=== PATIENT | male | born 1960 | race Caucasian/White ===

== ENCOUNTER 2018-06-03 20:47 | Inpatient (IN) | payer BC ==
[2018-06-03] VITALS (7 sets, daily range): BP systolic 77–140; BP diastolic 53–91
[~2018-06-03] VITALS: Ht 172.7 cm; Wt 146.1 kg
[~2018-06-03 20:47] MED LIST: AMIODARONE 150 MG/3 ML VIAL ONE; MAGNESIUM SULFATE PREMIX 1 GM/100 ML BAG. IV ONE
[2018-06-03] MEDS ORDERED: AMIODARONE 900 MG in IV DEXTROSE 5% 500 ML IV ONE ×2 (21:00→21:15)
[2018-06-03 21:09] LABS: CREATININE ISTAT 1.3 mg/dL (0.5-1.4); ION CA ISTAT 1.05 mmol/L (1.13-1.32); POTASSIUM ISTAT 3.1 mmol/L (3.5-5.0)
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
[2018-06-03] MEDS ORDERED: MAGNESIUM SULFATE 1GM 100 ML IV ONE (21:15)
[2018-06-03] MEDS ORDERED: AMIODARONE 150 MG/3 ML VIAL IVP ONE (21:15)
[2018-06-03 21:16] LABS: BASO # 0.1 x10^3/uL (0.0-0.2); BASO % 1 % (0-3); EOS # 0.2 x10^3/uL (0.0-0.7); EOS % 1 % (0-3); HEMATOCRIT 47.2 % (39.0-53.0); HEMOGLOBIN 15.5 g/dL (13.0-17.5); LYMPH # 8.7 x10^3/uL (1.0-4.8); LYMPH % 47 % (24-48); MEAN CORPUSCULAR HEMOGLOBIN 31 pg (25-35); MEAN CORPUSCULAR HGB CONC 33 g/dL (31-37); MEAN CORPUSCULAR VOLUME 93 fL (79-100); MONO % 6 % (0-9); NEUT # 8.4 x10^3uL (1.8-7.7); NEUT % 46 % (31-73); PLATELET COUNT 285 x10^3/uL (140-400); RED BLOOD COUNT 5.08 x10^6/uL (4.30-5.70); RED CELL DISTRIBUTION WIDTH 13.9 % (11.5-14.5); WHITE BLOOD COUNT 18.4 x10^3/uL (4.0-11.0)
[2018-06-03] MEDS ORDERED: PROPOFOL 50 ML IV ONE (21:16)
[2018-06-03] MEDS ORDERED: NOREPINEPHRIN 8MG/250ML PREMIX 250 ML IV ONE ×2 (21:17→21:30)
[2018-06-03 21:25] LABS: PROTHROMBIN TIME PATIENT 14.9 SEC (11.7-14.0)
[2018-06-03 21:28] LABS: CALCIUM 8.4 mg/dL (8.5-10.1); CREATININE 1.4 mg/dL (0.7-1.3); GFR 52.1; POTASSIUM 3.9 mmol/L (3.5-5.1)
[2018-06-03] MEDS ORDERED: CONTRAST GIVEN. MC PRN (21:30)
[2018-06-03] MEDS ORDERED: IOHEXOL 300 MG/ML 100ML VIAL. IV ONE (21:30)
[2018-06-03] MEDS ORDERED: PROPOFOL 20 ML IV ONE (21:30)
[2018-06-03 21:34] LABS: ALBUMIN 3.2 g/dL (3.4-5.0); ALBUMIN/GLOBULIN RATIO 0.9 (1.0-1.7); MAGNESIUM 2.3 mg/dL (1.8-2.4); TOTAL BILIRUBIN 0.5 mg/dL (0.2-1.0); TOTAL PROTEIN 6.9 g/dL (6.4-8.2)
[2018-06-03 21:37] LABS: % BANDS 3 % (0-9); % BASOS 1 % (0-3); % EOS 5 % (0-5); % LYMPHS 47 % (24-48); % MONOS 2 % (0-10); % MYELOS 1 % (0-0); % SEGS 41 % (35-66)
[2018-06-03 21:39] LABS: PLT ESTIMATE ADEQUATE (ADEQUATE)
[2018-06-03 21:47] LABS: BILIRUBIN,URINE NEGATIVE (NEG); CLARITY,URINE CLEAR; COLOR,URINE YELLOW; NITRITE,URINE NEGATIVE (NEG); PROTEIN,URINE NEGATIVE (NEG-TRACE); UROBILINOGEN,URINE 0.2 mg/dL (0.2 mg/dL)
[2018-06-03 21:57] LABS: AMPHETAMINE/METHAMPHETAMINE NEG (NEG); BARBITURATES NEG (NEG); BENZODIAZEPINES NEG (NEG); CANNABINOIDS NEG (NEG); COCAINE NEG (NEG); METHADONE NEG (NEG); OPIATES NEG (NEG); PHENCYCLIDINE NEG (NEG)
[2018-06-03 21:58] LABS: BACTERIA,URINE 0 /HPF (0-FEW); SQUAMOUS EPITHELIAL CELL,UR FEW /LPF; WBC,URINE RARE /HPF (0-4)
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
[2018-06-03] MEDS ORDERED: POTASSIUM CHLORIDE 20 MEQ/15 ML ORAL LIQUID. NG ONE (22:30)
[2018-06-03] MEDS ORDERED: DEXTROSE 50% 25 GM / 50ML DISP.SYRIN. IV PRN (22:30)
[2018-06-03] MEDS ORDERED: INSULIN REGULAR VIAL 150 UNIT in 0.9 % SODIUM CHLORIDE 150ML 150 ML IV PRN (22:30)
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
[2018-06-03] MEDS ORDERED: HALOPERIDOL LACTATE 5 MG/ML VIAL. IVP PRN (22:45)
[2018-06-03 23:02] LABS: BASE EXCESS ABG -9 mmol/L (-3-3); CORRECTED PCO2 ABG 45 mmHg; CORRECTED PH ABG 7.23; CORRECTED PO2 ABG 73 mmHg; HCO3 ABG 18 mmol/L (21-28); SAT O2 ABG 91 % (92-99)
[2018-06-03 23:03] LABS: FIO2 ABG 100; PCO2 ABG 44 mmHg (35-46); PO2 ABG 70 mmHg (75-108)
[2018-06-03] MEDS: HEPARIN for IV BOLUS 10,000 UNIT/10 ML VIAL. IV PRN (23:08)
[2018-06-03] MEDS: HEPARIN 25,000UTS/500ML PREMIX 500 ML IV PRN (23:11)
[2018-06-03] MEDS ORDERED: fentaNYL PF VIAL 100 MCG/2 ML VIAL IV ONE (23:15)
[2018-06-03] MEDS ORDERED: IV NORMAL SALINE 500ML BAG 500 ML IV ONE (23:15)
[2018-06-03] MEDS ORDERED: ETOMIDATE 20 MG/10 ML VIAL. IV ONE (23:15)
[2018-06-03] MEDS ORDERED: MIDAZOLAM HCL/PF 5 MG/5 ML VIAL. IV ONE (23:15)
[2018-06-03] MEDS ORDERED: ROCURONIUM 50 MG/5 ML VIAL. IV ONE (23:15)
[2018-06-03] MEDS ORDERED: SUCCINYLCHOLINE 200 MG/10 ML VIAL. IV ONE (23:15)
[2018-06-03] MEDS: MIDAZOLAM 100mg/100ml NS BAG 100 ML IV PRN (23:24)
[2018-06-03] MEDS: IV NORMAL SALINE 1000ML BAG 1,000 ML IV SCH (23:32)
[2018-06-04] VITALS (39 sets, daily range): BP systolic 102–174; BP diastolic 64–106
[2018-06-04] MEDS ORDERED: ACETAMINOPHEN 650 MG/20.3 ML SOLUTION. NG SCH
[2018-06-04] MEDS ORDERED: 0.9 % SODIUM CHLORIDE 10 ML DISP.SYRIN. IV PRN
[2018-06-04] MEDS ORDERED: MEPERIDINE PF 25 MG/ML VIAL. IV PRN
--- NOTE | 2018-06-04 00:08 | RAD ---
AP portable chest radiograph 06/03/2018 Clinical History: Post intubation. An AP erect portable digital radiograph of the chest was obtained. No previous studies are available for comparison. An ET tube has been placed. The tip of this tube overlies the trachea 2 cm below the level of clavicles. An NG tube has been placed. The tip of this tube is off this radiograph in the region of the body the stomach. The cardiac silhouette is mildly enlarged. Atherosclerotic calcification thoracic aorta is seen. Prominence of the pulmonary vasculature is seen involving both lungs. Left lower lobe atelectasis is seen. No pneumothorax or pleural effusion is noted. The osseous structures are grossly intact. IMPRESSION: ET and NG tube position as outlined above. Electronically signed by: Akil Castaneda MD (06/04/2018 12:04 AM) [facility]
[2018-06-04] MEDS ORDERED: IV NORMAL SALINE 500ML BAG 500 ML IV PRN (00:15)
[2018-06-04] MEDS ORDERED: NOREPINEPHRIN 8MG/250ML PREMIX 250 ML IV PRN (00:15)
[2018-06-04] MEDS: IV NORMAL SALINE 1000ML BAG 1,000 ML IV SCH ×12 (00:19→20:44)
[2018-06-04] MEDS ORDERED: PIP/TAZO PER PHARMACY MC PRN (00:30)
[2018-06-04] MEDS ORDERED: ONDANSETRON PF 4 MG/2 ML VIAL. IV PRN (00:45)
[2018-06-04] MEDS: PIPERACILLIN/TAZOBACTAM 3.375 GM in IV NORMAL SALINE 50ML 50 ML IV SCH ×5 (00:47→23:39)
[2018-06-04] MEDS ORDERED: VANCOMYCIN 2 GM in IV NORMAL SALINE 500ML BAG 500 ML IV ONE (01:00)
[2018-06-04] MEDS ORDERED: levETIRAcetam 500 MG in IV DEXTROSE 5% 100ML 100 ML IV ONE (01:00)
[2018-06-04] MEDS: VANCOMYCIN PER PHARMACY MC PRN ×2 (01:03→11:13)
[2018-06-04 01:32] LABS: CALCIUM 8.2 mg/dL (8.5-10.1); CREATININE 1.7 mg/dL (0.7-1.3); GFR 41.6; POTASSIUM 3.9 mmol/L (3.5-5.1)
[2018-06-04] MEDS: VECURONIUM BOLUS 10 MG VIAL. IV PRN ×7 (03:05→23:04)
[2018-06-04 06:31] LABS: HEMATOCRIT 45.7 % (39.0-53.0); HEMOGLOBIN 15.7 g/dL (13.0-17.5); RED BLOOD COUNT 5.06 x10^6/uL (4.30-5.70); RED CELL DISTRIBUTION WIDTH 13.3 % (11.5-14.5); WHITE BLOOD COUNT 14.7 x10^3/uL (4.0-11.0)
[2018-06-04 06:48] LABS: PROTHROMBIN TIME PATIENT 15.4 SEC (11.7-14.0)
[2018-06-04 06:49] LABS: UNFRACTIONATED HEPARIN TESTING 0.34 IU/mL (0.30-0.70)
[2018-06-04 07:04] LABS: ALBUMIN 2.9 g/dL (3.4-5.0); CALCIUM 7.1 mg/dL (8.5-10.1); CREATININE 1.4 mg/dL (0.7-1.3); GFR 52.1; POTASSIUM 4.2 mmol/L (3.5-5.1); TOTAL BILIRUBIN 0.9 mg/dL (0.2-1.0); TOTAL PROTEIN 5.8 g/dL (6.4-8.2)
[2018-06-04 07:05] LABS: DIRECT BILIRUBIN 0.2 mg/dL (0.0-0.2); MAGNESIUM 1.6 mg/dL (1.8-2.4); PHOSPHORUS 4.3 mg/dL (2.6-4.7)
--- NOTE | 2018-06-04 07:23 | EKG ---
[facility] [address] [place] [address] Test Date: 2018-06-03 Test Time: 20:56:21 Pat Name: CORONA SPENCE Department: Room: Gender: M [employer]: BERNADINE : 1960 Requested By: ОЛЕГ BOSTON Order Number: [id number] Reading MD: Measurements Intervals [place] Rate: 113 P: 29 NC: 158 QRS: 51 QRSD: 112 T: 138 QT: 346 QTc: 480 Interpretive Statements SINUS TACHYCARDIA COMPLEX(ES) WITH ABERRANT INTRAVENTRICULAR CONDUCTION R-S TRANSITION ZONE IN V LEADS DISPLACED TO THE LEFT ST & T ABNORMALITY, CONSIDER INFERIOR ISCHEMIA OR LEFT VENTRICULAR STRAIN T ABNORMALITY IN HIGH LATERAL LEADS NON SPECIFIC ST-T ABNORMALITY (ELEVATION) ABNORMAL ECG No previous ECG available for comparison
--- NOTE | 2018-06-04 07:52 | PDOC ---
Infectious Disease Note Vital Sign Vital Signs Vital Signs Date Time Temp Pulse Resp B/P (MAP) Pulse Ox O2 Delivery O2 Flow Rate FiO2 06/04/18 06:00 92.9 60 20 161/88 (112) 97 Ventilator 92.9 Labs Lab Laboratory Tests Test 06/03/18 20:57 06/03/18 21:02 06/03/18 21:05 06/03/18 21:31 Bedside Troponin I 0.08 ng/ml (<0.08) Bedside Hemoglobin 16.0 g/dL (14-18) Bedside Hematocrit 47 % (37-52) Bedside Sodium 141 mmol/L (135-145) Bedside Potassium 3.1 mmol/L (3.5-5.0) Bedside Chloride 104 mmol/L (98-110) Bedside Total CO2 20 mmol/L (23-32) Anion Gap 22 mmol/L (6-14) 19 (6-14) Bedside Blood Urea Nitrogen 15 mg/dL (8-26) Bedside Creatinine 1.3 mg/dL (0.5-1.4) Glucose Level 337 mg/dL (70-99) 312 mg/dL (70-99) Bedside Ionized Calcium (Memo) 1.05 mmol/L (1.13-1.32) White Blood Count 18.4 x10^3/uL (4.0-11.0) Red Blood Count 5.08 x10^6/uL (4.30-5.70) Hemoglobin 15.5 g/dL (13.0-17.5) Hematocrit 47.2 % (39.0-53.0) Mean Corpuscular Volume 93 fL (79-100) Mean Corpuscular Hemoglobin 31 pg (25-35) Mean Corpuscular Hemoglobin Concent 33 g/dL (31-37) Red Cell Distribution Width 13.9 % (11.5-14.5) Platelet Count 285 x10^3/uL (140-400) Neutrophils (%) (Auto) 46 % (31-73) Lymphocytes (%) (Auto) 47 % (24-48) Monocytes (%) (Auto) 6 % (0-9) Eosinophils (%) (Auto) 1 % (0-3) Basophils (%) (Auto) 1 % (0-3) Neutrophils # (Auto) 8.4 x10^3uL (1.8-7.7) Lymphocytes # (Auto) 8.7 x10^3/uL (1.0-4.8) Monocytes # (Auto) 1.0 x10^3/uL (0.0-1.1) Eosinophils # (Auto) 0.2 x10^3/uL (0.0-0.7) Basophils # (Auto) 0.1 x10^3/uL (0.0-0.2) Segmented Neutrophils % 41 % (35-66) Band Neutrophils % 3 % (0-9) Lymphocytes % 47 % (24-48) Monocytes % 2 % (0-10) Eosinophils % 5 % (0-5) Basophils % 1 % (0-3) Myelocytes % 1 % (0-0) Platelet Estimate Adequate (ADEQUATE) Prothrombin Time 14.9 SEC (11.7-14.0) Prothromb Time International Ratio 1.2 (0.8-1.1) Sodium Level 141 mmol/L (136-145) Potassium Level 3.9 mmol/L (3.5-5.1) Chloride Level 102 mmol/L (98-107) Carbon Dioxide Level 20 mmol/L (21-32) Blood Urea Nitrogen 15 mg/dL (8-26) Creatinine 1.4 mg/dL (0.7-1.3) Estimated GFR (Cockcroft-Gault) 52.1 BUN/Creatinine Ratio 11 (6-20) Lactic Acid Level 10.1 mmol/L (0.4-2.0) Calcium Level 8.4 mg/dL (8.5-10.1) Magnesium Level 2.3 mg/dL (1.8-2.4) Total Bilirubin 0.5 mg/dL (0.2-1.0) Aspartate Amino Transf (AST/SGOT) 180 U/L (15-37) Alanine Aminotransferase (ALT/SGPT) 186 U/L (16-63) Alkaline Phosphatase 87 U/L (46-116) Troponin I Quantitative 0.091 ng/mL (0.000-0.055) [id number]-[id number]-Type Natriuretic Peptide 1059 pg/mL (0-124) Total Protein 6.9 g/dL (6.4-8.2) Albumin 3.2 g/dL (3.4-5.0) Albumin/Globulin Ratio 0.9 (1.0-1.7) Ethyl Alcohol Level 55 mg/dL (0-10) Urine Collection Type U cath Urine Color Yellow Urine Clarity Clear Urine pH 6.0 Urine Specific [place] 1.020 Urine Protein Negative mg/dL (NEG-TRACE) Urine Glucose (UA) Negative mg/dL (NEG) Urine Ketones (Stick) Negative mg/dL (NEG) Urine Blood Negative (NEG) Urine Nitrite Negative (NEG) Urine Bilirubin Negative (NEG) Urine Urobilinogen Dipstick 0.2 mg/dL (0.2 mg/dL) Urine Leukocyte Esterase Negative (NEG) Urine RBC 1-2 /HPF (0-2) Urine WBC Rare /HPF (0-4) Urine Squamous Epithelial Cells Few /LPF Urine Bacteria 0 /HPF (0-FEW) Urine Mucus Marked /LPF Urine Opiates Screen Neg (NEG) Urine Methadone Screen Neg (NEG) Urine Barbiturates Neg (NEG) Urine Phencyclidine Screen Neg (NEG) Urine Amphetamine/Methamphetamine Neg (NEG) Urine Benzodiazepines Screen Neg (NEG) Urine Cocaine Screen Neg (NEG) Urine Cannabinoids Screen Neg (NEG) Urine Ethyl Alcohol Neg (NEG) Test 06/03/18 22:47 06/03/18 23:42 06/04/18 00:37 06/04/18 00:50 O2 Saturation 91 % (92-99) Arterial Blood pH 7.24 (7.35-7.45) Arterial Blood pH (Temp corrected) 7.23 Arterial Blood pCO2 at Patient Temp 44 mmHg (35-46) Arterial Blood pCO2 (Temp correct) 45 mmHg Arterial Blood pO2 at Patient Temp 70 mmHg (75-108) Arterial Blood pO2 (Temp corrected) 73 mmHg Arterial Blood HCO3 18 mmol/L (21-28) Arterial Blood Base Excess -9 mmol/L (-3-3) FiO2 100 Glucose (Fingerstick) 183 mg/dL (70-99) 181 mg/dL (70-99) Sodium Level 142 mmol/L (136-145) Potassium Level 3.9 mmol/L (3.5-5.1) Chloride Level 106 mmol/L (98-107) Carbon Dioxide Level 23 mmol/L (21-32) Anion Gap 13 (6-14) Blood Urea Nitrogen 18 mg/dL (8-26) Creatinine 1.7 mg/dL (0.7-1.3) Estimated GFR (Cockcroft-Gault) 41.6 Glucose Level 192 mg/dL (70-99) Lactic Acid Level 3.4 mmol/L (0.4-2.0) Calcium Level 8.2 mg/dL (8.5-10.1) Troponin I Quantitative 1.897 ng/mL (0.000-0.055) Procalcitonin 0.51 ng/mL (0.00-0.10) Test 06/04/18 04:10 06/04/18 06:20 Glucose (Fingerstick) 159 mg/dL (70-99) White Blood Count 14.7 x10^3/uL (4.0-11.0) Red Blood Count 5.06 x10^6/uL (4.30-5.70) Hemoglobin 15.7 g/dL (13.0-17.5) Hematocrit 45.7 % (39.0-53.0) Mean Corpuscular Volume 90 fL (79-100) Mean Corpuscular Hemoglobin 31 pg (25-35) Mean Corpuscular Hemoglobin Concent 34 g/dL (31-37) Red Cell Distribution Width 13.3 % (11.5-14.5) Platelet Count 210 x10^3/uL (140-400) Prothrombin Time 15.4 SEC (11.7-14.0) Prothromb Time International Ratio 1.3 (0.8-1.1) Heparin Anti-Xa Act, Unfractionated 0.34 IU/mL (0.30-0.70) Sodium Level 140 mmol/L (136-145) Potassium Level 4.2 mmol/L (3.5-5.1) Chloride Level 108 mmol/L (98-107) Carbon Dioxide Level 19 mmol/L (21-32) Anion Gap 13 (6-14) Blood Urea Nitrogen 20 mg/dL (8-26) Creatinine 1.4 mg/dL (0.7-1.3) Estimated GFR (Cockcroft-Gault) 52.1 BUN/Creatinine Ratio 14 (6-20) Glucose Level 232 mg/dL (70-99) Calcium Level 7.1 mg/dL (8.5-10.1) Phosphorus Level 4.3 mg/dL (2.6-4.7) Magnesium Level 1.6 mg/dL (1.8-2.4) Total Bilirubin 0.9 mg/dL (0.2-1.0) Direct Bilirubin 0.2 mg/dL (0.0-0.2) Aspartate Amino Transf (AST/SGOT) 250 U/L (15-37) Alanine Aminotransferase (ALT/SGPT) 190 U/L (16-63) Alkaline Phosphatase 65 U/L (46-116) Troponin I Quantitative 2.472 ng/mL (0.000-0.055) Total Protein 5.8 g/dL (6.4-8.2) Albumin 2.9 g/dL (3.4-5.0) Albumin/Globulin Ratio 1.0 (1.0-1.7) Amylase Level 39 U/L (25-115) Lipase 102 U/L (73-393) Objective Assessment s/p Arrest and hypothermia protocol Leukocytosis Distended GB on CT scan DWAIN - better today but post contrast now ETOH abuse Anterior Rib fractures 4 through 7 Yeast skin infection. ? Systemic yeast on some med per primary Morbid obesity Plan Plan of Care Vanc and Zosyn started this am Add Micafungin Central line U/S abd with GB distension on CT F/u labs/cults Await Pulm and cardiac evals D/w family 35 mins CC time D/w nursing Thank you # [phone] DOLORES BAILEY MD Jun 04, 2018 07:52
[2018-06-04] MEDS ORDERED: LIDOCAINE WITH 8.4% SOD BICARB 3 ML DISP.SYRIN. ONE (08:05)
[2018-06-04 08:34] LABS: BASE EXCESS ABG -12 mmol/L (-3-3); HCO3 ABG 14 mmol/L (21-28); PCO2 ABG 34 mmHg (35-46); PO2 ABG 72 mmHg (75-108); SAT O2 ABG 92 % (92-99)
[2018-06-04 08:56] LABS: FIO2 ABG 100
[2018-06-04] MEDS ORDERED: MULTIVIT INFUSN,ADULT 4,VIT K 10 ML, THIAMINE 100 MG, FOLIC ACID 1 MG in IV NORMAL SALI... IV SCH (09:00)
[2018-06-04] MEDS ORDERED: SODIUM BICARB ADULT 8.4% 50 MEQ/50 ML DISP.SYRIN. IV ONE ×2 (09:15)
[2018-06-04] MEDS ORDERED: LIDOCAINE WITH 8.4% SOD BICARB 3 ML DISP.SYRIN. INJ ONE (09:15)
--- NOTE | 2018-06-04 09:46 | RAD ---
PORTABLE supine CHEST 1V Clinical Indication: Central line placement and RF Comparison: AP chest, prior day. Findings: Endotracheal tube tip is 3.9 cm spared to the leanna. Enteric tube extends below left hemidiaphragm, outside of [id number]. There is new right IJ central line, tip is at the superior atrial caval junction. Stable cardiomegaly. Atherosclerotic aortic arch. There is new opacity at the right lung apex. No obvious pneumothorax, limited sensitivity with supine positioning. Low lung volumes. Pulmonary vascular prominence appears improved. There is left basilar airspace disease. IMPRESSION: 1. Right IJ central line tip at superior atrial caval junction. 2. There is new opacity in the right lung apex. 3. Left basilar airspace disease. Electronically signed by: Ramiro Bruner MD (06/04/2018 9:42 AM) [id number]
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
[2018-06-04] MEDS: MICAFUNGIN 100 MG in IV DEXTROSE 5% 100ML 100 ML IV SCH (10:32)
[2018-06-04] MEDS: levETIRAcetam 500 MG in IV DEXTROSE 5% 100ML 100 ML IV SCH ×2 (10:32→20:43)
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
[2018-06-04] MEDS ORDERED: MAGNESIUM SULFATE 4GM 100 ML IV ONE (11:00)
[2018-06-04] MEDS: ANTI-COAG MONITOR BY PHARMACY. MC PRN (11:07)
--- NOTE | 2018-06-04 11:16 | RAD ---
Abdominal ultrasound without comparison for gallbladder distention, status post cardiac arrest. TECHNIQUE AND FINDINGS: Real-time grayscale and color cyst Doppler evaluation of the abdominal organs is performed. The liver is enlarged measuring 20.5 cm, and increased in echogenicity diffusely which may signify mild fatty infiltration. No focal hepatic parenchymal abnormality is are identified. No intra or extrahepatic biliary ductal dilatation. The common bile duct is normal measuring 4 mm in diameter. The gallbladder is fluid distended and free of any stones or sludge. The technologist measured gallbladder wall thickness of 5 mm which is likely spurious, with actual wall thickness 3 to 4 mm. No pericholecystic fluid. The aorta is nonaneurysmal and the IVC is patent. Spleen is mildly enlarged measuring 13.6 cm, and is incompletely visualized, with no gross abnormalities. The pancreas is not well seen. The right kidney measures 12.9 x 6.9 x 6.9 cm in the left measures 12.3 x 6.5 x 6.4 cm. No focal parenchymal abdomen relative either kidney. No hydronephrosis. No free fluid collections within the abdomen. IMPRESSION: 1. No sonographic evidence of acute cholecystitis. There is borderline gallbladder wall thickening, which in isolation is nonspecific. If there remains clinical concern for acute cholecystitis or gallbladder dysfunction, consider further evaluation with a HIDA scan. Electronically signed by: Tino Luna MD (06/04/2018 11:12 AM) [id number]
[2018-06-04 11:21] LABS: CALCIUM 7.1 mg/dL (8.5-10.1); CREATININE 1.6 mg/dL (0.7-1.3); GFR 44.6; MAGNESIUM 1.6 mg/dL (1.8-2.4); PHOSPHORUS 3.6 mg/dL (2.6-4.7); POTASSIUM 3.7 mmol/L (3.5-5.1)
[2018-06-04 11:31] LABS: HEMOGLOBIN A1C 6.8 % (4.8-5.6)
[2018-06-04] MEDS ORDERED: CLON0.5T11 PO (11:33)
[2018-06-04] MEDS ORDERED: SERT100T PO (11:33)
[2018-06-04] MEDS ORDERED: TRIA1CAP PO (11:33)
[2018-06-04] MEDS ORDERED: FLUC100T4 PO (11:33)
[2018-06-04] MEDS ORDERED: CARV6.252 PO (11:33)
[2018-06-04] MEDS ORDERED: ACAM333T7 PO (11:33)
--- NOTE | 2018-06-04 12:37 | RAD ---
Portable chest, 06/04/2018, 10:04 AM: HISTORY: Check line placement Comparison is made to a study from earlier the same day. The right internal jugular catheter remains in place extending to the level the atrial caval junction. The ET tube is in satisfactory position. The NG tube extends at least to the GE junction level although its tip is not visible on this exam. The heart is enlarged. There are prominent epicardial fat pads. There is an unchanged density in the right upper chest suggesting right upper lobe atelectasis. There are unchanged streaky bibasilar and left suprahilar opacities compatible with atelectasis/infiltrate. There is no evidence of pneumothorax. IMPRESSION: 1. Stable tube positions. 2. Unchanged right upper chest opacity suggesting right upper lobe atelectasis. Loculated pleural or extrapulmonary fluid such as a hematoma is also a possibility. 3. Ongoing mild streaky atelectasis/infiltrate in the lung bases and left suprahilar region. Electronically signed by: Rex Liz MD (06/04/2018 12:34 PM) [facility]
--- NOTE | 2018-06-04 12:53 | CARD ---
MR#: [id number] Date of Study: 06/04/2018 Ordering Physician: CISCO MYLES, Referring Physician: FRANK ROQUE Tech: Vivian Reinoso RDCS APPROVED REPORT EXAM: Two-dimensional and M-mode echocardiogram with Doppler and color Doppler. Other Information Quality : Good INDICATION V-Tach, S/P Cardiac Arrest 2D DIMENSIONS RVDd3.1 (2.9-3.5cm)Left Atrium(2D)4.2 (1.6-4.0cm) IVSd1.2 (0.7-1.1cm)Aortic Root(2D)3.4 (2.0-3.7cm) LVDd6.9 (3.9-5.9cm)LVOT Diameter2.6 (1.8-2.4cm) PWd1.2 (0.7-1.1cm)LVDs5.7 (2.5-4.0cm) FS (%) 17.4 %SV88.3 ml LVEF(%)35.3 (>50%) Aortic Valve AoV Peak Bandar.103.0cm/sAoV VTI20.4cm AO Peak GR.4.2mmHgLVOT VTI 13.19cm AO Mean GR.3mmHgAVA (VTI)3.45cm2 Mitral Valve MV E Ooerriuy24.8cm/sMV DECEL [id number] MV A Gkmzfzlx99.0cm/sE/A Ratio0.9 TDI Lateral E' P. V5.34cm/sMedial E' P. V5.47cm/s E/Lateral E'14.6E/Medial E'14.2 Tricuspid Valve TR P. Ovitwwne294mb/sRAP VWLKWOHB1vgNx TR Peak Gr.09oyRcTHCF73omIc Pulmonary Vein S1 Lhtywqop66.2cm/sS2 Ycplpuhk76.34cm/s D2 Jdjekoew56.3cm/s LEFT VENTRICLE The Left Ventricle is mildly dilated. There is mild concentric left ventricular hypertrophy. Left saray tricle systolic function is moderately impaired. The Ejection Fraction is 30-35%. There is global hyp okinesis of the left ventricle. Transmitral Doppler flow pattern is Grade I-abnormal relaxation patte rn. RIGHT VENTRICLE The right ventricle is normal size. The right ventricular systolic function is normal. ATRIA The left atrium is mildly dilated. The right atrium size is normal. The interatrial septum is intact with no evidence for an atrial septal defect or patent foramen ovale as noted on 2-D or Doppler imagi ng. AORTIC VALVE The aortic valve is calcified but opens well. Doppler and Color Flow revealed trace aortic regurgitat ion. There is no significant aortic valvular stenosis. MITRAL VALVE The mitral valve is calcified but opens well. There is no evidence of mitral valve prolapse. There is no mitral valve stenosis. Doppler and Color-flow revealed mild mitral regurgitation. TRICUSPID VALVE The tricuspid valve is normal in structure and function. Doppler and Color Flow revealed trace tricus pid regurgitation. There is mild-moderate pulmonary hypertension. The PA pressure was estimated at 39 mmHg. There is no tricuspid valve stenosis. PULMONIC VALVE The pulmonic valve is not well visualized. Doppler and Color Flow revealed trace to mild pulmonic lucille vular regurgitation. There is no pulmonic valvular stenosis. GREAT VESSELS The aortic root is normal in size. The ascending aorta is mildly dilated at 3.7 cm. The IVC is dilate d and collapses <50% with inspiration. PERICARDIAL EFFUSION There is no evidence of significant pericardial effusion. Critical Notification Critical Value: No <Conclusion> Left ventricle systolic function is moderately impaired. The Ejection Fraction is 30-35%. Mild mitral regurgitation. Trace tricuspid regurgitation. The PA pressure was estimated at 39 mmHg. There is no evidence of significant pericardial effusion. Signed by : Alfa Dean, Electronically Approved : 06/04/2018 12:52:14
[2018-06-04] MEDS ORDERED: DEXTROSE 50% 25 GM / 50ML DISP.SYRIN. IV PRN (13:15)
--- NOTE | 2018-06-04 13:22 | PDOC ---
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 at 23:15; Stop 06/04/18 at 00:14; Status DC Rocuronium Coleman (Zemuron) 50 mg 1X ONCE IV Last administered on 06/03/18at 21 :29; Start 06/03/18 at 23:15; Stop 06/03/18 at 23:16; Status DC Sodium Chloride 1,000 ml @ 1,000 mls/hr Q1H IV Last administered on 06/04/18at 05:55; Start 06/04/18 at 00:00; Stop 06/04/18 at 06:25; Status DC Vecuronium Coleman (Norcuron Bolus) 10 mg PRN Q30MIN PRN IV SHIVERING Last administered on 06/04/18at 09:59; Start 06/04/18 at 00:00 Meperidine HCl (Demerol) 12.5 mg PRN Q30MIN PRN IV SHIVERING Last administered on 06/04/18at 02:04; Start 06/04/18 at 00:00 Sodium Chloride (Normal Saline Flush) 3 ml QSHIFT PRN IV AFTER MEDS AND BLOOD DRAWS; Start 06/04/18 at 00:00 Acetaminophen (Tylenol) 650 mg Q6HRS NG ; Start 06/04/18 at 00:00; Stop 06/04/18 at 00:52; Status DC Acetaminophen (Tylenol Supp) 650 mg PRN Q6HRS PRN CO MILD PAIN / TEMP; Start at 00:00; Status Cancel Acetaminophen (Tylenol) 650 mg PRN Q6HRS PRN NG MILD PAIN / TEMP; Start at 00:00; Status Cancel Info (Icu Electrolyte Protocol) 1 ea DAILY PRN MC PER PROTOCOL; Start 06/06/18 at 00:00 Vancomycin HCl (Vanco Per Pharmacy) 1 each PRN DAILY PRN MC SEE COMMENTS Last administered on 06/04/18at 11:13; Start 06/04/18 at 00:30 Piperacillin Sod/ Tazobactam Sod (Zosyn Per Pharmacy) 1 each PRN DAILY PRN MC SEE COMMENTS; Start 06/04/18 at 00:30 Sodium Chloride 1,000 ml @ 2,040 mls/hr Q30M IV Last administered on 06/04/18at 00:21; Start 06/04/18 at 00:15; Stop 06/04/18 at 01:15; Status DC Sodium Chloride 500 ml @ 1,000 mls/hr PRN Q30MIN PRN IV SEE COMMENTS; Start at 00:15 Norepinephrine Bitartrate 250 ml @ 0 mls/hr CONT PRN IV SEE I/O RECORD Last administered on 06/04/18at 01:31; Start 06/04/18 at 00:15 Piperacillin Sod/ Tazobactam Sod 3.375 gm/Sodium Chloride 50 ml @ 100 mls/hr Q6HRS IV Last administered on 06/04/18at 12:54; Start 06/04/18 at 00:30 Ondansetron HCl (Zofran) 4 mg PRN Q6HRS PRN IV NAUSEA/VOMITING; Start 06/04/18 at 00:45 Vancomycin HCl 2 gm/Sodium Chloride 500 ml @ 250 mls/hr 1X ONCE IV Last administered on 06/04/18at 00:47; Start 06/04/18 at 01:00; Stop 06/04/18 at 02:59; Status DC Levetiracetam 500 mg/Dextrose 105 ml @ 420 mls/hr Q12HR IV Last administered on 06/04/18at 10:32; Start 06/04/18 at 09:00 Levetiracetam 500 mg/Dextrose 105 ml @ 420 mls/hr 1X ONCE IV Last administered on 06/04/18at 01:01; Start 06/04/18 at 01:00; Stop 06/04/18 at 01:14; Status DC Vancomycin HCl 2 gm/Sodium Chloride 500 ml @ 250 mls/hr Q12H IV ; Start at 13:00 Vancomycin HCl (Vancomycin Trough Level) 1 each 1X ONCE MC ; Start 06/05/18 at 12:30; Stop 06/05/18 at 12:31 Micafungin Sodium 100 mg/Dextrose 100 ml @ 100 mls/hr Q24H IV Last administered on 06/04/18at 10:32; Start 06/04/18 at 08:00 Lidocaine/Sodium Bicarbonate (Buffered Lidocaine 1%) 3 ml STK-MED ONCE .ROUTE ; Start 06/04/18 at 08:05; Stop 06/04/18 at 08:06; Status DC Sodium Bicarbonate (Sodium Bicarb Adult 8.4% Syr) 50 meq 1X ONCE IV Last administered on 06/04/18at 09:34; Start 06/04/18 at 09:15; Stop 06/04/18 at 09:16; Status DC Sodium Bicarbonate (Sodium Bicarb Adult 8.4% Syr) 50 meq 1X ONCE IV Last administered on 06/04/18at 09:34; Start 06/04/18 at 09:15; Stop 06/04/18 at 09:16; Status DC Lidocaine/Sodium Bicarbonate (Buffered Lidocaine 1%) 3 ml 1X ONCE INJ Last administered on 06/04/18at 09:15; Start 06/04/18 at 09:15; Stop 06/04/18 at 09:16; Status DC Magnesium Sulfate/ Dextrose 100 ml @ 25 mls/hr 1X ONCE IV Last administered on 06/04/18at 10:41; Start 06/04/18 at 11:00; Stop 06/04/18 at 14:59 Info (Anti-Coagulation Monitoring By Pharmacy) 1 each PRN DAILY PRN MC SEE COMMENTS Last administered on 06/04/18at 11:07; Start 06/04/18 at 11:15 Active Scripts Active Reported Carvedilol 6.25 Mg Tablet 1 Tab PO BID 90 Days Zoloft (Sertraline Hcl) 100 Mg Tablet 1.5 Tab PO DAILY 90 Days Dyazide 37.5-25 Capsule (Triamterene/Hydrochlorothiazid) 1 Each Capsule 1 Cap PO DAILY Fluconazole 100 Mg Tablet 1 Tab PO DAILY Clonazepam 0.5 Mg Tablet 1 Tab PO PRN TID PRN Acamprosate Calcium 333 Mg Tablet.dr 2 Tab PO TID Vitals/I & O Vital Sign - Last 24 Hours 06/03/18 06/03/18 06/03/18 06/03/18 20:47 20:48 20:57 21:05 Pulse 118 115 118 118 B/P (MAP) 228/144 (172) 228/144 97/53 (68) Pulse Ox 97 O2 Delivery Bag Valve Mask Bag Valve Mask Bag Valve Mask 06/03/18 06/03/18 06/03/18 06/03/18 21:07 21:13 21:16 21:18 Pulse 90 90 88 Resp 20 20 20 B/P (MAP) 93/52 (66) 93/51 (65) 89/55 (66) Pulse Ox 91 89 90 91 O2 Delivery Ventilator Ventilator Ventilator Ventilator 06/03/18 06/03/18 06/03/18 06/03/18 21:23 21:28 21:33 21:43 Pulse 90 86 88 88 Resp 20 20 20 20 B/P (MAP) 94/59 (71) 99/57 (71) 103/57 (72) 101/59 (73) Pulse Ox 92 90 91 90 O2 Delivery Ventilator Ventilator Ventilator Ventilator 06/03/18 06/03/18 06/03/18 06/03/18 21:48 21:53 21:58 22:03 Pulse 90 90 88 84 Resp 20 20 20 20 B/P (MAP) 103/65 (78) 101/59 (73) 101/55 (70) 95/46 (62) Pulse Ox 87 85 88 84 O2 Delivery Ventilator Ventilator Ventilator Ventilator 06/03/18 06/03/18 06/03/18 06/03/18 22:08 22:13 22:15 22:30 Temp 99.1 99.1 Pulse 80 80 78 80 Resp 20 20 20 22 B/P (MAP) 90/44 (59) 90/51 (64) 115/63 (80) 77/53 (61) Pulse Ox 86 86 88 89 O2 Delivery Ventilator Ventilator Ventilator Ventilator 06/03/18 06/03/18 06/03/18 06/03/18 22:45 23:00 23:15 23:20 Temp 98.8 98.7 98.8 98.7 Pulse 76 76 72 Resp 23 20 20 B/P (MAP) 77/54 (62) 90/67 (75) 94/72 (79) Pulse Ox 88 88 90 92 O2 Delivery Ventilator Ventilator Ventilator Ventilator 06/03/18 06/03/18 06/03/18 06/03/18 23:30 23:45 23:56 23:59 Temp 98.4 98.2 98.4 98.2 Pulse 70 70 Resp 21 22 22 B/P (MAP) 91/66 (74) 140/91 (107) Pulse Ox 93 96 97 O2 Delivery Ventilator Ventilator Mechanical Ventilator 06/04/18 06/04/18 06/04/18 06/04/18 00:00 00:15 00:30 00:45 Temp 97.9 97.5 96.8 96.7 97.9 97.5 96.8 96.7 Pulse 72 70 82 70 Resp 25 21 20 20 B/P (MAP) 146/88 (107) 118/69 (85) 124/76 (92) 125/87 (100) Pulse Ox 94 96 96 96 O2 Delivery Ventilator Ventilator Ventilator Ventilator 06/04/18 06/04/18 06/04/18 06/04/18 01:00 01:15 01:30 01:45 Temp 96.6 96.5 96.4 96.5 96.6 96.5 96.4 96.5 Pulse 70 66 66 66 Resp 24 25 24 25 B/P (MAP) 134/73 (93) 119/71 (87) 121/82 (95) 143/83 (103) Pulse Ox 95 96 99 98 O2 Delivery Ventilator Ventilator Ventilator Ventilator 06/04/18 06/04/18 06/04/18 06/04/18 02:00 02:04 02:15 02:30 Temp 96.5 96.5 96.4 96.5 96.5 96.4 Pulse 71 74 72 Resp 20 26 23 23 B/P (MAP) 121/82 (95) Pulse Ox 96 95 98 98 O2 Delivery Ventilator Ventilator Ventilator Ventilator 06/04/18 06/04/18 06/04/18 06/04/18 02:34 02:45 02:56 03:00 Temp 96.4 96.5 96.4 96.5 Pulse 74 73 Resp 20 24 20 B/P (MAP) 134/91 (105) Pulse Ox 96 96 96 97 O2 Delivery Ventilator Ventilator Ventilator Ventilator 06/04/18 06/04/18 06/04/18 06/04/18 03:00 03:15 03:30 03:45 Temp 96.3 96.3 95.9 96.3 96.3 95.9 Pulse 68 68 64 Resp 19 19 20 B/P (MAP) 113/72 (86) Pulse Ox 97 96 96 O2 Delivery Ventilator Ventilator Ventilator Ventilator 06/04/18 06/04/18 06/04/18 06/04/18 04:00 04:00 04:15 04:30 Temp 95.6 95.6 95.2 95.6 95.6 95.2 Pulse 61 60 60 Resp 20 B/P (MAP) 106/64 (78) 108/65 (79) Pulse Ox 99 98 98 O2 Delivery Mechanical Ventilator Ventilator Ventilator Ventilator 06/04/18 06/04/18 06/04/18 06/04/18 04:45 05:00 05:15 05:20 Temp 95.2 95.0 95.2 95.0 Pulse 59 60 59 Resp 25 20 24 B/P (MAP) 126/85 (99) 140/96 (111) Pulse Ox 95 100 100 O2 Delivery Ventilator Ventilator Ventilator 06/04/18 06/04/18 06/04/18 06/04/18 05:30 05:45 06:00 07:00 Temp 94.6 93.8 92.9 94.6 93.8 92.9 Pulse 58 60 60 54 Resp 24 20 20 20 B/P (MAP) 145/96 (112) 147/106 (120) 161/88 (112) 174/104 (127) Pulse Ox 92 92 97 94 O2 Delivery Ventilator Ventilator Ventilator Ventilator 06/04/18 06/04/18 06/04/18 06/04/18 07:30 08:00 08:00 08:20 Temp 88.8 88.8 Pulse 50 46 Resp 20 20 B/P (MAP) 162/97 (118) 137/85 (102) Pulse Ox 96 94 94 O2 Delivery Ventilator Mechanical Ventilator Ventilator Ventilator 06/04/18 06/04/18 06/04/18 06/04/18 08:30 09:00 09:30 09:56 Pulse 46 46 50 Resp 20 24 26 B/P (MAP) 128/76 (93) 120/97 (105) 116/85 (95) Pulse Ox 94 94 93 92 O2 Delivery Ventilator Ventilator Ventilator Ventilator 06/04/18 06/04/18 06/04/18 06/04/18 10:00 10:30 11:00 12:00 Temp 92.0 92.6 92.0 92.6 Pulse 56 56 58 56 Resp 30 20 20 20 B/P (MAP) 122/83 (96) 132/83 (99) 134/95 (108) 113/76 (88) Pulse Ox 92 95 97 96 O2 Delivery Ventilator Ventilator Ventilator Ventilator 06/04/18 06/04/18 12:00 12:14 Pulse Ox 96 O2 Delivery Mechanical Ventilator Ventilator Intake and Output 06/03/18 06/03/18 06/04/18 15:00 23:00 07:00 Intake Total 600 ml 8554 ml Output Total 1080 ml Balance 600 ml 7474 ml BRITANY REYES MD Jun 04, 2018 13:21
--- NOTE | 2018-06-04 14:19 | PDOC2 ---
NEUROLOGY CONSULT Date of Admission Date of Admission DATE: 06/04/18 TIME: 14:12 Reason for Consult Reason for Consult: Anoxic encephalopathy, seizures Referring Physician Referring Physician: Dr. Power Source Source: Caregiver (son), Chart review History of Present Illness History of Present Illness The patient is a 57-year-old right-handed male who was [place] [address] when he started to drag along the guard rail and came to a stop. A passerby found the patient unresponsive. Paramedics came and found the patient in pulseless ventricular tachycardia. Total downtime was at least 20 minutes. The patient is now sedated, intubated, on hypothermia protocol. I did speak to the nurse very early this morning and did start the patient on levetiracetam because of brief episodes of seizure-like activity. Past Medical History Cardiovascular: HTN Pulmonary: Other (sleep apnea) Psych: Anxiety, Depression Past Surgical History Past Surgical History: Hernia Repair Family History Family History: CAD Social History Social History , occasional tobacco, drinks quite a bit of alcohol, works here in [place] and lives in [place] Current Medications Current Medications Current Medications Amiodarone HCl 900 mg/Dextrose 518 ml @ 33 mls/hr 1X ONCE IV Last administered on 06/03/18at 21:14; Start 06/03/18 at 21:00; Stop 06/04/18 at 12:41; Status DC Amiodarone HCl (Cordarone) 300 mg 1X ONCE IVP Last administered on 06/03/18at 20 :57; Start 06/03/18 at 21:15; Stop 06/03/18 at 21:16; Status DC Amiodarone HCl 900 mg/Dextrose 518 ml @ 0 mls/hr 1X ONCE IV ; Start 06/03/18 at 21:15; Stop 06/03/18 at 21:16; Status Cancel Magnesium Sulfate/ Dextrose 100 ml @ 100 mls/hr 1X ONCE IV Last administered on 06/03/18at 21:03; Start 06/03/18 at 21:15; Stop 06/03/18 at 22:14; Status DC Propofol 50 ml @ As Directed STK-MED ONCE IV ; Start 06/03/18 at 21:16; Stop 06/03 at 21:17; Status DC Iohexol (Omnipaque 300 Mg/ml) 90 ml 1X ONCE IV Last administered on 06/03/18at 21:30; Start 06/03/18 at 21:30; Stop 06/03/18 at 21:31; Status DC Info (CONTRAST GIVEN -- Rx MONITORING) 1 each PRN DAILY PRN MC SEE COMMENTS; Start 06/03/18 at 21:30; Stop 06/05/18 at 21:29 Norepinephrine Bitartrate 250 ml @ As Directed STK-MED ONCE IV ; Start 06/03/18 at 21:17; Stop 06/03/18 at 21:18; Status DC Norepinephrine Bitartrate 250 ml @ 0 mls/hr 1X ONCE IV Last administered on 06/03/18at 21:22; Start 06/03/18 at 21:30; Stop 06/03/18 at 21:31; Status DC Propofol 20 ml @ 0 mls/hr 1X ONCE IV Last administered on 06/03/18at 21:19; Start 06/03/18 at 21:30; Stop 06/03/18 at 21:31; Status DC Sodium Chloride 1,000 ml @ 100 mls/hr Q10H IV Last administered on 06/04/18at 10 :42; Start 06/03/18 at 21:29; Stop 06/04/18 at 21:28 Potassium Chloride (KCl Oral Soln) 20 meq 1X ONCE NG Last administered on at 00:24; Start 06/03/18 at 22:30; Stop 06/03/18 at 22:31; Status DC Insulin Human Regular 150 unit/ Sodium Chloride 151.5 ml @ 0 mls/hr CONT PRN IV SEE I/O RECORD; Start 06/03/18 at 22:30; Stop 06/04/18 at 13:23; Status DC Dextrose (Dextrose 50%-Water Syringe) 12.5 gm PRN Q15MIN PRN IV LOW BLOOD SUGAR ; Start 06/03/18 at 22:30; Stop 06/04/18 at 13:22; Status DC Multivitamins 10 ml/Thiamine HCl 100 mg/Folic Acid 1 mg/Sodium Chloride 1,011.2 ml @ 100 mls/ hr DAILY IV ; Start 06/04/18 at 09:00; Stop 06/04/18 at 19:07; Status Cancel Lorazepam (Ativan) 2 mg PRN Q1HR PRN IV For CIWA 8-14; Start 06/03/18 at 22:45 Lorazepam (Ativan) 4 mg PRN Q1HR PRN IV For CIWA 15 or greater; Start 06/03/18 at 22:45 Haloperidol Lactate (Haldol Inj) 5 mg PRN Q4HRS PRN IVP Hallucinatns,Confusn, Delirium; Start 06/03/18 at 22:45 Heparin Sodium/ Dextrose 500 ml @ 0 mls/hr CONT PRN IV SEE I/O RECORD Last administered on 06/03/18at 23:11; Start 06/03/18 at 23:00 Heparin Sodium (Porcine) (Heparin Sodium) 3,300 unit PRN Q6HRS PRN IV FOR UFH LEVEL LESS THAN 0.2 Last administered on 06/03/18at 23:08; Start 06/03/18 at 23:00 Midazolam HCl 100 ml @ 5 mls/hr CONT PRN IV SEE I/O RECORD Last administered on 06/03/18at 23:24; Start 06/03/18 at 23:15 Fentanyl Citrate 30 ml @ 0 mls/hr CONT PRN PRN IV PER PROTOCOL Last administered on 06/03/18at 23:26; Start 06/03/18 at 23:15 Etomidate (Amidate) 20 mg 1X ONCE IV Last administered on 06/03/18at 20:55; Start 06/03/18 at 23:15; Stop 06/03/18 at 23:16; Status DC Succinylcholine Chloride (Anectine) 100 mg 1X ONCE IV Last administered on 06/03 20:56; Start 06/03/18 at 23:15; Stop 06/03/18 at 23:16; Status DC Fentanyl Citrate (Fentanyl 2ml Vial) 100 mcg 1X ONCE IV Last administered on 20:59; Start 06/03/18 at 23:15; Stop 06/03/18 at 23:16; Status DC Midazolam HCl (Versed) 4 mg 1X ONCE IV Last administered on 06/03/18at 21:01; Start 06/03/18 at 23:15; Stop 06/03/18 at 23:16; Status DC Sodium Chloride 500 ml @ 500 mls/hr 1X ONCE IV Last administered on 06/03/18at 21:20; Start 06/03/18 at 23:15; Stop 06/04/18 at 00:14; Status DC Rocuronium [place] (Zemuron) 50 mg 1X ONCE IV Last administered on 06/03/18at 21 :29; Start 06/03/18 at 23:15; Stop 06/03/18 at 23:16; Status DC Sodium Chloride 1,000 ml @ 1,000 mls/hr Q1H IV Last administered on 06/04/18at 05:55; Start 06/04/18 at 00:00; Stop 06/04/18 at 06:25; Status DC Vecuronium [place] (Norcuron Bolus) 10 mg PRN Q30MIN PRN IV SHIVERING Last administered on 06/04/18at 09:59; Start 06/04/18 at 00:00 Meperidine HCl (Demerol) 12.5 mg PRN Q30MIN PRN IV SHIVERING Last administered on 06/04/18at 02:04; Start 06/04/18 at 00:00 Sodium Chloride (Normal Saline Flush) 3 ml QSHIFT PRN IV AFTER MEDS AND BLOOD DRAWS; Start 06/04/18 at 00:00 Acetaminophen (Tylenol) 650 mg Q6HRS NG ; Start 06/04/18 at 00:00; Stop 06/04/18 at 00:52; Status DC Acetaminophen (Tylenol Supp) 650 mg PRN Q6HRS PRN HI MILD PAIN / TEMP; Start at 00:00; Status Cancel Acetaminophen (Tylenol) 650 mg PRN Q6HRS PRN NG MILD PAIN / TEMP; Start at 00:00; Status Cancel Info (Icu Electrolyte Protocol) 1 ea DAILY PRN MC PER PROTOCOL; Start 06/06/18 at 00:00 Vancomycin HCl (Vanco Per Pharmacy) 1 each PRN DAILY PRN MC SEE COMMENTS Last administered on 06/04/18at 11:13; Start 06/04/18 at 00:30 Piperacillin Sod/ Tazobactam Sod (Zosyn Per Pharmacy) 1 each PRN DAILY PRN MC SEE COMMENTS; Start 06/04/18 at 00:30 Sodium Chloride 1,000 ml @ 2,040 mls/hr Q30M IV Last administered on 06/04/18at 00:21; Start 06/04/18 at 00:15; Stop 06/04/18 at 01:15; Status DC Sodium Chloride 500 ml @ 1,000 mls/hr PRN Q30MIN PRN IV SEE COMMENTS; Start at 00:15 Norepinephrine Bitartrate 250 ml @ 0 mls/hr CONT PRN IV SEE I/O RECORD Last administered on 06/04/18at 01:31; Start 06/04/18 at 00:15 Piperacillin Sod/ Tazobactam Sod 3.375 gm/Sodium Chloride 50 ml @ 100 mls/hr Q6HRS IV Last administered on 06/04/18at 12:54; Start 06/04/18 at 00:30 Ondansetron HCl (Zofran) 4 mg PRN Q6HRS PRN IV NAUSEA/VOMITING; Start 06/04/18 at 00:45 Vancomycin HCl 2 gm/Sodium Chloride 500 ml @ 250 mls/hr 1X ONCE IV Last administered on 06/04/18at 00:47; Start 06/04/18 at 01:00; Stop 06/04/18 at 02:59; Status DC Levetiracetam 500 mg/Dextrose 105 ml @ 420 mls/hr Q12HR IV Last administered on 06/04/18at 10:32; Start 06/04/18 at 09:00 Levetiracetam 500 mg/Dextrose 105 ml @ 420 mls/hr 1X ONCE IV Last administered on 06/04/18at 01:01; Start 06/04/18 at 01:00; Stop 06/04/18 at 01:14; Status DC Vancomycin HCl 2 gm/Sodium Chloride 500 ml @ 250 mls/hr Q12H IV ; Start at 13:00 Vancomycin HCl (Vancomycin Trough Level) 1 each 1X ONCE MC ; Start 06/05/18 at 12:30; Stop 06/05/18 at 12:31 Micafungin Sodium 100 mg/Dextrose 100 ml @ 100 mls/hr Q24H IV Last administered on 06/04/18at 10:32; Start 06/04/18 at 08:00 Lidocaine/Sodium Bicarbonate (Buffered Lidocaine 1%) 3 ml STK-MED ONCE .ROUTE ; Start 06/04/18 at 08:05; Stop 06/04/18 at 08:06; Status DC Sodium Bicarbonate (Sodium Bicarb Adult 8.4% Syr) 50 meq 1X ONCE IV Last administered on 06/04/18at 09:34; Start 06/04/18 at 09:15; Stop 06/04/18 at 09:16; Status DC Sodium Bicarbonate (Sodium Bicarb Adult 8.4% Syr) 50 meq 1X ONCE IV Last administered on 06/04/18at 09:34; Start 06/04/18 at 09:15; Stop 06/04/18 at 09:16; Status DC Lidocaine/Sodium Bicarbonate (Buffered Lidocaine 1%) 3 ml 1X ONCE INJ Last administered on 06/04/18at 09:15; Start 06/04/18 at 09:15; Stop 06/04/18 at 09:16; Status DC Magnesium Sulfate/ Dextrose 100 ml @ 25 mls/hr 1X ONCE IV Last administered on 06/04/18at 10:41; Start 06/04/18 at 11:00; Stop 06/04/18 at 14:59 Info (Anti-Coagulation Monitoring By Pharmacy) 1 each PRN DAILY PRN MC SEE COMMENTS Last administered on 06/04/18at 11:07; Start 06/04/18 at 11:15 Pantoprazole Sodium (PROTONIX VIAL for IV PUSH) 40 mg DAILYAC IVP ; Start at 14:00 Insulin Human Lispro (HumaLOG) 0-7 UNITS TIDWMEALS SQ ; Start 06/04/18 at 14:00 Dextrose (Dextrose 50%-Water Syringe) 12.5 gm PRN Q15MIN PRN IV SEE COMMENTS; Start 06/04/18 at 13:15 Active Scripts Active Reported Carvedilol 6.25 Mg Tablet 1 Tab PO BID 90 Days Zoloft (Sertraline Hcl) 100 Mg Tablet 1.5 Tab PO DAILY 90 Days Dyazide 37.5-25 Capsule (Triamterene/Hydrochlorothiazid) 1 Each Capsule 1 Cap PO DAILY Fluconazole 100 Mg Tablet 1 Tab PO DAILY Clonazepam 0.5 Mg Tablet 1 Tab PO PRN TID PRN Acamprosate Calcium 333 Mg Tablet. 2 Tab PO TID Allergies Allergies: Coded Allergies: Unable to Assess (Unverified , 06/03/18) ROS Review of System Son knows of no fevers, chills, weight loss, dyspnea, angina, abdominal pain, change in bowels, or dysuria. 14-point review of systems is negative. Physical Exam Physical Examination General: Well-developed, well-nourished, white male, intubated, sedated, and on hypothermia in the intensive care unit, in no acute distress HEENT: Normocephalic andatraumatic. Temporal arteriespulsatile. Neck: Supple without bruit, no meningismus Musculoskeletal: Stability:see neurologic. Gait exam:see neurologic. Tone:see neurologic. Strength:see neurologic. Neurological: Mental Status:orientation, memory, attention span/concentration, language, fund of knowledge: Patient is unresponsive. Cranial Nerves:Pupils equal but pinpoint, difficult to detect any light reflex; no spontaneous extraocular movements . There is no facial asymmetry. Vestibulo-ocular reflex is intact. Palate elvates and tongue protrudes in midline. All other cranial related problems are negative except as mentioned before.Reflexes:0+ and symmetric with silent plantar responses. Motor:Not tested. Coordination:Not tested. Gait :Not tested. Sensory:Not tested. Vitals VITALS Vital Signs Date Time Temp Pulse Resp B/P (MAP) Pulse Ox O2 Delivery O2 Flow Rate FiO2 06/04/18 12:14 96 Ventilator 06/04/18 12:00 92.6 56 20 113/76 (88) 92.6 Labs Labs Laboratory Tests Test 06/03/18 20:57 06/03/18 21:02 06/03/18 21:05 06/03/18 21:31 Bedside Troponin I 0.08 ng/ml (<0.08) Bedside Hemoglobin 16.0 g/dL (14-18) Bedside Hematocrit 47 % (37-52) Bedside Sodium 141 mmol/L (135-145) Bedside Potassium 3.1 mmol/L (3.5-5.0) Bedside Chloride 104 mmol/L (98-110) Bedside Total CO2 20 mmol/L (23-32) Anion Gap 22 mmol/L (6-14) 19 (6-14) Bedside Blood Urea Nitrogen 15 mg/dL (8-26) Bedside Creatinine 1.3 mg/dL (0.5-1.4) Glucose Level 337 mg/dL (70-99) 312 mg/dL (70-99) Bedside Ionized Calcium (Memo) 1.05 mmol/L (1.13-1.32) White Blood Count 18.4 x10^3/uL (4.0-11.0) Red Blood Count 5.08 x10^6/uL (4.30-5.70) Hemoglobin 15.5 g/dL (13.0-17.5) Hematocrit 47.2 % (39.0-53.0) Mean Corpuscular Volume 93 fL (79-100) Mean Corpuscular Hemoglobin 31 pg (25-35) Mean Corpuscular Hemoglobin Concent 33 g/dL (31-37) Red Cell Distribution Width 13.9 % (11.5-14.5) Platelet Count 285 x10^3/uL (140-400) Neutrophils (%) (Auto) 46 % (31-73) Lymphocytes (%) (Auto) 47 % (24-48) Monocytes (%) (Auto) 6 % (0-9) Eosinophils (%) (Auto) 1 % (0-3) Basophils (%) (Auto) 1 % (0-3) Neutrophils # (Auto) 8.4 x10^3uL (1.8-7.7) Lymphocytes # (Auto) 8.7 x10^3/uL (1.0-4.8) Monocytes # (Auto) 1.0 x10^3/uL (0.0-1.1) Eosinophils # (Auto) 0.2 x10^3/uL (0.0-0.7) Basophils # (Auto) 0.1 x10^3/uL (0.0-0.2) Segmented Neutrophils % 41 % (35-66) Band Neutrophils % 3 % (0-9) Lymphocytes % 47 % (24-48) Monocytes % 2 % (0-10) Eosinophils % 5 % (0-5) Basophils % 1 % (0-3) Myelocytes % 1 % (0-0) Platelet Estimate Adequate (ADEQUATE) Prothrombin Time 14.9 SEC (11.7-14.0) Prothromb Time International Ratio 1.2 (0.8-1.1) Sodium Level 141 mmol/L (136-145) Potassium Level 3.9 mmol/L (3.5-5.1) Chloride Level 102 mmol/L (98-107) Carbon Dioxide Level 20 mmol/L (21-32) Blood Urea Nitrogen 15 mg/dL (8-26) Creatinine 1.4 mg/dL (0.7-1.3) Estimated GFR (Cockcroft-Gault) 52.1 BUN/Creatinine Ratio 11 (6-20) Lactic Acid Level 10.1 mmol/L (0.4-2.0) Calcium Level 8.4 mg/dL (8.5-10.1) Magnesium Level 2.3 mg/dL (1.8-2.4) Total Bilirubin 0.5 mg/dL (0.2-1.0) Aspartate Amino Transf (AST/SGOT) 180 U/L (15-37) Alanine Aminotransferase (ALT/SGPT) 186 U/L (16-63) Alkaline Phosphatase 87 U/L (46-116) Troponin I Quantitative 0.091 ng/mL (0.000-0.055) SJ-Adm-F-Type Natriuretic Peptide 1059 pg/mL (0-124) Total Protein 6.9 g/dL (6.4-8.2) Albumin 3.2 g/dL (3.4-5.0) Albumin/Globulin Ratio 0.9 (1.0-1.7) Ethyl Alcohol Level 55 mg/dL (0-10) Urine Collection Type U cath Urine Color Yellow Urine Clarity Clear Urine pH 6.0 Urine Specific [place] 1.020 Urine Protein Negative mg/dL (NEG-TRACE) Urine Glucose (UA) Negative mg/dL (NEG) Urine Ketones (Stick) Negative mg/dL (NEG) Urine Blood Negative (NEG) Urine Nitrite Negative (NEG) Urine Bilirubin Negative (NEG) Urine Urobilinogen Dipstick 0.2 mg/dL (0.2 mg/dL) Urine Leukocyte Esterase Negative (NEG) Urine RBC 1-2 /HPF (0-2) Urine WBC Rare /HPF (0-4) Urine Squamous Epithelial Cells Few /LPF Urine Bacteria 0 /HPF (0-FEW) Urine Mucus Marked /LPF Urine Opiates Screen Neg (NEG) Urine Methadone Screen Neg (NEG) Urine Barbiturates Neg (NEG) Urine Phencyclidine Screen Neg (NEG) Urine Amphetamine/Methamphetamine Neg (NEG) Urine Benzodiazepines Screen Neg (NEG) Urine Cocaine Screen Neg (NEG) Urine Cannabinoids Screen Neg (NEG) Urine Ethyl Alcohol Neg (NEG) Test 06/03/18 22:47 06/03/18 23:42 06/04/18 00:37 06/04/18 00:50 O2 Saturation 91 % (92-99) Arterial Blood pH 7.24 (7.35-7.45) Arterial Blood pH (Temp corrected) 7.23 Arterial Blood pCO2 at Patient Temp 44 mmHg (35-46) Arterial Blood pCO2 (Temp correct) 45 mmHg Arterial Blood pO2 at Patient Temp 70 mmHg (75-108) Arterial Blood pO2 (Temp corrected) 73 mmHg Arterial Blood HCO3 18 mmol/L (21-28) Arterial Blood Base Excess -9 mmol/L (-3-3) FiO2 100 Glucose (Fingerstick) 183 mg/dL (70-99) 181 mg/dL (70-99) Sodium Level 142 mmol/L (136-145) Potassium Level 3.9 mmol/L (3.5-5.1) Chloride Level 106 mmol/L (98-107) Carbon Dioxide Level 23 mmol/L (21-32) Anion Gap 13 (6-14) Blood Urea Nitrogen 18 mg/dL (8-26) Creatinine 1.7 mg/dL (0.7-1.3) Estimated GFR (Cockcroft-Gault) 41.6 Glucose Level 192 mg/dL (70-99) Lactic Acid Level 3.4 mmol/L (0.4-2.0) Calcium Level 8.2 mg/dL (8.5-10.1) Troponin I Quantitative 1.897 ng/mL (0.000-0.055) Procalcitonin 0.51 ng/mL (0.00-0.10) Test 06/04/18 04:10 06/04/18 06:20 06/04/18 08:00 06/04/18 10:50 Glucose (Fingerstick) 159 mg/dL (70-99) White Blood Count 14.7 x10^3/uL (4.0-11.0) Red Blood Count 5.06 x10^6/uL (4.30-5.70) Hemoglobin 15.7 g/dL (13.0-17.5) Hematocrit 45.7 % (39.0-53.0) Mean Corpuscular Volume 90 fL (79-100) Mean Corpuscular Hemoglobin 31 pg (25-35) Mean Corpuscular Hemoglobin Concent 34 g/dL (31-37) Red Cell Distribution Width 13.3 % (11.5-14.5) Platelet Count 210 x10^3/uL (140-400) Prothrombin Time 15.4 SEC (11.7-14.0) Prothromb Time International Ratio 1.3 (0.8-1.1) Heparin Anti-Xa Act, Unfractionated 0.34 IU/mL (0.30-0.70) Sodium Level 140 mmol/L (136-145) 141 mmol/L (136-145) Potassium Level 4.2 mmol/L (3.5-5.1) 3.7 mmol/L (3.5-5.1) Chloride Level 108 mmol/L (98-107) 107 mmol/L (98-107) Carbon Dioxide Level 19 mmol/L (21-32) 23 mmol/L (21-32) Anion Gap 13 (6-14) 11 (6-14) Blood Urea Nitrogen 20 mg/dL (8-26) 20 mg/dL (8-26) Creatinine 1.4 mg/dL (0.7-1.3) 1.6 mg/dL (0.7-1.3) Estimated GFR (Cockcroft-Gault) 52.1 44.6 BUN/Creatinine Ratio 14 (6-20) Glucose Level 232 mg/dL (70-99) 275 mg/dL (70-99) Hemoglobin A1c 6.8 % (4.8-5.6) Calcium Level 7.1 mg/dL (8.5-10.1) 7.1 mg/dL (8.5-10.1) Phosphorus Level 4.3 mg/dL (2.6-4.7) 3.6 mg/dL (2.6-4.7) Magnesium Level 1.6 mg/dL (1.8-2.4) 1.6 mg/dL (1.8-2.4) Total Bilirubin 0.9 mg/dL (0.2-1.0) Direct Bilirubin 0.2 mg/dL (0.0-0.2) Aspartate Amino Transf (AST/SGOT) 250 U/L (15-37) Alanine Aminotransferase (ALT/SGPT) 190 U/L (16-63) Alkaline Phosphatase 65 U/L (46-116) Troponin I Quantitative 2.472 ng/mL (0.000-0.055) Total Protein 5.8 g/dL (6.4-8.2) Albumin 2.9 g/dL (3.4-5.0) Albumin/Globulin Ratio 1.0 (1.0-1.7) Amylase Level 39 U/L (25-115) Lipase 102 U/L (73-393) O2 Saturation 92 % (92-99) Arterial Blood pH 7.24 (7.35-7.45) Arterial Blood pCO2 at Patient Temp 34 mmHg (35-46) Arterial Blood pO2 at Patient Temp 72 mmHg (75-108) Arterial Blood HCO3 14 mmol/L (21-28) Arterial Blood Base Excess -12 mmol/L (-3-3) FiO2 100 Lactic Acid Level 3.4 mmol/L (0.4-2.0) Ionized Calcium 0.96 mmol/L (1.13-1.32) Test 06/04/18 12:30 Troponin I Quantitative 1.237 ng/mL (0.000-0.055) Laboratory Tests Test 06/03/18 20:57 06/03/18 21:02 06/03/18 21:05 06/03/18 21:31 Bedside Troponin I 0.08 ng/ml (<0.08) Bedside Hemoglobin 16.0 g/dL (14-18) Bedside Hematocrit 47 % (37-52) Bedside Sodium 141 mmol/L (135-145) Bedside Potassium 3.1 mmol/L (3.5-5.0) Bedside Chloride 104 mmol/L (98-110) Bedside Total CO2 20 mmol/L (23-32) Anion Gap 22 mmol/L (6-14) 19 (6-14) Bedside Blood Urea Nitrogen 15 mg/dL (8-26) Bedside Creatinine 1.3 mg/dL (0.5-1.4) Glucose Level 337 mg/dL (70-99) 312 mg/dL (70-99) Bedside Ionized Calcium (Memo) 1.05 mmol/L (1.13-1.32) White Blood Count 18.4 x10^3/uL (4.0-11.0) Red Blood Count 5.08 x10^6/uL (4.30-5.70) Hemoglobin 15.5 g/dL (13.0-17.5) Hematocrit 47.2 % (39.0-53.0) Mean Corpuscular Volume 93 fL (79-100) Mean Corpuscular Hemoglobin 31 pg (25-35) Mean Corpuscular Hemoglobin Concent 33 g/dL (31-37) Red Cell Distribution Width 13.9 % (11.5-14.5) Platelet Count 285 x10^3/uL (140-400) Neutrophils (%) (Auto) 46 % (31-73) Lymphocytes (%) (Auto) 47 % (24-48) Monocytes (%) (Auto) 6 % (0-9) Eosinophils (%) (Auto) 1 % (0-3) Basophils (%) (Auto) 1 % (0-3) Neutrophils # (Auto) 8.4 x10^3uL (1.8-7.7) Lymphocytes # (Auto) 8.7 x10^3/uL (1.0-4.8) Monocytes # (Auto) 1.0 x10^3/uL (0.0-1.1) Eosinophils # (Auto) 0.2 x10^3/uL (0.0-0.7) Basophils # (Auto) 0.1 x10^3/uL (0.0-0.2) Segmented Neutrophils % 41 % (35-66) Band Neutrophils % 3 % (0-9) Lymphocytes % 47 % (24-48) Monocytes % 2 % (0-10) Eosinophils % 5 % (0-5) Basophils % 1 % (0-3) Myelocytes % 1 % (0-0) Platelet Estimate Adequate (ADEQUATE) Prothrombin Time 14.9 SEC (11.7-14.0) Prothromb Time International Ratio 1.2 (0.8-1.1) Sodium Level 141 mmol/L (136-145) Potassium Level 3.9 mmol/L (3.5-5.1) Chloride Level 102 mmol/L (98-107) Carbon Dioxide Level 20 mmol/L (21-32) Blood Urea Nitrogen 15 mg/dL (8-26) Creatinine 1.4 mg/dL (0.7-1.3) Estimated GFR (Cockcroft-Gault) 52.1 BUN/Creatinine Ratio 11 (6-20) Lactic Acid Level 10.1 mmol/L (0.4-2.0) Calcium Level 8.4 mg/dL (8.5-10.1) Magnesium Level 2.3 mg/dL (1.8-2.4) Total Bilirubin 0.5 mg/dL (0.2-1.0) Aspartate Amino Transf (AST/SGOT) 180 U/L (15-37) Alanine Aminotransferase (ALT/SGPT) 186 U/L (16-63) Alkaline Phosphatase 87 U/L (46-116) Troponin I Quantitative 0.091 ng/mL (0.000-0.055) IF-Ruy-A-Type Natriuretic Peptide 1059 pg/mL (0-124) Total Protein 6.9 g/dL (6.4-8.2) Albumin 3.2 g/dL (3.4-5.0) Albumin/Globulin Ratio 0.9 (1.0-1.7) Ethyl Alcohol Level 55 mg/dL (0-10) Urine Collection Type U cath Urine Color Yellow Urine Clarity Clear Urine pH 6.0 Urine Specific [place] 1.020 Urine Protein Negative mg/dL (NEG-TRACE) Urine Glucose (UA) Negative mg/dL (NEG) Urine Ketones (Stick) Negative mg/dL (NEG) Urine Blood Negative (NEG) Urine Nitrite Negative (NEG) Urine Bilirubin Negative (NEG) Urine Urobilinogen Dipstick 0.2 mg/dL (0.2 mg/dL) Urine Leukocyte Esterase Negative (NEG) Urine RBC 1-2 /HPF (0-2) Urine WBC Rare /HPF (0-4) Urine Squamous Epithelial Cells Few /LPF Urine Bacteria 0 /HPF (0-FEW) Urine Mucus Marked /LPF Urine Opiates Screen Neg (NEG) Urine Methadone Screen Neg (NEG) Urine Barbiturates Neg (NEG) Urine Phencyclidine Screen Neg (NEG) Urine Amphetamine/Methamphetamine Neg (NEG) Urine Benzodiazepines Screen Neg (NEG) Urine Cocaine Screen Neg (NEG) Urine Cannabinoids Screen Neg (NEG) Urine Ethyl Alcohol Neg (NEG) Test 06/03/18 22:47 06/03/18 23:42 06/04/18 00:37 06/04/18 00:50 O2 Saturation 91 % (92-99) Arterial Blood pH 7.24 (7.35-7.45) Arterial Blood pH (Temp corrected) 7.23 Arterial Blood pCO2 at Patient Temp 44 mmHg (35-46) Arterial Blood pCO2 (Temp correct) 45 mmHg Arterial Blood pO2 at Patient Temp 70 mmHg (75-108) Arterial Blood pO2 (Temp corrected) 73 mmHg Arterial Blood HCO3 18 mmol/L (21-28) Arterial Blood Base Excess -9 mmol/L (-3-3) FiO2 100 Glucose (Fingerstick) 183 mg/dL (70-99) 181 mg/dL (70-99) Sodium Level 142 mmol/L (136-145) Potassium Level 3.9 mmol/L (3.5-5.1) Chloride Level 106 mmol/L (98-107) Carbon Dioxide Level 23 mmol/L (21-32) Anion Gap 13 (6-14) Blood Urea Nitrogen 18 mg/dL (8-26) Creatinine 1.7 mg/dL (0.7-1.3) Estimated GFR (Cockcroft-Gault) 41.6 Glucose Level 192 mg/dL (70-99) Lactic Acid Level 3.4 mmol/L (0.4-2.0) Calcium Level 8.2 mg/dL (8.5-10.1) Troponin I Quantitative 1.897 ng/mL (0.000-0.055) Procalcitonin 0.51 ng/mL (0.00-0.10) Test 06/04/18 04:10 06/04/18 06:20 06/04/18 08:00 06/04/18 10:50 Glucose (Fingerstick) 159 mg/dL (70-99) White Blood Count 14.7 x10^3/uL (4.0-11.0) Red Blood Count 5.06 x10^6/uL (4.30-5.70) Hemoglobin 15.7 g/dL (13.0-17.5) Hematocrit 45.7 % (39.0-53.0) Mean Corpuscular Volume 90 fL (79-100) Mean Corpuscular Hemoglobin 31 pg (25-35) Mean Corpuscular Hemoglobin Concent 34 g/dL (31-37) Red Cell Distribution Width 13.3 % (11.5-14.5) Platelet Count 210 x10^3/uL (140-400) Prothrombin Time 15.4 SEC (11.7-14.0) Prothromb Time International Ratio 1.3 (0.8-1.1) Heparin Anti-Xa Act, Unfractionated 0.34 IU/mL (0.30-0.70) Sodium Level 140 mmol/L (136-145) 141 mmol/L (136-145) Potassium Level 4.2 mmol/L (3.5-5.1) 3.7 mmol/L (3.5-5.1) Chloride Level 108 mmol/L (98-107) 107 mmol/L (98-107) Carbon Dioxide Level 19 mmol/L (21-32) 23 mmol/L (21-32) Anion Gap 13 (6-14) 11 (6-14) Blood Urea Nitrogen 20 mg/dL (8-26) 20 mg/dL (8-26) Creatinine 1.4 mg/dL (0.7-1.3) 1.6 mg/dL (0.7-1.3) Estimated GFR (Cockcroft-Gault) 52.1 44.6 BUN/Creatinine Ratio 14 (6-20) Glucose Level 232 mg/dL (70-99) 275 mg/dL (70-99) Hemoglobin A1c 6.8 % (4.8-5.6) Calcium Level 7.1 mg/dL (8.5-10.1) 7.1 mg/dL (8.5-10.1) Phosphorus Level 4.3 mg/dL (2.6-4.7) 3.6 mg/dL (2.6-4.7) Magnesium Level 1.6 mg/dL (1.8-2.4) 1.6 mg/dL (1.8-2.4) Total Bilirubin 0.9 mg/dL (0.2-1.0) Direct Bilirubin 0.2 mg/dL (0.0-0.2) Aspartate Amino Transf (AST/SGOT) 250 U/L (15-37) Alanine Aminotransferase (ALT/SGPT) 190 U/L (16-63) Alkaline Phosphatase 65 U/L (46-116) Troponin I Quantitative 2.472 ng/mL (0.000-0.055) Total Protein 5.8 g/dL (6.4-8.2) Albumin 2.9 g/dL (3.4-5.0) Albumin/Globulin Ratio 1.0 (1.0-1.7) Amylase Level 39 U/L (25-115) Lipase 102 U/L (73-393) O2 Saturation 92 % (92-99) Arterial Blood pH 7.24 (7.35-7.45) Arterial Blood pCO2 at Patient Temp 34 mmHg (35-46) Arterial Blood pO2 at Patient Temp 72 mmHg (75-108) Arterial Blood HCO3 14 mmol/L (21-28) Arterial Blood Base Excess -12 mmol/L (-3-3) FiO2 100 Lactic Acid Level 3.4 mmol/L (0.4-2.0) Ionized Calcium 0.96 mmol/L (1.13-1.32) Test 06/04/18 12:30 Troponin I Quantitative 1.237 ng/mL (0.000-0.055) Images Images CT HEAD AND CERVICAL SPINE WO dated 06/03/2018 9:48 PM Ventricles and sulci are mildly prominent for age. No midline shift or mass effect. Brain parenchyma is of normal attenuation. No hemorrhage or extra-axial collection. Posterior fossa and brainstem unremarkable. There is a small lipoma at the suprasellar cistern. Mild mucosal thickening bilateral maxillary and ethmoid sinuses. Mastoid air cells are clear. No apparent calvarial abnormality. Images of cervical spine acquired skull base to T1. Straightening of the normal cervical lordosis, otherwise sagittal alignment is anatomic. Vertebral body heights are maintained. No prevertebral soft tissue swelling. Posterior elements are intact. No apparent fracture. Mild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
[2018-06-04] MEDS: PANTOPRAZOLE IV PUSH 40 MG VIAL. IVP SCH (14:24)
[2018-06-04] MEDS: VANCOMYCIN 2 GM in IV NORMAL SALINE 500ML BAG 500 ML IV SCH (14:29)
[2018-06-04] MEDS: HEPARIN 25,000UTS/500ML PREMIX 500 ML IV PRN (14:29)
[2018-06-04] MEDS: MIDAZOLAM 100mg/100ml NS BAG 100 ML IV PRN (14:30)
[2018-06-04 15:08] LABS: HEMATOCRIT 44.1 % (39.0-53.0); RED BLOOD COUNT 4.86 x10^6/uL (4.30-5.70); RED CELL DISTRIBUTION WIDTH 13.1 % (11.5-14.5); WHITE BLOOD COUNT 11.8 x10^3/uL (4.0-11.0)
[2018-06-04 15:47] LABS: CALCIUM 7.1 mg/dL (8.5-10.1); CREATININE 1.4 mg/dL (0.7-1.3); GFR 52.1; MAGNESIUM 2.5 mg/dL (1.8-2.4); PHOSPHORUS 2.9 mg/dL (2.6-4.7); POTASSIUM 3.9 mmol/L (3.5-5.1)
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
[2018-06-04] MEDS: INSULIN LISPRO 300 UNITS/3 ML INSULN.PEN. SQ SCH ×2 (15:55→17:12)
[2018-06-04 17:32] LABS: PROTHROMBIN TIME PATIENT 15.1 SEC (11.7-14.0)
[2018-06-04 17:33] LABS: UNFRACTIONATED HEPARIN TESTING 0.46 IU/mL (0.30-0.70)
[2018-06-04 20:04] LABS: CALCIUM 6.8 mg/dL (8.5-10.1); CREATININE 1.4 mg/dL (0.7-1.3); GFR 52.1; MAGNESIUM 2.4 mg/dL (1.8-2.4); POTASSIUM 4.2 mmol/L (3.5-5.1)
[2018-06-04 23:07] LABS: HEMATOCRIT 45.3 % (39.0-53.0); HEMOGLOBIN 15.4 g/dL (13.0-17.5); RED CELL DISTRIBUTION WIDTH 13.4 % (11.5-14.5); WHITE BLOOD COUNT 12.6 x10^3/uL (4.0-11.0)
[2018-06-04 23:40] LABS: CALCIUM 7.3 mg/dL (8.5-10.1); CREATININE 1.2 mg/dL (0.7-1.3); GFR 62.2; MAGNESIUM 2.7 mg/dL (1.8-2.4); POTASSIUM 4.3 mmol/L (3.5-5.1)
[2018-06-05] VITALS (27 sets, daily range): BP systolic 86–160; BP diastolic 53–110
[2018-06-05] MEDS ORDERED: ACETAMINOPHEN 650 MG SUPP.RECT. PR PRN
[2018-06-05] MEDS ORDERED: ACETAMINOPHEN 650 MG/20.3 ML SOLUTION. NG PRN
[2018-06-05] MEDS: INSULIN LISPRO 300 UNITS/3 ML INSULN.PEN. SQ SCH ×4 (00:23→16:47)
[2018-06-05] MEDS: VANCOMYCIN 2 GM in IV NORMAL SALINE 500ML BAG 500 ML IV SCH (01:09)
[2018-06-05 01:25] LABS: PROTHROMBIN TIME PATIENT 14.9 SEC (11.7-14.0)
[2018-06-05] MEDS: VECURONIUM BOLUS 10 MG VIAL. IV PRN ×5 (03:27→20:27)
[2018-06-05 03:52] LABS: CALCIUM 6.8 mg/dL (8.5-10.1); GFR 76.7; MAGNESIUM 2.1 mg/dL (1.8-2.4); PHOSPHORUS 4.2 mg/dL (2.6-4.7)
[2018-06-05] MEDS: PIPERACILLIN/TAZOBACTAM 3.375 GM in IV NORMAL SALINE 50ML 50 ML IV SCH ×3 (05:54→16:48)
[2018-06-05 07:08] LABS: CALCIUM 6.5 mg/dL (8.5-10.1); CREATININE 1.1 mg/dL (0.7-1.3); GFR 68.8; MAGNESIUM 2.3 mg/dL (1.8-2.4); PHOSPHORUS 3.5 mg/dL (2.6-4.7); POTASSIUM 3.8 mmol/L (3.5-5.1)
[2018-06-05 07:09] LABS: HEMATOCRIT 42.5 % (39.0-53.0); HEMOGLOBIN 14.5 g/dL (13.0-17.5); RED BLOOD COUNT 4.66 x10^6/uL (4.30-5.70); RED CELL DISTRIBUTION WIDTH 13.5 % (11.5-14.5); WHITE BLOOD COUNT 10.3 x10^3/uL (4.0-11.0)
[2018-06-05 07:12] LABS: ALBUMIN 2.4 g/dL (3.4-5.0); DIRECT BILIRUBIN 0.1 mg/dL (0.0-0.2); TOTAL BILIRUBIN 0.5 mg/dL (0.2-1.0)
[2018-06-05 07:13] LABS: CHOLESTEROL/HDL RATIO 5.2
[2018-06-05] MEDS: HEPARIN 25,000UTS/500ML PREMIX 500 ML IV PRN (07:42)
[2018-06-05] MEDS: levETIRAcetam 500 MG in IV DEXTROSE 5% 100ML 100 ML IV SCH ×2 (07:45→20:25)
[2018-06-05] MEDS: IV NORMAL SALINE 1000ML BAG 1,000 ML IV SCH ×2 (07:45→16:44)
[2018-06-05] MEDS: MIDAZOLAM 100mg/100ml NS BAG 100 ML IV PRN (07:45)
--- NOTE | 2018-06-05 07:46 | PDOC ---
Infectious Disease Note Subjective Subjective Intubated/Sedated ROS ROS unobtainable Vital Sign Vital Signs Vital Signs Date Time Temp Pulse Resp B/P (MAP) Pulse Ox O2 Delivery O2 Flow Rate FiO2 06/05/18 06:45 87.8 46 24 110/74 (86) 96 Ventilator 87.8 Physical Exam PHYSICAL EXAM CONSTITUTIONAL: He is intubated and sedated. HEENT: Pupils are equal but constricted. He has normal conjunctivae. NECK: Supple, no JVD. LUNGS: Decreased in the bases. HEART: S1, S2. ABDOMEN: Morbidly obese, soft, no guarding, no apparent complications. : Bermudez is in place. EXTREMITIES: Without clubbing or cyanosis. No gross edema. SKIN: Cool. Trying to rewarm now. Skin without generalized signs of rash, although he does have some yeast in the groin area. NEUROLOGIC: He is sedated. RIJ and peripheral IV Labs Lab Laboratory Tests Test 06/04/18 08:00 06/04/18 10:50 06/04/18 12:30 06/04/18 15:00 O2 Saturation 92 % (92-99) Arterial Blood pH 7.24 (7.35-7.45) Arterial Blood pCO2 at Patient Temp 34 mmHg (35-46) Arterial Blood pO2 at Patient Temp 72 mmHg (75-108) Arterial Blood HCO3 14 mmol/L (21-28) Arterial Blood Base Excess -12 mmol/L (-3-3) FiO2 100 Sodium Level 141 mmol/L (136-145) 140 mmol/L (136-145) Potassium Level 3.7 mmol/L (3.5-5.1) 3.9 mmol/L (3.5-5.1) Chloride Level 107 mmol/L (98-107) 106 mmol/L (98-107) Carbon Dioxide Level 23 mmol/L (21-32) 21 mmol/L (21-32) Anion Gap 11 (6-14) 13 (6-14) Blood Urea Nitrogen 20 mg/dL (8-26) 20 mg/dL (8-26) Creatinine 1.6 mg/dL (0.7-1.3) 1.4 mg/dL (0.7-1.3) Estimated GFR (Cockcroft-Gault) 44.6 52.1 Glucose Level 275 mg/dL (70-99) 281 mg/dL (70-99) Lactic Acid Level 3.4 mmol/L (0.4-2.0) Calcium Level 7.1 mg/dL (8.5-10.1) 7.1 mg/dL (8.5-10.1) Ionized Calcium 0.96 mmol/L (1.13-1.32) Phosphorus Level 3.6 mg/dL (2.6-4.7) 2.9 mg/dL (2.6-4.7) Magnesium Level 1.6 mg/dL (1.8-2.4) 2.5 mg/dL (1.8-2.4) Troponin I Quantitative 1.237 ng/mL (0.000-0.055) White Blood Count 11.8 x10^3/uL (4.0-11.0) Red Blood Count 4.86 x10^6/uL (4.30-5.70) Hemoglobin 15.0 g/dL (13.0-17.5) Hematocrit 44.1 % (39.0-53.0) Mean Corpuscular Volume 91 fL (79-100) Mean Corpuscular Hemoglobin 31 pg (25-35) Mean Corpuscular Hemoglobin Concent 34 g/dL (31-37) Red Cell Distribution Width 13.1 % (11.5-14.5) Platelet Count 168 x10^3/uL (140-400) Test 06/04/18 17:00 06/04/18 17:07 06/04/18 19:40 06/04/18 22:59 Prothrombin Time 15.1 SEC (11.7-14.0) Prothromb Time International Ratio 1.2 (0.8-1.1) Activated Partial Thromboplast Time 103 SEC (24-38) Heparin Anti-Xa Act, Unfractionated 0.46 IU/mL (0.30-0.70) Glucose (Fingerstick) 259 mg/dL (70-99) 230 mg/dL (70-99) Sodium Level 140 mmol/L (136-145) Potassium Level 4.2 mmol/L (3.5-5.1) Chloride Level 106 mmol/L (98-107) Carbon Dioxide Level 23 mmol/L (21-32) Anion Gap 11 (6-14) Blood Urea Nitrogen 20 mg/dL (8-26) Creatinine 1.4 mg/dL (0.7-1.3) Estimated GFR (Cockcroft-Gault) 52.1 Glucose Level 255 mg/dL (70-99) Lactic Acid Level 1.9 mmol/L (0.4-2.0) Calcium Level 6.8 mg/dL (8.5-10.1) Phosphorus Level 4.0 mg/dL (2.6-4.7) Magnesium Level 2.4 mg/dL (1.8-2.4) Troponin I Quantitative 0.625 ng/mL (0.000-0.055) Test 06/04/18 23:00 06/05/18 01:08 06/05/18 02:40 06/05/18 04:40 White Blood Count 12.6 x10^3/uL (4.0-11.0) Red Blood Count 5.00 x10^6/uL (4.30-5.70) Hemoglobin 15.4 g/dL (13.0-17.5) Hematocrit 45.3 % (39.0-53.0) Mean Corpuscular Volume 91 fL (79-100) Mean Corpuscular Hemoglobin 31 pg (25-35) Mean Corpuscular Hemoglobin Concent 34 g/dL (31-37) Red Cell Distribution Width 13.4 % (11.5-14.5) Platelet Count 170 x10^3/uL (140-400) Sodium Level 139 mmol/L (136-145) 140 mmol/L (136-145) Potassium Level 4.3 mmol/L (3.5-5.1) 4.0 mmol/L (3.5-5.1) Chloride Level 106 mmol/L (98-107) 107 mmol/L (98-107) Carbon Dioxide Level 21 mmol/L (21-32) 21 mmol/L (21-32) Anion Gap 12 (6-14) 12 (6-14) Blood Urea Nitrogen 20 mg/dL (8-26) 20 mg/dL (8-26) Creatinine 1.2 mg/dL (0.7-1.3) 1.0 mg/dL (0.7-1.3) Estimated GFR (Cockcroft-Gault) 62.2 76.7 Glucose Level 250 mg/dL (70-99) 210 mg/dL (70-99) Calcium Level 7.3 mg/dL (8.5-10.1) 6.8 mg/dL (8.5-10.1) Phosphorus Level 3.4 mg/dL (2.6-4.7) 4.2 mg/dL (2.6-4.7) Magnesium Level 2.7 mg/dL (1.8-2.4) 2.1 mg/dL (1.8-2.4) Prothrombin Time 14.9 SEC (11.7-14.0) Prothromb Time International Ratio 1.2 (0.8-1.1) Troponin I Quantitative 0.444 ng/mL (0.000-0.055) Lactic Acid Level 1.7 mmol/L (0.4-2.0) Test 06/05/18 06:30 06/05/18 06:39 White Blood Count 10.3 x10^3/uL (4.0-11.0) Red Blood Count 4.66 x10^6/uL (4.30-5.70) Hemoglobin 14.5 g/dL (13.0-17.5) Hematocrit 42.5 % (39.0-53.0) Mean Corpuscular Volume 91 fL (79-100) Mean Corpuscular Hemoglobin 31 pg (25-35) Mean Corpuscular Hemoglobin Concent 34 g/dL (31-37) Red Cell Distribution Width 13.5 % (11.5-14.5) Platelet Count 139 x10^3/uL (140-400) Sodium Level 139 mmol/L (136-145) Potassium Level 3.8 mmol/L (3.5-5.1) Chloride Level 109 mmol/L (98-107) Carbon Dioxide Level 19 mmol/L (21-32) Anion Gap 11 (6-14) Blood Urea Nitrogen 19 mg/dL (8-26) Creatinine 1.1 mg/dL (0.7-1.3) Estimated GFR (Cockcroft-Gault) 68.8 Glucose Level 236 mg/dL (70-99) Calcium Level 6.5 mg/dL (8.5-10.1) Phosphorus Level 3.5 mg/dL (2.6-4.7) Magnesium Level 2.3 mg/dL (1.8-2.4) Total Bilirubin 0.5 mg/dL (0.2-1.0) Direct Bilirubin 0.1 mg/dL (0.0-0.2) Aspartate Amino Transf (AST/SGOT) 76 U/L (15-37) Alanine Aminotransferase (ALT/SGPT) 142 U/L (16-63) Alkaline Phosphatase 59 U/L (46-116) Troponin I Quantitative 0.248 ng/mL (0.000-0.055) Total Protein 5.0 g/dL (6.4-8.2) Albumin 2.4 g/dL (3.4-5.0) Triglycerides Level 222 mg/dL (0-150) Cholesterol Level 136 mg/dL (0-200) LDL Cholesterol, Calculated 66 mg/dL (0-100) VLDL Cholesterol, Calculated 44 mg/dL (0-40) Non-HDL Cholesterol Calculated 110 mg/dL (0-129) HDL Cholesterol 26 mg/dL (40-60) Cholesterol/HDL Ratio 5.2 Glucose (Fingerstick) 212 mg/dL (70-99) Micro ECHO 06/04 Left ventricle systolic function is moderately impaired. The Ejection Fraction is 30-35%. Mild mitral regurgitation. Trace tricuspid regurgitation. The PA pressure was estimated at 39 mmHg. There is no evidence of significant pericardial effusion. U/S 06/04 IMPRESSION: 1. No sonographic evidence of acute cholecystitis. There is borderline gallbladder wall thickening, which in isolation is nonspecific. If there remains clinical concern for acute cholecystitis or gallbladder dysfunction, consider further evaluation with a HIDA scan. Objective Assessment s/p Arrest and hypothermia protocol - now trying to rewarm Leukocytosis - better Distended GB on CT scan - U/S neg DWAIN - better today but post contrast now - need to monitor ETOH abuse Anterior Rib fractures 4 through 7 Yeast skin infection. ? Systemic yeast on some med per primary Morbid obesity Seizure activity Plan Plan of Care Vanc and Zosyn/Micafungin F/u labs/cults Notes reviewed. DOLORES BAILEY MD Jun 05, 2018 07:46
[2018-06-05] MEDS: PANTOPRAZOLE IV PUSH 40 MG VIAL. IVP SCH (07:47)
[2018-06-05] MEDS: MICAFUNGIN 100 MG in IV DEXTROSE 5% 100ML 100 ML IV SCH (07:47)
--- NOTE | 2018-06-05 07:54 | RAD ---
Portable chest, 06/05/2018: HISTORY: Respiratory failure Comparison is made to yesterday's study. The ET tube tip lies well above the leanna. An NG tube extends into the stomach. A right jugular central venous catheter extends into the inferior aspect of the superior vena cava. The heart is enlarged. A moderate right upper chest opacity is unchanged again suggesting right upper lobe atelectasis versus extrapulmonary fluid. Streaky atelectasis in the left upper lobe is unchanged. There is now obscuration of the left hemidiaphragm suggesting new left basilar atelectasis/infiltrate. No pneumothorax is evident. IMPRESSION: 1. Stable tube positions. 2. New mild left basilar atelectasis/infiltrate. 3. Stable bilateral upper chest opacities. Electronically signed by: Rex Liz MD (06/05/2018 7:50 AM) [facility]
[2018-06-05 08:00] LABS: BASE EXCESS ABG -7 mmol/L (-3-3); HCO3 ABG 18 mmol/L (21-28); PO2 ABG 70 mmHg (75-108); SAT O2 ABG 93 % (92-99)
[2018-06-05] MEDS: CHLORHEXIDINE 0.12% 15 ML MOUTHWASH. MM SCH ×2 (08:12→20:27)
[2018-06-05 09:09] LABS: FIO2 ABG 100; PCO2 ABG 34 mmHg (35-46)
[2018-06-05] MEDS ORDERED: DEXTROSE 50% 25 GM / 50ML DISP.SYRIN. IV PRN (09:30)
[2018-06-05] MEDS: VANCOMYCIN PER PHARMACY MC PRN ×2 (09:32→12:35)
--- NOTE | 2018-06-05 09:34 | PDOC ---
PROGRESS NOTES Assessment Problems Medical Problems: (1) Cardiac arrest Status: Acute Anoxic encephalopathy with seizures Rewarming from hypothermia Plan Continue current management, I will reassess when fully warmed tomorrow. Subjective None Objective Vital Signs Date Time Temp Pulse Resp B/P (MAP) Pulse Ox O2 Delivery O2 Flow Rate FiO2 06/05/18 08:00 Mechanical Ventilator 06/05/18 07:41 94 06/05/18 06:45 87.8 46 24 110/74 (86) 87.8 Intake and Output 06/05/18 07:00 Intake Total 995 ml Output Total 2570 ml Balance -1575 ml IV Total 995 ml Output Urine Total 1570 ml Gastric Drainage Total 1000 ml PHYSICAL EXAM Sedated, paralyzed, intubated PERRL. No spontaneous extraocular movements CN: no focal findings. Muscle tone: normal. Muscle strength: none DTR: 0+ Plantar reflex: silent Gait: not examined in bed. Sensory exam: not tested. Cerebellar: not tested Review of Relevant I have reviewed the following items gisselle (where applicable) has been applied. Labs Laboratory Tests Test 06/03/18 20:57 06/03/18 21:02 06/03/18 21:05 06/03/18 21:31 Bedside Troponin I 0.08 ng/ml (<0.08) Bedside Hemoglobin 16.0 g/dL (14-18) Bedside Hematocrit 47 % (37-52) Bedside Sodium 141 mmol/L (135-145) Bedside Potassium 3.1 mmol/L (3.5-5.0) Bedside Chloride 104 mmol/L (98-110) Bedside Total CO2 20 mmol/L (23-32) Anion Gap 22 mmol/L (6-14) 19 (6-14) Bedside Blood Urea Nitrogen 15 mg/dL (8-26) Bedside Creatinine 1.3 mg/dL (0.5-1.4) Glucose Level 337 mg/dL (70-99) 312 mg/dL (70-99) Bedside Ionized Calcium (Memo) 1.05 mmol/L (1.13-1.32) White Blood Count 18.4 x10^3/uL (4.0-11.0) Red Blood Count 5.08 x10^6/uL (4.30-5.70) Hemoglobin 15.5 g/dL (13.0-17.5) Hematocrit 47.2 % (39.0-53.0) Mean Corpuscular Volume 93 fL (79-100) Mean Corpuscular Hemoglobin 31 pg (25-35) Mean Corpuscular Hemoglobin Concent 33 g/dL (31-37) Red Cell Distribution Width 13.9 % (11.5-14.5) Platelet Count 285 x10^3/uL (140-400) Neutrophils (%) (Auto) 46 % (31-73) Lymphocytes (%) (Auto) 47 % (24-48) Monocytes (%) (Auto) 6 % (0-9) Eosinophils (%) (Auto) 1 % (0-3) Basophils (%) (Auto) 1 % (0-3) Neutrophils # (Auto) 8.4 x10^3uL (1.8-7.7) Lymphocytes # (Auto) 8.7 x10^3/uL (1.0-4.8) Monocytes # (Auto) 1.0 x10^3/uL (0.0-1.1) Eosinophils # (Auto) 0.2 x10^3/uL (0.0-0.7) Basophils # (Auto) 0.1 x10^3/uL (0.0-0.2) Segmented Neutrophils % 41 % (35-66) Band Neutrophils % 3 % (0-9) Lymphocytes % 47 % (24-48) Monocytes % 2 % (0-10) Eosinophils % 5 % (0-5) Basophils % 1 % (0-3) Myelocytes % 1 % (0-0) Platelet Estimate Adequate (ADEQUATE) Prothrombin Time 14.9 SEC (11.7-14.0) Prothromb Time International Ratio 1.2 (0.8-1.1) Sodium Level 141 mmol/L (136-145) Potassium Level 3.9 mmol/L (3.5-5.1) Chloride Level 102 mmol/L (98-107) Carbon Dioxide Level 20 mmol/L (21-32) Blood Urea Nitrogen 15 mg/dL (8-26) Creatinine 1.4 mg/dL (0.7-1.3) Estimated GFR (Cockcroft-Gault) 52.1 BUN/Creatinine Ratio 11 (6-20) Lactic Acid Level 10.1 mmol/L (0.4-2.0) Calcium Level 8.4 mg/dL (8.5-10.1) Magnesium Level 2.3 mg/dL (1.8-2.4) Total Bilirubin 0.5 mg/dL (0.2-1.0) Aspartate Amino Transf (AST/SGOT) 180 U/L (15-37) Alanine Aminotransferase (ALT/SGPT) 186 U/L (16-63) Alkaline Phosphatase 87 U/L (46-116) Troponin I Quantitative 0.091 ng/mL (0.000-0.055) ZV-Lmh-R-Type Natriuretic Peptide 1059 pg/mL (0-124) Total Protein 6.9 g/dL (6.4-8.2) Albumin 3.2 g/dL (3.4-5.0) Albumin/Globulin Ratio 0.9 (1.0-1.7) Ethyl Alcohol Level 55 mg/dL (0-10) Urine Collection Type U cath Urine Color Yellow Urine Clarity Clear Urine pH 6.0 Urine Specific [place] 1.020 Urine Protein Negative mg/dL (NEG-TRACE) Urine Glucose (UA) Negative mg/dL (NEG) Urine Ketones (Stick) Negative mg/dL (NEG) Urine Blood Negative (NEG) Urine Nitrite Negative (NEG) Urine Bilirubin Negative (NEG) Urine Urobilinogen Dipstick 0.2 mg/dL (0.2 mg/dL) Urine Leukocyte Esterase Negative (NEG) Urine RBC 1-2 /HPF (0-2) Urine WBC Rare /HPF (0-4) Urine Squamous Epithelial Cells Few /LPF Urine Bacteria 0 /HPF (0-FEW) Urine Mucus Marked /LPF Urine Opiates Screen Neg (NEG) Urine Methadone Screen Neg (NEG) Urine Barbiturates Neg (NEG) Urine Phencyclidine Screen Neg (NEG) Urine Amphetamine/Methamphetamine Neg (NEG) Urine Benzodiazepines Screen Neg (NEG) Urine Cocaine Screen Neg (NEG) Urine Cannabinoids Screen Neg (NEG) Urine Ethyl Alcohol Neg (NEG) Test 06/03/18 22:47 06/03/18 23:42 06/04/18 00:15 06/04/18 00:37 O2 Saturation 91 % (92-99) Arterial Blood pH 7.24 (7.35-7.45) Arterial Blood pH (Temp corrected) 7.23 Arterial Blood pCO2 at Patient Temp 44 mmHg (35-46) Arterial Blood pCO2 (Temp correct) 45 mmHg Arterial Blood pO2 at Patient Temp 70 mmHg (75-108) Arterial Blood pO2 (Temp corrected) 73 mmHg Arterial Blood HCO3 18 mmol/L (21-28) Arterial Blood Base Excess -9 mmol/L (-3-3) FiO2 100 Glucose (Fingerstick) 183 mg/dL (70-99) 181 mg/dL (70-99) Nasal Screen MRSA (PCR) Negative (Negative) Test 06/04/18 00:50 06/04/18 04:10 06/04/18 06:20 06/04/18 08:00 Sodium Level 142 mmol/L (136-145) 140 mmol/L (136-145) Potassium Level 3.9 mmol/L (3.5-5.1) 4.2 mmol/L (3.5-5.1) Chloride Level 106 mmol/L (98-107) 108 mmol/L (98-107) Carbon Dioxide Level 23 mmol/L (21-32) 19 mmol/L (21-32) Anion Gap 13 (6-14) 13 (6-14) Blood Urea Nitrogen 18 mg/dL (8-26) 20 mg/dL (8-26) Creatinine 1.7 mg/dL (0.7-1.3) 1.4 mg/dL (0.7-1.3) Estimated GFR (Cockcroft-Gault) 41.6 52.1 Glucose Level 192 mg/dL (70-99) 232 mg/dL (70-99) Lactic Acid Level 3.4 mmol/L (0.4-2.0) Calcium Level 8.2 mg/dL (8.5-10.1) 7.1 mg/dL (8.5-10.1) Troponin I Quantitative 1.897 ng/mL (0.000-0.055) 2.472 ng/mL (0.000-0.055) Procalcitonin 0.51 ng/mL (0.00-0.10) Glucose (Fingerstick) 159 mg/dL (70-99) White Blood Count 14.7 x10^3/uL (4.0-11.0) Red Blood Count 5.06 x10^6/uL (4.30-5.70) Hemoglobin 15.7 g/dL (13.0-17.5) Hematocrit 45.7 % (39.0-53.0) Mean Corpuscular Volume 90 fL (79-100) Mean Corpuscular Hemoglobin 31 pg (25-35) Mean Corpuscular Hemoglobin Concent 34 g/dL (31-37) Red Cell Distribution Width 13.3 % (11.5-14.5) Platelet Count 210 x10^3/uL (140-400) Prothrombin Time 15.4 SEC (11.7-14.0) Prothromb Time International Ratio 1.3 (0.8-1.1) Heparin Anti-Xa Act, Unfractionated 0.34 IU/mL (0.30-0.70) BUN/Creatinine Ratio 14 (6-20) Hemoglobin A1c 6.8 % (4.8-5.6) Phosphorus Level 4.3 mg/dL (2.6-4.7) Magnesium Level 1.6 mg/dL (1.8-2.4) Total Bilirubin 0.9 mg/dL (0.2-1.0) Direct Bilirubin 0.2 mg/dL (0.0-0.2) Aspartate Amino Transf (AST/SGOT) 250 U/L (15-37) Alanine Aminotransferase (ALT/SGPT) 190 U/L (16-63) Alkaline Phosphatase 65 U/L (46-116) Total Protein 5.8 g/dL (6.4-8.2) Albumin 2.9 g/dL (3.4-5.0) Albumin/Globulin Ratio 1.0 (1.0-1.7) Amylase Level 39 U/L (25-115) Lipase 102 U/L (73-393) O2 Saturation 92 % (92-99) Arterial Blood pH 7.24 (7.35-7.45) Arterial Blood pCO2 at Patient Temp 34 mmHg (35-46) Arterial Blood pO2 at Patient Temp 72 mmHg (75-108) Arterial Blood HCO3 14 mmol/L (21-28) Arterial Blood Base Excess -12 mmol/L (-3-3) FiO2 100 Test 06/04/18 10:50 06/04/18 12:30 06/04/18 15:00 06/04/18 17:00 Sodium Level 141 mmol/L (136-145) 140 mmol/L (136-145) Potassium Level 3.7 mmol/L (3.5-5.1) 3.9 mmol/L (3.5-5.1) Chloride Level 107 mmol/L (98-107) 106 mmol/L (98-107) Carbon Dioxide Level 23 mmol/L (21-32) 21 mmol/L (21-32) Anion Gap 11 (6-14) 13 (6-14) Blood Urea Nitrogen 20 mg/dL (8-26) 20 mg/dL (8-26) Creatinine 1.6 mg/dL (0.7-1.3) 1.4 mg/dL (0.7-1.3) Estimated GFR (Cockcroft-Gault) 44.6 52.1 Glucose Level 275 mg/dL (70-99) 281 mg/dL (70-99) Lactic Acid Level 3.4 mmol/L (0.4-2.0) Calcium Level 7.1 mg/dL (8.5-10.1) 7.1 mg/dL (8.5-10.1) Ionized Calcium 0.96 mmol/L (1.13-1.32) Phosphorus Level 3.6 mg/dL (2.6-4.7) 2.9 mg/dL (2.6-4.7) Magnesium Level 1.6 mg/dL (1.8-2.4) 2.5 mg/dL (1.8-2.4) Troponin I Quantitative 1.237 ng/mL (0.000-0.055) White Blood Count 11.8 x10^3/uL (4.0-11.0) Red Blood Count 4.86 x10^6/uL (4.30-5.70) Hemoglobin 15.0 g/dL (13.0-17.5) Hematocrit 44.1 % (39.0-53.0) Mean Corpuscular Volume 91 fL (79-100) Mean Corpuscular Hemoglobin 31 pg (25-35) Mean Corpuscular Hemoglobin Concent 34 g/dL (31-37) Red Cell Distribution Width 13.1 % (11.5-14.5) Platelet Count 168 x10^3/uL (140-400) Prothrombin Time 15.1 SEC (11.7-14.0) Prothromb Time International Ratio 1.2 (0.8-1.1) Activated Partial Thromboplast Time 103 SEC (24-38) Heparin Anti-Xa Act, Unfractionated 0.46 IU/mL (0.30-0.70) Test 06/04/18 17:07 06/04/18 19:40 06/04/18 22:59 06/04/18 23:00 Glucose (Fingerstick) 259 mg/dL (70-99) 230 mg/dL (70-99) Sodium Level 140 mmol/L (136-145) 139 mmol/L (136-145) Potassium Level 4.2 mmol/L (3.5-5.1) 4.3 mmol/L (3.5-5.1) Chloride Level 106 mmol/L (98-107) 106 mmol/L (98-107) Carbon Dioxide Level 23 mmol/L (21-32) 21 mmol/L (21-32) Anion Gap 11 (6-14) 12 (6-14) Blood Urea Nitrogen 20 mg/dL (8-26) 20 mg/dL (8-26) Creatinine 1.4 mg/dL (0.7-1.3) 1.2 mg/dL (0.7-1.3) Estimated GFR (Cockcroft-Gault) 52.1 62.2 Glucose Level 255 mg/dL (70-99) 250 mg/dL (70-99) Lactic Acid Level 1.9 mmol/L (0.4-2.0) Calcium Level 6.8 mg/dL (8.5-10.1) 7.3 mg/dL (8.5-10.1) Phosphorus Level 4.0 mg/dL (2.6-4.7) 3.4 mg/dL (2.6-4.7) Magnesium Level 2.4 mg/dL (1.8-2.4) 2.7 mg/dL (1.8-2.4) Troponin I Quantitative 0.625 ng/mL (0.000-0.055) White Blood Count 12.6 x10^3/uL (4.0-11.0) Red Blood Count 5.00 x10^6/uL (4.30-5.70) Hemoglobin 15.4 g/dL (13.0-17.5) Hematocrit 45.3 % (39.0-53.0) Mean Corpuscular Volume 91 fL (79-100) Mean Corpuscular Hemoglobin 31 pg (25-35) Mean Corpuscular Hemoglobin Concent 34 g/dL (31-37) Red Cell Distribution Width 13.4 % (11.5-14.5) Platelet Count 170 x10^3/uL (140-400) Test 06/05/18 01:08 06/05/18 02:40 06/05/18 04:40 06/05/18 06:30 Prothrombin Time 14.9 SEC (11.7-14.0) Prothromb Time International Ratio 1.2 (0.8-1.1) Troponin I Quantitative 0.444 ng/mL (0.000-0.055) 0.248 ng/mL (0.000-0.055) Sodium Level 140 mmol/L (136-145) 139 mmol/L (136-145) Potassium Level 4.0 mmol/L (3.5-5.1) 3.8 mmol/L (3.5-5.1) Chloride Level 107 mmol/L (98-107) 109 mmol/L (98-107) Carbon Dioxide Level 21 mmol/L (21-32) 19 mmol/L (21-32) Anion Gap 12 (6-14) 11 (6-14) Blood Urea Nitrogen 20 mg/dL (8-26) 19 mg/dL (8-26) Creatinine 1.0 mg/dL (0.7-1.3) 1.1 mg/dL (0.7-1.3) Estimated GFR (Cockcroft-Gault) 76.7 68.8 Glucose Level 210 mg/dL (70-99) 236 mg/dL (70-99) Calcium Level 6.8 mg/dL (8.5-10.1) 6.5 mg/dL (8.5-10.1) Phosphorus Level 4.2 mg/dL (2.6-4.7) 3.5 mg/dL (2.6-4.7) Magnesium Level 2.1 mg/dL (1.8-2.4) 2.3 mg/dL (1.8-2.4) Lactic Acid Level 1.7 mmol/L (0.4-2.0) White Blood Count 10.3 x10^3/uL (4.0-11.0) Red Blood Count 4.66 x10^6/uL (4.30-5.70) Hemoglobin 14.5 g/dL (13.0-17.5) Hematocrit 42.5 % (39.0-53.0) Mean Corpuscular Volume 91 fL (79-100) Mean Corpuscular Hemoglobin 31 pg (25-35) Mean Corpuscular Hemoglobin Concent 34 g/dL (31-37) Red Cell Distribution Width 13.5 % (11.5-14.5) Platelet Count 139 x10^3/uL (140-400) Activated Partial Thromboplast Time > 150 SEC (24-38) Heparin Anti-Xa Act, Unfractionated 0.54 IU/mL (0.30-0.70) Total Bilirubin 0.5 mg/dL (0.2-1.0) Direct Bilirubin 0.1 mg/dL (0.0-0.2) Aspartate Amino Transf (AST/SGOT) 76 U/L (15-37) Alanine Aminotransferase (ALT/SGPT) 142 U/L (16-63) Alkaline Phosphatase 59 U/L (46-116) Total Protein 5.0 g/dL (6.4-8.2) Albumin 2.4 g/dL (3.4-5.0) Triglycerides Level 222 mg/dL (0-150) Cholesterol Level 136 mg/dL (0-200) LDL Cholesterol, Calculated 66 mg/dL (0-100) VLDL Cholesterol, Calculated 44 mg/dL (0-40) Non-HDL Cholesterol Calculated 110 mg/dL (0-129) HDL Cholesterol 26 mg/dL (40-60) Cholesterol/HDL Ratio 5.2 Test 06/05/18 06:39 06/05/18 08:00 Glucose (Fingerstick) 212 mg/dL (70-99) O2 Saturation 93 % (92-99) Arterial Blood pH 7.33 (7.35-7.45) Arterial Blood pCO2 at Patient Temp 34 mmHg (35-46) Arterial Blood pO2 at Patient Temp 70 mmHg (75-108) Arterial Blood HCO3 18 mmol/L (21-28) Arterial Blood Base Excess -7 mmol/L (-3-3) FiO2 100 Laboratory Tests Test 06/04/18 10:50 06/04/18 12:30 06/04/18 15:00 06/04/18 17:00 Sodium Level 141 mmol/L (136-145) 140 mmol/L (136-145) Potassium Level 3.7 mmol/L (3.5-5.1) 3.9 mmol/L (3.5-5.1) Chloride Level 107 mmol/L (98-107) 106 mmol/L (98-107) Carbon Dioxide Level 23 mmol/L (21-32) 21 mmol/L (21-32) Anion Gap 11 (6-14) 13 (6-14) Blood Urea Nitrogen 20 mg/dL (8-26) 20 mg/dL (8-26) Creatinine 1.6 mg/dL (0.7-1.3) 1.4 mg/dL (0.7-1.3) Estimated GFR (Cockcroft-Gault) 44.6 52.1 Glucose Level 275 mg/dL (70-99) 281 mg/dL (70-99) Lactic Acid Level 3.4 mmol/L (0.4-2.0) Calcium Level 7.1 mg/dL (8.5-10.1) 7.1 mg/dL (8.5-10.1) Ionized Calcium 0.96 mmol/L (1.13-1.32) Phosphorus Level 3.6 mg/dL (2.6-4.7) 2.9 mg/dL (2.6-4.7) Magnesium Level 1.6 mg/dL (1.8-2.4) 2.5 mg/dL (1.8-2.4) Troponin I Quantitative 1.237 ng/mL (0.000-0.055) White Blood Count 11.8 x10^3/uL (4.0-11.0) Red Blood Count 4.86 x10^6/uL (4.30-5.70) Hemoglobin 15.0 g/dL (13.0-17.5) Hematocrit 44.1 % (39.0-53.0) Mean Corpuscular Volume 91 fL (79-100) Mean Corpuscular Hemoglobin 31 pg (25-35) Mean Corpuscular Hemoglobin Concent 34 g/dL (31-37) Red Cell Distribution Width 13.1 % (11.5-14.5) Platelet Count 168 x10^3/uL (140-400) Prothrombin Time 15.1 SEC (11.7-14.0) Prothromb Time International Ratio 1.2 (0.8-1.1) Activated Partial Thromboplast Time 103 SEC (24-38) Heparin Anti-Xa Act, Unfractionated 0.46 IU/mL (0.30-0.70) Test 06/04/18 17:07 06/04/18 19:40 06/04/18 22:59 06/04/18 23:00 Glucose (Fingerstick) 259 mg/dL (70-99) 230 mg/dL (70-99) Sodium Level 140 mmol/L (136-145) 139 mmol/L (136-145) Potassium Level 4.2 mmol/L (3.5-5.1) 4.3 mmol/L (3.5-5.1) Chloride Level 106 mmol/L (98-107) 106 mmol/L (98-107) Carbon Dioxide Level 23 mmol/L (21-32) 21 mmol/L (21-32) Anion Gap 11 (6-14) 12 (6-14) Blood Urea Nitrogen 20 mg/dL (8-26) 20 mg/dL (8-26) Creatinine 1.4 mg/dL (0.7-1.3) 1.2 mg/dL (0.7-1.3) Estimated GFR (Cockcroft-Gault) 52.1 62.2 Glucose Level 255 mg/dL (70-99) 250 mg/dL (70-99) Lactic Acid Level 1.9 mmol/L (0.4-2.0) Calcium Level 6.8 mg/dL (8.5-10.1) 7.3 mg/dL (8.5-10.1) Phosphorus Level 4.0 mg/dL (2.6-4.7) 3.4 mg/dL (2.6-4.7) Magnesium Level 2.4 mg/dL (1.8-2.4) 2.7 mg/dL (1.8-2.4) Troponin I Quantitative 0.625 ng/mL (0.000-0.055) White Blood Count 12.6 x10^3/uL (4.0-11.0) Red Blood Count 5.00 x10^6/uL (4.30-5.70) Hemoglobin 15.4 g/dL (13.0-17.5) Hematocrit 45.3 % (39.0-53.0) Mean Corpuscular Volume 91 fL (79-100) Mean Corpuscular Hemoglobin 31 pg (25-35) Mean Corpuscular Hemoglobin Concent 34 g/dL (31-37) Red Cell Distribution Width 13.4 % (11.5-14.5) Platelet Count 170 x10^3/uL (140-400) Test 06/05/18 01:08 06/05/18 02:40 06/05/18 04:40 06/05/18 06:30 Prothrombin Time 14.9 SEC (11.7-14.0) Prothromb Time International Ratio 1.2 (0.8-1.1) Troponin I Quantitative 0.444 ng/mL (0.000-0.055) 0.248 ng/mL (0.000-0.055) Sodium Level 140 mmol/L (136-145) 139 mmol/L (136-145) Potassium Level 4.0 mmol/L (3.5-5.1) 3.8 mmol/L (3.5-5.1) Chloride Level 107 mmol/L (98-107) 109 mmol/L (98-107) Carbon Dioxide Level 21 mmol/L (21-32) 19 mmol/L (21-32) Anion Gap 12 (6-14) 11 (6-14) Blood Urea Nitrogen 20 mg/dL (8-26) 19 mg/dL (8-26) Creatinine 1.0 mg/dL (0.7-1.3) 1.1 mg/dL (0.7-1.3) Estimated GFR (Cockcroft-Gault) 76.7 68.8 Glucose Level 210 mg/dL (70-99) 236 mg/dL (70-99) Calcium Level 6.8 mg/dL (8.5-10.1) 6.5 mg/dL (8.5-10.1) Phosphorus Level 4.2 mg/dL (2.6-4.7) 3.5 mg/dL (2.6-4.7) Magnesium Level 2.1 mg/dL (1.8-2.4) 2.3 mg/dL (1.8-2.4) Lactic Acid Level 1.7 mmol/L (0.4-2.0) White Blood Count 10.3 x10^3/uL (4.0-11.0) Red Blood Count 4.66 x10^6/uL (4.30-5.70) Hemoglobin 14.5 g/dL (13.0-17.5) Hematocrit 42.5 % (39.0-53.0) Mean Corpuscular Volume 91 fL (79-100) Mean Corpuscular Hemoglobin 31 pg (25-35) Mean Corpuscular Hemoglobin Concent 34 g/dL (31-37) Red Cell Distribution Width 13.5 % (11.5-14.5) Platelet Count 139 x10^3/uL (140-400) Activated Partial Thromboplast Time > 150 SEC (24-38) Heparin Anti-Xa Act, Unfractionated 0.54 IU/mL (0.30-0.70) Total Bilirubin 0.5 mg/dL (0.2-1.0) Direct Bilirubin 0.1 mg/dL (0.0-0.2) Aspartate Amino Transf (AST/SGOT) 76 U/L (15-37) Alanine Aminotransferase (ALT/SGPT) 142 U/L (16-63) Alkaline Phosphatase 59 U/L (46-116) Total Protein 5.0 g/dL (6.4-8.2) Albumin 2.4 g/dL (3.4-5.0) Triglycerides Level 222 mg/dL (0-150) Cholesterol Level 136 mg/dL (0-200) LDL Cholesterol, Calculated 66 mg/dL (0-100) VLDL Cholesterol, Calculated 44 mg/dL (0-40) Non-HDL Cholesterol Calculated 110 mg/dL (0-129) HDL Cholesterol 26 mg/dL (40-60) Cholesterol/HDL Ratio 5.2 Test 06/05/18 06:39 06/05/18 08:00 Glucose (Fingerstick) 212 mg/dL (70-99) O2 Saturation 93 % (92-99) Arterial Blood pH 7.33 (7.35-7.45) Arterial Blood pCO2 at Patient Temp 34 mmHg (35-46) Arterial Blood pO2 at Patient Temp 70 mmHg (75-108) Arterial Blood HCO3 18 mmol/L (21-28) Arterial Blood Base Excess -7 mmol/L (-3-3) FiO2 100 Medications Current Medications Amiodarone HCl 900 mg/Dextrose 518 ml @ 33 mls/hr 1X ONCE IV Last administered on 06/03/18at 21:14; Start 06/03/18 at 21:00; Stop 06/04/18 at 12:41; Status DC Amiodarone HCl (Cordarone) 300 mg 1X ONCE IVP Last administered on 06/03/18at 20 :57; Start 06/03/18 at 21:15; Stop 06/03/18 at 21:16; Status DC Amiodarone HCl 900 mg/Dextrose 518 ml @ 0 mls/hr 1X ONCE IV ; Start 06/03/18 at 21:15; Stop 06/03/18 at 21:16; Status Cancel Magnesium Sulfate/ Dextrose 100 ml @ 100 mls/hr 1X ONCE IV Last administered on 06/03/18at 21:03; Start 06/03/18 at 21:15; Stop 06/03/18 at 22:14; Status DC Propofol 50 ml @ As Directed STK-MED ONCE IV ; Start 06/03/18 at 21:16; Stop 06/03 at 21:17; Status DC Iohexol (Omnipaque 300 Mg/ml) 90 ml 1X ONCE IV Last administered on 06/03/18at 21:30; Start 06/03/18 at 21:30; Stop 06/03/18 at 21:31; Status DC Info (CONTRAST GIVEN -- Rx MONITORING) 1 each PRN DAILY PRN MC SEE COMMENTS; Start 06/03/18 at 21:30; Stop 06/05/18 at 21:29 Norepinephrine Bitartrate 250 ml @ As Directed STK-MED ONCE IV ; Start 06/03/18 at 21:17; Stop 06/03/18 at 21:18; Status DC Norepinephrine Bitartrate 250 ml @ 0 mls/hr 1X ONCE IV Last administered on 06/03/18at 21:22; Start 06/03/18 at 21:30; Stop 06/03/18 at 21:31; Status DC Propofol 20 ml @ 0 mls/hr 1X ONCE IV Last administered on 06/03/18at 21:19; Start 06/03/18 at 21:30; Stop 06/03/18 at 21:31; Status DC Sodium Chloride 1,000 ml @ 100 mls/hr Q10H IV Last administered on 06/04/18at 17 :04; Start 06/03/18 at 21:29; Stop 06/04/18 at 21:28; Status DC Potassium Chloride (KCl Oral Soln) 20 meq 1X ONCE NG Last administered on at 00:24; Start 06/03/18 at 22:30; Stop 06/03/18 at 22:31; Status DC Insulin Human Regular 150 unit/ Sodium Chloride 151.5 ml @ 0 mls/hr CONT PRN IV SEE I/O RECORD; Start 06/03/18 at 22:30; Stop 06/04/18 at 13:23; Status DC Dextrose (Dextrose 50%-Water Syringe) 12.5 gm PRN Q15MIN PRN IV LOW BLOOD SUGAR ; Start 06/03/18 at 22:30; Stop 06/04/18 at 13:22; Status DC Multivitamins 10 ml/Thiamine HCl 100 mg/Folic Acid 1 mg/Sodium Chloride 1,011.2 ml @ 100 mls/ hr DAILY IV ; Start 06/04/18 at 09:00; Stop 06/04/18 at 19:07; Status Cancel Lorazepam (Ativan) 2 mg PRN Q1HR PRN IV For CIWA 8-14; Start 06/03/18 at 22:45 Lorazepam (Ativan) 4 mg PRN Q1HR PRN IV For CIWA 15 or greater; Start 06/03/18 at 22:45 Haloperidol Lactate (Haldol Inj) 5 mg PRN Q4HRS PRN IVP Hallucinatns,Confusn, Delirium; Start 06/03/18 at 22:45 Heparin Sodium/ Dextrose 500 ml @ 0 mls/hr CONT PRN IV SEE I/O RECORD Last administered on 06/05/18at 07:42; Start 06/03/18 at 23:00 Heparin Sodium (Porcine) (Heparin Sodium) 3,300 unit PRN Q6HRS PRN IV FOR UFH LEVEL LESS THAN 0.2 Last administered on 06/03/18at 23:08; Start 06/03/18 at 23:00 Midazolam HCl 100 ml @ 5 mls/hr CONT PRN IV SEE I/O RECORD Last administered on 06/05/18at 07:45; Start 06/03/18 at 23:15 Fentanyl Citrate 30 ml @ 0 mls/hr CONT PRN PRN IV PER PROTOCOL Last administered on 06/04/18 17:20; Start 06/03/18 at 23:15 Etomidate (Amidate) 20 mg 1X ONCE IV Last administered on 06/03/18 20:55; Start 06/03/18 at 23:15; Stop 06/03/18 at 23:16; Status DC Succinylcholine Chloride (Anectine) 100 mg 1X ONCE IV Last administered on 06/03 20:56; Start 06/03/18 at 23:15; Stop 06/03/18 at 23:16; Status DC Fentanyl Citrate (Fentanyl 2ml Vial) 100 mcg 1X ONCE IV Last administered on 20:59; Start 06/03/18 at 23:15; Stop 06/03/18 at 23:16; Status DC Midazolam HCl (Versed) 4 mg 1X ONCE IV Last administered on 06/03/18 21:01; Start 06/03/18 at 23:15; Stop 06/03/18 at 23:16; Status DC Sodium Chloride 500 ml @ 500 mls/hr 1X ONCE IV Last administered on 06/03/18 21:20; Start 06/03/18 at 23:15; Stop 06/04/18 at 00:14; Status DC Rocuronium [place] (Zemuron) 50 mg 1X ONCE IV Last administered on 06/03/18 21 :29; Start 06/03/18 at 23:15; Stop 06/03/18 at 23:16; Status DC Sodium Chloride 1,000 ml @ 1,000 mls/hr Q1H IV Last administered on 06/04/18at 05:55; Start 06/04/18 at 00:00; Stop 06/04/18 at 06:25; Status DC Vecuronium [place] (Norcuron Bolus) 10 mg PRN Q30MIN PRN IV SHIVERING Last administered on 06/05/18at 09:00; Start 06/04/18 at 00:00 Meperidine HCl (Demerol) 12.5 mg PRN Q30MIN PRN IV SHIVERING Last administered on 06/04/18at 02:04; Start 06/04/18 at 00:00 Sodium Chloride (Normal Saline Flush) 3 ml QSHIFT PRN IV AFTER MEDS AND BLOOD DRAWS; Start 06/04/18 at 00:00 Acetaminophen (Tylenol) 650 mg Q6HRS NG ; Start 06/04/18 at 00:00; Stop 06/04/18 at 00:52; Status DC Acetaminophen (Tylenol Supp) 650 mg PRN Q6HRS PRN NE MILD PAIN / TEMP; Start at 00:00; Status Cancel Acetaminophen (Tylenol) 650 mg PRN Q6HRS PRN NG MILD PAIN / TEMP; Start at 00:00; Status Cancel Info (Icu Electrolyte Protocol) 1 ea DAILY PRN MC PER PROTOCOL; Start 06/06/18 at 00:00 Vancomycin HCl (Vanco Per Pharmacy) 1 each PRN DAILY PRN MC SEE COMMENTS Last administered on 06/04/18at 11:13; Start 06/04/18 at 00:30 Piperacillin Sod/ Tazobactam Sod (Zosyn Per Pharmacy) 1 each PRN DAILY PRN MC SEE COMMENTS; Start 06/04/18 at 00:30 Sodium Chloride 1,000 ml @ 2,040 mls/hr Q30M IV Last administered on 06/04/18at 00:21; Start 06/04/18 at 00:15; Stop 06/04/18 at 01:15; Status DC Sodium Chloride 500 ml @ 1,000 mls/hr PRN Q30MIN PRN IV SEE COMMENTS; Start at 00:15 Norepinephrine Bitartrate 250 ml @ 0 mls/hr CONT PRN IV SEE I/O RECORD Last administered on 06/04/18at 01:31; Start 06/04/18 at 00:15 Piperacillin Sod/ Tazobactam Sod 3.375 gm/Sodium Chloride 50 ml @ 100 mls/hr Q6HRS IV Last administered on 06/05/18at 05:54; Start 06/04/18 at 00:30 Ondansetron HCl (Zofran) 4 mg PRN Q6HRS PRN IV NAUSEA/VOMITING; Start 06/04/18 at 00:45 Vancomycin HCl 2 gm/Sodium Chloride 500 ml @ 250 mls/hr 1X ONCE IV Last administered on 06/04/18at 00:47; Start 06/04/18 at 01:00; Stop 06/04/18 at 02:59; Status DC Levetiracetam 500 mg/Dextrose 105 ml @ 420 mls/hr Q12HR IV Last administered on 06/05/18at 07:45; Start 06/04/18 at 09:00 Levetiracetam 500 mg/Dextrose 105 ml @ 420 mls/hr 1X ONCE IV Last administered on 06/04/18at 01:01; Start 06/04/18 at 01:00; Stop 06/04/18 at 01:14; Status DC Vancomycin HCl 2 gm/Sodium Chloride 500 ml @ 250 mls/hr Q12H IV Last administered on 06/05/18at 01:09; Start 06/04/18 at 13:00 Vancomycin HCl (Vancomycin Trough Level) 1 each 1X ONCE MC ; Start 06/05/18 at 12:30; Stop 06/05/18 at 12:31 Micafungin Sodium 100 mg/Dextrose 100 ml @ 100 mls/hr Q24H IV Last administered on 06/05/18at 07:47; Start 06/04/18 at 08:00 Lidocaine/Sodium Bicarbonate (Buffered Lidocaine 1%) 3 ml STK-MED ONCE .ROUTE ; Start 06/04/18 at 08:05; Stop 06/04/18 at 08:06; Status DC Sodium Bicarbonate (Sodium Bicarb Adult 8.4% Syr) 50 meq 1X ONCE IV Last administered on 06/04/18at 09:34; Start 06/04/18 at 09:15; Stop 06/04/18 at 09:16; Status DC Sodium Bicarbonate (Sodium Bicarb Adult 8.4% Syr) 50 meq 1X ONCE IV Last administered on 06/04/18at 09:34; Start 06/04/18 at 09:15; Stop 06/04/18 at 09:16; Status DC Lidocaine/Sodium Bicarbonate (Buffered Lidocaine 1%) 3 ml 1X ONCE INJ Last administered on 06/04/18at 09:15; Start 06/04/18 at 09:15; Stop 06/04/18 at 09:16; Status DC Magnesium Sulfate/ Dextrose 100 ml @ 25 mls/hr 1X ONCE IV Last administered on 06/04/18at 10:41; Start 06/04/18 at 11:00; Stop 06/04/18 at 14:59; Status DC Info (Anti-Coagulation Monitoring By Pharmacy) 1 each PRN DAILY PRN MC SEE COMMENTS Last administered on 06/04/18at 11:07; Start 06/04/18 at 11:15 Pantoprazole Sodium (PROTONIX VIAL for IV PUSH) 40 mg DAILYAC IVP Last administered on 06/05/18at 07:47; Start 06/04/18 at 14:00 Insulin Human Lispro (HumaLOG) 0-7 UNITS TIDWMEALS SQ Last administered on at 17:12; Start 06/04/18 at 14:00; Stop 06/05/18 at 00:02; Status DC Dextrose (Dextrose 50%-Water Syringe) 12.5 gm PRN Q15MIN PRN IV SEE COMMENTS; Start 06/04/18 at 13:15 Sodium Chloride 1,000 ml @ 100 mls/hr Q10H IV Last administered on 06/05/18at 07:45; Start 06/04/18 at 21:30 Insulin Human Lispro (HumaLOG) 0-7 UNITS Q6HRS SQ Last administered on at 06:45; Start 06/05/18 at 00:00; Stop 06/05/18 at 09:20; Status DC Chlorhexidine Gluconate (Peridex) 15 ml BID MM Last administered on 06/05/18at 08:12; Start 06/05/18 at 09:00 Insulin Human Lispro (HumaLOG) 0-9 UNITS TIDWMEALS SQ ; Start 06/05/18 at 12:00 Dextrose (Dextrose 50%-Water Syringe) 12.5 gm PRN Q15MIN PRN IV SEE COMMENTS; Start 06/05/18 at 09:30; Status UNV Active Scripts Active Reported Carvedilol 6.25 Mg Tablet 1 Tab PO BID 90 Days Zoloft (Sertraline Hcl) 100 Mg Tablet 1.5 Tab PO DAILY 90 Days Dyazide 37.5-25 Capsule (Triamterene/Hydrochlorothiazid) 1 Each Capsule 1 Cap PO DAILY Fluconazole 100 Mg Tablet 1 Tab PO DAILY Clonazepam 0.5 Mg Tablet 1 Tab PO PRN TID PRN Acamprosate Calcium 333 Mg Tablet.dr 2 Tab PO TID Vitals/I & O Vital Sign - Last 24 Hours 06/04/18 06/04/18 06/04/18 06/04/18 09:56 10:00 10:30 11:00 Temp 92.0 92.0 Pulse 56 56 58 Resp 30 20 20 B/P (MAP) 122/83 (96) 132/83 (99) 134/95 (108) Pulse Ox 92 92 95 97 O2 Delivery Ventilator Ventilator Ventilator Ventilator 06/04/18 06/04/18 06/04/18 06/04/18 12:00 12:00 12:14 13:00 Temp 92.6 92.6 Pulse 56 54 Resp 20 24 B/P (MAP) 113/76 (88) 112/77 (89) Pulse Ox 96 96 96 O2 Delivery Ventilator Mechanical Ventilator Ventilator Ventilator 06/04/18 06/04/18 06/04/18 06/04/18 14:00 15:00 16:00 16:00 Temp 92.6 92.6 Pulse 52 54 58 Resp 24 25 24 B/P (MAP) 126/87 (100) 102/65 (77) 107/69 (82) Pulse Ox 96 95 96 O2 Delivery Ventilator Ventilator Ventilator Mechanical Ventilator 06/04/18 06/04/18 06/04/18 06/04/18 16:45 17:00 17:20 17:57 Pulse 58 Resp 28 24 24 B/P (MAP) 140/77 (98) Pulse Ox 96 95 96 97 O2 Delivery Ventilator Ventilator Ventilator Ventilator 06/04/18 06/04/18 06/04/18 06/04/18 18:00 18:15 19:00 20:00 Temp 93.9 93.9 Pulse 62 60 Resp 24 B/P (MAP) 127/83 (98) 149/87 (107) Pulse Ox 97 96 97 96 O2 Delivery Ventilator Ventilator Ventilator Ventilator 06/04/18 06/04/18 06/04/18 06/04/18 20:00 20:00 21:00 22:00 Temp 92.8 91.8 90.1 92.8 91.8 90.1 Pulse 58 55 53 Resp 24 24 24 B/P (MAP) 151/97 (115) 159/88 (111) 111/77 (88) Pulse Ox 96 97 97 O2 Delivery Mechanical Ventilator Ventilator Ventilator Ventilator 06/04/18 06/04/18 06/05/18 06/05/18 23:00 23:59 00:00 00:30 Temp 90.6 91.9 90.6 91.9 Pulse 50 57 Resp 24 24 B/P (MAP) 132/79 (96) 109/76 (87) Pulse Ox 96 96 95 O2 Delivery Ventilator Mechanical Ventilator Ventilator Ventilator 06/05/18 06/05/18 06/05/18 06/05/18 01:00 02:00 02:05 03:00 Temp 93.2 93.7 93.1 93.2 93.7 93.1 Pulse 64 63 63 Resp 24 24 24 B/P (MAP) 123/81 (95) 138/88 (105) 156/94 (114) Pulse Ox 95 95 94 92 O2 Delivery Ventilator Ventilator Ventilator Ventilator 06/05/18 06/05/18 06/05/18 06/05/18 04:00 04:00 04:37 05:00 Temp 92.1 90.4 92.1 90.4 Pulse 59 54 Resp 24 24 B/P (MAP) 152/97 (115) 124/99 (107) Pulse Ox 91 94 96 O2 Delivery Ventilator Mechanical Ventilator Ventilator Ventilator 06/05/18 06/05/18 06/05/18 06/05/18 06:00 06:15 06:30 06:45 Temp 88.5 88.2 87.9 87.8 88.5 88.2 87.9 87.8 Pulse 47 46 46 46 Resp 24 24 24 24 B/P (MAP) 121/93 (102) 117/76 (90) 105/72 (83) 110/74 (86) Pulse Ox 96 97 96 96 O2 Delivery Ventilator Ventilator Ventilator Ventilator 06/05/18 06/05/18 07:41 08:00 Pulse Ox 94 O2 Delivery Ventilator Mechanical Ventilator Intake and Output 06/04/18 06/04/18 06/05/18 15:00 23:00 07:00 Intake Total 105 ml 890 ml Output Total 625 ml 1650 ml 295 ml Balance -625 ml -1545 ml 595 ml JAISON NUNEZ MD Jun 05, 2018 09:34
[2018-06-05] MEDS: ANTI-COAG MONITOR BY PHARMACY. MC PRN (10:00)
--- NOTE | 2018-06-05 11:15 | PDOC ---
PULMONARY PROGRESS NOTES Subjective remains intubated/sedated low sats despite 100%FIO2/ 10 PEEP Vitals Vital Signs Date Time Temp Pulse Resp B/P (MAP) Pulse Ox O2 Delivery O2 Flow Rate FiO2 06/05/18 10:00 97.1 87 20 122/86 (98) 94 Ventilator 97.1 Lungs: Other (bl decreased bs) Cardiovascular: S1 Abdomen: Soft, Other (obese) Extremities: Other (1+edema) Labs Laboratory Tests Test 06/03/18 20:57 06/03/18 21:02 06/03/18 21:05 06/03/18 21:31 Bedside Troponin I 0.08 ng/ml (<0.08) Bedside Hemoglobin 16.0 g/dL (14-18) Bedside Hematocrit 47 % (37-52) Bedside Sodium 141 mmol/L (135-145) Bedside Potassium 3.1 mmol/L (3.5-5.0) Bedside Chloride 104 mmol/L (98-110) Bedside Total CO2 20 mmol/L (23-32) Anion Gap 22 mmol/L (6-14) 19 (6-14) Bedside Blood Urea Nitrogen 15 mg/dL (8-26) Bedside Creatinine 1.3 mg/dL (0.5-1.4) Glucose Level 337 mg/dL (70-99) 312 mg/dL (70-99) Bedside Ionized Calcium (Memo) 1.05 mmol/L (1.13-1.32) White Blood Count 18.4 x10^3/uL (4.0-11.0) Red Blood Count 5.08 x10^6/uL (4.30-5.70) Hemoglobin 15.5 g/dL (13.0-17.5) Hematocrit 47.2 % (39.0-53.0) Mean Corpuscular Volume 93 fL (79-100) Mean Corpuscular Hemoglobin 31 pg (25-35) Mean Corpuscular Hemoglobin Concent 33 g/dL (31-37) Red Cell Distribution Width 13.9 % (11.5-14.5) Platelet Count 285 x10^3/uL (140-400) Neutrophils (%) (Auto) 46 % (31-73) Lymphocytes (%) (Auto) 47 % (24-48) Monocytes (%) (Auto) 6 % (0-9) Eosinophils (%) (Auto) 1 % (0-3) Basophils (%) (Auto) 1 % (0-3) Neutrophils # (Auto) 8.4 x10^3uL (1.8-7.7) Lymphocytes # (Auto) 8.7 x10^3/uL (1.0-4.8) Monocytes # (Auto) 1.0 x10^3/uL (0.0-1.1) Eosinophils # (Auto) 0.2 x10^3/uL (0.0-0.7) Basophils # (Auto) 0.1 x10^3/uL (0.0-0.2) Segmented Neutrophils % 41 % (35-66) Band Neutrophils % 3 % (0-9) Lymphocytes % 47 % (24-48) Monocytes % 2 % (0-10) Eosinophils % 5 % (0-5) Basophils % 1 % (0-3) Myelocytes % 1 % (0-0) Platelet Estimate Adequate (ADEQUATE) Prothrombin Time 14.9 SEC (11.7-14.0) Prothromb Time International Ratio 1.2 (0.8-1.1) Sodium Level 141 mmol/L (136-145) Potassium Level 3.9 mmol/L (3.5-5.1) Chloride Level 102 mmol/L (98-107) Carbon Dioxide Level 20 mmol/L (21-32) Blood Urea Nitrogen 15 mg/dL (8-26) Creatinine 1.4 mg/dL (0.7-1.3) Estimated GFR (Cockcroft-Gault) 52.1 BUN/Creatinine Ratio 11 (6-20) Lactic Acid Level 10.1 mmol/L (0.4-2.0) Calcium Level 8.4 mg/dL (8.5-10.1) Magnesium Level 2.3 mg/dL (1.8-2.4) Total Bilirubin 0.5 mg/dL (0.2-1.0) Aspartate Amino Transf (AST/SGOT) 180 U/L (15-37) Alanine Aminotransferase (ALT/SGPT) 186 U/L (16-63) Alkaline Phosphatase 87 U/L (46-116) Troponin I Quantitative 0.091 ng/mL (0.000-0.055) GT-Kos-D-Type Natriuretic Peptide 1059 pg/mL (0-124) Total Protein 6.9 g/dL (6.4-8.2) Albumin 3.2 g/dL (3.4-5.0) Albumin/Globulin Ratio 0.9 (1.0-1.7) Ethyl Alcohol Level 55 mg/dL (0-10) Urine Collection Type U cath Urine Color Yellow Urine Clarity Clear Urine pH 6.0 Urine Specific [place] 1.020 Urine Protein Negative mg/dL (NEG-TRACE) Urine Glucose (UA) Negative mg/dL (NEG) Urine Ketones (Stick) Negative mg/dL (NEG) Urine Blood Negative (NEG) Urine Nitrite Negative (NEG) Urine Bilirubin Negative (NEG) Urine Urobilinogen Dipstick 0.2 mg/dL (0.2 mg/dL) Urine Leukocyte Esterase Negative (NEG) Urine RBC 1-2 /HPF (0-2) Urine WBC Rare /HPF (0-4) Urine Squamous Epithelial Cells Few /LPF Urine Bacteria 0 /HPF (0-FEW) Urine Mucus Marked /LPF Urine Opiates Screen Neg (NEG) Urine Methadone Screen Neg (NEG) Urine Barbiturates Neg (NEG) Urine Phencyclidine Screen Neg (NEG) Urine Amphetamine/Methamphetamine Neg (NEG) Urine Benzodiazepines Screen Neg (NEG) Urine Cocaine Screen Neg (NEG) Urine Cannabinoids Screen Neg (NEG) Urine Ethyl Alcohol Neg (NEG) Test 06/03/18 22:47 06/03/18 23:42 06/04/18 00:15 06/04/18 00:37 O2 Saturation 91 % (92-99) Arterial Blood pH 7.24 (7.35-7.45) Arterial Blood pH (Temp corrected) 7.23 Arterial Blood pCO2 at Patient Temp 44 mmHg (35-46) Arterial Blood pCO2 (Temp correct) 45 mmHg Arterial Blood pO2 at Patient Temp 70 mmHg (75-108) Arterial Blood pO2 (Temp corrected) 73 mmHg Arterial Blood HCO3 18 mmol/L (21-28) Arterial Blood Base Excess -9 mmol/L (-3-3) FiO2 100 Glucose (Fingerstick) 183 mg/dL (70-99) 181 mg/dL (70-99) Nasal Screen MRSA (PCR) Negative (Negative) Test 06/04/18 00:50 06/04/18 04:10 06/04/18 06:20 06/04/18 08:00 Sodium Level 142 mmol/L (136-145) 140 mmol/L (136-145) Potassium Level 3.9 mmol/L (3.5-5.1) 4.2 mmol/L (3.5-5.1) Chloride Level 106 mmol/L (98-107) 108 mmol/L (98-107) Carbon Dioxide Level 23 mmol/L (21-32) 19 mmol/L (21-32) Anion Gap 13 (6-14) 13 (6-14) Blood Urea Nitrogen 18 mg/dL (8-26) 20 mg/dL (8-26) Creatinine 1.7 mg/dL (0.7-1.3) 1.4 mg/dL (0.7-1.3) Estimated GFR (Cockcroft-Gault) 41.6 52.1 Glucose Level 192 mg/dL (70-99) 232 mg/dL (70-99) Lactic Acid Level 3.4 mmol/L (0.4-2.0) Calcium Level 8.2 mg/dL (8.5-10.1) 7.1 mg/dL (8.5-10.1) Troponin I Quantitative 1.897 ng/mL (0.000-0.055) 2.472 ng/mL (0.000-0.055) Procalcitonin 0.51 ng/mL (0.00-0.10) Glucose (Fingerstick) 159 mg/dL (70-99) White Blood Count 14.7 x10^3/uL (4.0-11.0) Red Blood Count 5.06 x10^6/uL (4.30-5.70) Hemoglobin 15.7 g/dL (13.0-17.5) Hematocrit 45.7 % (39.0-53.0) Mean Corpuscular Volume 90 fL (79-100) Mean Corpuscular Hemoglobin 31 pg (25-35) Mean Corpuscular Hemoglobin Concent 34 g/dL (31-37) Red Cell Distribution Width 13.3 % (11.5-14.5) Platelet Count 210 x10^3/uL (140-400) Prothrombin Time 15.4 SEC (11.7-14.0) Prothromb Time International Ratio 1.3 (0.8-1.1) Heparin Anti-Xa Act, Unfractionated 0.34 IU/mL (0.30-0.70) BUN/Creatinine Ratio 14 (6-20) Hemoglobin A1c 6.8 % (4.8-5.6) Phosphorus Level 4.3 mg/dL (2.6-4.7) Magnesium Level 1.6 mg/dL (1.8-2.4) Total Bilirubin 0.9 mg/dL (0.2-1.0) Direct Bilirubin 0.2 mg/dL (0.0-0.2) Aspartate Amino Transf (AST/SGOT) 250 U/L (15-37) Alanine Aminotransferase (ALT/SGPT) 190 U/L (16-63) Alkaline Phosphatase 65 U/L (46-116) Total Protein 5.8 g/dL (6.4-8.2) Albumin 2.9 g/dL (3.4-5.0) Albumin/Globulin Ratio 1.0 (1.0-1.7) Amylase Level 39 U/L (25-115) Lipase 102 U/L (73-393) O2 Saturation 92 % (92-99) Arterial Blood pH 7.24 (7.35-7.45) Arterial Blood pCO2 at Patient Temp 34 mmHg (35-46) Arterial Blood pO2 at Patient Temp 72 mmHg (75-108) Arterial Blood HCO3 14 mmol/L (21-28) Arterial Blood Base Excess -12 mmol/L (-3-3) FiO2 100 Test 06/04/18 10:50 06/04/18 12:30 06/04/18 15:00 06/04/18 17:00 Sodium Level 141 mmol/L (136-145) 140 mmol/L (136-145) Potassium Level 3.7 mmol/L (3.5-5.1) 3.9 mmol/L (3.5-5.1) Chloride Level 107 mmol/L (98-107) 106 mmol/L (98-107) Carbon Dioxide Level 23 mmol/L (21-32) 21 mmol/L (21-32) Anion Gap 11 (6-14) 13 (6-14) Blood Urea Nitrogen 20 mg/dL (8-26) 20 mg/dL (8-26) Creatinine 1.6 mg/dL (0.7-1.3) 1.4 mg/dL (0.7-1.3) Estimated GFR (Cockcroft-Gault) 44.6 52.1 Glucose Level 275 mg/dL (70-99) 281 mg/dL (70-99) Lactic Acid Level 3.4 mmol/L (0.4-2.0) Calcium Level 7.1 mg/dL (8.5-10.1) 7.1 mg/dL (8.5-10.1) Ionized Calcium 0.96 mmol/L (1.13-1.32) Phosphorus Level 3.6 mg/dL (2.6-4.7) 2.9 mg/dL (2.6-4.7) Magnesium Level 1.6 mg/dL (1.8-2.4) 2.5 mg/dL (1.8-2.4) Troponin I Quantitative 1.237 ng/mL (0.000-0.055) White Blood Count 11.8 x10^3/uL (4.0-11.0) Red Blood Count 4.86 x10^6/uL (4.30-5.70) Hemoglobin 15.0 g/dL (13.0-17.5) Hematocrit 44.1 % (39.0-53.0) Mean Corpuscular Volume 91 fL (79-100) Mean Corpuscular Hemoglobin 31 pg (25-35) Mean Corpuscular Hemoglobin Concent 34 g/dL (31-37) Red Cell Distribution Width 13.1 % (11.5-14.5) Platelet Count 168 x10^3/uL (140-400) Prothrombin Time 15.1 SEC (11.7-14.0) Prothromb Time International Ratio 1.2 (0.8-1.1) Activated Partial Thromboplast Time 103 SEC (24-38) Heparin Anti-Xa Act, Unfractionated 0.46 IU/mL (0.30-0.70) Test 06/04/18 17:07 06/04/18 19:40 06/04/18 22:59 06/04/18 23:00 Glucose (Fingerstick) 259 mg/dL (70-99) 230 mg/dL (70-99) Sodium Level 140 mmol/L (136-145) 139 mmol/L (136-145) Potassium Level 4.2 mmol/L (3.5-5.1) 4.3 mmol/L (3.5-5.1) Chloride Level 106 mmol/L (98-107) 106 mmol/L (98-107) Carbon Dioxide Level 23 mmol/L (21-32) 21 mmol/L (21-32) Anion Gap 11 (6-14) 12 (6-14) Blood Urea Nitrogen 20 mg/dL (8-26) 20 mg/dL (8-26) Creatinine 1.4 mg/dL (0.7-1.3) 1.2 mg/dL (0.7-1.3) Estimated GFR (Cockcroft-Gault) 52.1 62.2 Glucose Level 255 mg/dL (70-99) 250 mg/dL (70-99) Lactic Acid Level 1.9 mmol/L (0.4-2.0) Calcium Level 6.8 mg/dL (8.5-10.1) 7.3 mg/dL (8.5-10.1) Phosphorus Level 4.0 mg/dL (2.6-4.7) 3.4 mg/dL (2.6-4.7) Magnesium Level 2.4 mg/dL (1.8-2.4) 2.7 mg/dL (1.8-2.4) Troponin I Quantitative 0.625 ng/mL (0.000-0.055) White Blood Count 12.6 x10^3/uL (4.0-11.0) Red Blood Count 5.00 x10^6/uL (4.30-5.70) Hemoglobin 15.4 g/dL (13.0-17.5) Hematocrit 45.3 % (39.0-53.0) Mean Corpuscular Volume 91 fL (79-100) Mean Corpuscular Hemoglobin 31 pg (25-35) Mean Corpuscular Hemoglobin Concent 34 g/dL (31-37) Red Cell Distribution Width 13.4 % (11.5-14.5) Platelet Count 170 x10^3/uL (140-400) Test 06/05/18 01:08 06/05/18 02:40 06/05/18 04:40 06/05/18 06:30 Prothrombin Time 14.9 SEC (11.7-14.0) Prothromb Time International Ratio 1.2 (0.8-1.1) Troponin I Quantitative 0.444 ng/mL (0.000-0.055) 0.248 ng/mL (0.000-0.055) Sodium Level 140 mmol/L (136-145) 139 mmol/L (136-145) Potassium Level 4.0 mmol/L (3.5-5.1) 3.8 mmol/L (3.5-5.1) Chloride Level 107 mmol/L (98-107) 109 mmol/L (98-107) Carbon Dioxide Level 21 mmol/L (21-32) 19 mmol/L (21-32) Anion Gap 12 (6-14) 11 (6-14) Blood Urea Nitrogen 20 mg/dL (8-26) 19 mg/dL (8-26) Creatinine 1.0 mg/dL (0.7-1.3) 1.1 mg/dL (0.7-1.3) Estimated GFR (Cockcroft-Gault) 76.7 68.8 Glucose Level 210 mg/dL (70-99) 236 mg/dL (70-99) Calcium Level 6.8 mg/dL (8.5-10.1) 6.5 mg/dL (8.5-10.1) Phosphorus Level 4.2 mg/dL (2.6-4.7) 3.5 mg/dL (2.6-4.7) Magnesium Level 2.1 mg/dL (1.8-2.4) 2.3 mg/dL (1.8-2.4) Lactic Acid Level 1.7 mmol/L (0.4-2.0) White Blood Count 10.3 x10^3/uL (4.0-11.0) Red Blood Count 4.66 x10^6/uL (4.30-5.70) Hemoglobin 14.5 g/dL (13.0-17.5) Hematocrit 42.5 % (39.0-53.0) Mean Corpuscular Volume 91 fL (79-100) Mean Corpuscular Hemoglobin 31 pg (25-35) Mean Corpuscular Hemoglobin Concent 34 g/dL (31-37) Red Cell Distribution Width 13.5 % (11.5-14.5) Platelet Count 139 x10^3/uL (140-400) Activated Partial Thromboplast Time > 150 SEC (24-38) Heparin Anti-Xa Act, Unfractionated 0.54 IU/mL (0.30-0.70) Total Bilirubin 0.5 mg/dL (0.2-1.0) Direct Bilirubin 0.1 mg/dL (0.0-0.2) Aspartate Amino Transf (AST/SGOT) 76 U/L (15-37) Alanine Aminotransferase (ALT/SGPT) 142 U/L (16-63) Alkaline Phosphatase 59 U/L (46-116) Total Protein 5.0 g/dL (6.4-8.2) Albumin 2.4 g/dL (3.4-5.0) Triglycerides Level 222 mg/dL (0-150) Cholesterol Level 136 mg/dL (0-200) LDL Cholesterol, Calculated 66 mg/dL (0-100) VLDL Cholesterol, Calculated 44 mg/dL (0-40) Non-HDL Cholesterol Calculated 110 mg/dL (0-129) HDL Cholesterol 26 mg/dL (40-60) Cholesterol/HDL Ratio 5.2 Test 06/05/18 06:39 06/05/18 08:00 Glucose (Fingerstick) 212 mg/dL (70-99) O2 Saturation 93 % (92-99) Arterial Blood pH 7.33 (7.35-7.45) Arterial Blood pCO2 at Patient Temp 34 mmHg (35-46) Arterial Blood pO2 at Patient Temp 70 mmHg (75-108) Arterial Blood HCO3 18 mmol/L (21-28) Arterial Blood Base Excess -7 mmol/L (-3-3) FiO2 100 Laboratory Tests Test 06/04/18 12:30 06/04/18 15:00 06/04/18 17:00 06/04/18 17:07 Troponin I Quantitative 1.237 ng/mL (0.000-0.055) White Blood Count 11.8 x10^3/uL (4.0-11.0) Red Blood Count 4.86 x10^6/uL (4.30-5.70) Hemoglobin 15.0 g/dL (13.0-17.5) Hematocrit 44.1 % (39.0-53.0) Mean Corpuscular Volume 91 fL (79-100) Mean Corpuscular Hemoglobin 31 pg (25-35) Mean Corpuscular Hemoglobin Concent 34 g/dL (31-37) Red Cell Distribution Width 13.1 % (11.5-14.5) Platelet Count 168 x10^3/uL (140-400) Sodium Level 140 mmol/L (136-145) Potassium Level 3.9 mmol/L (3.5-5.1) Chloride Level 106 mmol/L (98-107) Carbon Dioxide Level 21 mmol/L (21-32) Anion Gap 13 (6-14) Blood Urea Nitrogen 20 mg/dL (8-26) Creatinine 1.4 mg/dL (0.7-1.3) Estimated GFR (Cockcroft-Gault) 52.1 Glucose Level 281 mg/dL (70-99) Calcium Level 7.1 mg/dL (8.5-10.1) Phosphorus Level 2.9 mg/dL (2.6-4.7) Magnesium Level 2.5 mg/dL (1.8-2.4) Prothrombin Time 15.1 SEC (11.7-14.0) Prothromb Time International Ratio 1.2 (0.8-1.1) Activated Partial Thromboplast Time 103 SEC (24-38) Heparin Anti-Xa Act, Unfractionated 0.46 IU/mL (0.30-0.70) Glucose (Fingerstick) 259 mg/dL (70-99) Test 06/04/18 19:40 06/04/18 22:59 06/04/18 23:00 06/05/18 01:08 Sodium Level 140 mmol/L (136-145) 139 mmol/L (136-145) Potassium Level 4.2 mmol/L (3.5-5.1) 4.3 mmol/L (3.5-5.1) Chloride Level 106 mmol/L (98-107) 106 mmol/L (98-107) Carbon Dioxide Level 23 mmol/L (21-32) 21 mmol/L (21-32) Anion Gap 11 (6-14) 12 (6-14) Blood Urea Nitrogen 20 mg/dL (8-26) 20 mg/dL (8-26) Creatinine 1.4 mg/dL (0.7-1.3) 1.2 mg/dL (0.7-1.3) Estimated GFR (Cockcroft-Gault) 52.1 62.2 Glucose Level 255 mg/dL (70-99) 250 mg/dL (70-99) Lactic Acid Level 1.9 mmol/L (0.4-2.0) Calcium Level 6.8 mg/dL (8.5-10.1) 7.3 mg/dL (8.5-10.1) Phosphorus Level 4.0 mg/dL (2.6-4.7) 3.4 mg/dL (2.6-4.7) Magnesium Level 2.4 mg/dL (1.8-2.4) 2.7 mg/dL (1.8-2.4) Troponin I Quantitative 0.625 ng/mL (0.000-0.055) 0.444 ng/mL (0.000-0.055) Glucose (Fingerstick) 230 mg/dL (70-99) White Blood Count 12.6 x10^3/uL (4.0-11.0) Red Blood Count 5.00 x10^6/uL (4.30-5.70) Hemoglobin 15.4 g/dL (13.0-17.5) Hematocrit 45.3 % (39.0-53.0) Mean Corpuscular Volume 91 fL (79-100) Mean Corpuscular Hemoglobin 31 pg (25-35) Mean Corpuscular Hemoglobin Concent 34 g/dL (31-37) Red Cell Distribution Width 13.4 % (11.5-14.5) Platelet Count 170 x10^3/uL (140-400) Prothrombin Time 14.9 SEC (11.7-14.0) Prothromb Time International Ratio 1.2 (0.8-1.1) Test 06/05/18 02:40 06/05/18 04:40 06/05/18 06:30 06/05/18 06:39 Sodium Level 140 mmol/L (136-145) 139 mmol/L (136-145) Potassium Level 4.0 mmol/L (3.5-5.1) 3.8 mmol/L (3.5-5.1) Chloride Level 107 mmol/L (98-107) 109 mmol/L (98-107) Carbon Dioxide Level 21 mmol/L (21-32) 19 mmol/L (21-32) Anion Gap 12 (6-14) 11 (6-14) Blood Urea Nitrogen 20 mg/dL (8-26) 19 mg/dL (8-26) Creatinine 1.0 mg/dL (0.7-1.3) 1.1 mg/dL (0.7-1.3) Estimated GFR (Cockcroft-Gault) 76.7 68.8 Glucose Level 210 mg/dL (70-99) 236 mg/dL (70-99) Calcium Level 6.8 mg/dL (8.5-10.1) 6.5 mg/dL (8.5-10.1) Phosphorus Level 4.2 mg/dL (2.6-4.7) 3.5 mg/dL (2.6-4.7) Magnesium Level 2.1 mg/dL (1.8-2.4) 2.3 mg/dL (1.8-2.4) Lactic Acid Level 1.7 mmol/L (0.4-2.0) White Blood Count 10.3 x10^3/uL (4.0-11.0) Red Blood Count 4.66 x10^6/uL (4.30-5.70) Hemoglobin 14.5 g/dL (13.0-17.5) Hematocrit 42.5 % (39.0-53.0) Mean Corpuscular Volume 91 fL (79-100) Mean Corpuscular Hemoglobin 31 pg (25-35) Mean Corpuscular Hemoglobin Concent 34 g/dL (31-37) Red Cell Distribution Width 13.5 % (11.5-14.5) Platelet Count 139 x10^3/uL (140-400) Activated Partial Thromboplast Time > 150 SEC (24-38) Heparin Anti-Xa Act, Unfractionated 0.54 IU/mL (0.30-0.70) Total Bilirubin 0.5 mg/dL (0.2-1.0) Direct Bilirubin 0.1 mg/dL (0.0-0.2) Aspartate Amino Transf (AST/SGOT) 76 U/L (15-37) Alanine Aminotransferase (ALT/SGPT) 142 U/L (16-63) Alkaline Phosphatase 59 U/L (46-116) Troponin I Quantitative 0.248 ng/mL (0.000-0.055) Total Protein 5.0 g/dL (6.4-8.2) Albumin 2.4 g/dL (3.4-5.0) Triglycerides Level 222 mg/dL (0-150) Cholesterol Level 136 mg/dL (0-200) LDL Cholesterol, Calculated 66 mg/dL (0-100) VLDL Cholesterol, Calculated 44 mg/dL (0-40) Non-HDL Cholesterol Calculated 110 mg/dL (0-129) HDL Cholesterol 26 mg/dL (40-60) Cholesterol/HDL Ratio 5.2 Glucose (Fingerstick) 212 mg/dL (70-99) Test 06/05/18 08:00 O2 Saturation 93 % (92-99) Arterial Blood pH 7.33 (7.35-7.45) Arterial Blood pCO2 at Patient Temp 34 mmHg (35-46) Arterial Blood pO2 at Patient Temp 70 mmHg (75-108) Arterial Blood HCO3 18 mmol/L (21-28) Arterial Blood Base Excess -7 mmol/L (-3-3) FiO2 100 Medications Active Scripts Medications Dose Route/Sig Max Daily Dose Days Date Category Carvedilol 6.25 Mg Tablet 1 Tab PO BID 06/04/18 Reported Zoloft (Sertraline Hcl) 100 Mg Tablet 1.5 Tab PO DAILY 06/04/18 Reported Dyazide 37.5-25 Capsule (Triamterene/Hydrochlorothiazid) 1 Each Capsule 1 Cap PO DAILY 06/04/18 Reported Fluconazole 100 Mg Tablet 1 Tab PO DAILY 06/04/18 Reported Clonazepam 0.5 Mg Tablet 1 Tab PO PRN TID PRN 06/04/18 Reported Acamprosate Calcium 333 Mg Tablet.dr 2 Tab PO TID 06/04/18 Reported Comments CXR 06/05 reviewed RUL COLLAPSE Impression . 1. Acute hypoxic respiratory failure secondary to cardiac arrest. 2. Status post ventricular tachycardia with cardiac arrest. 3. Severe hypoxia, likely related to aspiration pneumonia and adult respiratory distress syndrome/acute lung injury. 4. Abnormal chest x-ray with right upper lobe opacification, suspect mucous plug. 5. Leukocytosis, suspected aspiration. 6. Abnormal LFTs secondary to hypoperfusion. 7. Increased troponin. Suspect non-ST elevation myocardial infarction. 8. No significant history of tobacco use. 9. CMP EF 30-35% Plan . 1. Change to PC/TIM. Increase PEEP to 12. 2. Follow ABGs and make necessary adjustments. 3. RUL collapse. Will benefit from Bronch, high risk due to severity of hypoxia but will consider it 4. RE-Warm post hypothermia protocol 5. Follow hypothermic protocol. 6. Broad spectrum antibiotic per Infectious Disease. 7. Follow Cardiology recommendation regarding the need for cardiac catheterization. 8. ? Anoxia. too early to assess 9. Start nutrition. 10. Deep venous thrombosis prophylaxis. He is already on heparin. 11. Discussed with RN RT. We will follow along with you. cct 30 min JR CHOI MD Jun 05, 2018 11:15
[2018-06-05] MEDS: ACETAMINOPHEN 650 MG/20.3 ML SOLUTION. PEG PRN ×2 (11:53→18:21)
--- NOTE | 2018-06-05 12:05 | PDOC ---
CARDIO Progress Notes Date and Time Date of Service 06/05/2018 Time of Evaluation 1156 Subjective Subjective: Other (intubated) Vitals Vitals Vital Signs Date Time Temp Pulse Resp B/P (MAP) Pulse Ox O2 Delivery O2 Flow Rate FiO2 06/05/18 11:08 93 Ventilator 06/05/18 11:00 98.8 97 24 143/97 (112) 98.8 Weight Weight [ ] Stability Assessment Stability Assess.: unstable for transfer (Intesive V. sign monit. req) Input and Output Intake and Output Intake and Output 06/05/18 07:00 Intake Total 995 ml Output Total 2570 ml Balance -1575 ml IV Total 995 ml Output Urine Total 1570 ml Gastric Drainage Total 1000 ml Laboratory Labs Laboratory Tests Test 06/04/18 12:30 06/04/18 15:00 06/04/18 17:00 06/04/18 17:07 Troponin I Quantitative 1.237 ng/mL (0.000-0.055) White Blood Count 11.8 x10^3/uL (4.0-11.0) Red Blood Count 4.86 x10^6/uL (4.30-5.70) Hemoglobin 15.0 g/dL (13.0-17.5) Hematocrit 44.1 % (39.0-53.0) Mean Corpuscular Volume 91 fL (79-100) Mean Corpuscular Hemoglobin 31 pg (25-35) Mean Corpuscular Hemoglobin Concent 34 g/dL (31-37) Red Cell Distribution Width 13.1 % (11.5-14.5) Platelet Count 168 x10^3/uL (140-400) Sodium Level 140 mmol/L (136-145) Potassium Level 3.9 mmol/L (3.5-5.1) Chloride Level 106 mmol/L (98-107) Carbon Dioxide Level 21 mmol/L (21-32) Anion Gap 13 (6-14) Blood Urea Nitrogen 20 mg/dL (8-26) Creatinine 1.4 mg/dL (0.7-1.3) Estimated GFR (Cockcroft-Gault) 52.1 Glucose Level 281 mg/dL (70-99) Calcium Level 7.1 mg/dL (8.5-10.1) Phosphorus Level 2.9 mg/dL (2.6-4.7) Magnesium Level 2.5 mg/dL (1.8-2.4) Prothrombin Time 15.1 SEC (11.7-14.0) Prothromb Time International Ratio 1.2 (0.8-1.1) Activated Partial Thromboplast Time 103 SEC (24-38) Heparin Anti-Xa Act, Unfractionated 0.46 IU/mL (0.30-0.70) Glucose (Fingerstick) 259 mg/dL (70-99) Test 06/04/18 19:40 06/04/18 22:59 06/04/18 23:00 06/05/18 01:08 Sodium Level 140 mmol/L (136-145) 139 mmol/L (136-145) Potassium Level 4.2 mmol/L (3.5-5.1) 4.3 mmol/L (3.5-5.1) Chloride Level 106 mmol/L (98-107) 106 mmol/L (98-107) Carbon Dioxide Level 23 mmol/L (21-32) 21 mmol/L (21-32) Anion Gap 11 (6-14) 12 (6-14) Blood Urea Nitrogen 20 mg/dL (8-26) 20 mg/dL (8-26) Creatinine 1.4 mg/dL (0.7-1.3) 1.2 mg/dL (0.7-1.3) Estimated GFR (Cockcroft-Gault) 52.1 62.2 Glucose Level 255 mg/dL (70-99) 250 mg/dL (70-99) Lactic Acid Level 1.9 mmol/L (0.4-2.0) Calcium Level 6.8 mg/dL (8.5-10.1) 7.3 mg/dL (8.5-10.1) Phosphorus Level 4.0 mg/dL (2.6-4.7) 3.4 mg/dL (2.6-4.7) Magnesium Level 2.4 mg/dL (1.8-2.4) 2.7 mg/dL (1.8-2.4) Troponin I Quantitative 0.625 ng/mL (0.000-0.055) 0.444 ng/mL (0.000-0.055) Glucose (Fingerstick) 230 mg/dL (70-99) White Blood Count 12.6 x10^3/uL (4.0-11.0) Red Blood Count 5.00 x10^6/uL (4.30-5.70) Hemoglobin 15.4 g/dL (13.0-17.5) Hematocrit 45.3 % (39.0-53.0) Mean Corpuscular Volume 91 fL (79-100) Mean Corpuscular Hemoglobin 31 pg (25-35) Mean Corpuscular Hemoglobin Concent 34 g/dL (31-37) Red Cell Distribution Width 13.4 % (11.5-14.5) Platelet Count 170 x10^3/uL (140-400) Prothrombin Time 14.9 SEC (11.7-14.0) Prothromb Time International Ratio 1.2 (0.8-1.1) Test 06/05/18 02:40 06/05/18 04:40 06/05/18 06:30 06/05/18 06:39 Sodium Level 140 mmol/L (136-145) 139 mmol/L (136-145) Potassium Level 4.0 mmol/L (3.5-5.1) 3.8 mmol/L (3.5-5.1) Chloride Level 107 mmol/L (98-107) 109 mmol/L (98-107) Carbon Dioxide Level 21 mmol/L (21-32) 19 mmol/L (21-32) Anion Gap 12 (6-14) 11 (6-14) Blood Urea Nitrogen 20 mg/dL (8-26) 19 mg/dL (8-26) Creatinine 1.0 mg/dL (0.7-1.3) 1.1 mg/dL (0.7-1.3) Estimated GFR (Cockcroft-Gault) 76.7 68.8 Glucose Level 210 mg/dL (70-99) 236 mg/dL (70-99) Calcium Level 6.8 mg/dL (8.5-10.1) 6.5 mg/dL (8.5-10.1) Phosphorus Level 4.2 mg/dL (2.6-4.7) 3.5 mg/dL (2.6-4.7) Magnesium Level 2.1 mg/dL (1.8-2.4) 2.3 mg/dL (1.8-2.4) Lactic Acid Level 1.7 mmol/L (0.4-2.0) White Blood Count 10.3 x10^3/uL (4.0-11.0) Red Blood Count 4.66 x10^6/uL (4.30-5.70) Hemoglobin 14.5 g/dL (13.0-17.5) Hematocrit 42.5 % (39.0-53.0) Mean Corpuscular Volume 91 fL (79-100) Mean Corpuscular Hemoglobin 31 pg (25-35) Mean Corpuscular Hemoglobin Concent 34 g/dL (31-37) Red Cell Distribution Width 13.5 % (11.5-14.5) Platelet Count 139 x10^3/uL (140-400) Activated Partial Thromboplast Time > 150 SEC (24-38) Heparin Anti-Xa Act, Unfractionated 0.54 IU/mL (0.30-0.70) Total Bilirubin 0.5 mg/dL (0.2-1.0) Direct Bilirubin 0.1 mg/dL (0.0-0.2) Aspartate Amino Transf (AST/SGOT) 76 U/L (15-37) Alanine Aminotransferase (ALT/SGPT) 142 U/L (16-63) Alkaline Phosphatase 59 U/L (46-116) Troponin I Quantitative 0.248 ng/mL (0.000-0.055) Total Protein 5.0 g/dL (6.4-8.2) Albumin 2.4 g/dL (3.4-5.0) Triglycerides Level 222 mg/dL (0-150) Cholesterol Level 136 mg/dL (0-200) LDL Cholesterol, Calculated 66 mg/dL (0-100) VLDL Cholesterol, Calculated 44 mg/dL (0-40) Non-HDL Cholesterol Calculated 110 mg/dL (0-129) HDL Cholesterol 26 mg/dL (40-60) Cholesterol/HDL Ratio 5.2 Glucose (Fingerstick) 212 mg/dL (70-99) Test 06/05/18 08:00 06/05/18 11:46 O2 Saturation 93 % (92-99) Arterial Blood pH 7.33 (7.35-7.45) Arterial Blood pCO2 at Patient Temp 34 mmHg (35-46) Arterial Blood pO2 at Patient Temp 70 mmHg (75-108) Arterial Blood HCO3 18 mmol/L (21-28) Arterial Blood Base Excess -7 mmol/L (-3-3) FiO2 100 Glucose (Fingerstick) 193 mg/dL (70-99) Radiology Rad Impression CXR: Comparison is made to yesterday's study. The ET tube tip lies well above the leanna. An NG tube extends into the stomach. A right jugular central venous catheter extends into the inferior aspect of the superior vena cava. The heart is enlarged. A moderate right upper chest opacity is unchanged again suggesting right upper lobe atelectasis versus extrapulmonary fluid. Streaky atelectasis in the left upper lobe is unchanged. There is now obscuration of the left hemidiaphragm suggesting new left basilar atelectasis/infiltrate. No pneumothorax is evident. IMPRESSION: 1. Stable tube positions. 2. New mild left basilar atelectasis/infiltrate. 3. Stable bilateral upper chest opacities. Physical Exam HEENT: Neck Supple W Full Motion Chest: Symmetric LUNGS: Other (coarse; diminished in bases anteriorly) Heart: no murmurs, irregularly irregular, other (bruised ant chest wall; tele: SR with freq PVCs) Extremities: Other (anasarca) Neurology: other (sedated) Assessment Assessment 1. VT arrest --? down time of 20-30 minutes; multiple shocks and rounds of CPR/meds prior to ROSC --hypothermia protocol; now re-warming --heparin gtt --TTE demonstrated depressed LVEF of 30-35% with mild mitral regurgitation --repeat troponin level demonstrated downward trend --remains off amiodarone due to prolonged QT intervals --will need ischemic evaluation if/when wakes up and extubated --continue to await records from PCP in [place] 2. acute respiratory failure --intubated/sedated; bronch pending --per PULM 3. ? sepsis --lactate elevated but CPR/shocks --hypotensive with inotropic support --defer to ID 4. seizure activity --presumed anoxia --defer to NEURO 5. DWAIN --Cr normalized CISCO MYLES APRN Jun 05, 2018 12:05
--- NOTE | 2018-06-05 12:12 | PDOC ---
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 PRN IV SEE I/O RECORD; Start 06/03/18 at 22:30; Stop 06/04/18 at 13:23; Status DC Dextrose (Dextrose 50%-Water Syringe) 12.5 gm PRN Q15MIN PRN IV LOW BLOOD SUGAR ; Start 06/03/18 at 22:30; Stop 06/04/18 at 13:22; Status DC Multivitamins 10 ml/Thiamine HCl 100 mg/Folic Acid 1 mg/Sodium Chloride 1,011.2 ml @ 100 mls/ hr DAILY IV ; Start 06/04/18 at 09:00; Stop 06/04/18 at 19:07; Status Cancel Lorazepam (Ativan) 2 mg PRN Q1HR PRN IV For CIWA 8-14; Start 06/03/18 at 22:45 Lorazepam (Ativan) 4 mg PRN Q1HR PRN IV For CIWA 15 or greater; Start 06/03/18 at 22:45 Haloperidol Lactate (Haldol Inj) 5 mg PRN Q4HRS PRN IVP Hallucinatns,Confusn, Delirium; Start 06/03/18 at 22:45 Heparin Sodium/ Dextrose 500 ml @ 0 mls/hr CONT PRN IV SEE I/O RECORD Last administered on 06/05/18at 07:42; Start 06/03/18 at 23:00 Heparin Sodium (Porcine) (Heparin Sodium) 3,300 unit PRN Q6HRS PRN IV FOR UFH LEVEL LESS THAN 0.2 Last administered on 06/03/18 23:08; Start 06/03/18 at 23:00 Midazolam HCl 100 ml @ 5 mls/hr CONT PRN IV SEE I/O RECORD Last administered on 06/05/18at 07:45; Start 06/03/18 at 23:15 Fentanyl Citrate 30 ml @ 0 mls/hr CONT PRN PRN IV PER PROTOCOL Last administered on 06/04/18 17:20; Start 06/03/18 at 23:15 Etomidate (Amidate) 20 mg 1X ONCE IV Last administered on 06/03/18 20:55; Start 06/03/18 at 23:15; Stop 06/03/18 at 23:16; Status DC Succinylcholine Chloride (Anectine) 100 mg 1X ONCE IV Last administered on 06/03 20:56; Start 06/03/18 at 23:15; Stop 06/03/18 at 23:16; Status DC Fentanyl Citrate (Fentanyl 2ml Vial) 100 mcg 1X ONCE IV Last administered on 20:59; Start 06/03/18 at 23:15; Stop 06/03/18 at 23:16; Status DC Midazolam HCl (Versed) 4 mg 1X ONCE IV Last administered on 06/03/18 21:01; Start 06/03/18 at 23:15; Stop 06/03/18 at 23:16; Status DC Sodium Chloride 500 ml @ 500 mls/hr 1X ONCE IV Last administered on 06/03/18 21:20; Start 06/03/18 at 23:15; Stop 06/04/18 at 00:14; Status DC Rocuronium Shannon (Zemuron) 50 mg 1X ONCE IV Last administered on 06/03/18 21 :29; Start 06/03/18 at 23:15; Stop 06/03/18 at 23:16; Status DC Sodium Chloride 1,000 ml @ 1,000 mls/hr Q1H IV Last administered on 06/04/18 05:55; Start 06/04/18 at 00:00; Stop 06/04/18 at 06:25; Status DC Vecuronium Shannon (Norcuron Bolus) 10 mg PRN Q30MIN PRN IV SHIVERING Last administered on 8/10/18at 09:00; Start 06/04/18 at 00:00 Meperidine HCl (Demerol) 12.5 mg PRN Q30MIN PRN IV SHIVERING Last administered on 06/04/18at 02:04; Start 06/04/18 at 00:00 Sodium Chloride (Normal Saline Flush) 3 ml QSHIFT PRN IV AFTER MEDS AND BLOOD DRAWS; Start 06/04/18 at 00:00 Acetaminophen (Tylenol) 650 mg Q6HRS NG ; Start 06/04/18 at 00:00; Stop 06/04/18 at 00:52; Status DC Acetaminophen (Tylenol Supp) 650 mg PRN Q6HRS PRN [place] MILD PAIN / TEMP; Start at 00:00; Status Cancel Acetaminophen (Tylenol) 650 mg PRN Q6HRS PRN NG MILD PAIN / TEMP; Start at 00:00; Status Cancel Info (Icu Electrolyte Protocol) 1 ea DAILY PRN MC PER PROTOCOL; Start 06/06/18 at 00:00 Vancomycin HCl (Vanco Per Pharmacy) 1 each PRN DAILY PRN MC SEE COMMENTS Last administered on 06/05/18at 09:32; Start 06/04/18 at 00:30 Piperacillin Sod/ Tazobactam Sod (Zosyn Per Pharmacy) 1 each PRN DAILY PRN MC SEE COMMENTS; Start 06/04/18 at 00:30 Sodium Chloride 1,000 ml @ 2,040 mls/hr Q30M IV Last administered on 06/04/18at 00:21; Start 06/04/18 at 00:15; Stop 06/04/18 at 01:15; Status DC Sodium Chloride 500 ml @ 1,000 mls/hr PRN Q30MIN PRN IV SEE COMMENTS; Start at 00:15 Norepinephrine Bitartrate 250 ml @ 0 mls/hr CONT PRN IV SEE I/O RECORD Last administered on 06/04/18at 01:31; Start 06/04/18 at 00:15 Piperacillin Sod/ Tazobactam Sod 3.375 gm/Sodium Chloride 50 ml @ 100 mls/hr Q6HRS IV Last administered on 06/05/18at 11:37; Start 06/04/18 at 00:30 Ondansetron HCl (Zofran) 4 mg PRN Q6HRS PRN IV NAUSEA/VOMITING; Start 06/04/18 at 00:45 Vancomycin HCl 2 gm/Sodium Chloride 500 ml @ 250 mls/hr 1X ONCE IV Last administered on 06/04/18at 00:47; Start 06/04/18 at 01:00; Stop 06/04/18 at 02:59; Status DC Levetiracetam 500 mg/Dextrose 105 ml @ 420 mls/hr Q12HR IV Last administered on 06/05/18at 07:45; Start 06/04/18 at 09:00 Levetiracetam 500 mg/Dextrose 105 ml @ 420 mls/hr 1X ONCE IV Last administered on 06/04/18at 01:01; Start 06/04/18 at 01:00; Stop 06/04/18 at 01:14; Status DC Vancomycin HCl 2 gm/Sodium Chloride 500 ml @ 250 mls/hr Q12H IV Last administered on 06/05/18at 01:09; Start 06/04/18 at 13:00 Vancomycin HCl (Vancomycin Trough Level) 1 each 1X ONCE MC Last administered on 06/05/18at 11:53; Start 06/05/18 at 12:30; Stop 06/05/18 at 12:31 Micafungin Sodium 100 mg/Dextrose 100 ml @ 100 mls/hr Q24H IV Last administered on 06/05/18at 07:47; Start 06/04/18 at 08:00 Lidocaine/Sodium Bicarbonate (Buffered Lidocaine 1%) 3 ml STK-MED ONCE .ROUTE ; Start 06/04/18 at 08:05; Stop 06/04/18 at 08:06; Status DC Sodium Bicarbonate (Sodium Bicarb Adult 8.4% Syr) 50 meq 1X ONCE IV Last administered on 06/04/18at 09:34; Start 06/04/18 at 09:15; Stop 06/04/18 at 09:16; Status DC Sodium Bicarbonate (Sodium Bicarb Adult 8.4% Syr) 50 meq 1X ONCE IV Last administered on 06/04/18at 09:34; Start 06/04/18 at 09:15; Stop 06/04/18 at 09:16; Status DC Lidocaine/Sodium Bicarbonate (Buffered Lidocaine 1%) 3 ml 1X ONCE INJ Last administered on 06/04/18at 09:15; Start 06/04/18 at 09:15; Stop 06/04/18 at 09:16; Status DC Magnesium Sulfate/ Dextrose 100 ml @ 25 mls/hr 1X ONCE IV Last administered on 06/04/18at 10:41; Start 06/04/18 at 11:00; Stop 06/04/18 at 14:59; Status DC Info (Anti-Coagulation Monitoring By Pharmacy) 1 each PRN DAILY PRN MC SEE COMMENTS Last administered on 06/05/18at 10:00; Start 06/04/18 at 11:15 Pantoprazole Sodium (PROTONIX VIAL for IV PUSH) 40 mg DAILYAC IVP Last administered on 06/05/18at 07:47; Start 06/04/18 at 14:00 Insulin Human Lispro (HumaLOG) 0-7 UNITS TIDWMEALS SQ Last administered on at 17:12; Start 06/04/18 at 14:00; Stop 06/05/18 at 00:02; Status DC Dextrose (Dextrose 50%-Water Syringe) 12.5 gm PRN Q15MIN PRN IV SEE COMMENTS; Start 06/04/18 at 13:15 Sodium Chloride 1,000 ml @ 100 mls/hr Q10H IV Last administered on 06/05/18at 07:45; Start 06/04/18 at 21:30 Insulin Human Lispro (HumaLOG) 0-7 UNITS Q6HRS SQ Last administered on at 06:45; Start 06/05/18 at 00:00; Stop 06/05/18 at 09:20; Status DC Chlorhexidine Gluconate (Peridex) 15 ml BID MM Last administered on 06/05/18at 08:12; Start 06/05/18 at 09:00 Insulin Human Lispro (HumaLOG) 0-9 UNITS TIDWMEALS SQ ; Start 06/05/18 at 12:00 Dextrose (Dextrose 50%-Water Syringe) 12.5 gm PRN Q15MIN PRN IV SEE COMMENTS; Start 06/05/18 at 09:30; Status UNV Acetaminophen (Tylenol) 650 mg PRN Q6HRS PRN PEG MILD PAIN / TEMP Last administered on 06/05/18at 11:53; Start 06/05/18 at 11:30 Active Scripts Active Reported Carvedilol 6.25 Mg Tablet 1 Tab PO BID 90 Days Zoloft (Sertraline Hcl) 100 Mg Tablet 1.5 Tab PO DAILY 90 Days Dyazide 37.5-25 Capsule (Triamterene/Hydrochlorothiazid) 1 Each Capsule 1 Cap PO DAILY Fluconazole 100 Mg Tablet 1 Tab PO DAILY Clonazepam 0.5 Mg Tablet 1 Tab PO PRN TID PRN Acamprosate Calcium 333 Mg Tablet.dr 2 Tab PO TID Vitals/I & O Vital Sign - Last 24 Hours 06/04/18 06/04/18 06/04/18 06/04/18 12:14 13:00 14:00 15:00 Pulse 54 52 54 Resp 24 24 25 B/P (MAP) 112/77 (89) 126/87 (100) 102/65 (77) Pulse Ox 96 96 96 95 O2 Delivery Ventilator Ventilator Ventilator Ventilator 06/04/18 06/04/18 06/04/18 06/04/18 16:00 16:00 16:45 17:00 Temp 92.6 92.6 Pulse 58 58 Resp 24 28 B/P (MAP) 107/69 (82) 140/77 (98) Pulse Ox 96 96 95 O2 Delivery Ventilator Mechanical Ventilator Ventilator Ventilator 06/04/18 06/04/18 06/04/18 06/04/18 17:20 17:57 18:00 18:15 Pulse 62 Resp 24 24 28 B/P (MAP) 127/83 (98) Pulse Ox 96 97 97 96 O2 Delivery Ventilator Ventilator Ventilator Ventilator 06/04/18 06/04/18 06/04/18 06/04/18 19:00 20:00 20:00 20:00 Temp 93.9 92.8 93.9 92.8 Pulse 60 58 Resp 24 24 B/P (MAP) 149/87 (107) 151/97 (115) Pulse Ox 97 96 96 O2 Delivery Ventilator Ventilator Mechanical Ventilator Ventilator 06/04/18 06/04/18 06/04/18 06/04/18 21:00 22:00 23:00 23:59 Temp 91.8 90.1 90.6 91.8 90.1 90.6 Pulse 55 53 50 Resp 24 24 24 B/P (MAP) 159/88 (111) 111/77 (88) 132/79 (96) Pulse Ox 97 97 96 O2 Delivery Ventilator Ventilator Ventilator Mechanical Ventilator 8/08/1306/05/18 06/05/18 06/05/18 00:00 00:30 01:00 02:00 Temp 91.9 93.2 93.7 91.9 93.2 93.7 Pulse 57 64 63 Resp 24 24 24 B/P (MAP) 109/76 (87) 123/81 (95) 138/88 (105) Pulse Ox 96 95 95 95 O2 Delivery Ventilator Ventilator Ventilator Ventilator 06/05/18 06/05/18 06/05/18 06/05/18 02:05 03:00 04:00 04:00 Temp 93.1 92.1 93.1 92.1 Pulse 63 59 Resp 24 24 B/P (MAP) 156/94 (114) 152/97 (115) Pulse Ox 94 92 91 O2 Delivery Ventilator Ventilator Ventilator Mechanical Ventilator 06/05/18 06/05/18 06/05/18 06/05/18 04:37 05:00 06:00 06:15 Temp 90.4 88.5 88.2 90.4 88.5 88.2 Pulse 54 47 46 Resp 24 24 24 B/P (MAP) 124/99 (107) 121/93 (102) 117/76 (90) Pulse Ox 94 96 96 97 O2 Delivery Ventilator Ventilator Ventilator Ventilator 06/05/18 06/05/18 06/05/18 06/05/18 06:30 06:45 07:41 08:00 Temp 87.9 87.8 87.9 87.8 Pulse 46 46 Resp 24 24 B/P (MAP) 105/72 (83) 110/74 (86) Pulse Ox 96 96 94 O2 Delivery Ventilator Ventilator Ventilator Mechanical Ventilator 06/05/18 06/05/18 06/05/18 06/05/18 08:00 09:00 09:30 10:00 Temp 91.7 94.1 97.1 91.7 94.1 97.1 Pulse 58 75 87 Resp 30 24 20 B/P (MAP) 86/60 (69) 112/53 (72) 122/86 (98) Pulse Ox 93 83 92 94 O2 Delivery Ventilator Nasal Cannula Ventilator Ventilator 06/05/18 06/05/18 11:00 11:08 Temp 98.8 98.8 Pulse 97 Resp 24 B/P (MAP) 143/97 (112) Pulse Ox 93 93 O2 Delivery Ventilator Ventilator Intake and Output 06/04/18 06/04/18 06/05/18 15:00 23:00 07:00 Intake Total 105 ml 890 ml Output Total 625 ml 1650 ml 295 ml Balance -625 ml -1545 ml 595 ml BRITANY REYES MD Jun 05, 2018 12:12
[2018-06-05 12:30] LABS: VANC TR 30.4 mcg/mL (10.0-20.0)
--- NOTE | 2018-06-05 13:08 | OP ---
DATE OF SURGERY: PROCEDURE: Bronchoscopy. NDICATIONS: Collapse right upper lobe. DESCRIPTION OF PROCEDURE: Informed consent was obtained from the patient's family. All risks, and benefits were explained and they agreed to proceed with the procedure. Bronch was introduced through the endotracheal tube. Upon reaching the distal trachea, it was erythematous. Further inspection of the right mainstem revealed that there was severe erythema involving the right mainstem and also involving the right lower lobe. The right upper lobe was completely collapsed with thick yellow secretions. Saline irrigation done and all secretions were removed. Bronchoalveolar lavage performed from the right mainstem. The patient tolerated the procedure well and oxygen saturation remain around the lowest of 90% during the procedure. Rest of the left lung appeared to be patent. All subsegments of left upper lobe, lingula and left lower lobe were examined. IMPRESSION: 1. Purulent thick secretions causing complete collapse of the right upper lobe. A subsequent therapeutic bronchoscope performed and removal of secretions. 2. Severe erythema involving the right upper lobe and right mainstem and right lower lobe, consistent with aspiration pneumonia. 3. No significant secretions seen on the left lung. 4. Follow the culture results. JR CHOI MD DR: GELY/moustapha JOB#: [id number] / [id number]
[2018-06-05] MEDS: TPN PER PHARMACY MC PRN (13:30)
--- NOTE | 2018-06-05 13:36 | RAD ---
Procedure: Central line placement at the bedside Clinical Indication: 57-year-old status post code, requiring central venous access Sedation: Local anesthesia only Antibiotics: None Fluoro Time: Not applicable Contrast: None Sterility: All elements of maximal sterile barrier technique including the use of a cap, mask, sterile gown, sterile gloves, large sterile sheet, appropriate hand hygiene, and 2% chlorhexidine for cutaneous antisepsis (or acceptable alternative antiseptic per current guidelines) were followed for this procedure. Consent: The procedure was explained in its entirety to the patient or the patients designated area representative by a member of the treatment team, including a discussion of the risks, benefits and commonly accepted alternatives to the procedure, as well as the expected consequences of no therapy whatsoever. Discussion of the risks included, but was not limited to, those that are most frequent and those that are rare but possibly severe or life-threatening, as well as the possibility of unforeseen complications. Technique and Findings: Following informed consent, the patient was prepped and draped in the usual sterile fashion. Ultrasound interrogation of the right neck revealed patency and compressibility of the right internal jugular vein. A hardcopy ultrasound image was recorded. A 21-gauge micropuncture needle was used to gain access to this vein after local anesthesia was achieved with 1% Lidocaine. The needle was exchanged over the wire for a small dilator followed by a triple lumen central line. All 3 lumens flushed and aspirated with ease. The catheter was sutured to the skin and a chest x-ray was obtained to assess for line position. Complications: None Impression: 1. Central venous catheter placement as described.
[2018-06-05] MEDS: hydrALAZINE 20 MG/ML VIAL. IVP PRN (17:45)
[2018-06-05] MEDS ORDERED: DEXTROSE 70% IV SCH ×9 (22:00)
[2018-06-05] MEDS ORDERED: AMINO ACIDS IV SCH ×9 (22:00)
[2018-06-05] MEDS ORDERED: [UNRECOGNIZED DRUG - OTHER] IV SCH ×9 (22:00)
[2018-06-05] MEDS ORDERED: TOTAL PARENTERAL NUTRITION IV SCH ×9 (22:00)
[2018-06-06] VITALS (24 sets, daily range): BP systolic 112–163; BP diastolic 45–104
[2018-06-06] MEDS ORDERED: ELECTROLYTE (ICU) PROTOCOL. MC PRN
[2018-06-06] MEDS: PIPERACILLIN/TAZOBACTAM 3.375 GM in IV NORMAL SALINE 50ML 50 ML IV SCH ×5 (00:15→23:27)
[2018-06-06] MEDS: HEPARIN 25,000UTS/500ML PREMIX 500 ML IV PRN ×2 (00:15→16:43)
[2018-06-06] MEDS: IV NORMAL SALINE 1000ML BAG 1,000 ML IV SCH ×3 (02:00→23:26)
[2018-06-06] MEDS: VECURONIUM BOLUS 10 MG VIAL. IV PRN ×7 (02:00→21:40)
[2018-06-06] MEDS: MIDAZOLAM 100mg/100ml NS BAG 100 ML IV PRN ×2 (02:04→23:26)
[2018-06-06] MEDS ORDERED: VANCOMYCIN RANDOM LEVEL. MC ONE (05:00)
[2018-06-06 06:09] LABS: CALCIUM 6.9 mg/dL (8.5-10.1); CREATININE 1.4 mg/dL (0.7-1.3); GFR 52.1; POTASSIUM 3.8 mmol/L (3.5-5.1)
[2018-06-06 06:17] LABS: MAGNESIUM 1.9 mg/dL (1.8-2.4); PHOSPHORUS 3.7 mg/dL (2.6-4.7)
[2018-06-06 06:25] LABS: BASO % 0 % (0-3); EOS # 0.1 x10^3/uL (0.0-0.7); EOS % 1 % (0-3); HEMATOCRIT 39.1 % (39.0-53.0); HEMOGLOBIN 13.3 g/dL (13.0-17.5); LYMPH # 1.2 x10^3/uL (1.0-4.8); LYMPH % 13 % (24-48); MEAN CORPUSCULAR HEMOGLOBIN 31 pg (25-35); MEAN CORPUSCULAR HGB CONC 34 g/dL (31-37); MEAN CORPUSCULAR VOLUME 92 fL (79-100); MONO # 0.6 x10^3/uL (0.0-1.1); MONO % 6 % (0-9); NEUT # 7.9 x10^3uL (1.8-7.7); NEUT % 81 % (31-73); PLATELET COUNT 168 x10^3/uL (140-400); RED BLOOD COUNT 4.26 x10^6/uL (4.30-5.70); RED CELL DISTRIBUTION WIDTH 13.7 % (11.5-14.5); WHITE BLOOD COUNT 9.8 x10^3/uL (4.0-11.0)
--- NOTE | 2018-06-06 06:44 | PDOC ---
PULMONARY PROGRESS NOTES Subjective remains intubated/sedated versed, fentanyl, prn paralytics on fi02 100%, peep 12 Vitals Vital Signs Date Time Temp Pulse Resp B/P (MAP) Pulse Ox O2 Delivery O2 Flow Rate FiO2 06/06/18 06:00 97.4 69 24 132/57 (82) 100 Ventilator 97.4 Comments ros as mentioned as above discussed w rn, other sys otherwise neg on vent sedated HEENT: Other (nc at pupils sluggish to light, nose clear, orally intubated... neck no lad, thyromegaly) Lungs: Crackles, Other (bl decreased bs) Cardiovascular: S1, S2 Abdomen: Soft, Non-tender, Other (obese, no mass) Extremities: Other (1+edema) Skin: Warm Labs Laboratory Tests Test 06/04/18 08:00 06/04/18 10:50 06/04/18 12:30 06/04/18 15:00 O2 Saturation 92 % (92-99) Arterial Blood pH 7.24 (7.35-7.45) Arterial Blood pCO2 at Patient Temp 34 mmHg (35-46) Arterial Blood pO2 at Patient Temp 72 mmHg (75-108) Arterial Blood HCO3 14 mmol/L (21-28) Arterial Blood Base Excess -12 mmol/L (-3-3) FiO2 100 Sodium Level 141 mmol/L (136-145) 140 mmol/L (136-145) Potassium Level 3.7 mmol/L (3.5-5.1) 3.9 mmol/L (3.5-5.1) Chloride Level 107 mmol/L (98-107) 106 mmol/L (98-107) Carbon Dioxide Level 23 mmol/L (21-32) 21 mmol/L (21-32) Anion Gap 11 (6-14) 13 (6-14) Blood Urea Nitrogen 20 mg/dL (8-26) 20 mg/dL (8-26) Creatinine 1.6 mg/dL (0.7-1.3) 1.4 mg/dL (0.7-1.3) Estimated GFR (Cockcroft-Gault) 44.6 52.1 Glucose Level 275 mg/dL (70-99) 281 mg/dL (70-99) Lactic Acid Level 3.4 mmol/L (0.4-2.0) Calcium Level 7.1 mg/dL (8.5-10.1) 7.1 mg/dL (8.5-10.1) Ionized Calcium 0.96 mmol/L (1.13-1.32) Phosphorus Level 3.6 mg/dL (2.6-4.7) 2.9 mg/dL (2.6-4.7) Magnesium Level 1.6 mg/dL (1.8-2.4) 2.5 mg/dL (1.8-2.4) Troponin I Quantitative 1.237 ng/mL (0.000-0.055) White Blood Count 11.8 x10^3/uL (4.0-11.0) Red Blood Count 4.86 x10^6/uL (4.30-5.70) Hemoglobin 15.0 g/dL (13.0-17.5) Hematocrit 44.1 % (39.0-53.0) Mean Corpuscular Volume 91 fL (79-100) Mean Corpuscular Hemoglobin 31 pg (25-35) Mean Corpuscular Hemoglobin Concent 34 g/dL (31-37) Red Cell Distribution Width 13.1 % (11.5-14.5) Platelet Count 168 x10^3/uL (140-400) Test 06/04/18 17:00 06/04/18 17:07 06/04/18 19:40 06/04/18 22:59 Prothrombin Time 15.1 SEC (11.7-14.0) Prothromb Time International Ratio 1.2 (0.8-1.1) Activated Partial Thromboplast Time 103 SEC (24-38) Heparin Anti-Xa Act, Unfractionated 0.46 IU/mL (0.30-0.70) Glucose (Fingerstick) 259 mg/dL (70-99) 230 mg/dL (70-99) Sodium Level 140 mmol/L (136-145) Potassium Level 4.2 mmol/L (3.5-5.1) Chloride Level 106 mmol/L (98-107) Carbon Dioxide Level 23 mmol/L (21-32) Anion Gap 11 (6-14) Blood Urea Nitrogen 20 mg/dL (8-26) Creatinine 1.4 mg/dL (0.7-1.3) Estimated GFR (Cockcroft-Gault) 52.1 Glucose Level 255 mg/dL (70-99) Lactic Acid Level 1.9 mmol/L (0.4-2.0) Calcium Level 6.8 mg/dL (8.5-10.1) Phosphorus Level 4.0 mg/dL (2.6-4.7) Magnesium Level 2.4 mg/dL (1.8-2.4) Troponin I Quantitative 0.625 ng/mL (0.000-0.055) Test 06/04/18 23:00 06/05/18 01:08 06/05/18 02:40 06/05/18 04:40 White Blood Count 12.6 x10^3/uL (4.0-11.0) Red Blood Count 5.00 x10^6/uL (4.30-5.70) Hemoglobin 15.4 g/dL (13.0-17.5) Hematocrit 45.3 % (39.0-53.0) Mean Corpuscular Volume 91 fL (79-100) Mean Corpuscular Hemoglobin 31 pg (25-35) Mean Corpuscular Hemoglobin Concent 34 g/dL (31-37) Red Cell Distribution Width 13.4 % (11.5-14.5) Platelet Count 170 x10^3/uL (140-400) Sodium Level 139 mmol/L (136-145) 140 mmol/L (136-145) Potassium Level 4.3 mmol/L (3.5-5.1) 4.0 mmol/L (3.5-5.1) Chloride Level 106 mmol/L (98-107) 107 mmol/L (98-107) Carbon Dioxide Level 21 mmol/L (21-32) 21 mmol/L (21-32) Anion Gap 12 (6-14) 12 (6-14) Blood Urea Nitrogen 20 mg/dL (8-26) 20 mg/dL (8-26) Creatinine 1.2 mg/dL (0.7-1.3) 1.0 mg/dL (0.7-1.3) Estimated GFR (Cockcroft-Gault) 62.2 76.7 Glucose Level 250 mg/dL (70-99) 210 mg/dL (70-99) Calcium Level 7.3 mg/dL (8.5-10.1) 6.8 mg/dL (8.5-10.1) Phosphorus Level 3.4 mg/dL (2.6-4.7) 4.2 mg/dL (2.6-4.7) Magnesium Level 2.7 mg/dL (1.8-2.4) 2.1 mg/dL (1.8-2.4) Prothrombin Time 14.9 SEC (11.7-14.0) Prothromb Time International Ratio 1.2 (0.8-1.1) Troponin I Quantitative 0.444 ng/mL (0.000-0.055) Lactic Acid Level 1.7 mmol/L (0.4-2.0) Test 06/05/18 06:30 06/05/18 06:39 06/05/18 08:00 06/05/18 11:46 White Blood Count 10.3 x10^3/uL (4.0-11.0) Red Blood Count 4.66 x10^6/uL (4.30-5.70) Hemoglobin 14.5 g/dL (13.0-17.5) Hematocrit 42.5 % (39.0-53.0) Mean Corpuscular Volume 91 fL (79-100) Mean Corpuscular Hemoglobin 31 pg (25-35) Mean Corpuscular Hemoglobin Concent 34 g/dL (31-37) Red Cell Distribution Width 13.5 % (11.5-14.5) Platelet Count 139 x10^3/uL (140-400) Activated Partial Thromboplast Time > 150 SEC (24-38) Heparin Anti-Xa Act, Unfractionated 0.54 IU/mL (0.30-0.70) Sodium Level 139 mmol/L (136-145) Potassium Level 3.8 mmol/L (3.5-5.1) Chloride Level 109 mmol/L (98-107) Carbon Dioxide Level 19 mmol/L (21-32) Anion Gap 11 (6-14) Blood Urea Nitrogen 19 mg/dL (8-26) Creatinine 1.1 mg/dL (0.7-1.3) Estimated GFR (Cockcroft-Gault) 68.8 Glucose Level 236 mg/dL (70-99) Calcium Level 6.5 mg/dL (8.5-10.1) Phosphorus Level 3.5 mg/dL (2.6-4.7) Magnesium Level 2.3 mg/dL (1.8-2.4) Total Bilirubin 0.5 mg/dL (0.2-1.0) Direct Bilirubin 0.1 mg/dL (0.0-0.2) Aspartate Amino Transf (AST/SGOT) 76 U/L (15-37) Alanine Aminotransferase (ALT/SGPT) 142 U/L (16-63) Alkaline Phosphatase 59 U/L (46-116) Troponin I Quantitative 0.248 ng/mL (0.000-0.055) Total Protein 5.0 g/dL (6.4-8.2) Albumin 2.4 g/dL (3.4-5.0) Triglycerides Level 222 mg/dL (0-150) Cholesterol Level 136 mg/dL (0-200) LDL Cholesterol, Calculated 66 mg/dL (0-100) VLDL Cholesterol, Calculated 44 mg/dL (0-40) Non-HDL Cholesterol Calculated 110 mg/dL (0-129) HDL Cholesterol 26 mg/dL (40-60) Cholesterol/HDL Ratio 5.2 Glucose (Fingerstick) 212 mg/dL (70-99) 193 mg/dL (70-99) O2 Saturation 93 % (92-99) Arterial Blood pH 7.33 (7.35-7.45) Arterial Blood pCO2 at Patient Temp 34 mmHg (35-46) Arterial Blood pO2 at Patient Temp 70 mmHg (75-108) Arterial Blood HCO3 18 mmol/L (21-28) Arterial Blood Base Excess -7 mmol/L (-3-3) FiO2 100 Test 06/05/18 11:50 06/05/18 16:46 06/06/18 01:29 06/06/18 05:45 Vancomycin Level Trough 30.4 mcg/mL (10.0-20.0) Vancomycin Last Dose Date 06/05/18 Vancomycin Last Dose Time 0100 Glucose (Fingerstick) 157 mg/dL (70-99) 209 mg/dL (70-99) White Blood Count 9.8 x10^3/uL (4.0-11.0) Red Blood Count 4.26 x10^6/uL (4.30-5.70) Hemoglobin 13.3 g/dL (13.0-17.5) Hematocrit 39.1 % (39.0-53.0) Mean Corpuscular Volume 92 fL (79-100) Mean Corpuscular Hemoglobin 31 pg (25-35) Mean Corpuscular Hemoglobin Concent 34 g/dL (31-37) Red Cell Distribution Width 13.7 % (11.5-14.5) Platelet Count 168 x10^3/uL (140-400) Neutrophils (%) (Auto) 81 % (31-73) Lymphocytes (%) (Auto) 13 % (24-48) Monocytes (%) (Auto) 6 % (0-9) Eosinophils (%) (Auto) 1 % (0-3) Basophils (%) (Auto) 0 % (0-3) Neutrophils # (Auto) 7.9 x10^3uL (1.8-7.7) Lymphocytes # (Auto) 1.2 x10^3/uL (1.0-4.8) Monocytes # (Auto) 0.6 x10^3/uL (0.0-1.1) Eosinophils # (Auto) 0.1 x10^3/uL (0.0-0.7) Basophils # (Auto) 0.0 x10^3/uL (0.0-0.2) Sodium Level 140 mmol/L (136-145) Potassium Level 3.8 mmol/L (3.5-5.1) Chloride Level 109 mmol/L (98-107) Carbon Dioxide Level 21 mmol/L (21-32) Anion Gap 10 (6-14) Blood Urea Nitrogen 22 mg/dL (8-26) Creatinine 1.4 mg/dL (0.7-1.3) Estimated GFR (Cockcroft-Gault) 52.1 Glucose Level 223 mg/dL (70-99) Calcium Level 6.9 mg/dL (8.5-10.1) Ionized Calcium 0.94 mmol/L (1.13-1.32) Phosphorus Level 3.7 mg/dL (2.6-4.7) Magnesium Level 1.9 mg/dL (1.8-2.4) Triglycerides Level 217 mg/dL (0-150) Random Vancomycin Level 12.2 mcg/mL Laboratory Tests Test 06/05/18 08:00 06/05/18 11:46 06/05/18 11:50 06/05/18 16:46 O2 Saturation 93 % (92-99) Arterial Blood pH 7.33 (7.35-7.45) Arterial Blood pCO2 at Patient Temp 34 mmHg (35-46) Arterial Blood pO2 at Patient Temp 70 mmHg (75-108) Arterial Blood HCO3 18 mmol/L (21-28) Arterial Blood Base Excess -7 mmol/L (-3-3) FiO2 100 Glucose (Fingerstick) 193 mg/dL (70-99) 157 mg/dL (70-99) Vancomycin Level Trough 30.4 mcg/mL (10.0-20.0) Vancomycin Last Dose Date 06/05/18 Vancomycin Last Dose Time 0100 Test 06/06/18 01:29 06/06/18 05:45 Glucose (Fingerstick) 209 mg/dL (70-99) White Blood Count 9.8 x10^3/uL (4.0-11.0) Red Blood Count 4.26 x10^6/uL (4.30-5.70) Hemoglobin 13.3 g/dL (13.0-17.5) Hematocrit 39.1 % (39.0-53.0) Mean Corpuscular Volume 92 fL (79-100) Mean Corpuscular Hemoglobin 31 pg (25-35) Mean Corpuscular Hemoglobin Concent 34 g/dL (31-37) Red Cell Distribution Width 13.7 % (11.5-14.5) Platelet Count 168 x10^3/uL (140-400) Neutrophils (%) (Auto) 81 % (31-73) Lymphocytes (%) (Auto) 13 % (24-48) Monocytes (%) (Auto) 6 % (0-9) Eosinophils (%) (Auto) 1 % (0-3) Basophils (%) (Auto) 0 % (0-3) Neutrophils # (Auto) 7.9 x10^3uL (1.8-7.7) Lymphocytes # (Auto) 1.2 x10^3/uL (1.0-4.8) Monocytes # (Auto) 0.6 x10^3/uL (0.0-1.1) Eosinophils # (Auto) 0.1 x10^3/uL (0.0-0.7) Basophils # (Auto) 0.0 x10^3/uL (0.0-0.2) Sodium Level 140 mmol/L (136-145) Potassium Level 3.8 mmol/L (3.5-5.1) Chloride Level 109 mmol/L (98-107) Carbon Dioxide Level 21 mmol/L (21-32) Anion Gap 10 (6-14) Blood Urea Nitrogen 22 mg/dL (8-26) Creatinine 1.4 mg/dL (0.7-1.3) Estimated GFR (Cockcroft-Gault) 52.1 Glucose Level 223 mg/dL (70-99) Calcium Level 6.9 mg/dL (8.5-10.1) Ionized Calcium 0.94 mmol/L (1.13-1.32) Phosphorus Level 3.7 mg/dL (2.6-4.7) Magnesium Level 1.9 mg/dL (1.8-2.4) Triglycerides Level 217 mg/dL (0-150) Random Vancomycin Level 12.2 mcg/mL Medications Active Scripts Medications Dose Route/Sig Max Daily Dose Days Date Category Carvedilol 6.25 Mg Tablet 1 Tab PO BID 90 06/04/18 Reported Zoloft (Sertraline Hcl) 100 Mg Tablet 1.5 Tab PO DAILY 90 06/04/18 Reported Dyazide 37.5-25 Capsule (Triamterene/Hydrochlorothiazid) 1 Each Capsule 1 Cap PO DAILY 06/04/18 Reported Fluconazole 100 Mg Tablet 1 Tab PO DAILY 06/04/18 Reported Clonazepam 0.5 Mg Tablet 1 Tab PO PRN TID PRN 06/04/18 Reported Acamprosate Calcium 333 Mg Tablet.dr 2 Tab PO TID 06/04/18 Reported Comments CXR reviewed, 1. Stable tube positions. 2. Improved aeration of the upper lobes with nearly complete resolution of the previously seen right upper lobe atelectasis. 3. Mild bibasilar atelectasis/infiltrate, left greater than right. Impression . 1. Acute hypoxic respiratory failure secondary to cardiac arrest. 2. Status post ventricular tachycardia with cardiac arrest. 3. Severe hypoxia, likely related to aspiration pneumonia and adult respiratory distress syndrome/acute lung injury, atelectasis. 4. Abnormal chest x-ray with right upper lobe opacification, s/p bronch. 5. Leukocytosis, suspected aspiration. 6. Abnormal LFTs secondary to hypoperfusion. 7. Increased troponin. Suspect non-ST elevation myocardial infarction. 8. No significant history of tobacco use. 9. CMP EF 30-35% 10. ? anoxic encephalopathy Plan . 1. cont PC/TIM. PEEP 12, titrate fio2 to keep sat 94%. 2. abg reviewed. 3. RUL atelectasis, s/p bronch, fu cxs 4. s/p hypothermia protocol 5. agree w neuro consult 6. Broad spectrum antibiotic per Infectious Disease. Zosyn/Micafungin, vanc dced 7. Follow Cardiology recommendation regarding the need for cardiac catheterization. 8. neuro consult 9. protonix for stress ulcer prophylaxis 10. Deep venous thrombosis prophylaxis. He is already on heparin. Discussed with RN RT. SHEILA MARTIN MD Jun 06, 2018 06:44
--- NOTE | 2018-06-06 06:52 | PDOC ---
Infectious Disease Note Subjective Subjective Intubated/Sedated ROS ROS unable to obtain Vital Sign Vital Signs Vital Signs Date Time Temp Pulse Resp B/P (MAP) Pulse Ox O2 Delivery O2 Flow Rate FiO2 06/06/18 06:00 97.4 69 24 132/57 (82) 100 Ventilator 97.4 Physical Exam PHYSICAL EXAM CONSTITUTIONAL: He is intubated and sedated. HEENT: Pupils are equal but constricted - reactive. He has normal conjunctivae. NECK: Supple, no JVD. LUNGS: Decreased in the bases. HEART: S1, S2. ABDOMEN: Morbidly obese, soft, no guarding, no apparent complications. : Bermudez is in place. EXTREMITIES: Without clubbing or cyanosis. No gross edema. SKIN: Skin without generalized signs of rash, although he does have some yeast in the groin area.- better NEUROLOGIC: He is sedated. RIJ and peripheral IV Labs Lab Laboratory Tests Test 06/05/18 08:00 06/05/18 11:46 06/05/18 11:50 06/05/18 16:46 O2 Saturation 93 % (92-99) Arterial Blood pH 7.33 (7.35-7.45) Arterial Blood pCO2 at Patient Temp 34 mmHg (35-46) Arterial Blood pO2 at Patient Temp 70 mmHg (75-108) Arterial Blood HCO3 18 mmol/L (21-28) Arterial Blood Base Excess -7 mmol/L (-3-3) FiO2 100 Glucose (Fingerstick) 193 mg/dL (70-99) 157 mg/dL (70-99) Vancomycin Level Trough 30.4 mcg/mL (10.0-20.0) Vancomycin Last Dose Date 06/05/18 Vancomycin Last Dose Time 0100 Test 06/06/18 01:29 06/06/18 05:45 Glucose (Fingerstick) 209 mg/dL (70-99) White Blood Count 9.8 x10^3/uL (4.0-11.0) Red Blood Count 4.26 x10^6/uL (4.30-5.70) Hemoglobin 13.3 g/dL (13.0-17.5) Hematocrit 39.1 % (39.0-53.0) Mean Corpuscular Volume 92 fL (79-100) Mean Corpuscular Hemoglobin 31 pg (25-35) Mean Corpuscular Hemoglobin Concent 34 g/dL (31-37) Red Cell Distribution Width 13.7 % (11.5-14.5) Platelet Count 168 x10^3/uL (140-400) Neutrophils (%) (Auto) 81 % (31-73) Lymphocytes (%) (Auto) 13 % (24-48) Monocytes (%) (Auto) 6 % (0-9) Eosinophils (%) (Auto) 1 % (0-3) Basophils (%) (Auto) 0 % (0-3) Neutrophils # (Auto) 7.9 x10^3uL (1.8-7.7) Lymphocytes # (Auto) 1.2 x10^3/uL (1.0-4.8) Monocytes # (Auto) 0.6 x10^3/uL (0.0-1.1) Eosinophils # (Auto) 0.1 x10^3/uL (0.0-0.7) Basophils # (Auto) 0.0 x10^3/uL (0.0-0.2) Sodium Level 140 mmol/L (136-145) Potassium Level 3.8 mmol/L (3.5-5.1) Chloride Level 109 mmol/L (98-107) Carbon Dioxide Level 21 mmol/L (21-32) Anion Gap 10 (6-14) Blood Urea Nitrogen 22 mg/dL (8-26) Creatinine 1.4 mg/dL (0.7-1.3) Estimated GFR (Cockcroft-Gault) 52.1 Glucose Level 223 mg/dL (70-99) Calcium Level 6.9 mg/dL (8.5-10.1) Ionized Calcium 0.94 mmol/L (1.13-1.32) Phosphorus Level 3.7 mg/dL (2.6-4.7) Magnesium Level 1.9 mg/dL (1.8-2.4) Triglycerides Level 217 mg/dL (0-150) Random Vancomycin Level 12.2 mcg/mL Micro ECHO 06/04 Left ventricle systolic function is moderately impaired. The Ejection Fraction is 30-35%. Mild mitral regurgitation. Trace tricuspid regurgitation. The PA pressure was estimated at 39 mmHg. There is no evidence of significant pericardial effusion. U/S 06/04 IMPRESSION: 1. No sonographic evidence of acute cholecystitis. There is borderline gallbladder wall thickening, which in isolation is nonspecific. If there remains clinical concern for acute cholecystitis or gallbladder dysfunction, consider further evaluation with a HIDA scan. Objective Assessment s/p Arrest and hypothermia protocol - now off Resp failure on Vent - S/p Bronch 06/05- findings c/w aspiration- MRSA screen neg Leukocytosis - better - no pressors Distended GB on CT scan - U/S neg DWAIN - increasing today ETOH abuse Anterior Rib fractures 4 through 7 Yeast skin infection. ? Systemic yeast on some med per primary Morbid obesity Seizure activity Plan Plan of Care D/c Vanc as Cr is increasing Cont Zosyn/Micafungin F/u labs/cults Notes reviewed. D/w family DOLORES BAILEY MD Jun 06, 2018 06:51
[2018-06-06 07:25] LABS: BASE EXCESS ABG -5 mmol/L (-3-3); HCO3 ABG 19 mmol/L (21-28); PCO2 ABG 34 mmHg (35-46); PO2 ABG 128 mmHg (75-108); SAT O2 ABG 98 % (92-99)
--- NOTE | 2018-06-06 08:10 | RAD ---
Portable chest, 06/06/2018: HISTORY: Respiratory distress Comparison is made to a study from 06/05/2018. The ET tube tip lies well above the leanna. An NG tube remains in place although its tip is not visible. A right jugular central venous catheter extends into the inferior aspect of the superior vena cava. The heart remains mildly enlarged. The pulmonary vascularity is at the upper limits of normal. The right upper lobe atelectasis has largely resolved. Discoid left perihilar atelectasis has also improved. There is ongoing atelectasis/infiltrate obscuring the left hemidiaphragm. There is an increasing mild right basilar opacity suggesting atelectasis. A component of pleural fluid in the lung bases cannot be excluded. No pneumothorax is evident. IMPRESSION: 1. Stable tube positions. 2. Improved aeration of the upper lobes with nearly complete resolution of the previously seen right upper lobe atelectasis. 3. Mild bibasilar atelectasis/infiltrate, left greater than right. Electronically signed by: Rex Liz MD (06/06/2018 8:06 AM) [facility]
[2018-06-06 08:46] LABS: FIO2 ABG 100%
[2018-06-06] MEDS ORDERED: CALCIUM GLUCONATE 2,000 MG in IV DEXTROSE 5% 100ML 100 ML IV ONE (09:00)
[2018-06-06] MEDS: PANTOPRAZOLE IV PUSH 40 MG VIAL. IVP SCH (09:53)
[2018-06-06] MEDS: CHLORHEXIDINE 0.12% 15 ML MOUTHWASH. MM SCH ×2 (09:54→19:53)
[2018-06-06] MEDS: levETIRAcetam 500 MG in IV DEXTROSE 5% 100ML 100 ML IV SCH ×2 (09:54→19:53)
[2018-06-06] MEDS: INSULIN LISPRO 300 UNITS/3 ML INSULN.PEN. SQ SCH ×3 (10:09→17:51)
[2018-06-06] MEDS: MICAFUNGIN 100 MG in IV DEXTROSE 5% 100ML 100 ML IV SCH (11:17)
--- NOTE | 2018-06-06 13:35 | PDOC ---
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 Ventilator 06/06/18 06/06/18 06/06/18 06/06/18 03:00 03:50 04:00 04:00 Temp 96.8 96.6 96.8 96.6 Pulse 71 70 Resp 24 B/P (MAP) 151/77 (101) 140/79 (99) Pulse Ox 96 100 96 O2 Delivery Ventilator Ventilator Ventilator Mechanical Ventilator 06/06/18 06/06/18 06/06/18 06/06/18 05:00 05:06 06:00 07:00 Temp 96.6 97.4 96.6 97.4 Pulse 67 69 68 Resp 24 B/P (MAP) 133/45 (74) 132/57 (82) 135/104 (114) Pulse Ox 100 100 100 99 O2 Delivery Ventilator Ventilator Ventilator Ventilator 06/06/18 06/06/18 06/06/18 06/06/18 07:09 07:29 08:00 08:00 Temp 98.3 98.3 Pulse 68 Resp 18 B/P (MAP) 115/74 (88) Pulse Ox 100 80 100 O2 Delivery Ventilator Ventilator Mechanical Ventilator Ventilator 06/06/18 06/06/18 06/06/18 06/06/18 09:00 09:39 10:00 10:54 Pulse 76 78 Resp 18 18 B/P (MAP) 146/80 (102) 138/91 (107) Pulse Ox 99 80 100 80 O2 Delivery Ventilator Ventilator Ventilator Ventilator 06/06/18 06/06/18 06/06/18 11:00 11:30 12:43 Pulse 78 Resp 18 B/P (MAP) 123/90 (101) Pulse Ox 99 98 70 O2 Delivery Ventilator Ventilator Ventilator Intake and Output 06/05/18 06/05/18 06/06/18 15:00 23:00 07:00 Intake Total 200 ml 2015.51 ml 2142.3 ml Output Total 270 ml 315 ml 270 ml Balance -70 ml 1700.51 ml 1872.3 ml BRITANY REYES MD Jun 06, 2018 13:35
--- NOTE | 2018-06-06 14:08 | PDOC ---
PROGRESS NOTES Assessment Problems Medical Problems: (1) Cardiac arrest Status: Acute Anoxic encephalopathy with seizures, had one seizure this morning He has finished rewarming from hypothermia, but is on sedation to tolerate PEEP Plan I discussed with family, prognosis is poor but I can't do a full exam with him sedated. For now we will make him DO NOT RESUSCITATE. Aiming for a more for thorough assessment on 06/08 Subjective None Objective Vital Signs Date Time Temp Pulse Resp B/P (MAP) Pulse Ox O2 Delivery O2 Flow Rate FiO2 06/06/18 13:00 80 18 143/70 (94) 97 Ventilator 06/06/18 12:00 98.1 98.1 Intake and Output 06/06/18 07:00 Intake Total 4357.81 ml Output Total 855 ml Balance 3502.81 ml IV Total 4357.81 ml Output Urine Total 855 ml PHYSICAL EXAM Sedated intubated PERRL. No spontaneous extraocular movements. Positive oculovestibular response CN: no focal findings. Muscle tone: normal. Muscle strength: none DTR: 0+ Plantar reflex: silent Gait: not examined in bed. Sensory exam: not tested. Cerebellar: not tested Review of Relevant I have reviewed the following items gisselle (where applicable) has been applied. Labs Laboratory Tests Test 06/04/18 15:00 06/04/18 17:00 06/04/18 17:07 06/04/18 19:40 White Blood Count 11.8 x10^3/uL (4.0-11.0) Red Blood Count 4.86 x10^6/uL (4.30-5.70) Hemoglobin 15.0 g/dL (13.0-17.5) Hematocrit 44.1 % (39.0-53.0) Mean Corpuscular Volume 91 fL (79-100) Mean Corpuscular Hemoglobin 31 pg (25-35) Mean Corpuscular Hemoglobin Concent 34 g/dL (31-37) Red Cell Distribution Width 13.1 % (11.5-14.5) Platelet Count 168 x10^3/uL (140-400) Sodium Level 140 mmol/L (136-145) 140 mmol/L (136-145) Potassium Level 3.9 mmol/L (3.5-5.1) 4.2 mmol/L (3.5-5.1) Chloride Level 106 mmol/L (98-107) 106 mmol/L (98-107) Carbon Dioxide Level 21 mmol/L (21-32) 23 mmol/L (21-32) Anion Gap 13 (6-14) 11 (6-14) Blood Urea Nitrogen 20 mg/dL (8-26) 20 mg/dL (8-26) Creatinine 1.4 mg/dL (0.7-1.3) 1.4 mg/dL (0.7-1.3) Estimated GFR (Cockcroft-Gault) 52.1 52.1 Glucose Level 281 mg/dL (70-99) 255 mg/dL (70-99) Calcium Level 7.1 mg/dL (8.5-10.1) 6.8 mg/dL (8.5-10.1) Phosphorus Level 2.9 mg/dL (2.6-4.7) 4.0 mg/dL (2.6-4.7) Magnesium Level 2.5 mg/dL (1.8-2.4) 2.4 mg/dL (1.8-2.4) Prothrombin Time 15.1 SEC (11.7-14.0) Prothromb Time International Ratio 1.2 (0.8-1.1) Activated Partial Thromboplast Time 103 SEC (24-38) Heparin Anti-Xa Act, Unfractionated 0.46 IU/mL (0.30-0.70) Glucose (Fingerstick) 259 mg/dL (70-99) Lactic Acid Level 1.9 mmol/L (0.4-2.0) Troponin I Quantitative 0.625 ng/mL (0.000-0.055) Test 06/04/18 22:59 06/04/18 23:00 06/05/18 01:08 06/05/18 02:40 Glucose (Fingerstick) 230 mg/dL (70-99) White Blood Count 12.6 x10^3/uL (4.0-11.0) Red Blood Count 5.00 x10^6/uL (4.30-5.70) Hemoglobin 15.4 g/dL (13.0-17.5) Hematocrit 45.3 % (39.0-53.0) Mean Corpuscular Volume 91 fL (79-100) Mean Corpuscular Hemoglobin 31 pg (25-35) Mean Corpuscular Hemoglobin Concent 34 g/dL (31-37) Red Cell Distribution Width 13.4 % (11.5-14.5) Platelet Count 170 x10^3/uL (140-400) Sodium Level 139 mmol/L (136-145) 140 mmol/L (136-145) Potassium Level 4.3 mmol/L (3.5-5.1) 4.0 mmol/L (3.5-5.1) Chloride Level 106 mmol/L (98-107) 107 mmol/L (98-107) Carbon Dioxide Level 21 mmol/L (21-32) 21 mmol/L (21-32) Anion Gap 12 (6-14) 12 (6-14) Blood Urea Nitrogen 20 mg/dL (8-26) 20 mg/dL (8-26) Creatinine 1.2 mg/dL (0.7-1.3) 1.0 mg/dL (0.7-1.3) Estimated GFR (Cockcroft-Gault) 62.2 76.7 Glucose Level 250 mg/dL (70-99) 210 mg/dL (70-99) Calcium Level 7.3 mg/dL (8.5-10.1) 6.8 mg/dL (8.5-10.1) Phosphorus Level 3.4 mg/dL (2.6-4.7) 4.2 mg/dL (2.6-4.7) Magnesium Level 2.7 mg/dL (1.8-2.4) 2.1 mg/dL (1.8-2.4) Prothrombin Time 14.9 SEC (11.7-14.0) Prothromb Time International Ratio 1.2 (0.8-1.1) Troponin I Quantitative 0.444 ng/mL (0.000-0.055) Test 06/05/18 04:40 06/05/18 06:30 06/05/18 06:39 06/05/18 08:00 Lactic Acid Level 1.7 mmol/L (0.4-2.0) White Blood Count 10.3 x10^3/uL (4.0-11.0) Red Blood Count 4.66 x10^6/uL (4.30-5.70) Hemoglobin 14.5 g/dL (13.0-17.5) Hematocrit 42.5 % (39.0-53.0) Mean Corpuscular Volume 91 fL (79-100) Mean Corpuscular Hemoglobin 31 pg (25-35) Mean Corpuscular Hemoglobin Concent 34 g/dL (31-37) Red Cell Distribution Width 13.5 % (11.5-14.5) Platelet Count 139 x10^3/uL (140-400) Activated Partial Thromboplast Time > 150 SEC (24-38) Heparin Anti-Xa Act, Unfractionated 0.54 IU/mL (0.30-0.70) Sodium Level 139 mmol/L (136-145) Potassium Level 3.8 mmol/L (3.5-5.1) Chloride Level 109 mmol/L (98-107) Carbon Dioxide Level 19 mmol/L (21-32) Anion Gap 11 (6-14) Blood Urea Nitrogen 19 mg/dL (8-26) Creatinine 1.1 mg/dL (0.7-1.3) Estimated GFR (Cockcroft-Gault) 68.8 Glucose Level 236 mg/dL (70-99) Calcium Level 6.5 mg/dL (8.5-10.1) Phosphorus Level 3.5 mg/dL (2.6-4.7) Magnesium Level 2.3 mg/dL (1.8-2.4) Total Bilirubin 0.5 mg/dL (0.2-1.0) Direct Bilirubin 0.1 mg/dL (0.0-0.2) Aspartate Amino Transf (AST/SGOT) 76 U/L (15-37) Alanine Aminotransferase (ALT/SGPT) 142 U/L (16-63) Alkaline Phosphatase 59 U/L (46-116) Troponin I Quantitative 0.248 ng/mL (0.000-0.055) Total Protein 5.0 g/dL (6.4-8.2) Albumin 2.4 g/dL (3.4-5.0) Triglycerides Level 222 mg/dL (0-150) Cholesterol Level 136 mg/dL (0-200) LDL Cholesterol, Calculated 66 mg/dL (0-100) VLDL Cholesterol, Calculated 44 mg/dL (0-40) Non-HDL Cholesterol Calculated 110 mg/dL (0-129) HDL Cholesterol 26 mg/dL (40-60) Cholesterol/HDL Ratio 5.2 Glucose (Fingerstick) 212 mg/dL (70-99) O2 Saturation 93 % (92-99) Arterial Blood pH 7.33 (7.35-7.45) Arterial Blood pCO2 at Patient Temp 34 mmHg (35-46) Arterial Blood pO2 at Patient Temp 70 mmHg (75-108) Arterial Blood HCO3 18 mmol/L (21-28) Arterial Blood Base Excess -7 mmol/L (-3-3) FiO2 100 Test 06/05/18 11:46 06/05/18 11:50 06/05/18 16:46 06/06/18 01:29 Glucose (Fingerstick) 193 mg/dL (70-99) 157 mg/dL (70-99) 209 mg/dL (70-99) Vancomycin Level Trough 30.4 mcg/mL (10.0-20.0) Vancomycin Last Dose Date 06/05/18 Vancomycin Last Dose Time 0100 Test 06/06/18 05:45 06/06/18 07:20 06/06/18 10:05 06/06/18 13:42 White Blood Count 9.8 x10^3/uL (4.0-11.0) Red Blood Count 4.26 x10^6/uL (4.30-5.70) Hemoglobin 13.3 g/dL (13.0-17.5) Hematocrit 39.1 % (39.0-53.0) Mean Corpuscular Volume 92 fL (79-100) Mean Corpuscular Hemoglobin 31 pg (25-35) Mean Corpuscular Hemoglobin Concent 34 g/dL (31-37) Red Cell Distribution Width 13.7 % (11.5-14.5) Platelet Count 168 x10^3/uL (140-400) Neutrophils (%) (Auto) 81 % (31-73) Lymphocytes (%) (Auto) 13 % (24-48) Monocytes (%) (Auto) 6 % (0-9) Eosinophils (%) (Auto) 1 % (0-3) Basophils (%) (Auto) 0 % (0-3) Neutrophils # (Auto) 7.9 x10^3uL (1.8-7.7) Lymphocytes # (Auto) 1.2 x10^3/uL (1.0-4.8) Monocytes # (Auto) 0.6 x10^3/uL (0.0-1.1) Eosinophils # (Auto) 0.1 x10^3/uL (0.0-0.7) Basophils # (Auto) 0.0 x10^3/uL (0.0-0.2) Sodium Level 140 mmol/L (136-145) Potassium Level 3.8 mmol/L (3.5-5.1) Chloride Level 109 mmol/L (98-107) Carbon Dioxide Level 21 mmol/L (21-32) Anion Gap 10 (6-14) Blood Urea Nitrogen 22 mg/dL (8-26) Creatinine 1.4 mg/dL (0.7-1.3) Estimated GFR (Cockcroft-Gault) 52.1 Glucose Level 223 mg/dL (70-99) Calcium Level 6.9 mg/dL (8.5-10.1) Ionized Calcium 0.94 mmol/L (1.13-1.32) Phosphorus Level 3.7 mg/dL (2.6-4.7) Magnesium Level 1.9 mg/dL (1.8-2.4) Triglycerides Level 217 mg/dL (0-150) Random Vancomycin Level 12.2 mcg/mL O2 Saturation 98 % (92-99) Arterial Blood pH 7.37 (7.35-7.45) Arterial Blood pCO2 at Patient Temp 34 mmHg (35-46) Arterial Blood pO2 at Patient Temp 128 mmHg (75-108) Arterial Blood HCO3 19 mmol/L (21-28) Arterial Blood Base Excess -5 mmol/L (-3-3) FiO2 100% Glucose (Fingerstick) 212 mg/dL (70-99) 200 mg/dL (70-99) Laboratory Tests Test 06/05/18 16:46 06/06/18 01:29 06/06/18 05:45 06/06/18 07:20 Glucose (Fingerstick) 157 mg/dL (70-99) 209 mg/dL (70-99) White Blood Count 9.8 x10^3/uL (4.0-11.0) Red Blood Count 4.26 x10^6/uL (4.30-5.70) Hemoglobin 13.3 g/dL (13.0-17.5) Hematocrit 39.1 % (39.0-53.0) Mean Corpuscular Volume 92 fL (79-100) Mean Corpuscular Hemoglobin 31 pg (25-35) Mean Corpuscular Hemoglobin Concent 34 g/dL (31-37) Red Cell Distribution Width 13.7 % (11.5-14.5) Platelet Count 168 x10^3/uL (140-400) Neutrophils (%) (Auto) 81 % (31-73) Lymphocytes (%) (Auto) 13 % (24-48) Monocytes (%) (Auto) 6 % (0-9) Eosinophils (%) (Auto) 1 % (0-3) Basophils (%) (Auto) 0 % (0-3) Neutrophils # (Auto) 7.9 x10^3uL (1.8-7.7) Lymphocytes # (Auto) 1.2 x10^3/uL (1.0-4.8) Monocytes # (Auto) 0.6 x10^3/uL (0.0-1.1) Eosinophils # (Auto) 0.1 x10^3/uL (0.0-0.7) Basophils # (Auto) 0.0 x10^3/uL (0.0-0.2) Sodium Level 140 mmol/L (136-145) Potassium Level 3.8 mmol/L (3.5-5.1) Chloride Level 109 mmol/L (98-107) Carbon Dioxide Level 21 mmol/L (21-32) Anion Gap 10 (6-14) Blood Urea Nitrogen 22 mg/dL (8-26) Creatinine 1.4 mg/dL (0.7-1.3) Estimated GFR (Cockcroft-Gault) 52.1 Glucose Level 223 mg/dL (70-99) Calcium Level 6.9 mg/dL (8.5-10.1) Ionized Calcium 0.94 mmol/L (1.13-1.32) Phosphorus Level 3.7 mg/dL (2.6-4.7) Magnesium Level 1.9 mg/dL (1.8-2.4) Triglycerides Level 217 mg/dL (0-150) Random Vancomycin Level 12.2 mcg/mL O2 Saturation 98 % (92-99) Arterial Blood pH 7.37 (7.35-7.45) Arterial Blood pCO2 at Patient Temp 34 mmHg (35-46) Arterial Blood pO2 at Patient Temp 128 mmHg (75-108) Arterial Blood HCO3 19 mmol/L (21-28) Arterial Blood Base Excess -5 mmol/L (-3-3) FiO2 100% Test 06/06/18 10:05 06/06/18 13:42 Glucose (Fingerstick) 212 mg/dL (70-99) 200 mg/dL (70-99) Microbiology 06/05/18 - Final, Complete Medications Current Medications Amiodarone HCl 900 mg/Dextrose 518 ml @ 33 mls/hr 1X ONCE IV Last administered on 06/03/18at 21:14; Start 06/03/18 at 21:00; Stop 06/04/18 at 12:41; Status DC Amiodarone HCl (Cordarone) 300 mg 1X ONCE IVP Last administered on 06/03/18at 20 :57; Start 06/03/18 at 21:15; Stop 06/03/18 at 21:16; Status DC Amiodarone HCl 900 mg/Dextrose 518 ml @ 0 mls/hr 1X ONCE IV ; Start 06/03/18 at 21:15; Stop 06/03/18 at 21:16; Status Cancel Magnesium Sulfate/ Dextrose 100 ml @ 100 mls/hr 1X ONCE IV Last administered on 06/03/18at 21:03; Start 06/03/18 at 21:15; Stop 06/03/18 at 22:14; Status DC Propofol 50 ml @ As Directed STK-MED ONCE IV ; Start 06/03/18 at 21:16; Stop 06/03 at 21:17; Status DC Iohexol (Omnipaque 300 Mg/ml) 90 ml 1X ONCE IV Last administered on 06/03/18at 21:30; Start 06/03/18 at 21:30; Stop 06/03/18 at 21:31; Status DC Info (CONTRAST GIVEN -- Rx MONITORING) 1 each PRN DAILY PRN MC SEE COMMENTS; Start 06/03/18 at 21:30; Stop 06/05/18 at 21:29; Status DC Norepinephrine Bitartrate 250 ml @ As Directed STK-MED ONCE IV ; Start 06/03/18 at 21:17; Stop 06/03/18 at 21:18; Status DC Norepinephrine Bitartrate 250 ml @ 0 mls/hr 1X ONCE IV Last administered on 06/03/18at 21:22; Start 06/03/18 at 21:30; Stop 06/03/18 at 21:31; Status DC Propofol 20 ml @ 0 mls/hr 1X ONCE IV Last administered on 06/03/18at 21:19; Start 06/03/18 at 21:30; Stop 06/03/18 at 21:31; Status DC Sodium Chloride 1,000 ml @ 100 mls/hr Q10H IV Last administered on 06/04/18at 17 :04; Start 06/03/18 at 21:29; Stop 06/04/18 at 21:28; Status DC Potassium Chloride (KCl Oral Soln) 20 meq 1X ONCE NG Last administered on at 00:24; Start 06/03/18 at 22:30; Stop 06/03/18 at 22:31; Status DC Insulin Human Regular 150 unit/ Sodium Chloride 151.5 ml @ 0 mls/hr CONT PRN IV SEE I/O RECORD; Start 06/03/18 at 22:30; Stop 06/04/18 at 13:23; Status DC Dextrose (Dextrose 50%-Water Syringe) 12.5 gm PRN Q15MIN PRN IV LOW BLOOD SUGAR ; Start 06/03/18 at 22:30; Stop 06/04/18 at 13:22; Status DC Multivitamins 10 ml/Thiamine HCl 100 mg/Folic Acid 1 mg/Sodium Chloride 1,011.2 ml @ 100 mls/ hr DAILY IV ; Start 06/04/18 at 09:00; Stop 06/04/18 at 19:07; Status Cancel Lorazepam (Ativan) 2 mg PRN Q1HR PRN IV For CIWA 8-14; Start 06/03/18 at 22:45 Lorazepam (Ativan) 4 mg PRN Q1HR PRN IV For CIWA 15 or greater; Start 06/03/18 at 22:45 Haloperidol Lactate (Haldol Inj) 5 mg PRN Q4HRS PRN IVP Hallucinatns,Confusn, Delirium; Start 06/03/18 at 22:45 Heparin Sodium/ Dextrose 500 ml @ 0 mls/hr CONT PRN IV SEE I/O RECORD Last administered on 06/06/18at 00:15; Start 06/03/18 at 23:00 Heparin Sodium (Porcine) (Heparin Sodium) 3,300 unit PRN Q6HRS PRN IV FOR UFH LEVEL LESS THAN 0.2 Last administered on 06/03/18 23:08; Start 06/03/18 at 23:00 Midazolam HCl 100 ml @ 5 mls/hr CONT PRN IV SEE I/O RECORD Last administered on 06/06/18at 02:04; Start 06/03/18 at 23:15 Fentanyl Citrate 30 ml @ 0 mls/hr CONT PRN PRN IV PER PROTOCOL Last administered on 06/06/18at 11:30; Start 06/03/18 at 23:15 Etomidate (Amidate) 20 mg 1X ONCE IV Last administered on 06/03/18 20:55; Start 06/03/18 at 23:15; Stop 06/03/18 at 23:16; Status DC Succinylcholine Chloride (Anectine) 100 mg 1X ONCE IV Last administered on 06/03at 20:56; Start 06/03/18 at 23:15; Stop 06/03/18 at 23:16; Status DC Fentanyl Citrate (Fentanyl 2ml Vial) 100 mcg 1X ONCE IV Last administered on 20:59; Start 06/03/18 at 23:15; Stop 06/03/18 at 23:16; Status DC Midazolam HCl (Versed) 4 mg 1X ONCE IV Last administered on 06/03/18at 21:01; Start 06/03/18 at 23:15; Stop 06/03/18 at 23:16; Status DC Sodium Chloride 500 ml @ 500 mls/hr 1X ONCE IV Last administered on 06/03/18at 21:20; Start 06/03/18 at 23:15; Stop 06/04/18 at 00:14; Status DC Rocuronium Seymour (Zemuron) 50 mg 1X ONCE IV Last administered on 06/03/18at 21 :29; Start 06/03/18 at 23:15; Stop 06/03/18 at 23:16; Status DC Sodium Chloride 1,000 ml @ 1,000 mls/hr Q1H IV Last administered on 06/04/18 05:55; Start 06/04/18 at 00:00; Stop 06/04/18 at 06:25; Status DC Vecuronium Seymour (Norcuron Bolus) 10 mg PRN Q30MIN PRN IV SHIVERING Last administered on 06/06/18at 08:15; Start 06/04/18 at 00:00 Meperidine HCl (Demerol) 12.5 mg PRN Q30MIN PRN IV SHIVERING Last administered on 06/04/18at 02:04; Start 06/04/18 at 00:00 Sodium Chloride (Normal Saline Flush) 3 ml QSHIFT PRN IV AFTER MEDS AND BLOOD DRAWS; Start 06/04/18 at 00:00 Acetaminophen (Tylenol) 650 mg Q6HRS NG ; Start 06/04/18 at 00:00; Stop 06/04/18 at 00:52; Status DC Acetaminophen (Tylenol Supp) 650 mg PRN Q6HRS PRN UT MILD PAIN / TEMP; Start at 00:00; Status Cancel Acetaminophen (Tylenol) 650 mg PRN Q6HRS PRN NG MILD PAIN / TEMP; Start at 00:00; Status Cancel Info (Icu Electrolyte Protocol) 1 ea DAILY PRN MC PER PROTOCOL; Start 06/06/18 at 00:00 Vancomycin HCl (Vanco Per Pharmacy) 1 each PRN DAILY PRN MC SEE COMMENTS Last administered on 06/05/18at 12:35; Start 06/04/18 at 00:30; Stop 06/06/18 at 06:51 ; Status DC Piperacillin Sod/ Tazobactam Sod (Zosyn Per Pharmacy) 1 each PRN DAILY PRN MC SEE COMMENTS; Start 06/04/18 at 00:30 Sodium Chloride 1,000 ml @ 2,040 mls/hr Q30M IV Last administered on 06/04/18at 00:21; Start 06/04/18 at 00:15; Stop 06/04/18 at 01:15; Status DC Sodium Chloride 500 ml @ 1,000 mls/hr PRN Q30MIN PRN IV SEE COMMENTS; Start at 00:15 Norepinephrine Bitartrate 250 ml @ 0 mls/hr CONT PRN IV SEE I/O RECORD Last administered on 06/04/18at 01:31; Start 06/04/18 at 00:15 Piperacillin Sod/ Tazobactam Sod 3.375 gm/Sodium Chloride 50 ml @ 100 mls/hr Q6HRS IV Last administered on 06/06/18at 13:50; Start 06/04/18 at 00:30 Ondansetron HCl (Zofran) 4 mg PRN Q6HRS PRN IV NAUSEA/VOMITING; Start 06/04/18 at 00:45 Vancomycin HCl 2 gm/Sodium Chloride 500 ml @ 250 mls/hr 1X ONCE IV Last administered on 06/04/18at 00:47; Start 06/04/18 at 01:00; Stop 06/04/18 at 02:59; Status DC Levetiracetam 500 mg/Dextrose 105 ml @ 420 mls/hr Q12HR IV Last administered on 06/06/18at 09:54; Start 06/04/18 at 09:00 Levetiracetam 500 mg/Dextrose 105 ml @ 420 mls/hr 1X ONCE IV Last administered on 06/04/18at 01:01; Start 06/04/18 at 01:00; Stop 06/04/18 at 01:14; Status DC Vancomycin HCl 2 gm/Sodium Chloride 500 ml @ 250 mls/hr Q12H IV Last administered on 06/05/18at 01:09; Start 06/04/18 at 13:00; Stop 06/05/18 at 12:34 ; Status DC Vancomycin HCl (Vancomycin Trough Level) 1 each 1X ONCE MC Last administered on 06/05/18at 11:53; Start 06/05/18 at 12:30; Stop 06/05/18 at 12:31; Status DC Micafungin Sodium 100 mg/Dextrose 100 ml @ 100 mls/hr Q24H IV Last administered on 06/06/18at 11:17; Start 06/04/18 at 08:00 Lidocaine/Sodium Bicarbonate (Buffered Lidocaine 1%) 3 ml STK-MED ONCE .ROUTE ; Start 06/04/18 at 08:05; Stop 06/04/18 at 08:06; Status DC Sodium Bicarbonate (Sodium Bicarb Adult 8.4% Syr) 50 meq 1X ONCE IV Last administered on 06/04/18at 09:34; Start 06/04/18 at 09:15; Stop 06/04/18 at 09:16; Status DC Sodium Bicarbonate (Sodium Bicarb Adult 8.4% Syr) 50 meq 1X ONCE IV Last administered on 06/04/18at 09:34; Start 06/04/18 at 09:15; Stop 06/04/18 at 09:16; Status DC Lidocaine/Sodium Bicarbonate (Buffered Lidocaine 1%) 3 ml 1X ONCE INJ Last administered on 06/04/18at 09:15; Start 06/04/18 at 09:15; Stop 06/04/18 at 09:16; Status DC Magnesium Sulfate/ Dextrose 100 ml @ 25 mls/hr 1X ONCE IV Last administered on 06/04/18at 10:41; Start 06/04/18 at 11:00; Stop 06/04/18 at 14:59; Status DC Info (Anti-Coagulation Monitoring By Pharmacy) 1 each PRN DAILY PRN MC SEE COMMENTS Last administered on 06/05/18at 10:00; Start 06/04/18 at 11:15 Pantoprazole Sodium (PROTONIX VIAL for IV PUSH) 40 mg DAILYAC IVP Last administered on 06/06/18at 09:53; Start 06/04/18 at 14:00 Insulin Human Lispro (HumaLOG) 0-7 UNITS TIDWMEALS SQ Last administered on at 17:12; Start 06/04/18 at 14:00; Stop 06/05/18 at 00:02; Status DC Dextrose (Dextrose 50%-Water Syringe) 12.5 gm PRN Q15MIN PRN IV SEE COMMENTS; Start 06/04/18 at 13:15 Sodium Chloride 1,000 ml @ 100 mls/hr Q10H IV Last administered on 06/06/18at 13:50; Start 06/04/18 at 21:30 Insulin Human Lispro (HumaLOG) 0-7 UNITS Q6HRS SQ Last administered on at 06:45; Start 06/05/18 at 00:00; Stop 06/05/18 at 09:20; Status DC Chlorhexidine Gluconate (Peridex) 15 ml BID MM Last administered on 06/06/18at 09:54; Start 06/05/18 at 09:00 Insulin Human Lispro (HumaLOG) 0-9 UNITS TIDWMEALS SQ Last administered on 06/06at 13:53; Start 06/05/18 at 12:00 Dextrose (Dextrose 50%-Water Syringe) 12.5 gm PRN Q15MIN PRN IV SEE COMMENTS; Start 06/05/18 at 09:30; Status UNV Acetaminophen (Tylenol) 650 mg PRN Q6HRS PRN PEG MILD PAIN / TEMP Last administered on 06/05/18at 18:21; Start 06/05/18 at 11:30 Vancomycin HCl (Vancomycin Random Level) 1 each 1X ONCE MC Last administered on 06/06/18at 05:00; Start 06/06/18 at 05:00; Stop 06/06/18 at 05:01; Status DC Info (Tpn Per Pharmacy) 1 each PRN DAILY PRN MC SEE COMMENTS Last administered on 06/05/18at 13:30; Start 06/05/18 at 13:30 Sodium Acetate 90 meq/Potassium Chloride 50 meq/ Potassium Phosphate 13.6 mmol/ Magnesium Sulfate 10 meq/ Multivitamins 10 ml/Chromium/ Copper/Manganese/ Seleni /Zn 1 ml/ Total Parenteral Nutrition/Amino Acids/Dextrose/ Fat Emulsion Intravenous 1,512 ml @ 63 mls/hr TPN CONT IV Last administered on 06/05/18at 22:54; Start 06/05/18 at 22:00; Stop 06/06/18 at 21:59 Hydralazine HCl (Apresoline Inj) 10 mg PRN Q4HRS PRN IVP ELEVATED BP, SEE COMMENTS Last administered on 06/05/18at 17:45; Start 06/05/18 at 14:45 Magnesium Sulfate/ Dextrose (Magnesium Sulfate PREMIX 1GM) 1 gm STK-MED ONCE IV ; Start 06/03/18 at 17:28; Stop 06/05/18 at 17:28; Status DC Amiodarone HCl (Cordarone) 300 mg STK-MED ONCE .ROUTE ; Start 06/03/18 at 17:28; Stop 06/05/18 at 17:28; Status DC Calcium Gluconate 2000 mg/Dextrose 120 ml @ 240 mls/hr 1X ONCE IV Last administered on 06/06/18at 10:01; Start 06/06/18 at 09:00; Stop 06/06/18 at 09:29 ; Status DC Sodium Acetate 90 meq/Potassium Chloride 50 meq/ Potassium Phosphate 13.6 mmol/ Magnesium Sulfate 10 meq/ Multivitamins 10 ml/Chromium/ Copper/Manganese/ Seleni /Zn 1 ml/ Total Parenteral Nutrition/Amino Acids/Dextrose/ Fat Emulsion Intravenous 1,512 ml @ 63 mls/hr TPN CONT IV ; Start 06/06/18 at 22:00; Stop 06/07/18 at 21:59 Active Scripts Active Reported Carvedilol 6.25 Mg Tablet 1 Tab PO BID 90 Days Zoloft (Sertraline Hcl) 100 Mg Tablet 1.5 Tab PO DAILY 90 Days Dyazide 37.5-25 Capsule (Triamterene/Hydrochlorothiazid) 1 Each Capsule 1 Cap PO DAILY Fluconazole 100 Mg Tablet 1 Tab PO DAILY Clonazepam 0.5 Mg Tablet 1 Tab PO PRN TID PRN Acamprosate Calcium 333 Mg Tablet.dr 2 Tab PO TID Vitals/I & O Vital Sign - Last 24 Hours 06/05/18 06/05/18 06/05/18 06/05/18 14:27 14:52 15:00 16:00 Temp 97.8 97.8 Pulse 82 86 Resp 24 19 32 B/P (MAP) 120/89 (99) 117/82 (94) Pulse Ox 96 97 96 O2 Delivery Ventilator Ventilator Ventilator 06/05/18 06/05/18 06/05/18 06/05/18 16:00 17:00 17:38 17:45 Temp 98.9 98.9 Pulse 99 102 Resp 19 B/P (MAP) 139/94 (109) 157/96 Pulse Ox 92 93 O2 Delivery Mechanical Ventilator Ventilator Ventilator 06/05/18 06/05/18 06/05/18 06/05/18 18:00 19:00 19:50 20:00 Temp 100.2 98.4 100.2 98.4 Pulse 92 93 Resp 24 24 B/P (MAP) 125/96 (106) 150/78 (102) Pulse Ox 92 92 97 O2 Delivery Ventilator Ventilator Ventilator Mechanical Ventilator 06/05/18 06/05/18 06/05/18 06/05/18 20:00 21:00 22:00 23:00 Temp 98.0 98.0 97.2 97.0 98.0 98.0 97.2 97.0 Pulse 93 85 70 69 Resp 24 24 24 24 B/P (MAP) 148/74 (98) 130/74 (92) 120/68 (85) 117/70 (86) Pulse Ox 98 99 100 100 O2 Delivery Ventilator Ventilator Ventilator Ventilator 06/05/18 06/05/18 06/05/18 06/06/18 23:52 23:59 23:59 01:00 Temp 97.0 96.6 97.0 96.6 Pulse 69 69 Resp 24 24 B/P (MAP) 113/78 (90) 115/92 (100) Pulse Ox 100 100 100 O2 Delivery Ventilator Ventilator Mechanical Ventilator Ventilator 06/06/18 06/06/18 06/06/18 06/06/18 01:26 02:00 03:00 03:50 Temp 96.4 96.8 96.4 96.8 Pulse 79 71 Resp 24 24 B/P (MAP) 160/62 (94) 151/77 (101) Pulse Ox 100 96 96 100 O2 Delivery Ventilator Ventilator Ventilator Ventilator 06/06/18 06/06/18 06/06/18 06/06/18 04:00 04:00 05:00 05:06 Temp 96.6 96.6 96.6 96.6 Pulse 70 67 Resp 24 24 B/P (MAP) 140/79 (99) 133/45 (74) Pulse Ox 96 100 100 O2 Delivery Ventilator Mechanical Ventilator Ventilator Ventilator 06/06/18 06/06/18 06/06/18 06/06/18 06:00 07:00 07:09 07:29 Temp 97.4 97.4 Pulse 69 68 Resp 24 24 B/P (MAP) 132/57 (82) 135/104 (114) Pulse Ox 100 99 100 80 O2 Delivery Ventilator Ventilator Ventilator Ventilator 06/06/18 06/06/18 06/06/18 06/06/18 08:00 08:00 09:00 09:39 Temp 98.3 98.3 Pulse 68 76 Resp 18 18 B/P (MAP) 115/74 (88) 146/80 (102) Pulse Ox 100 99 80 O2 Delivery Mechanical Ventilator Ventilator Ventilator Ventilator 06/06/18 06/06/18 06/06/18 06/06/18 10:00 10:54 11:00 11:30 Pulse 78 78 Resp 18 18 B/P (MAP) 138/91 (107) 123/90 (101) Pulse Ox 100 80 99 98 O2 Delivery Ventilator Ventilator Ventilator Ventilator 06/06/18 06/06/18 06/06/18 06/06/18 12:00 12:00 12:00 12:43 Temp 98.1 98.1 Pulse 80 Resp 18 B/P (MAP) 138/77 (97) Pulse Ox 98 98 70 O2 Delivery Ventilator Ventilator Mechanical Ventilator Ventilator 06/06/18 13:00 Pulse 80 Resp 18 B/P (MAP) 143/70 (94) Pulse Ox 97 O2 Delivery Ventilator Intake and Output 06/05/18 06/05/18 06/06/18 15:00 23:00 07:00 Intake Total 200 ml 2015.51 ml 2142.3 ml Output Total 270 ml 315 ml 270 ml Balance -70 ml 1700.51 ml 1872.3 ml JAISON NUNEZ MD Jun 06, 2018 14:08
--- NOTE | 2018-06-06 14:18 | PDOC ---
PROGRESS NOTES Subjective Subjective Patient seen and examined The patient remains intubated. Objective Objective Vital Signs Date Time Temp Pulse Resp B/P (MAP) Pulse Ox O2 Delivery O2 Flow Rate FiO2 06/06/18 13:00 80 18 143/70 (94) 97 Ventilator 06/06/18 12:00 98.1 98.1 Intake and Output 06/06/18 07:00 Intake Total 4357.81 ml Output Total 855 ml Balance 3502.81 ml IV Total 4357.81 ml Output Urine Total 855 ml Physical Exam Abdomen: Normal bowel sounds Heart: Regular rate General: Other (intubated and sedated) Lungs: Other (mildly decreased breath sounds) Assessment Assessment Problems Medical Problems: (1) Cardiac arrest Status: Acute VT arrest with extensive CPR. Hypothermia protocol completed. Echo with an ejection fraction of 35-45% with mild mitral regurgitation. Off amiodarone due to prolonged QT. Continues on a ventilator. Awaiting neurological recovery. Future ischemic workup. Acute respiratory failure. Intubated and sedated. As per the pulmonary service. Possible sepsis. Followed by ID. Probable anoxic seizure activity. Uncertain extent of anoxic brain injury. Followed by neurology. AKA. Renal function has normalized. Comment Review of Relevant I have reviewed the following items gisselle (where applicable) has been applied. Labs Laboratory Tests Test 06/04/18 15:00 06/04/18 17:00 06/04/18 17:07 06/04/18 19:40 White Blood Count 11.8 x10^3/uL (4.0-11.0) Red Blood Count 4.86 x10^6/uL (4.30-5.70) Hemoglobin 15.0 g/dL (13.0-17.5) Hematocrit 44.1 % (39.0-53.0) Mean Corpuscular Volume 91 fL (79-100) Mean Corpuscular Hemoglobin 31 pg (25-35) Mean Corpuscular Hemoglobin Concent 34 g/dL (31-37) Red Cell Distribution Width 13.1 % (11.5-14.5) Platelet Count 168 x10^3/uL (140-400) Sodium Level 140 mmol/L (136-145) 140 mmol/L (136-145) Potassium Level 3.9 mmol/L (3.5-5.1) 4.2 mmol/L (3.5-5.1) Chloride Level 106 mmol/L (98-107) 106 mmol/L (98-107) Carbon Dioxide Level 21 mmol/L (21-32) 23 mmol/L (21-32) Anion Gap 13 (6-14) 11 (6-14) Blood Urea Nitrogen 20 mg/dL (8-26) 20 mg/dL (8-26) Creatinine 1.4 mg/dL (0.7-1.3) 1.4 mg/dL (0.7-1.3) Estimated GFR (Cockcroft-Gault) 52.1 52.1 Glucose Level 281 mg/dL (70-99) 255 mg/dL (70-99) Calcium Level 7.1 mg/dL (8.5-10.1) 6.8 mg/dL (8.5-10.1) Phosphorus Level 2.9 mg/dL (2.6-4.7) 4.0 mg/dL (2.6-4.7) Magnesium Level 2.5 mg/dL (1.8-2.4) 2.4 mg/dL (1.8-2.4) Prothrombin Time 15.1 SEC (11.7-14.0) Prothromb Time International Ratio 1.2 (0.8-1.1) Activated Partial Thromboplast Time 103 SEC (24-38) Heparin Anti-Xa Act, Unfractionated 0.46 IU/mL (0.30-0.70) Glucose (Fingerstick) 259 mg/dL (70-99) Lactic Acid Level 1.9 mmol/L (0.4-2.0) Troponin I Quantitative 0.625 ng/mL (0.000-0.055) Test 06/04/18 22:59 06/04/18 23:00 06/05/18 01:08 06/05/18 02:40 Glucose (Fingerstick) 230 mg/dL (70-99) White Blood Count 12.6 x10^3/uL (4.0-11.0) Red Blood Count 5.00 x10^6/uL (4.30-5.70) Hemoglobin 15.4 g/dL (13.0-17.5) Hematocrit 45.3 % (39.0-53.0) Mean Corpuscular Volume 91 fL (79-100) Mean Corpuscular Hemoglobin 31 pg (25-35) Mean Corpuscular Hemoglobin Concent 34 g/dL (31-37) Red Cell Distribution Width 13.4 % (11.5-14.5) Platelet Count 170 x10^3/uL (140-400) Sodium Level 139 mmol/L (136-145) 140 mmol/L (136-145) Potassium Level 4.3 mmol/L (3.5-5.1) 4.0 mmol/L (3.5-5.1) Chloride Level 106 mmol/L (98-107) 107 mmol/L (98-107) Carbon Dioxide Level 21 mmol/L (21-32) 21 mmol/L (21-32) Anion Gap 12 (6-14) 12 (6-14) Blood Urea Nitrogen 20 mg/dL (8-26) 20 mg/dL (8-26) Creatinine 1.2 mg/dL (0.7-1.3) 1.0 mg/dL (0.7-1.3) Estimated GFR (Cockcroft-Gault) 62.2 76.7 Glucose Level 250 mg/dL (70-99) 210 mg/dL (70-99) Calcium Level 7.3 mg/dL (8.5-10.1) 6.8 mg/dL (8.5-10.1) Phosphorus Level 3.4 mg/dL (2.6-4.7) 4.2 mg/dL (2.6-4.7) Magnesium Level 2.7 mg/dL (1.8-2.4) 2.1 mg/dL (1.8-2.4) Prothrombin Time 14.9 SEC (11.7-14.0) Prothromb Time International Ratio 1.2 (0.8-1.1) Troponin I Quantitative 0.444 ng/mL (0.000-0.055) Test 06/05/18 04:40 06/05/18 06:30 06/05/18 06:39 06/05/18 08:00 Lactic Acid Level 1.7 mmol/L (0.4-2.0) White Blood Count 10.3 x10^3/uL (4.0-11.0) Red Blood Count 4.66 x10^6/uL (4.30-5.70) Hemoglobin 14.5 g/dL (13.0-17.5) Hematocrit 42.5 % (39.0-53.0) Mean Corpuscular Volume 91 fL (79-100) Mean Corpuscular Hemoglobin 31 pg (25-35) Mean Corpuscular Hemoglobin Concent 34 g/dL (31-37) Red Cell Distribution Width 13.5 % (11.5-14.5) Platelet Count 139 x10^3/uL (140-400) Activated Partial Thromboplast Time > 150 SEC (24-38) Heparin Anti-Xa Act, Unfractionated 0.54 IU/mL (0.30-0.70) Sodium Level 139 mmol/L (136-145) Potassium Level 3.8 mmol/L (3.5-5.1) Chloride Level 109 mmol/L (98-107) Carbon Dioxide Level 19 mmol/L (21-32) Anion Gap 11 (6-14) Blood Urea Nitrogen 19 mg/dL (8-26) Creatinine 1.1 mg/dL (0.7-1.3) Estimated GFR (Cockcroft-Gault) 68.8 Glucose Level 236 mg/dL (70-99) Calcium Level 6.5 mg/dL (8.5-10.1) Phosphorus Level 3.5 mg/dL (2.6-4.7) Magnesium Level 2.3 mg/dL (1.8-2.4) Total Bilirubin 0.5 mg/dL (0.2-1.0) Direct Bilirubin 0.1 mg/dL (0.0-0.2) Aspartate Amino Transf (AST/SGOT) 76 U/L (15-37) Alanine Aminotransferase (ALT/SGPT) 142 U/L (16-63) Alkaline Phosphatase 59 U/L (46-116) Troponin I Quantitative 0.248 ng/mL (0.000-0.055) Total Protein 5.0 g/dL (6.4-8.2) Albumin 2.4 g/dL (3.4-5.0) Triglycerides Level 222 mg/dL (0-150) Cholesterol Level 136 mg/dL (0-200) LDL Cholesterol, Calculated 66 mg/dL (0-100) VLDL Cholesterol, Calculated 44 mg/dL (0-40) Non-HDL Cholesterol Calculated 110 mg/dL (0-129) HDL Cholesterol 26 mg/dL (40-60) Cholesterol/HDL Ratio 5.2 Glucose (Fingerstick) 212 mg/dL (70-99) O2 Saturation 93 % (92-99) Arterial Blood pH 7.33 (7.35-7.45) Arterial Blood pCO2 at Patient Temp 34 mmHg (35-46) Arterial Blood pO2 at Patient Temp 70 mmHg (75-108) Arterial Blood HCO3 18 mmol/L (21-28) Arterial Blood Base Excess -7 mmol/L (-3-3) FiO2 100 Test 06/05/18 11:46 06/05/18 11:50 06/05/18 16:46 06/06/18 01:29 Glucose (Fingerstick) 193 mg/dL (70-99) 157 mg/dL (70-99) 209 mg/dL (70-99) Vancomycin Level Trough 30.4 mcg/mL (10.0-20.0) Vancomycin Last Dose Date 06/05/18 Vancomycin Last Dose Time 0100 Test 06/06/18 05:45 06/06/18 07:20 06/06/18 10:05 06/06/18 13:42 White Blood Count 9.8 x10^3/uL (4.0-11.0) Red Blood Count 4.26 x10^6/uL (4.30-5.70) Hemoglobin 13.3 g/dL (13.0-17.5) Hematocrit 39.1 % (39.0-53.0) Mean Corpuscular Volume 92 fL (79-100) Mean Corpuscular Hemoglobin 31 pg (25-35) Mean Corpuscular Hemoglobin Concent 34 g/dL (31-37) Red Cell Distribution Width 13.7 % (11.5-14.5) Platelet Count 168 x10^3/uL (140-400) Neutrophils (%) (Auto) 81 % (31-73) Lymphocytes (%) (Auto) 13 % (24-48) Monocytes (%) (Auto) 6 % (0-9) Eosinophils (%) (Auto) 1 % (0-3) Basophils (%) (Auto) 0 % (0-3) Neutrophils # (Auto) 7.9 x10^3uL (1.8-7.7) Lymphocytes # (Auto) 1.2 x10^3/uL (1.0-4.8) Monocytes # (Auto) 0.6 x10^3/uL (0.0-1.1) Eosinophils # (Auto) 0.1 x10^3/uL (0.0-0.7) Basophils # (Auto) 0.0 x10^3/uL (0.0-0.2) Sodium Level 140 mmol/L (136-145) Potassium Level 3.8 mmol/L (3.5-5.1) Chloride Level 109 mmol/L (98-107) Carbon Dioxide Level 21 mmol/L (21-32) Anion Gap 10 (6-14) Blood Urea Nitrogen 22 mg/dL (8-26) Creatinine 1.4 mg/dL (0.7-1.3) Estimated GFR (Cockcroft-Gault) 52.1 Glucose Level 223 mg/dL (70-99) Calcium Level 6.9 mg/dL (8.5-10.1) Ionized Calcium 0.94 mmol/L (1.13-1.32) Phosphorus Level 3.7 mg/dL (2.6-4.7) Magnesium Level 1.9 mg/dL (1.8-2.4) Triglycerides Level 217 mg/dL (0-150) Random Vancomycin Level 12.2 mcg/mL O2 Saturation 98 % (92-99) Arterial Blood pH 7.37 (7.35-7.45) Arterial Blood pCO2 at Patient Temp 34 mmHg (35-46) Arterial Blood pO2 at Patient Temp 128 mmHg (75-108) Arterial Blood HCO3 19 mmol/L (21-28) Arterial Blood Base Excess -5 mmol/L (-3-3) FiO2 100% Glucose (Fingerstick) 212 mg/dL (70-99) 200 mg/dL (70-99) Laboratory Tests Test 06/05/18 16:46 06/06/18 01:29 06/06/18 05:45 06/06/18 07:20 Glucose (Fingerstick) 157 mg/dL (70-99) 209 mg/dL (70-99) White Blood Count 9.8 x10^3/uL (4.0-11.0) Red Blood Count 4.26 x10^6/uL (4.30-5.70) Hemoglobin 13.3 g/dL (13.0-17.5) Hematocrit 39.1 % (39.0-53.0) Mean Corpuscular Volume 92 fL (79-100) Mean Corpuscular Hemoglobin 31 pg (25-35) Mean Corpuscular Hemoglobin Concent 34 g/dL (31-37) Red Cell Distribution Width 13.7 % (11.5-14.5) Platelet Count 168 x10^3/uL (140-400) Neutrophils (%) (Auto) 81 % (31-73) Lymphocytes (%) (Auto) 13 % (24-48) Monocytes (%) (Auto) 6 % (0-9) Eosinophils (%) (Auto) 1 % (0-3) Basophils (%) (Auto) 0 % (0-3) Neutrophils # (Auto) 7.9 x10^3uL (1.8-7.7) Lymphocytes # (Auto) 1.2 x10^3/uL (1.0-4.8) Monocytes # (Auto) 0.6 x10^3/uL (0.0-1.1) Eosinophils # (Auto) 0.1 x10^3/uL (0.0-0.7) Basophils # (Auto) 0.0 x10^3/uL (0.0-0.2) Sodium Level 140 mmol/L (136-145) Potassium Level 3.8 mmol/L (3.5-5.1) Chloride Level 109 mmol/L (98-107) Carbon Dioxide Level 21 mmol/L (21-32) Anion Gap 10 (6-14) Blood Urea Nitrogen 22 mg/dL (8-26) Creatinine 1.4 mg/dL (0.7-1.3) Estimated GFR (Cockcroft-Gault) 52.1 Glucose Level 223 mg/dL (70-99) Calcium Level 6.9 mg/dL (8.5-10.1) Ionized Calcium 0.94 mmol/L (1.13-1.32) Phosphorus Level 3.7 mg/dL (2.6-4.7) Magnesium Level 1.9 mg/dL (1.8-2.4) Triglycerides Level 217 mg/dL (0-150) Random Vancomycin Level 12.2 mcg/mL O2 Saturation 98 % (92-99) Arterial Blood pH 7.37 (7.35-7.45) Arterial Blood pCO2 at Patient Temp 34 mmHg (35-46) Arterial Blood pO2 at Patient Temp 128 mmHg (75-108) Arterial Blood HCO3 19 mmol/L (21-28) Arterial Blood Base Excess -5 mmol/L (-3-3) FiO2 100% Test 06/06/18 10:05 06/06/18 13:42 Glucose (Fingerstick) 212 mg/dL (70-99) 200 mg/dL (70-99) Microbiology 06/05/18 - Final, Complete Medications Current Medications Amiodarone HCl 900 mg/Dextrose 518 ml @ 33 mls/hr 1X ONCE IV Last administered on 06/03/18at 21:14; Start 06/03/18 at 21:00; Stop 06/04/18 at 12:41; Status DC Amiodarone HCl (Cordarone) 300 mg 1X ONCE IVP Last administered on 06/03/18at 20 :57; Start 06/03/18 at 21:15; Stop 06/03/18 at 21:16; Status DC Amiodarone HCl 900 mg/Dextrose 518 ml @ 0 mls/hr 1X ONCE IV ; Start 06/03/18 at 21:15; Stop 06/03/18 at 21:16; Status Cancel Magnesium Sulfate/ Dextrose 100 ml @ 100 mls/hr 1X ONCE IV Last administered on 06/03/18at 21:03; Start 06/03/18 at 21:15; Stop 06/03/18 at 22:14; Status DC Propofol 50 ml @ As Directed STK-MED ONCE IV ; Start 06/03/18 at 21:16; Stop 06/03 at 21:17; Status DC Iohexol (Omnipaque 300 Mg/ml) 90 ml 1X ONCE IV Last administered on 06/03/18at 21:30; Start 06/03/18 at 21:30; Stop 06/03/18 at 21:31; Status DC Info (CONTRAST GIVEN -- Rx MONITORING) 1 each PRN DAILY PRN MC SEE COMMENTS; Start 06/03/18 at 21:30; Stop 06/05/18 at 21:29; Status DC Norepinephrine Bitartrate 250 ml @ As Directed STK-MED ONCE IV ; Start 06/03/18 at 21:17; Stop 06/03/18 at 21:18; Status DC Norepinephrine Bitartrate 250 ml @ 0 mls/hr 1X ONCE IV Last administered on 06/03/18at 21:22; Start 06/03/18 at 21:30; Stop 06/03/18 at 21:31; Status DC Propofol 20 ml @ 0 mls/hr 1X ONCE IV Last administered on 06/03/18at 21:19; Start 06/03/18 at 21:30; Stop 06/03/18 at 21:31; Status DC Sodium Chloride 1,000 ml @ 100 mls/hr Q10H IV Last administered on 06/04/18at 17 :04; Start 06/03/18 at 21:29; Stop 06/04/18 at 21:28; Status DC Potassium Chloride (KCl Oral Soln) 20 meq 1X ONCE NG Last administered on at 00:24; Start 06/03/18 at 22:30; Stop 06/03/18 at 22:31; Status DC Insulin Human Regular 150 unit/ Sodium Chloride 151.5 ml @ 0 mls/hr CONT PRN IV SEE I/O RECORD; Start 06/03/18 at 22:30; Stop 06/04/18 at 13:23; Status DC Dextrose (Dextrose 50%-Water Syringe) 12.5 gm PRN Q15MIN PRN IV LOW BLOOD SUGAR ; Start 06/03/18 at 22:30; Stop 06/04/18 at 13:22; Status DC Multivitamins 10 ml/Thiamine HCl 100 mg/Folic Acid 1 mg/Sodium Chloride 1,011.2 ml @ 100 mls/ hr DAILY IV ; Start 06/04/18 at 09:00; Stop 06/04/18 at 19:07; Status Cancel Lorazepam (Ativan) 2 mg PRN Q1HR PRN IV For CIWA 8-14; Start 06/03/18 at 22:45 Lorazepam (Ativan) 4 mg PRN Q1HR PRN IV For CIWA 15 or greater; Start 06/03/18 at 22:45 Haloperidol Lactate (Haldol Inj) 5 mg PRN Q4HRS PRN IVP Hallucinatns,Confusn, Delirium; Start 06/03/18 at 22:45 Heparin Sodium/ Dextrose 500 ml @ 0 mls/hr CONT PRN IV SEE I/O RECORD Last administered on 06/06/18at 00:15; Start 06/03/18 at 23:00 Heparin Sodium (Porcine) (Heparin Sodium) 3,300 unit PRN Q6HRS PRN IV FOR UFH LEVEL LESS THAN 0.2 Last administered on 06/03/18at 23:08; Start 06/03/18 at 23:00 Midazolam HCl 100 ml @ 5 mls/hr CONT PRN IV SEE I/O RECORD Last administered on 06/06/18at 02:04; Start 06/03/18 at 23:15 Fentanyl Citrate 30 ml @ 0 mls/hr CONT PRN PRN IV PER PROTOCOL Last administered on 06/06/18at 11:30; Start 06/03/18 at 23:15 Etomidate (Amidate) 20 mg 1X ONCE IV Last administered on 06/03/18at 20:55; Start 06/03/18 at 23:15; Stop 06/03/18 at 23:16; Status DC Succinylcholine Chloride (Anectine) 100 mg 1X ONCE IV Last administered on 06/03at 20:56; Start 06/03/18 at 23:15; Stop 06/03/18 at 23:16; Status DC Fentanyl Citrate (Fentanyl 2ml Vial) 100 mcg 1X ONCE IV Last administered on at 20:59; Start 06/03/18 at 23:15; Stop 06/03/18 at 23:16; Status DC Midazolam HCl (Versed) 4 mg 1X ONCE IV Last administered on 06/03/18at 21:01; Start 06/03/18 at 23:15; Stop 06/03/18 at 23:16; Status DC Sodium Chloride 500 ml @ 500 mls/hr 1X ONCE IV Last administered on 06/03/18at 21:20; Start 06/03/18 at 23:15; Stop 06/04/18 at 00:14; Status DC Rocuronium [place] (Zemuron) 50 mg 1X ONCE IV Last administered on 06/03/18at 21 :29; Start 06/03/18 at 23:15; Stop 06/03/18 at 23:16; Status DC Sodium Chloride 1,000 ml @ 1,000 mls/hr Q1H IV Last administered on 06/04/18at 05:55; Start 06/04/18 at 00:00; Stop 06/04/18 at 06:25; Status DC Vecuronium [place] (Norcuron Bolus) 10 mg PRN Q30MIN PRN IV SHIVERING Last administered on 06/06/18at 08:15; Start 06/04/18 at 00:00 Meperidine HCl (Demerol) 12.5 mg PRN Q30MIN PRN IV SHIVERING Last administered on 06/04/18at 02:04; Start 06/04/18 at 00:00 Sodium Chloride (Normal Saline Flush) 3 ml QSHIFT PRN IV AFTER MEDS AND BLOOD DRAWS; Start 06/04/18 at 00:00 Acetaminophen (Tylenol) 650 mg Q6HRS NG ; Start 06/04/18 at 00:00; Stop 06/04/18 at 00:52; Status DC Acetaminophen (Tylenol Supp) 650 mg PRN Q6HRS PRN IN MILD PAIN / TEMP; Start at 00:00; Status Cancel Acetaminophen (Tylenol) 650 mg PRN Q6HRS PRN NG MILD PAIN / TEMP; Start at 00:00; Status Cancel Info (Icu Electrolyte Protocol) 1 ea DAILY PRN MC PER PROTOCOL; Start 06/06/18 at 00:00 Vancomycin HCl (Vanco Per Pharmacy) 1 each PRN DAILY PRN MC SEE COMMENTS Last administered on 06/05/18at 12:35; Start 06/04/18 at 00:30; Stop 06/06/18 at 06:51 ; Status DC Piperacillin Sod/ Tazobactam Sod (Zosyn Per Pharmacy) 1 each PRN DAILY PRN MC SEE COMMENTS; Start 06/04/18 at 00:30 Sodium Chloride 1,000 ml @ 2,040 mls/hr Q30M IV Last administered on 06/04/18at 00:21; Start 06/04/18 at 00:15; Stop 06/04/18 at 01:15; Status DC Sodium Chloride 500 ml @ 1,000 mls/hr PRN Q30MIN PRN IV SEE COMMENTS; Start at 00:15 Norepinephrine Bitartrate 250 ml @ 0 mls/hr CONT PRN IV SEE I/O RECORD Last administered on 06/04/18at 01:31; Start 06/04/18 at 00:15 Piperacillin Sod/ Tazobactam Sod 3.375 gm/Sodium Chloride 50 ml @ 100 mls/hr Q6HRS IV Last administered on 06/06/18at 13:50; Start 06/04/18 at 00:30 Ondansetron HCl (Zofran) 4 mg PRN Q6HRS PRN IV NAUSEA/VOMITING; Start 06/04/18 at 00:45 Vancomycin HCl 2 gm/Sodium Chloride 500 ml @ 250 mls/hr 1X ONCE IV Last administered on 06/04/18at 00:47; Start 06/04/18 at 01:00; Stop 06/04/18 at 02:59; Status DC Levetiracetam 500 mg/Dextrose 105 ml @ 420 mls/hr Q12HR IV Last administered on 06/06/18at 09:54; Start 06/04/18 at 09:00 Levetiracetam 500 mg/Dextrose 105 ml @ 420 mls/hr 1X ONCE IV Last administered on 06/04/18at 01:01; Start 06/04/18 at 01:00; Stop 06/04/18 at 01:14; Status DC Vancomycin HCl 2 gm/Sodium Chloride 500 ml @ 250 mls/hr Q12H IV Last administered on 06/05/18at 01:09; Start 06/04/18 at 13:00; Stop 06/05/18 at 12:34 ; Status DC Vancomycin HCl (Vancomycin Trough Level) 1 each 1X ONCE MC Last administered on 06/05/18at 11:53; Start 06/05/18 at 12:30; Stop 06/05/18 at 12:31; Status DC Micafungin Sodium 100 mg/Dextrose 100 ml @ 100 mls/hr Q24H IV Last administered on 06/06/18at 11:17; Start 06/04/18 at 08:00 Lidocaine/Sodium Bicarbonate (Buffered Lidocaine 1%) 3 ml STK-MED ONCE .ROUTE ; Start 06/04/18 at 08:05; Stop 06/04/18 at 08:06; Status DC Sodium Bicarbonate (Sodium Bicarb Adult 8.4% Syr) 50 meq 1X ONCE IV Last administered on 06/04/18at 09:34; Start 06/04/18 at 09:15; Stop 06/04/18 at 09:16; Status DC Sodium Bicarbonate (Sodium Bicarb Adult 8.4% Syr) 50 meq 1X ONCE IV Last administered on 06/04/18at 09:34; Start 06/04/18 at 09:15; Stop 06/04/18 at 09:16; Status DC Lidocaine/Sodium Bicarbonate (Buffered Lidocaine 1%) 3 ml 1X ONCE INJ Last administered on 06/04/18at 09:15; Start 06/04/18 at 09:15; Stop 06/04/18 at 09:16; Status DC Magnesium Sulfate/ Dextrose 100 ml @ 25 mls/hr 1X ONCE IV Last administered on 06/04/18at 10:41; Start 06/04/18 at 11:00; Stop 06/04/18 at 14:59; Status DC Info (Anti-Coagulation Monitoring By Pharmacy) 1 each PRN DAILY PRN MC SEE COMMENTS Last administered on 06/05/18at 10:00; Start 06/04/18 at 11:15 Pantoprazole Sodium (PROTONIX VIAL for IV PUSH) 40 mg DAILYAC IVP Last administered on 06/06/18at 09:53; Start 06/04/18 at 14:00 Insulin Human Lispro (HumaLOG) 0-7 UNITS TIDWMEALS SQ Last administered on at 17:12; Start 06/04/18 at 14:00; Stop 06/05/18 at 00:02; Status DC Dextrose (Dextrose 50%-Water Syringe) 12.5 gm PRN Q15MIN PRN IV SEE COMMENTS; Start 06/04/18 at 13:15 Sodium Chloride 1,000 ml @ 100 mls/hr Q10H IV Last administered on 06/06/18at 13:50; Start 06/04/18 at 21:30 Insulin Human Lispro (HumaLOG) 0-7 UNITS Q6HRS SQ Last administered on at 06:45; Start 06/05/18 at 00:00; Stop 06/05/18 at 09:20; Status DC Chlorhexidine Gluconate (Peridex) 15 ml BID MM Last administered on 06/06/18at 09:54; Start 06/05/18 at 09:00 Insulin Human Lispro (HumaLOG) 0-9 UNITS TIDWMEALS SQ Last administered on 06/06at 13:53; Start 06/05/18 at 12:00 Dextrose (Dextrose 50%-Water Syringe) 12.5 gm PRN Q15MIN PRN IV SEE COMMENTS; Start 06/05/18 at 09:30; Status UNV Acetaminophen (Tylenol) 650 mg PRN Q6HRS PRN PEG MILD PAIN / TEMP Last administered on 06/05/18at 18:21; Start 06/05/18 at 11:30 Vancomycin HCl (Vancomycin Random Level) 1 each 1X ONCE MC Last administered on 06/06/18at 05:00; Start 06/06/18 at 05:00; Stop 06/06/18 at 05:01; Status DC Info (Tpn Per Pharmacy) 1 each PRN DAILY PRN MC SEE COMMENTS Last administered on 06/05/18at 13:30; Start 06/05/18 at 13:30 Sodium Acetate 90 meq/Potassium Chloride 50 meq/ Potassium Phosphate 13.6 mmol/ Magnesium Sulfate 10 meq/ Multivitamins 10 ml/Chromium/ Copper/Manganese/ Seleni /Zn 1 ml/ Total Parenteral Nutrition/Amino Acids/Dextrose/ Fat Emulsion Intravenous 1,512 ml @ 63 mls/hr TPN CONT IV Last administered on 06/05/18at 22:54; Start 06/05/18 at 22:00; Stop 06/06/18 at 21:59 Hydralazine HCl (Apresoline Inj) 10 mg PRN Q4HRS PRN IVP ELEVATED BP, SEE COMMENTS Last administered on 06/05/18at 17:45; Start 06/05/18 at 14:45 Magnesium Sulfate/ Dextrose (Magnesium Sulfate PREMIX 1GM) 1 gm STK-MED ONCE IV ; Start 06/03/18 at 17:28; Stop 06/05/18 at 17:28; Status DC Amiodarone HCl (Cordarone) 300 mg STK-MED ONCE .ROUTE ; Start 06/03/18 at 17:28; Stop 06/05/18 at 17:28; Status DC Calcium Gluconate 2000 mg/Dextrose 120 ml @ 240 mls/hr 1X ONCE IV Last administered on 06/06/18at 10:01; Start 06/06/18 at 09:00; Stop 06/06/18 at 09:29 ; Status DC Sodium Acetate 90 meq/Potassium Chloride 50 meq/ Potassium Phosphate 13.6 mmol/ Magnesium Sulfate 10 meq/ Multivitamins 10 ml/Chromium/ Copper/Manganese/ Seleni /Zn 1 ml/ Total Parenteral Nutrition/Amino Acids/Dextrose/ Fat Emulsion Intravenous 1,512 ml @ 63 mls/hr TPN CONT IV ; Start 06/06/18 at 22:00; Stop 06/07/18 at 21:59 Active Scripts Active Reported Carvedilol 6.25 Mg Tablet 1 Tab PO BID 90 Days Zoloft (Sertraline Hcl) 100 Mg Tablet 1.5 Tab PO DAILY 90 Days Dyazide 37.5-25 Capsule (Triamterene/Hydrochlorothiazid) 1 Each Capsule 1 Cap PO DAILY Fluconazole 100 Mg Tablet 1 Tab PO DAILY Clonazepam 0.5 Mg Tablet 1 Tab PO PRN TID PRN Acamprosate Calcium 333 Mg Tablet.dr 2 Tab PO TID Vitals/I & O Vital Sign - Last 24 Hours 06/05/18 06/05/18 06/05/18 06/05/18 14:27 14:52 15:00 16:00 Temp 97.8 97.8 Pulse 82 86 Resp 24 19 32 B/P (MAP) 120/89 (99) 117/82 (94) Pulse Ox 96 97 96 O2 Delivery Ventilator Ventilator Ventilator 06/05/18 06/05/18 06/05/18 06/05/18 16:00 17:00 17:38 17:45 Temp 98.9 98.9 Pulse 99 102 Resp 19 B/P (MAP) 139/94 (109) 157/96 Pulse Ox 92 93 O2 Delivery Mechanical Ventilator Ventilator Ventilator 06/05/18 06/05/18 06/05/18 06/05/18 18:00 19:00 19:50 20:00 Temp 100.2 98.4 100.2 98.4 Pulse 92 93 Resp 24 24 B/P (MAP) 125/96 (106) 150/78 (102) Pulse Ox 92 92 97 O2 Delivery Ventilator Ventilator Ventilator Mechanical Ventilator 06/05/18 06/05/18 06/05/18 06/05/18 20:00 21:00 22:00 23:00 Temp 98.0 98.0 97.2 97.0 98.0 98.0 97.2 97.0 Pulse 93 85 70 69 Resp 24 24 24 24 B/P (MAP) 148/74 (98) 130/74 (92) 120/68 (85) 117/70 (86) Pulse Ox 98 99 100 100 O2 Delivery Ventilator Ventilator Ventilator Ventilator 06/05/18 06/05/18 06/05/18 06/06/18 23:52 23:59 23:59 01:00 Temp 97.0 96.6 97.0 96.6 Pulse 69 69 Resp 24 24 B/P (MAP) 113/78 (90) 115/92 (100) Pulse Ox 100 100 100 O2 Delivery Ventilator Ventilator Mechanical Ventilator Ventilator 06/06/18 06/06/18 06/06/18 06/06/18 01:26 02:00 03:00 03:50 Temp 96.4 96.8 96.4 96.8 Pulse 79 71 Resp 24 24 B/P (MAP) 160/62 (94) 151/77 (101) Pulse Ox 100 96 96 100 O2 Delivery Ventilator Ventilator Ventilator Ventilator 06/06/18 06/06/18 06/06/18 06/06/18 04:00 04:00 05:00 05:06 Temp 96.6 96.6 96.6 96.6 Pulse 70 67 Resp 24 24 B/P (MAP) 140/79 (99) 133/45 (74) Pulse Ox 96 100 100 O2 Delivery Ventilator Mechanical Ventilator Ventilator Ventilator 06/06/18 06/06/18 06/06/18 06/06/18 06:00 07:00 07:09 07:29 Temp 97.4 97.4 Pulse 69 68 Resp 24 24 B/P (MAP) 132/57 (82) 135/104 (114) Pulse Ox 100 99 100 80 O2 Delivery Ventilator Ventilator Ventilator Ventilator 06/06/18 06/06/18 06/06/18 06/06/18 08:00 08:00 09:00 09:39 Temp 98.3 98.3 Pulse 68 76 Resp 18 18 B/P (MAP) 115/74 (88) 146/80 (102) Pulse Ox 100 99 80 O2 Delivery Mechanical Ventilator Ventilator Ventilator Ventilator 06/06/18 06/06/18 06/06/18 06/06/18 10:00 10:54 11:00 11:30 Pulse 78 78 Resp 18 18 B/P (MAP) 138/91 (107) 123/90 (101) Pulse Ox 100 80 99 98 O2 Delivery Ventilator Ventilator Ventilator Ventilator 06/06/18 06/06/18 06/06/18 06/06/18 12:00 12:00 12:00 12:43 Temp 98.1 98.1 Pulse 80 Resp 18 B/P (MAP) 138/77 (97) Pulse Ox 98 98 70 O2 Delivery Ventilator Ventilator Mechanical Ventilator Ventilator 06/06/18 13:00 Pulse 80 Resp 18 B/P (MAP) 143/70 (94) Pulse Ox 97 O2 Delivery Ventilator Intake and Output 06/05/18 06/05/18 06/06/18 15:00 23:00 07:00 Intake Total 200 ml 2015.51 ml 2142.3 ml Output Total 270 ml 315 ml 270 ml Balance -70 ml 1700.51 ml 1872.3 ml MARIE BLANK MD Jun 06, 2018 14:18
[2018-06-06] MEDS: TPN PER PHARMACY MC PRN (14:29)
[2018-06-06] MEDS: ANTI-COAG MONITOR BY PHARMACY. MC PRN (14:45)
[2018-06-06] MEDS ORDERED: DEXTROSE 70% IV SCH ×9 (22:00)
[2018-06-06] MEDS ORDERED: TOTAL PARENTERAL NUTRITION IV SCH ×9 (22:00)
[2018-06-06] MEDS ORDERED: AMINO ACIDS IV SCH ×9 (22:00)
[2018-06-06] MEDS ORDERED: [UNRECOGNIZED DRUG - OTHER] IV SCH ×9 (22:00)
[2018-06-07] VITALS (24 sets, daily range): BP systolic 83–237; BP diastolic 45–141
[2018-06-07] MEDS: VECURONIUM BOLUS 10 MG VIAL. IV PRN ×6 (02:57→21:08)
[2018-06-07] MEDS: PIPERACILLIN/TAZOBACTAM 3.375 GM in IV NORMAL SALINE 50ML 50 ML IV SCH (05:32)
[2018-06-07] MEDS: hydrALAZINE 20 MG/ML VIAL. IVP PRN ×2 (05:33→09:26)
[2018-06-07] MEDS: HEPARIN 25,000UTS/500ML PREMIX 500 ML IV PRN ×2 (05:41→20:05)
[2018-06-07] MEDS: ACETAMINOPHEN 650 MG/20.3 ML SOLUTION. PEG PRN ×2 (05:50→13:07)
[2018-06-07 06:50] LABS: BASO # 0.2 x10^3/uL (0.0-0.2); BASO % 1 % (0-3); EOS # 0.1 x10^3/uL (0.0-0.7); EOS % 1 % (0-3); HEMATOCRIT 41.6 % (39.0-53.0); HEMOGLOBIN 14.1 g/dL (13.0-17.5); LYMPH % 22 % (24-48); MEAN CORPUSCULAR HEMOGLOBIN 31 pg (25-35); MEAN CORPUSCULAR HGB CONC 34 g/dL (31-37); MEAN CORPUSCULAR VOLUME 91 fL (79-100); MONO # 1.1 x10^3/uL (0.0-1.1); MONO % 8 % (0-9); NEUT # 9.6 x10^3uL (1.8-7.7); NEUT % 68 % (31-73); PLATELET COUNT 182 x10^3/uL (140-400); RED BLOOD COUNT 4.55 x10^6/uL (4.30-5.70); RED CELL DISTRIBUTION WIDTH 13.7 % (11.5-14.5)
--- NOTE | 2018-06-07 06:54 | PDOC ---
PULMONARY PROGRESS NOTES Subjective intubated/sedated versed, fentanyl, small ett secretion, febrile on fi02 60%, peep 12 Vitals Vital Signs Date Time Temp Pulse Resp B/P (MAP) Pulse Ox O2 Delivery O2 Flow Rate FiO2 06/07/18 05:59 101.0 115 18 193/96 (128) 94 Ventilator 101.0 Comments ros as mentioned as above discussed w rn, other sys otherwise neg on vent sedated HEENT: Other (nc at, perrl, nose clear, orally intubated... neck no lad, thyromegaly) Lungs: Crackles, Other (bl decreased bs) Cardiovascular: S1, S2 Abdomen: Soft, Non-tender, Other (obese, no mass) Extremities: Other (1+edema) Skin: Warm Labs Laboratory Tests Test 06/05/18 08:00 06/05/18 11:46 06/05/18 11:50 06/05/18 16:46 O2 Saturation 93 % (92-99) Arterial Blood pH 7.33 (7.35-7.45) Arterial Blood pCO2 at Patient Temp 34 mmHg (35-46) Arterial Blood pO2 at Patient Temp 70 mmHg (75-108) Arterial Blood HCO3 18 mmol/L (21-28) Arterial Blood Base Excess -7 mmol/L (-3-3) FiO2 100 Glucose (Fingerstick) 193 mg/dL (70-99) 157 mg/dL (70-99) Vancomycin Level Trough 30.4 mcg/mL (10.0-20.0) Vancomycin Last Dose Date 06/05/18 Vancomycin Last Dose Time 0100 Test 06/06/18 01:29 06/06/18 05:45 06/06/18 07:20 06/06/18 10:05 Glucose (Fingerstick) 209 mg/dL (70-99) 212 mg/dL (70-99) White Blood Count 9.8 x10^3/uL (4.0-11.0) Red Blood Count 4.26 x10^6/uL (4.30-5.70) Hemoglobin 13.3 g/dL (13.0-17.5) Hematocrit 39.1 % (39.0-53.0) Mean Corpuscular Volume 92 fL (79-100) Mean Corpuscular Hemoglobin 31 pg (25-35) Mean Corpuscular Hemoglobin Concent 34 g/dL (31-37) Red Cell Distribution Width 13.7 % (11.5-14.5) Platelet Count 168 x10^3/uL (140-400) Neutrophils (%) (Auto) 81 % (31-73) Lymphocytes (%) (Auto) 13 % (24-48) Monocytes (%) (Auto) 6 % (0-9) Eosinophils (%) (Auto) 1 % (0-3) Basophils (%) (Auto) 0 % (0-3) Neutrophils # (Auto) 7.9 x10^3uL (1.8-7.7) Lymphocytes # (Auto) 1.2 x10^3/uL (1.0-4.8) Monocytes # (Auto) 0.6 x10^3/uL (0.0-1.1) Eosinophils # (Auto) 0.1 x10^3/uL (0.0-0.7) Basophils # (Auto) 0.0 x10^3/uL (0.0-0.2) Sodium Level 140 mmol/L (136-145) Potassium Level 3.8 mmol/L (3.5-5.1) Chloride Level 109 mmol/L (98-107) Carbon Dioxide Level 21 mmol/L (21-32) Anion Gap 10 (6-14) Blood Urea Nitrogen 22 mg/dL (8-26) Creatinine 1.4 mg/dL (0.7-1.3) Estimated GFR (Cockcroft-Gault) 52.1 Glucose Level 223 mg/dL (70-99) Calcium Level 6.9 mg/dL (8.5-10.1) Ionized Calcium 0.94 mmol/L (1.13-1.32) Phosphorus Level 3.7 mg/dL (2.6-4.7) Magnesium Level 1.9 mg/dL (1.8-2.4) Triglycerides Level 217 mg/dL (0-150) Random Vancomycin Level 12.2 mcg/mL O2 Saturation 98 % (92-99) Arterial Blood pH 7.37 (7.35-7.45) Arterial Blood pCO2 at Patient Temp 34 mmHg (35-46) Arterial Blood pO2 at Patient Temp 128 mmHg (75-108) Arterial Blood HCO3 19 mmol/L (21-28) Arterial Blood Base Excess -5 mmol/L (-3-3) FiO2 100% Test 06/06/18 13:42 06/06/18 17:48 Glucose (Fingerstick) 200 mg/dL (70-99) 205 mg/dL (70-99) Laboratory Tests Test 06/06/18 07:20 06/06/18 10:05 06/06/18 13:42 06/06/18 17:48 O2 Saturation 98 % (92-99) Arterial Blood pH 7.37 (7.35-7.45) Arterial Blood pCO2 at Patient Temp 34 mmHg (35-46) Arterial Blood pO2 at Patient Temp 128 mmHg (75-108) Arterial Blood HCO3 19 mmol/L (21-28) Arterial Blood Base Excess -5 mmol/L (-3-3) FiO2 100% Glucose (Fingerstick) 212 mg/dL (70-99) 200 mg/dL (70-99) 205 mg/dL (70-99) Medications Active Scripts Medications Dose Route/Sig Max Daily Dose Days Date Category Carvedilol 6.25 Mg Tablet 1 Tab PO BID 90 06/04/18 Reported Zoloft (Sertraline Hcl) 100 Mg Tablet 1.5 Tab PO DAILY 90 06/04/18 Reported Dyazide 37.5-25 Capsule (Triamterene/Hydrochlorothiazid) 1 Each Capsule 1 Cap PO DAILY 06/04/18 Reported Fluconazole 100 Mg Tablet 1 Tab PO DAILY 06/04/18 Reported Clonazepam 0.5 Mg Tablet 1 Tab PO PRN TID PRN 06/04/18 Reported Acamprosate Calcium 333 Mg Tablet.dr 2 Tab PO TID 06/04/18 Reported Comments CXR reviewed, 1. Stable tube positions. 2. Unchanged moderate left basilar atelectasis/infiltrate. 3. Worsening moderate right basilar opacity suggesting atelectasis and/or infiltrate. Impression . 1. Acute hypoxic respiratory failure secondary to cardiac arrest. 2. Status post ventricular tachycardia with cardiac arrest. 3. Severe hypoxia, likely related to aspiration pneumonia and adult respiratory distress syndrome/acute lung injury, atelectasis. 4. Abnormal chest x-ray with right upper lobe opacification, s/p bronch. 5. Leukocytosis, suspected aspiration. 6. Abnormal LFTs secondary to hypoperfusion. 7. Increased troponin. Suspect non-ST elevation myocardial infarction. 8. No significant history of tobacco use. 9. CMP EF 30-35% 10. ? anoxic encephalopathy 11. fever 12. abnl cxr Plan . 1. cont PC/TIM. PEEP 12, titrate fio2 to keep sat 94%, when fio2, 50% will start titrating down peep 2. abg reviewed. 3. RUL atelectasis, s/p bronch, fu cxs 4. s/p hypothermia protocol 5. neuro consulted 6. febrile abx changed, to cefepime, flagyl, vanc, fu cxs 7. Follow Cardiology recommendation regarding the need for cardiac catheterization. 8. wean sedation if possible 9. protonix for stress ulcer prophylaxis 10. Deep venous thrombosis prophylaxis. He is already on heparin. Discussed with RN RT. SHEILA MARTIN MD Jun 07, 2018 06:54
[2018-06-07 07:02] LABS: BASE EXCESS ABG -4 mmol/L (-3-3); HCO3 ABG 21 mmol/L (21-28); PCO2 ABG 39 mmHg (35-46); PO2 ABG 85 mmHg (75-108); SAT O2 ABG 96 % (92-99)
[2018-06-07 07:08] LABS: CALCIUM 7.4 mg/dL (8.5-10.1); CREATININE 1.3 mg/dL (0.7-1.3); GFR 56.7; MAGNESIUM 1.9 mg/dL (1.8-2.4); PHOSPHORUS 3.1 mg/dL (2.6-4.7); POTASSIUM 3.8 mmol/L (3.5-5.1)
--- NOTE | 2018-06-07 07:24 | PDOC ---
Infectious Disease Note Subjective Subjective Intubated/Sedated ROS ROS unobtainable Vital Sign Vital Signs Vital Signs Date Time Temp Pulse Resp B/P (MAP) Pulse Ox O2 Delivery O2 Flow Rate FiO2 06/07/18 06:54 60 Ventilator 06/07/18 05:59 101.0 115 18 193/96 (128) 101.0 Physical Exam PHYSICAL EXAM CONSTITUTIONAL: He is intubated and sedated. HEENT: Pupils are equal but constricted - reactive. He has normal conjunctivae. NECK: Supple, no JVD. LUNGS: Decreased in the bases. HEART: S1, S2. ABDOMEN: Morbidly obese, soft, no guarding, no apparent complications. : Bermudez is in place. EXTREMITIES: Without clubbing or cyanosis. No gross edema. SKIN: Skin without generalized signs of rash, although he does have some yeast in the groin area.- better NEUROLOGIC: He is sedated. RIJ and peripheral IV Labs Lab Laboratory Tests Test 06/06/18 07:20 06/06/18 10:05 06/06/18 13:42 06/06/18 17:48 O2 Saturation 98 % (92-99) Arterial Blood pH 7.37 (7.35-7.45) Arterial Blood pCO2 at Patient Temp 34 mmHg (35-46) Arterial Blood pO2 at Patient Temp 128 mmHg (75-108) Arterial Blood HCO3 19 mmol/L (21-28) Arterial Blood Base Excess -5 mmol/L (-3-3) FiO2 100% Glucose (Fingerstick) 212 mg/dL (70-99) 200 mg/dL (70-99) 205 mg/dL (70-99) Test 06/07/18 06:30 White Blood Count 14.0 x10^3/uL (4.0-11.0) Red Blood Count 4.55 x10^6/uL (4.30-5.70) Hemoglobin 14.1 g/dL (13.0-17.5) Hematocrit 41.6 % (39.0-53.0) Mean Corpuscular Volume 91 fL (79-100) Mean Corpuscular Hemoglobin 31 pg (25-35) Mean Corpuscular Hemoglobin Concent 34 g/dL (31-37) Red Cell Distribution Width 13.7 % (11.5-14.5) Platelet Count 182 x10^3/uL (140-400) Neutrophils (%) (Auto) 68 % (31-73) Lymphocytes (%) (Auto) 22 % (24-48) Monocytes (%) (Auto) 8 % (0-9) Eosinophils (%) (Auto) 1 % (0-3) Basophils (%) (Auto) 1 % (0-3) Neutrophils # (Auto) 9.6 x10^3uL (1.8-7.7) Lymphocytes # (Auto) 3.0 x10^3/uL (1.0-4.8) Monocytes # (Auto) 1.1 x10^3/uL (0.0-1.1) Eosinophils # (Auto) 0.1 x10^3/uL (0.0-0.7) Basophils # (Auto) 0.2 x10^3/uL (0.0-0.2) Sodium Level 137 mmol/L (136-145) Potassium Level 3.8 mmol/L (3.5-5.1) Chloride Level 107 mmol/L (98-107) Carbon Dioxide Level 21 mmol/L (21-32) Anion Gap 9 (6-14) Blood Urea Nitrogen 22 mg/dL (8-26) Creatinine 1.3 mg/dL (0.7-1.3) Estimated GFR (Cockcroft-Gault) 56.7 Glucose Level 206 mg/dL (70-99) Calcium Level 7.4 mg/dL (8.5-10.1) Phosphorus Level 3.1 mg/dL (2.6-4.7) Magnesium Level 1.9 mg/dL (1.8-2.4) Micro ECHO 06/04 Left ventricle systolic function is moderately impaired. The Ejection Fraction is 30-35%. Mild mitral regurgitation. Trace tricuspid regurgitation. The PA pressure was estimated at 39 mmHg. There is no evidence of significant pericardial effusion. U/S 06/04 IMPRESSION: 1. No sonographic evidence of acute cholecystitis. There is borderline gallbladder wall thickening, which in isolation is nonspecific. If there remains clinical concern for acute cholecystitis or gallbladder dysfunction, consider further evaluation with a HIDA scan. Objective Assessment Fever - ? reactive vs infection s/p Arrest and hypothermia protocol - now off Resp failure on Vent - S/p Bronch 06/05- findings c/w aspiration- MRSA screen neg Leukocytosis - increased today Distended GB on CT scan - U/S neg DWAIN - increasing today ETOH abuse Anterior Rib fractures 4 through 7 Yeast skin infection. ? Systemic yeast on some med per primary - improved Morbid obesity Seizure activity Plan Plan of Care D/cont Zosyn Cultures blood and urine/sputum Begin Cefepime/Flagyl/Vanc (Cr better) D/c Micafungin now F/u labs/cults Procalcitonin this am May need repeat CT head Critically ill Notes reviewed. D/w family DOLORES BAILEY MD Jun 07, 2018 07:24
[2018-06-07] MEDS ORDERED: VANCOMYCIN PER PHARMACY MC PRN (07:30)
[2018-06-07] MEDS ORDERED: CEFEPIME HCL 2 GM in IV DEXTROSE 5% 100ML 100 ML IV SCH (07:30)
[2018-06-07] MEDS: PANTOPRAZOLE IV PUSH 40 MG VIAL. IVP SCH (07:54)
--- NOTE | 2018-06-07 07:55 | RAD ---
Portable chest, 06/07/2018: HISTORY: Respiratory distress Comparison is made to yesterday's study. The ET tube tip lies well above the leanna. The NG tube extends into the stomach. The right jugular central venous catheter extends into the inferior aspect of the superior vena cava. The heart is enlarged. The pulmonary vascularity is within normal limits. There is a worsening right basilar opacity now obscuring the hemidiaphragm. The left basilar opacity is unchanged. A component of pleural fluid cannot be excluded. There is no evidence of pneumothorax. IMPRESSION: 1. Stable tube positions. 2. Unchanged moderate left basilar atelectasis/infiltrate. 3. Worsening moderate right basilar opacity suggesting atelectasis and/or infiltrate. Electronically signed by: Rex Liz MD (06/07/2018 7:51 AM) [facility]
[2018-06-07] MEDS ORDERED: VANCOMYCIN 2 GM in IV NORMAL SALINE 500ML BAG 500 ML IV SCH (08:00)
[2018-06-07] MEDS: metroNIDAZOLE 500 MG TABLET PO SCH ×3 (08:26→21:56)
[2018-06-07] MEDS: CEFEPIME HCL IV Push 2 GM VIAL. IVP SCH ×3 (08:26→21:45)
[2018-06-07] MEDS: CHLORHEXIDINE 0.12% 15 ML MOUTHWASH. MM SCH ×2 (08:26→20:03)
[2018-06-07] MEDS: levETIRAcetam 500 MG in IV DEXTROSE 5% 100ML 100 ML IV SCH ×2 (08:35→20:47)
[2018-06-07] MEDS: HEPARIN for IV BOLUS 10,000 UNIT/10 ML VIAL. IV PRN (08:56)
[2018-06-07] MEDS ORDERED: INSULIN GLARGINE 300 UNITS/3 ML INSULN.PEN. SQ SCH (09:30)
[2018-06-07] MEDS: IV NORMAL SALINE 1000ML BAG 1,000 ML IV SCH ×2 (10:53→20:03)
[2018-06-07] MEDS ORDERED: AMIODARONE 900 MG in IV DEXTROSE 5% 500 ML IV PRN (11:00)
[2018-06-07] MEDS: NITROGLYCERIN PREMIX 250 ML IV PRN (11:03)
[2018-06-07] MEDS: INSULIN LISPRO 300 UNITS/3 ML INSULN.PEN. SQ SCH ×3 (12:18→23:52)
[2018-06-07] MEDS ORDERED: VECURONIUM BOLUS 10 MG VIAL. IV PRN (12:45)
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
--- NOTE | 2018-06-07 13:11 | PDOC ---
PROGRESS NOTES Assessment Problems Medical Problems: (1) Cardiac arrest Status: Acute Anoxic encephalopathy with seizures, had one seizure this morning He has finished rewarming from hypothermia, but is on sedation to tolerate PEEP , lowered from yesterday Plan I discussed with family, prognosis is poor He is DO NOT RESUSCITATE. EEG tomorrow to help family with decisions Family will make decision tomorrow regarding terminal extubation given the patient's previous wishes Subjective None Objective Vital Signs Date Time Temp Pulse Resp B/P (MAP) Pulse Ox O2 Delivery O2 Flow Rate FiO2 06/07/18 13:07 112 18 202/78 (119) 95 Ventilator 06/07/18 12:03 102.1 102.1 Intake and Output 06/07/18 07:00 Intake Total 5627.21 ml Output Total 870 ml Balance 4757.21 ml IV Total 5627.21 ml Output Urine Total 870 ml PHYSICAL EXAM Sedated intubated PERRL. No spontaneous extraocular movements. Positive oculovestibular response CN: no focal findings. Muscle tone: normal. Muscle strength: none DTR: 0+ Plantar reflex: silent Gait: not examined in bed. Sensory exam: not tested. Cerebellar: not tested Occasional fine facial and limb myoclonus Review of Relevant I have reviewed the following items gisselle (where applicable) has been applied. Labs Laboratory Tests Test 06/05/18 16:46 06/06/18 01:29 06/06/18 05:45 06/06/18 07:20 Glucose (Fingerstick) 157 mg/dL (70-99) 209 mg/dL (70-99) White Blood Count 9.8 x10^3/uL (4.0-11.0) Red Blood Count 4.26 x10^6/uL (4.30-5.70) Hemoglobin 13.3 g/dL (13.0-17.5) Hematocrit 39.1 % (39.0-53.0) Mean Corpuscular Volume 92 fL (79-100) Mean Corpuscular Hemoglobin 31 pg (25-35) Mean Corpuscular Hemoglobin Concent 34 g/dL (31-37) Red Cell Distribution Width 13.7 % (11.5-14.5) Platelet Count 168 x10^3/uL (140-400) Neutrophils (%) (Auto) 81 % (31-73) Lymphocytes (%) (Auto) 13 % (24-48) Monocytes (%) (Auto) 6 % (0-9) Eosinophils (%) (Auto) 1 % (0-3) Basophils (%) (Auto) 0 % (0-3) Neutrophils # (Auto) 7.9 x10^3uL (1.8-7.7) Lymphocytes # (Auto) 1.2 x10^3/uL (1.0-4.8) Monocytes # (Auto) 0.6 x10^3/uL (0.0-1.1) Eosinophils # (Auto) 0.1 x10^3/uL (0.0-0.7) Basophils # (Auto) 0.0 x10^3/uL (0.0-0.2) Sodium Level 140 mmol/L (136-145) Potassium Level 3.8 mmol/L (3.5-5.1) Chloride Level 109 mmol/L (98-107) Carbon Dioxide Level 21 mmol/L (21-32) Anion Gap 10 (6-14) Blood Urea Nitrogen 22 mg/dL (8-26) Creatinine 1.4 mg/dL (0.7-1.3) Estimated GFR (Cockcroft-Gault) 52.1 Glucose Level 223 mg/dL (70-99) Calcium Level 6.9 mg/dL (8.5-10.1) Ionized Calcium 0.94 mmol/L (1.13-1.32) Phosphorus Level 3.7 mg/dL (2.6-4.7) Magnesium Level 1.9 mg/dL (1.8-2.4) Triglycerides Level 217 mg/dL (0-150) Random Vancomycin Level 12.2 mcg/mL O2 Saturation 98 % (92-99) Arterial Blood pH 7.37 (7.35-7.45) Arterial Blood pCO2 at Patient Temp 34 mmHg (35-46) Arterial Blood pO2 at Patient Temp 128 mmHg (75-108) Arterial Blood HCO3 19 mmol/L (21-28) Arterial Blood Base Excess -5 mmol/L (-3-3) FiO2 100% Test 06/06/18 10:05 06/06/18 13:42 06/06/18 17:48 06/07/18 06:30 Glucose (Fingerstick) 212 mg/dL (70-99) 200 mg/dL (70-99) 205 mg/dL (70-99) White Blood Count 14.0 x10^3/uL (4.0-11.0) Red Blood Count 4.55 x10^6/uL (4.30-5.70) Hemoglobin 14.1 g/dL (13.0-17.5) Hematocrit 41.6 % (39.0-53.0) Mean Corpuscular Volume 91 fL (79-100) Mean Corpuscular Hemoglobin 31 pg (25-35) Mean Corpuscular Hemoglobin Concent 34 g/dL (31-37) Red Cell Distribution Width 13.7 % (11.5-14.5) Platelet Count 182 x10^3/uL (140-400) Neutrophils (%) (Auto) 68 % (31-73) Lymphocytes (%) (Auto) 22 % (24-48) Monocytes (%) (Auto) 8 % (0-9) Eosinophils (%) (Auto) 1 % (0-3) Basophils (%) (Auto) 1 % (0-3) Neutrophils # (Auto) 9.6 x10^3uL (1.8-7.7) Lymphocytes # (Auto) 3.0 x10^3/uL (1.0-4.8) Monocytes # (Auto) 1.1 x10^3/uL (0.0-1.1) Eosinophils # (Auto) 0.1 x10^3/uL (0.0-0.7) Basophils # (Auto) 0.2 x10^3/uL (0.0-0.2) Heparin Anti-Xa Act, Unfractionated < 0.10 IU/mL (0.30-0.70) Sodium Level 137 mmol/L (136-145) Potassium Level 3.8 mmol/L (3.5-5.1) Chloride Level 107 mmol/L (98-107) Carbon Dioxide Level 21 mmol/L (21-32) Anion Gap 9 (6-14) Blood Urea Nitrogen 22 mg/dL (8-26) Creatinine 1.3 mg/dL (0.7-1.3) Estimated GFR (Cockcroft-Gault) 56.7 Glucose Level 206 mg/dL (70-99) Calcium Level 7.4 mg/dL (8.5-10.1) Phosphorus Level 3.1 mg/dL (2.6-4.7) Magnesium Level 1.9 mg/dL (1.8-2.4) Procalcitonin 0.34 ng/mL (0.00-0.10) Test 06/07/18 07:00 O2 Saturation 96 % (92-99) Arterial Blood pH 7.35 (7.35-7.45) Arterial Blood pCO2 at Patient Temp 39 mmHg (35-46) Arterial Blood pO2 at Patient Temp 85 mmHg (75-108) Arterial Blood HCO3 21 mmol/L (21-28) Arterial Blood Base Excess -4 mmol/L (-3-3) FiO2 60% vent Laboratory Tests Test 06/06/18 13:42 06/06/18 17:48 06/07/18 06:30 06/07/18 07:00 Glucose (Fingerstick) 200 mg/dL (70-99) 205 mg/dL (70-99) White Blood Count 14.0 x10^3/uL (4.0-11.0) Red Blood Count 4.55 x10^6/uL (4.30-5.70) Hemoglobin 14.1 g/dL (13.0-17.5) Hematocrit 41.6 % (39.0-53.0) Mean Corpuscular Volume 91 fL (79-100) Mean Corpuscular Hemoglobin 31 pg (25-35) Mean Corpuscular Hemoglobin Concent 34 g/dL (31-37) Red Cell Distribution Width 13.7 % (11.5-14.5) Platelet Count 182 x10^3/uL (140-400) Neutrophils (%) (Auto) 68 % (31-73) Lymphocytes (%) (Auto) 22 % (24-48) Monocytes (%) (Auto) 8 % (0-9) Eosinophils (%) (Auto) 1 % (0-3) Basophils (%) (Auto) 1 % (0-3) Neutrophils # (Auto) 9.6 x10^3uL (1.8-7.7) Lymphocytes # (Auto) 3.0 x10^3/uL (1.0-4.8) Monocytes # (Auto) 1.1 x10^3/uL (0.0-1.1) Eosinophils # (Auto) 0.1 x10^3/uL (0.0-0.7) Basophils # (Auto) 0.2 x10^3/uL (0.0-0.2) Heparin Anti-Xa Act, Unfractionated < 0.10 IU/mL (0.30-0.70) Sodium Level 137 mmol/L (136-145) Potassium Level 3.8 mmol/L (3.5-5.1) Chloride Level 107 mmol/L (98-107) Carbon Dioxide Level 21 mmol/L (21-32) Anion Gap 9 (6-14) Blood Urea Nitrogen 22 mg/dL (8-26) Creatinine 1.3 mg/dL (0.7-1.3) Estimated GFR (Cockcroft-Gault) 56.7 Glucose Level 206 mg/dL (70-99) Calcium Level 7.4 mg/dL (8.5-10.1) Phosphorus Level 3.1 mg/dL (2.6-4.7) Magnesium Level 1.9 mg/dL (1.8-2.4) Procalcitonin 0.34 ng/mL (0.00-0.10) O2 Saturation 96 % (92-99) Arterial Blood pH 7.35 (7.35-7.45) Arterial Blood pCO2 at Patient Temp 39 mmHg (35-46) Arterial Blood pO2 at Patient Temp 85 mmHg (75-108) Arterial Blood HCO3 21 mmol/L (21-28) Arterial Blood Base Excess -4 mmol/L (-3-3) FiO2 60% vent Microbiology 06/05/18 - Final, Complete Medications Current Medications Amiodarone HCl 900 mg/Dextrose 518 ml @ 33 mls/hr 1X ONCE IV Last administered on 06/03/18at 21:14; Start 06/03/18 at 21:00; Stop 06/04/18 at 12:41; Status DC Amiodarone HCl (Cordarone) 300 mg 1X ONCE IVP Last administered on 06/03/18at 20 :57; Start 06/03/18 at 21:15; Stop 06/03/18 at 21:16; Status DC Amiodarone HCl 900 mg/Dextrose 518 ml @ 0 mls/hr 1X ONCE IV ; Start 06/03/18 at 21:15; Stop 06/03/18 at 21:16; Status Cancel Magnesium Sulfate/ Dextrose 100 ml @ 100 mls/hr 1X ONCE IV Last administered on 06/03/18at 21:03; Start 06/03/18 at 21:15; Stop 06/03/18 at 22:14; Status DC Propofol 50 ml @ As Directed STK-MED ONCE IV ; Start 06/03/18 at 21:16; Stop 06/03 at 21:17; Status DC Iohexol (Omnipaque 300 Mg/ml) 90 ml 1X ONCE IV Last administered on 06/03/18at 21:30; Start 06/03/18 at 21:30; Stop 06/03/18 at 21:31; Status DC Info (CONTRAST GIVEN -- Rx MONITORING) 1 each PRN DAILY PRN MC SEE COMMENTS; Start 06/03/18 at 21:30; Stop 06/05/18 at 21:29; Status DC Norepinephrine Bitartrate 250 ml @ As Directed STK-MED ONCE IV ; Start 06/03/18 at 21:17; Stop 06/03/18 at 21:18; Status DC Norepinephrine Bitartrate 250 ml @ 0 mls/hr 1X ONCE IV Last administered on 06/03/18at 21:22; Start 06/03/18 at 21:30; Stop 06/03/18 at 21:31; Status DC Propofol 20 ml @ 0 mls/hr 1X ONCE IV Last administered on 06/03/18at 21:19; Start 06/03/18 at 21:30; Stop 06/03/18 at 21:31; Status DC Sodium Chloride 1,000 ml @ 100 mls/hr Q10H IV Last administered on 06/04/18at 17 :04; Start 06/03/18 at 21:29; Stop 06/04/18 at 21:28; Status DC Potassium Chloride (KCl Oral Soln) 20 meq 1X ONCE NG Last administered on at 00:24; Start 06/03/18 at 22:30; Stop 06/03/18 at 22:31; Status DC Insulin Human Regular 150 unit/ Sodium Chloride 151.5 ml @ 0 mls/hr CONT PRN IV SEE I/O RECORD; Start 06/03/18 at 22:30; Stop 06/04/18 at 13:23; Status DC Dextrose (Dextrose 50%-Water Syringe) 12.5 gm PRN Q15MIN PRN IV LOW BLOOD SUGAR ; Start 06/03/18 at 22:30; Stop 06/04/18 at 13:22; Status DC Multivitamins 10 ml/Thiamine HCl 100 mg/Folic Acid 1 mg/Sodium Chloride 1,011.2 ml @ 100 mls/ hr DAILY IV ; Start 06/04/18 at 09:00; Stop 06/04/18 at 19:07; Status Cancel Lorazepam (Ativan) 2 mg PRN Q1HR PRN IV For CIWA 8-14 Last administered on 06/07at 08:24; Start 06/03/18 at 22:45 Lorazepam (Ativan) 4 mg PRN Q1HR PRN IV For CIWA 15 or greater; Start 06/03/18 at 22:45 Haloperidol Lactate (Haldol Inj) 5 mg PRN Q4HRS PRN IVP Hallucinatns,Confusn, Delirium; Start 06/03/18 at 22:45 Heparin Sodium/ Dextrose 500 ml @ 0 mls/hr CONT PRN IV SEE I/O RECORD Last administered on 06/07/18at 05:41; Start 06/03/18 at 23:00 Heparin Sodium (Porcine) (Heparin Sodium) 3,300 unit PRN Q6HRS PRN IV FOR UFH LEVEL LESS THAN 0.2 Last administered on 06/07/18at 08:56; Start 06/03/18 at 23:00 Midazolam HCl 100 ml @ 5 mls/hr CONT PRN IV SEE I/O RECORD Last administered on 06/06/18at 23:26; Start 06/03/18 at 23:15 Fentanyl Citrate 30 ml @ 0 mls/hr CONT PRN PRN IV PER PROTOCOL Last administered on 06/07/18at 09:27; Start 06/03/18 at 23:15 Etomidate (Amidate) 20 mg 1X ONCE IV Last administered on 06/03/18at 20:55; Start 06/03/18 at 23:15; Stop 06/03/18 at 23:16; Status DC Succinylcholine Chloride (Anectine) 100 mg 1X ONCE IV Last administered on 06/03at 20:56; Start 06/03/18 at 23:15; Stop 06/03/18 at 23:16; Status DC Fentanyl Citrate (Fentanyl 2ml Vial) 100 mcg 1X ONCE IV Last administered on at 20:59; Start 06/03/18 at 23:15; Stop 06/03/18 at 23:16; Status DC Midazolam HCl (Versed) 4 mg 1X ONCE IV Last administered on 06/03/18at 21:01; Start 06/03/18 at 23:15; Stop 06/03/18 at 23:16; Status DC Sodium Chloride 500 ml @ 500 mls/hr 1X ONCE IV Last administered on 06/03/18at 21:20; Start 06/03/18 at 23:15; Stop 06/04/18 at 00:14; Status DC Rocuronium [place] (Zemuron) 50 mg 1X ONCE IV Last administered on 06/03/18at 21 :29; Start 06/03/18 at 23:15; Stop 06/03/18 at 23:16; Status DC Sodium Chloride 1,000 ml @ 1,000 mls/hr Q1H IV Last administered on 06/04/18at 05:55; Start 06/04/18 at 00:00; Stop 06/04/18 at 06:25; Status DC Vecuronium [place] (Norcuron Bolus) 10 mg PRN Q30MIN PRN IV SHIVERING Last administered on 06/07/18at 09:02; Start 06/04/18 at 00:00; Stop 06/07/18 at 12:42 ; Status DC Meperidine HCl (Demerol) 12.5 mg PRN Q30MIN PRN IV SHIVERING Last administered on 06/04/18at 02:04; Start 06/04/18 at 00:00 Sodium Chloride (Normal Saline Flush) 3 ml QSHIFT PRN IV AFTER MEDS AND BLOOD DRAWS; Start 06/04/18 at 00:00 Acetaminophen (Tylenol) 650 mg Q6HRS NG ; Start 06/04/18 at 00:00; Stop 06/04/18 at 00:52; Status DC Acetaminophen (Tylenol Supp) 650 mg PRN Q6HRS PRN AL MILD PAIN / TEMP; Start at 00:00; Status Cancel Acetaminophen (Tylenol) 650 mg PRN Q6HRS PRN NG MILD PAIN / TEMP; Start at 00:00; Status Cancel Info (Icu Electrolyte Protocol) 1 ea DAILY PRN MC PER PROTOCOL; Start 06/06/18 at 00:00 Vancomycin HCl (Vanco Per Pharmacy) 1 each PRN DAILY PRN MC SEE COMMENTS Last administered on 06/05/18at 12:35; Start 06/04/18 at 00:30; Stop 06/06/18 at 06:51 ; Status DC Piperacillin Sod/ Tazobactam Sod (Zosyn Per Pharmacy) 1 each PRN DAILY PRN MC SEE COMMENTS; Start 06/04/18 at 00:30; Stop 06/07/18 at 07:22; Status DC Sodium Chloride 1,000 ml @ 2,040 mls/hr Q30M IV Last administered on 06/04/18at 00:21; Start 06/04/18 at 00:15; Stop 06/04/18 at 01:15; Status DC Sodium Chloride 500 ml @ 1,000 mls/hr PRN Q30MIN PRN IV SEE COMMENTS; Start at 00:15 Norepinephrine Bitartrate 250 ml @ 0 mls/hr CONT PRN IV SEE I/O RECORD Last administered on 06/04/18at 01:31; Start 06/04/18 at 00:15 Piperacillin Sod/ Tazobactam Sod 3.375 gm/Sodium Chloride 50 ml @ 100 mls/hr Q6HRS IV Last administered on 06/07/18at 05:32; Start 06/04/18 at 00:30; Stop 10/13 at 07:22; Status DC Ondansetron HCl (Zofran) 4 mg PRN Q6HRS PRN IV NAUSEA/VOMITING; Start 06/04/18 at 00:45 Vancomycin HCl 2 gm/Sodium Chloride 500 ml @ 250 mls/hr 1X ONCE IV Last administered on 06/04/18at 00:47; Start 06/04/18 at 01:00; Stop 06/04/18 at 02:59; Status DC Levetiracetam 500 mg/Dextrose 105 ml @ 420 mls/hr Q12HR IV Last administered on 06/07/18at 08:35; Start 06/04/18 at 09:00 Levetiracetam 500 mg/Dextrose 105 ml @ 420 mls/hr 1X ONCE IV Last administered on 06/04/18at 01:01; Start 06/04/18 at 01:00; Stop 06/04/18 at 01:14; Status DC Vancomycin HCl 2 gm/Sodium Chloride 500 ml @ 250 mls/hr Q12H IV Last administered on 06/05/18at 01:09; Start 06/04/18 at 13:00; Stop 06/05/18 at 12:34 ; Status DC Vancomycin HCl (Vancomycin Trough Level) 1 each 1X ONCE MC Last administered on 06/05/18at 11:53; Start 06/05/18 at 12:30; Stop 06/05/18 at 12:31; Status DC Micafungin Sodium 100 mg/Dextrose 100 ml @ 100 mls/hr Q24H IV Last administered on 06/06/18at 11:17; Start 06/04/18 at 08:00; Stop 06/07/18 at 07:23 ; Status DC Lidocaine/Sodium Bicarbonate (Buffered Lidocaine 1%) 3 ml STK-MED ONCE .ROUTE ; Start 06/04/18 at 08:05; Stop 06/04/18 at 08:06; Status DC Sodium Bicarbonate (Sodium Bicarb Adult 8.4% Syr) 50 meq 1X ONCE IV Last administered on 06/04/18at 09:34; Start 06/04/18 at 09:15; Stop 06/04/18 at 09:16; Status DC Sodium Bicarbonate (Sodium Bicarb Adult 8.4% Syr) 50 meq 1X ONCE IV Last administered on 06/04/18at 09:34; Start 06/04/18 at 09:15; Stop 06/04/18 at 09:16; Status DC Lidocaine/Sodium Bicarbonate (Buffered Lidocaine 1%) 3 ml 1X ONCE INJ Last administered on 06/04/18at 09:15; Start 06/04/18 at 09:15; Stop 06/04/18 at 09:16; Status DC Magnesium Sulfate/ Dextrose 100 ml @ 25 mls/hr 1X ONCE IV Last administered on 06/04/18at 10:41; Start 06/04/18 at 11:00; Stop 06/04/18 at 14:59; Status DC Info (Anti-Coagulation Monitoring By Pharmacy) 1 each PRN DAILY PRN MC SEE COMMENTS Last administered on 06/06/18at 14:45; Start 06/04/18 at 11:15 Pantoprazole Sodium (PROTONIX VIAL for IV PUSH) 40 mg DAILYAC IVP Last administered on 06/07/18at 07:54; Start 06/04/18 at 14:00 Insulin Human Lispro (HumaLOG) 0-7 UNITS TIDWMEALS SQ Last administered on at 17:12; Start 06/04/18 at 14:00; Stop 06/05/18 at 00:02; Status DC Dextrose (Dextrose 50%-Water Syringe) 12.5 gm PRN Q15MIN PRN IV SEE COMMENTS; Start 06/04/18 at 13:15 Sodium Chloride 1,000 ml @ 100 mls/hr Q10H IV Last administered on 06/07/18at 10:53; Start 06/04/18 at 21:30 Insulin Human Lispro (HumaLOG) 0-7 UNITS Q6HRS SQ Last administered on at 06:45; Start 06/05/18 at 00:00; Stop 06/05/18 at 09:20; Status DC Chlorhexidine Gluconate (Peridex) 15 ml BID MM Last administered on 06/07/18at 08:26; Start 06/05/18 at 09:00 Insulin Human Lispro (HumaLOG) 0-9 UNITS TIDWMEALS SQ Last administered on 06/06at 17:51; Start 06/05/18 at 12:00; Stop 06/07/18 at 08:11; Status DC Dextrose (Dextrose 50%-Water Syringe) 12.5 gm PRN Q15MIN PRN IV SEE COMMENTS; Start 06/05/18 at 09:30; Status UNV Acetaminophen (Tylenol) 650 mg PRN Q6HRS PRN PEG MILD PAIN / TEMP Last administered on 06/07/18at 13:07; Start 06/05/18 at 11:30 Vancomycin HCl (Vancomycin Random Level) 1 each 1X ONCE MC Last administered on 06/06/18at 05:00; Start 06/06/18 at 05:00; Stop 06/06/18 at 05:01; Status DC Info (Tpn Per Pharmacy) 1 each PRN DAILY PRN MC SEE COMMENTS Last administered on 06/06/18at 14:29; Start 06/05/18 at 13:30 Sodium Acetate 90 meq/Potassium Chloride 50 meq/ Potassium Phosphate 13.6 mmol/ Magnesium Sulfate 10 meq/ Multivitamins 10 ml/Chromium/ Copper/Manganese/ Seleni /Zn 1 ml/ Total Parenteral Nutrition/Amino Acids/Dextrose/ Fat Emulsion Intravenous 1,512 ml @ 63 mls/hr TPN CONT IV Last administered on 06/05/18at 22:54; Start 06/05/18 at 22:00; Stop 06/06/18 at 21:59; Status DC Hydralazine HCl (Apresoline Inj) 10 mg PRN Q4HRS PRN IVP ELEVATED BP, SEE COMMENTS Last administered on 06/07/18at 09:26; Start 06/05/18 at 14:45 Magnesium Sulfate/ Dextrose (Magnesium Sulfate PREMIX 1GM) 1 gm STK-MED ONCE IV ; Start 06/03/18 at 17:28; Stop 06/05/18 at 17:28; Status DC Amiodarone HCl (Cordarone) 300 mg STK-MED ONCE .ROUTE ; Start 06/03/18 at 17:28; Stop 06/05/18 at 17:28; Status DC Calcium Gluconate 2000 mg/Dextrose 120 ml @ 240 mls/hr 1X ONCE IV Last administered on 06/06/18at 10:01; Start 06/06/18 at 09:00; Stop 06/06/18 at 09:29 ; Status DC Sodium Acetate 90 meq/Potassium Chloride 50 meq/ Potassium Phosphate 13.6 mmol/ Magnesium Sulfate 10 meq/ Multivitamins 10 ml/Chromium/ Copper/Manganese/ Seleni /Zn 1 ml/ Total Parenteral Nutrition/Amino Acids/Dextrose/ Fat Emulsion Intravenous 1,512 ml @ 63 mls/hr TPN CONT IV Last administered on 06/07/18at 00:25; Start 06/06/18 at 22:00; Stop 06/07/18 at 21:59 Cefepime HCl 2 gm/ Dextrose 100 ml @ 200 mls/hr Q8HRS IV ; Start 06/07/18 at 07 :30; Status UNV Metronidazole (Flagyl) 500 mg Q8HRS PO Last administered on 06/07/18at 08:26; Start 06/07/18 at 07:30 Vancomycin HCl (Vanco Per Pharmacy) 1 each PRN DAILY PRN MC SEE COMMENTS Last administered on 06/07/18at 08:04; Start 06/07/18 at 07:30 Cefepime HCl (Maxipime) 2 gm Q8HRS IVP Last administered on 06/07/18at 08:26; Start 06/07/18 at 08:00 Vancomycin HCl 2 gm/Sodium Chloride 500 ml @ 250 mls/hr Q24H IV Last administered on 06/07/18at 08:56; Start 06/07/18 at 08:00 Vancomycin HCl (Vancomycin Trough Level) 1 each 1X ONCE MC ; Start 06/09/18 at 07:30; Stop 06/09/18 at 07:31 Insulin Human Lispro (HumaLOG) 0-9 UNITS Q6HRS SQ Last administered on at 12:18; Start 06/07/18 at 12:00 Insulin Glargine (Lantus) 15 units DAILY SQ Last administered on 06/07/18at 10: 55; Start 06/07/18 at 09:30 Nitroglycerin/ Dextrose 250 ml @ 1.5 mls/hr CONT PRN IV SEE I/O RECORD Last administered on 06/07/18at 11:03; Start 06/07/18 at 10:45 Amiodarone HCl 900 mg/Dextrose 518 ml @ 0 mls/hr CONT PRN IV SEE I/O RECORD Last administered on 06/07/18at 11:08; Start 06/07/18 at 11:00; Stop 06/07/18 at 11:08; Status DC Vecuronium [place] (Norcuron Bolus) 10 mg PRN Q2HRS PRN IV TREMORS Last administered on 06/07/18at 13:06; Start 06/07/18 at 12:45 Active Scripts Active Reported Carvedilol 6.25 Mg Tablet 1 Tab PO BID 90 Days Zoloft (Sertraline Hcl) 100 Mg Tablet 1.5 Tab PO DAILY 90 Days Dyazide 37.5-25 Capsule (Triamterene/Hydrochlorothiazid) 1 Each Capsule 1 Cap PO DAILY Fluconazole 100 Mg Tablet 1 Tab PO DAILY Clonazepam 0.5 Mg Tablet 1 Tab PO PRN TID PRN Acamprosate Calcium 333 Mg Tablet.dr 2 Tab PO TID Vitals/I & O Vital Sign - Last 24 Hours 06/06/18 06/06/18 06/06/18 06/06/18 14:00 14:48 15:00 16:00 Pulse 80 84 Resp 18 18 B/P (MAP) 112/86 (95) 163/92 (115) Pulse Ox 97 60 96 O2 Delivery Ventilator Ventilator Ventilator Mechanical Ventilator 06/06/18 06/06/18 06/06/18 06/06/18 16:00 17:00 17:08 18:00 Temp 99.3 99.3 Pulse 86 88 86 Resp 18 18 18 B/P (MAP) 115/72 (86) 126/69 (88) 118/60 (79) Pulse Ox 96 96 60 97 O2 Delivery Ventilator Ventilator Ventilator Ventilator 06/06/18 06/06/18 06/06/18 06/06/18 19:00 19:56 20:00 20:00 Temp 98.5 98.5 Pulse 84 86 Resp 18 18 B/P (MAP) 125/68 (87) 155/61 (92) Pulse Ox 97 60 97 O2 Delivery Ventilator Ventilator Mechanical Ventilator Ventilator 06/06/18 06/06/18 06/06/18 06/06/18 21:00 22:00 23:00 23:38 Pulse 88 92 100 Resp 18 18 18 B/P (MAP) 140/60 (86) 144/62 (89) 143/79 (100) Pulse Ox 96 97 97 60 O2 Delivery Ventilator Ventilator Ventilator Ventilator 06/06/18 06/06/18 06/07/18 06/07/18 23:59 23:59 01:00 02:00 Temp 99.2 99.2 Pulse 95 92 96 Resp 18 18 18 B/P (MAP) 154/86 (108) 130/67 (88) 165/79 (107) Pulse Ox 96 96 97 O2 Delivery Mechanical Ventilator Ventilator Ventilator Ventilator 06/07/18 06/07/18 06/07/18 06/07/18 02:37 03:16 03:25 04:00 Pulse 96 Resp 18 B/P (MAP) 160/106 (124) Pulse Ox 60 97 60 O2 Delivery Ventilator Ventilator Ventilator Mechanical Ventilator 06/07/18 06/07/18 06/07/18 06/07/18 04:00 05:00 05:19 05:33 Temp 99.0 99.0 Pulse 84 103 99 Resp 18 18 B/P (MAP) 167/80 (109) 140/86 (104) 211/104 Pulse Ox 94 97 60 O2 Delivery Ventilator Ventilator Ventilator 06/07/18 06/07/18 06/07/18 06/07/18 05:59 06:54 07:00 08:00 Temp 101.0 101.0 Pulse 115 103 Resp 18 18 B/P (MAP) 193/96 (128) 189/84 (119) Pulse Ox 94 60 94 O2 Delivery Ventilator Ventilator Ventilator Mechanical Ventilator 06/07/18 06/07/18 06/07/18 06/07/18 08:00 09:00 09:07 09:26 Pulse 123 108 115 Resp 18 18 B/P (MAP) 237/118 (157) 235/104 (147) 135/119 Pulse Ox 94 95 50 O2 Delivery Ventilator Ventilator Ventilator 06/07/18 06/07/18 06/07/18 06/07/18 09:27 09:57 10:00 11:08 Pulse 106 Resp 18 18 B/P (MAP) 235/130 (165) Pulse Ox 50 93 95 50 O2 Delivery Ventilator Ventilator Ventilator 06/07/18 06/07/18 06/07/18 06/07/18 11:09 12:00 12:03 12:55 Temp 102.1 102.1 Pulse 111 114 Resp 18 18 B/P (MAP) 223/141 (168) 165/109 (127) Pulse Ox 94 93 50 O2 Delivery Ventilator Mechanical Ventilator Ventilator Ventilator 06/07/18 13:07 Pulse 112 Resp 18 B/P (MAP) 202/78 (119) Pulse Ox 95 O2 Delivery Ventilator Intake and Output 06/06/18 06/06/18 06/07/18 15:00 23:00 07:00 Intake Total 255 ml 3070.51 ml 2301.7 ml Output Total 280 ml 300 ml 290 ml Balance -25 ml 2770.51 ml 2011.7 ml JAISON NUNEZ MD Jun 07, 2018 13:11
--- NOTE | 2018-06-07 14:10 | PDOC ---
PROGRESS NOTES Subjective Subjective Patient seen and examined The patient remains intubated on a ventilator. Objective Objective Vital Signs Date Time Temp Pulse Resp B/P (MAP) Pulse Ox O2 Delivery O2 Flow Rate FiO2 06/07/18 13:07 112 18 202/78 (119) 95 Ventilator 06/07/18 12:03 102.1 102.1 Intake and Output 06/07/18 07:00 Intake Total 5627.21 ml Output Total 870 ml Balance 4757.21 ml IV Total 5627.21 ml Output Urine Total 870 ml Physical Exam Abdomen: Normal bowel sounds Heart: Regular rate General: Other (intubated on a ventilator) Lungs: Other (mildly decreased breath sounds) Assessment Assessment Problems Medical Problems: (1) Cardiac arrest Status: Acute VT arrest with extensive CPR. The patient remains on a ventilator. Hypothermia protocol completed. Echo with an ejection fraction of 35-45% with mild mitral regurgitation. Continues on a ventilator. Awaiting neurological recovery. Future ischemic workup dependent on neurologic recovery. Acute respiratory failure. Intubated and sedated. As per the pulmonary service. Possible sepsis. Followed by ID. Probable anoxic seizure activity. Uncertain extent of anoxic brain injury. Followed by neurology. Comment Review of Relevant I have reviewed the following items gisselle (where applicable) has been applied. Labs Laboratory Tests Test 06/05/18 16:46 06/06/18 01:29 06/06/18 05:45 06/06/18 07:20 Glucose (Fingerstick) 157 mg/dL (70-99) 209 mg/dL (70-99) White Blood Count 9.8 x10^3/uL (4.0-11.0) Red Blood Count 4.26 x10^6/uL (4.30-5.70) Hemoglobin 13.3 g/dL (13.0-17.5) Hematocrit 39.1 % (39.0-53.0) Mean Corpuscular Volume 92 fL (79-100) Mean Corpuscular Hemoglobin 31 pg (25-35) Mean Corpuscular Hemoglobin Concent 34 g/dL (31-37) Red Cell Distribution Width 13.7 % (11.5-14.5) Platelet Count 168 x10^3/uL (140-400) Neutrophils (%) (Auto) 81 % (31-73) Lymphocytes (%) (Auto) 13 % (24-48) Monocytes (%) (Auto) 6 % (0-9) Eosinophils (%) (Auto) 1 % (0-3) Basophils (%) (Auto) 0 % (0-3) Neutrophils # (Auto) 7.9 x10^3uL (1.8-7.7) Lymphocytes # (Auto) 1.2 x10^3/uL (1.0-4.8) Monocytes # (Auto) 0.6 x10^3/uL (0.0-1.1) Eosinophils # (Auto) 0.1 x10^3/uL (0.0-0.7) Basophils # (Auto) 0.0 x10^3/uL (0.0-0.2) Sodium Level 140 mmol/L (136-145) Potassium Level 3.8 mmol/L (3.5-5.1) Chloride Level 109 mmol/L (98-107) Carbon Dioxide Level 21 mmol/L (21-32) Anion Gap 10 (6-14) Blood Urea Nitrogen 22 mg/dL (8-26) Creatinine 1.4 mg/dL (0.7-1.3) Estimated GFR (Cockcroft-Gault) 52.1 Glucose Level 223 mg/dL (70-99) Calcium Level 6.9 mg/dL (8.5-10.1) Ionized Calcium 0.94 mmol/L (1.13-1.32) Phosphorus Level 3.7 mg/dL (2.6-4.7) Magnesium Level 1.9 mg/dL (1.8-2.4) Triglycerides Level 217 mg/dL (0-150) Random Vancomycin Level 12.2 mcg/mL O2 Saturation 98 % (92-99) Arterial Blood pH 7.37 (7.35-7.45) Arterial Blood pCO2 at Patient Temp 34 mmHg (35-46) Arterial Blood pO2 at Patient Temp 128 mmHg (75-108) Arterial Blood HCO3 19 mmol/L (21-28) Arterial Blood Base Excess -5 mmol/L (-3-3) FiO2 100% Test 06/06/18 10:05 06/06/18 13:42 06/06/18 17:48 06/07/18 06:30 Glucose (Fingerstick) 212 mg/dL (70-99) 200 mg/dL (70-99) 205 mg/dL (70-99) White Blood Count 14.0 x10^3/uL (4.0-11.0) Red Blood Count 4.55 x10^6/uL (4.30-5.70) Hemoglobin 14.1 g/dL (13.0-17.5) Hematocrit 41.6 % (39.0-53.0) Mean Corpuscular Volume 91 fL (79-100) Mean Corpuscular Hemoglobin 31 pg (25-35) Mean Corpuscular Hemoglobin Concent 34 g/dL (31-37) Red Cell Distribution Width 13.7 % (11.5-14.5) Platelet Count 182 x10^3/uL (140-400) Neutrophils (%) (Auto) 68 % (31-73) Lymphocytes (%) (Auto) 22 % (24-48) Monocytes (%) (Auto) 8 % (0-9) Eosinophils (%) (Auto) 1 % (0-3) Basophils (%) (Auto) 1 % (0-3) Neutrophils # (Auto) 9.6 x10^3uL (1.8-7.7) Lymphocytes # (Auto) 3.0 x10^3/uL (1.0-4.8) Monocytes # (Auto) 1.1 x10^3/uL (0.0-1.1) Eosinophils # (Auto) 0.1 x10^3/uL (0.0-0.7) Basophils # (Auto) 0.2 x10^3/uL (0.0-0.2) Heparin Anti-Xa Act, Unfractionated < 0.10 IU/mL (0.30-0.70) Sodium Level 137 mmol/L (136-145) Potassium Level 3.8 mmol/L (3.5-5.1) Chloride Level 107 mmol/L (98-107) Carbon Dioxide Level 21 mmol/L (21-32) Anion Gap 9 (6-14) Blood Urea Nitrogen 22 mg/dL (8-26) Creatinine 1.3 mg/dL (0.7-1.3) Estimated GFR (Cockcroft-Gault) 56.7 Glucose Level 206 mg/dL (70-99) Calcium Level 7.4 mg/dL (8.5-10.1) Phosphorus Level 3.1 mg/dL (2.6-4.7) Magnesium Level 1.9 mg/dL (1.8-2.4) Procalcitonin 0.34 ng/mL (0.00-0.10) Test 06/07/18 07:00 O2 Saturation 96 % (92-99) Arterial Blood pH 7.35 (7.35-7.45) Arterial Blood pCO2 at Patient Temp 39 mmHg (35-46) Arterial Blood pO2 at Patient Temp 85 mmHg (75-108) Arterial Blood HCO3 21 mmol/L (21-28) Arterial Blood Base Excess -4 mmol/L (-3-3) FiO2 60% vent Laboratory Tests Test 06/06/18 17:48 06/07/18 06:30 06/07/18 07:00 Glucose (Fingerstick) 205 mg/dL (70-99) White Blood Count 14.0 x10^3/uL (4.0-11.0) Red Blood Count 4.55 x10^6/uL (4.30-5.70) Hemoglobin 14.1 g/dL (13.0-17.5) Hematocrit 41.6 % (39.0-53.0) Mean Corpuscular Volume 91 fL (79-100) Mean Corpuscular Hemoglobin 31 pg (25-35) Mean Corpuscular Hemoglobin Concent 34 g/dL (31-37) Red Cell Distribution Width 13.7 % (11.5-14.5) Platelet Count 182 x10^3/uL (140-400) Neutrophils (%) (Auto) 68 % (31-73) Lymphocytes (%) (Auto) 22 % (24-48) Monocytes (%) (Auto) 8 % (0-9) Eosinophils (%) (Auto) 1 % (0-3) Basophils (%) (Auto) 1 % (0-3) Neutrophils # (Auto) 9.6 x10^3uL (1.8-7.7) Lymphocytes # (Auto) 3.0 x10^3/uL (1.0-4.8) Monocytes # (Auto) 1.1 x10^3/uL (0.0-1.1) Eosinophils # (Auto) 0.1 x10^3/uL (0.0-0.7) Basophils # (Auto) 0.2 x10^3/uL (0.0-0.2) Heparin Anti-Xa Act, Unfractionated < 0.10 IU/mL (0.30-0.70) Sodium Level 137 mmol/L (136-145) Potassium Level 3.8 mmol/L (3.5-5.1) Chloride Level 107 mmol/L (98-107) Carbon Dioxide Level 21 mmol/L (21-32) Anion Gap 9 (6-14) Blood Urea Nitrogen 22 mg/dL (8-26) Creatinine 1.3 mg/dL (0.7-1.3) Estimated GFR (Cockcroft-Gault) 56.7 Glucose Level 206 mg/dL (70-99) Calcium Level 7.4 mg/dL (8.5-10.1) Phosphorus Level 3.1 mg/dL (2.6-4.7) Magnesium Level 1.9 mg/dL (1.8-2.4) Procalcitonin 0.34 ng/mL (0.00-0.10) O2 Saturation 96 % (92-99) Arterial Blood pH 7.35 (7.35-7.45) Arterial Blood pCO2 at Patient Temp 39 mmHg (35-46) Arterial Blood pO2 at Patient Temp 85 mmHg (75-108) Arterial Blood HCO3 21 mmol/L (21-28) Arterial Blood Base Excess -4 mmol/L (-3-3) FiO2 60% vent Microbiology 06/05/18 - Final, Complete Medications Current Medications Amiodarone HCl 900 mg/Dextrose 518 ml @ 33 mls/hr 1X ONCE IV Last administered on 06/03/18at 21:14; Start 06/03/18 at 21:00; Stop 06/04/18 at 12:41; Status DC Amiodarone HCl (Cordarone) 300 mg 1X ONCE IVP Last administered on 06/03/18at 20 :57; Start 06/03/18 at 21:15; Stop 06/03/18 at 21:16; Status DC Amiodarone HCl 900 mg/Dextrose 518 ml @ 0 mls/hr 1X ONCE IV ; Start 06/03/18 at 21:15; Stop 06/03/18 at 21:16; Status Cancel Magnesium Sulfate/ Dextrose 100 ml @ 100 mls/hr 1X ONCE IV Last administered on 06/03/18at 21:03; Start 06/03/18 at 21:15; Stop 06/03/18 at 22:14; Status DC Propofol 50 ml @ As Directed STK-MED ONCE IV ; Start 06/03/18 at 21:16; Stop 06/03 at 21:17; Status DC Iohexol (Omnipaque 300 Mg/ml) 90 ml 1X ONCE IV Last administered on 06/03/18at 21:30; Start 06/03/18 at 21:30; Stop 06/03/18 at 21:31; Status DC Info (CONTRAST GIVEN -- Rx MONITORING) 1 each PRN DAILY PRN MC SEE COMMENTS; Start 06/03/18 at 21:30; Stop 06/05/18 at 21:29; Status DC Norepinephrine Bitartrate 250 ml @ As Directed STK-MED ONCE IV ; Start 06/03/18 at 21:17; Stop 06/03/18 at 21:18; Status DC Norepinephrine Bitartrate 250 ml @ 0 mls/hr 1X ONCE IV Last administered on 06/03/18at 21:22; Start 06/03/18 at 21:30; Stop 06/03/18 at 21:31; Status DC Propofol 20 ml @ 0 mls/hr 1X ONCE IV Last administered on 06/03/18at 21:19; Start 06/03/18 at 21:30; Stop 06/03/18 at 21:31; Status DC Sodium Chloride 1,000 ml @ 100 mls/hr Q10H IV Last administered on 06/04/18at 17 :04; Start 06/03/18 at 21:29; Stop 06/04/18 at 21:28; Status DC Potassium Chloride (KCl Oral Soln) 20 meq 1X ONCE NG Last administered on at 00:24; Start 06/03/18 at 22:30; Stop 06/03/18 at 22:31; Status DC Insulin Human Regular 150 unit/ Sodium Chloride 151.5 ml @ 0 mls/hr CONT PRN IV SEE I/O RECORD; Start 06/03/18 at 22:30; Stop 06/04/18 at 13:23; Status DC Dextrose (Dextrose 50%-Water Syringe) 12.5 gm PRN Q15MIN PRN IV LOW BLOOD SUGAR ; Start 06/03/18 at 22:30; Stop 06/04/18 at 13:22; Status DC Multivitamins 10 ml/Thiamine HCl 100 mg/Folic Acid 1 mg/Sodium Chloride 1,011.2 ml @ 100 mls/ hr DAILY IV ; Start 06/04/18 at 09:00; Stop 06/04/18 at 19:07; Status Cancel Lorazepam (Ativan) 2 mg PRN Q1HR PRN IV For CIWA 8-14 Last administered on 06/07at 08:24; Start 06/03/18 at 22:45 Lorazepam (Ativan) 4 mg PRN Q1HR PRN IV For CIWA 15 or greater; Start 06/03/18 at 22:45 Haloperidol Lactate (Haldol Inj) 5 mg PRN Q4HRS PRN IVP Hallucinatns,Confusn, Delirium; Start 06/03/18 at 22:45 Heparin Sodium/ Dextrose 500 ml @ 0 mls/hr CONT PRN IV SEE I/O RECORD Last administered on 06/07/18at 05:41; Start 06/03/18 at 23:00 Heparin Sodium (Porcine) (Heparin Sodium) 3,300 unit PRN Q6HRS PRN IV FOR UFH LEVEL LESS THAN 0.2 Last administered on 06/07/18at 08:56; Start 06/03/18 at 23:00 Midazolam HCl 100 ml @ 5 mls/hr CONT PRN IV SEE I/O RECORD Last administered on 06/06/18at 23:26; Start 06/03/18 at 23:15 Fentanyl Citrate 30 ml @ 0 mls/hr CONT PRN PRN IV PER PROTOCOL Last administered on 06/07/18at 09:27; Start 06/03/18 at 23:15 Etomidate (Amidate) 20 mg 1X ONCE IV Last administered on 06/03/18at 20:55; Start 06/03/18 at 23:15; Stop 06/03/18 at 23:16; Status DC Succinylcholine Chloride (Anectine) 100 mg 1X ONCE IV Last administered on 06/03at 20:56; Start 06/03/18 at 23:15; Stop 06/03/18 at 23:16; Status DC Fentanyl Citrate (Fentanyl 2ml Vial) 100 mcg 1X ONCE IV Last administered on at 20:59; Start 06/03/18 at 23:15; Stop 06/03/18 at 23:16; Status DC Midazolam HCl (Versed) 4 mg 1X ONCE IV Last administered on 06/03/18at 21:01; Start 06/03/18 at 23:15; Stop 06/03/18 at 23:16; Status DC Sodium Chloride 500 ml @ 500 mls/hr 1X ONCE IV Last administered on 06/03/18at 21:20; Start 06/03/18 at 23:15; Stop 06/04/18 at 00:14; Status DC Rocuronium Sparks (Zemuron) 50 mg 1X ONCE IV Last administered on 06/03/18at 21 :29; Start 06/03/18 at 23:15; Stop 06/03/18 at 23:16; Status DC Sodium Chloride 1,000 ml @ 1,000 mls/hr Q1H IV Last administered on 06/04/18at 05:55; Start 06/04/18 at 00:00; Stop 06/04/18 at 06:25; Status DC Vecuronium Sparks (Norcuron Bolus) 10 mg PRN Q30MIN PRN IV SHIVERING Last administered on 06/07/18at 09:02; Start 06/04/18 at 00:00; Stop 06/07/18 at 12:42 ; Status DC Meperidine HCl (Demerol) 12.5 mg PRN Q30MIN PRN IV SHIVERING Last administered on 06/04/18at 02:04; Start 06/04/18 at 00:00 Sodium Chloride (Normal Saline Flush) 3 ml QSHIFT PRN IV AFTER MEDS AND BLOOD DRAWS; Start 06/04/18 at 00:00 Acetaminophen (Tylenol) 650 mg Q6HRS NG ; Start 06/04/18 at 00:00; Stop 06/04/18 at 00:52; Status DC Acetaminophen (Tylenol Supp) 650 mg PRN Q6HRS PRN TX MILD PAIN / TEMP; Start at 00:00; Status Cancel Acetaminophen (Tylenol) 650 mg PRN Q6HRS PRN NG MILD PAIN / TEMP; Start at 00:00; Status Cancel Info (Icu Electrolyte Protocol) 1 ea DAILY PRN MC PER PROTOCOL; Start 06/06/18 at 00:00 Vancomycin HCl (Vanco Per Pharmacy) 1 each PRN DAILY PRN MC SEE COMMENTS Last administered on 06/05/18at 12:35; Start 06/04/18 at 00:30; Stop 06/06/18 at 06:51 ; Status DC Piperacillin Sod/ Tazobactam Sod (Zosyn Per Pharmacy) 1 each PRN DAILY PRN MC SEE COMMENTS; Start 06/04/18 at 00:30; Stop 06/07/18 at 07:22; Status DC Sodium Chloride 1,000 ml @ 2,040 mls/hr Q30M IV Last administered on 06/04/18at 00:21; Start 06/04/18 at 00:15; Stop 06/04/18 at 01:15; Status DC Sodium Chloride 500 ml @ 1,000 mls/hr PRN Q30MIN PRN IV SEE COMMENTS; Start at 00:15 Norepinephrine Bitartrate 250 ml @ 0 mls/hr CONT PRN IV SEE I/O RECORD Last administered on 06/04/18at 01:31; Start 06/04/18 at 00:15 Piperacillin Sod/ Tazobactam Sod 3.375 gm/Sodium Chloride 50 ml @ 100 mls/hr Q6HRS IV Last administered on 06/07/18at 05:32; Start 06/04/18 at 00:30; Stop 10/13 at 07:22; Status DC Ondansetron HCl (Zofran) 4 mg PRN Q6HRS PRN IV NAUSEA/VOMITING; Start 06/04/18 at 00:45 Vancomycin HCl 2 gm/Sodium Chloride 500 ml @ 250 mls/hr 1X ONCE IV Last administered on 06/04/18at 00:47; Start 06/04/18 at 01:00; Stop 06/04/18 at 02:59; Status DC Levetiracetam 500 mg/Dextrose 105 ml @ 420 mls/hr Q12HR IV Last administered on 06/07/18at 08:35; Start 06/04/18 at 09:00 Levetiracetam 500 mg/Dextrose 105 ml @ 420 mls/hr 1X ONCE IV Last administered on 06/04/18at 01:01; Start 06/04/18 at 01:00; Stop 06/04/18 at 01:14; Status DC Vancomycin HCl 2 gm/Sodium Chloride 500 ml @ 250 mls/hr Q12H IV Last administered on 06/05/18at 01:09; Start 06/04/18 at 13:00; Stop 06/05/18 at 12:34 ; Status DC Vancomycin HCl (Vancomycin Trough Level) 1 each 1X ONCE MC Last administered on 06/05/18at 11:53; Start 06/05/18 at 12:30; Stop 06/05/18 at 12:31; Status DC Micafungin Sodium 100 mg/Dextrose 100 ml @ 100 mls/hr Q24H IV Last administered on 06/06/18at 11:17; Start 06/04/18 at 08:00; Stop 06/07/18 at 07:23 ; Status DC Lidocaine/Sodium Bicarbonate (Buffered Lidocaine 1%) 3 ml STK-MED ONCE .ROUTE ; Start 06/04/18 at 08:05; Stop 06/04/18 at 08:06; Status DC Sodium Bicarbonate (Sodium Bicarb Adult 8.4% Syr) 50 meq 1X ONCE IV Last administered on 06/04/18at 09:34; Start 06/04/18 at 09:15; Stop 06/04/18 at 09:16; Status DC Sodium Bicarbonate (Sodium Bicarb Adult 8.4% Syr) 50 meq 1X ONCE IV Last administered on 06/04/18at 09:34; Start 06/04/18 at 09:15; Stop 06/04/18 at 09:16; Status DC Lidocaine/Sodium Bicarbonate (Buffered Lidocaine 1%) 3 ml 1X ONCE INJ Last administered on 06/04/18at 09:15; Start 06/04/18 at 09:15; Stop 06/04/18 at 09:16; Status DC Magnesium Sulfate/ Dextrose 100 ml @ 25 mls/hr 1X ONCE IV Last administered on 06/04/18at 10:41; Start 06/04/18 at 11:00; Stop 06/04/18 at 14:59; Status DC Info (Anti-Coagulation Monitoring By Pharmacy) 1 each PRN DAILY PRN MC SEE COMMENTS Last administered on 06/06/18at 14:45; Start 06/04/18 at 11:15 Pantoprazole Sodium (PROTONIX VIAL for IV PUSH) 40 mg DAILYAC IVP Last administered on 06/07/18at 07:54; Start 06/04/18 at 14:00 Insulin Human Lispro (HumaLOG) 0-7 UNITS TIDWMEALS SQ Last administered on at 17:12; Start 06/04/18 at 14:00; Stop 06/05/18 at 00:02; Status DC Dextrose (Dextrose 50%-Water Syringe) 12.5 gm PRN Q15MIN PRN IV SEE COMMENTS; Start 06/04/18 at 13:15 Sodium Chloride 1,000 ml @ 100 mls/hr Q10H IV Last administered on 06/07/18at 10:53; Start 06/04/18 at 21:30 Insulin Human Lispro (HumaLOG) 0-7 UNITS Q6HRS SQ Last administered on at 06:45; Start 06/05/18 at 00:00; Stop 06/05/18 at 09:20; Status DC Chlorhexidine Gluconate (Peridex) 15 ml BID MM Last administered on 06/07/18at 08:26; Start 06/05/18 at 09:00 Insulin Human Lispro (HumaLOG) 0-9 UNITS TIDWMEALS SQ Last administered on 06/06at 17:51; Start 06/05/18 at 12:00; Stop 06/07/18 at 08:11; Status DC Dextrose (Dextrose 50%-Water Syringe) 12.5 gm PRN Q15MIN PRN IV SEE COMMENTS; Start 06/05/18 at 09:30; Status UNV Acetaminophen (Tylenol) 650 mg PRN Q6HRS PRN PEG MILD PAIN / TEMP Last administered on 06/07/18at 13:07; Start 06/05/18 at 11:30 Vancomycin HCl (Vancomycin Random Level) 1 each 1X ONCE MC Last administered on 06/06/18at 05:00; Start 06/06/18 at 05:00; Stop 06/06/18 at 05:01; Status DC Info (Tpn Per Pharmacy) 1 each PRN DAILY PRN MC SEE COMMENTS Last administered on 06/06/18at 14:29; Start 06/05/18 at 13:30 Sodium Acetate 90 meq/Potassium Chloride 50 meq/ Potassium Phosphate 13.6 mmol/ Magnesium Sulfate 10 meq/ Multivitamins 10 ml/Chromium/ Copper/Manganese/ Seleni /Zn 1 ml/ Total Parenteral Nutrition/Amino Acids/Dextrose/ Fat Emulsion Intravenous 1,512 ml @ 63 mls/hr TPN CONT IV Last administered on 06/05/18at 22:54; Start 06/05/18 at 22:00; Stop 06/06/18 at 21:59; Status DC Hydralazine HCl (Apresoline Inj) 10 mg PRN Q4HRS PRN IVP ELEVATED BP, SEE COMMENTS Last administered on 06/07/18at 09:26; Start 06/05/18 at 14:45 Magnesium Sulfate/ Dextrose (Magnesium Sulfate PREMIX 1GM) 1 gm STK-MED ONCE IV ; Start 06/03/18 at 17:28; Stop 06/05/18 at 17:28; Status DC Amiodarone HCl (Cordarone) 300 mg STK-MED ONCE .ROUTE ; Start 06/03/18 at 17:28; Stop 06/05/18 at 17:28; Status DC Calcium Gluconate 2000 mg/Dextrose 120 ml @ 240 mls/hr 1X ONCE IV Last administered on 06/06/18at 10:01; Start 06/06/18 at 09:00; Stop 06/06/18 at 09:29 ; Status DC Sodium Acetate 90 meq/Potassium Chloride 50 meq/ Potassium Phosphate 13.6 mmol/ Magnesium Sulfate 10 meq/ Multivitamins 10 ml/Chromium/ Copper/Manganese/ Seleni /Zn 1 ml/ Total Parenteral Nutrition/Amino Acids/Dextrose/ Fat Emulsion Intravenous 1,512 ml @ 63 mls/hr TPN CONT IV Last administered on 06/07/18at 00:25; Start 06/06/18 at 22:00; Stop 06/07/18 at 21:59 Cefepime HCl 2 gm/ Dextrose 100 ml @ 200 mls/hr Q8HRS IV ; Start 06/07/18 at 07 :30; Status UNV Metronidazole (Flagyl) 500 mg Q8HRS PO Last administered on 06/07/18at 08:26; Start 06/07/18 at 07:30 Vancomycin HCl (Vanco Per Pharmacy) 1 each PRN DAILY PRN MC SEE COMMENTS Last administered on 06/07/18at 08:04; Start 06/07/18 at 07:30 Cefepime HCl (Maxipime) 2 gm Q8HRS IVP Last administered on 06/07/18at 08:26; Start 06/07/18 at 08:00 Vancomycin HCl 2 gm/Sodium Chloride 500 ml @ 250 mls/hr Q24H IV Last administered on 06/07/18at 08:56; Start 06/07/18 at 08:00 Vancomycin HCl (Vancomycin Trough Level) 1 each 1X ONCE MC ; Start 06/09/18 at 07:30; Stop 06/09/18 at 07:31 Insulin Human Lispro (HumaLOG) 0-9 UNITS Q6HRS SQ Last administered on at 12:18; Start 06/07/18 at 12:00 Insulin Glargine (Lantus) 15 units DAILY SQ Last administered on 06/07/18at 10: 55; Start 06/07/18 at 09:30 Nitroglycerin/ Dextrose 250 ml @ 1.5 mls/hr CONT PRN IV SEE I/O RECORD Last administered on 06/07/18at 11:03; Start 06/07/18 at 10:45 Amiodarone HCl 900 mg/Dextrose 518 ml @ 0 mls/hr CONT PRN IV SEE I/O RECORD Last administered on 06/07/18at 11:08; Start 06/07/18 at 11:00; Stop 06/07/18 at 11:08; Status DC Vecuronium Sparks (Norcuron Bolus) 10 mg PRN Q2HRS PRN IV TREMORS Last administered on 06/07/18at 13:06; Start 06/07/18 at 12:45 Active Scripts Active Reported Carvedilol 6.25 Mg Tablet 1 Tab PO BID 90 Days Zoloft (Sertraline Hcl) 100 Mg Tablet 1.5 Tab PO DAILY 90 Days Dyazide 37.5-25 Capsule (Triamterene/Hydrochlorothiazid) 1 Each Capsule 1 Cap PO DAILY Fluconazole 100 Mg Tablet 1 Tab PO DAILY Clonazepam 0.5 Mg Tablet 1 Tab PO PRN TID PRN Acamprosate Calcium 333 Mg Tablet. 2 Tab PO TID Vitals/I & O Vital Sign - Last 24 Hours 06/06/18 06/06/18 06/06/18 06/06/18 14:48 15:00 16:00 16:00 Temp 99.3 99.3 Pulse 84 86 Resp 18 18 B/P (MAP) 163/92 (115) 115/72 (86) Pulse Ox 60 96 96 O2 Delivery Ventilator Ventilator Mechanical Ventilator Ventilator 06/06/18 06/06/18 06/06/18 06/06/18 17:00 17:08 18:00 19:00 Pulse 88 86 84 Resp 18 18 18 B/P (MAP) 126/69 (88) 118/60 (79) 125/68 (87) Pulse Ox 96 60 97 97 O2 Delivery Ventilator Ventilator Ventilator Ventilator 06/06/18 06/06/18 06/06/18 06/06/18 19:56 20:00 20:00 21:00 Temp 98.5 98.5 Pulse 86 88 Resp 18 18 B/P (MAP) 155/61 (92) 140/60 (86) Pulse Ox 60 97 96 O2 Delivery Ventilator Mechanical Ventilator Ventilator Ventilator 06/06/18 06/06/18 06/06/18 06/06/18 22:00 23:00 23:38 23:59 Pulse 92 100 Resp 18 18 B/P (MAP) 144/62 (89) 143/79 (100) Pulse Ox 97 97 60 O2 Delivery Ventilator Ventilator Ventilator Mechanical Ventilator 06/06/18 06/07/18 06/07/18 06/07/18 23:59 01:00 02:00 02:37 Temp 99.2 99.2 Pulse 95 92 96 Resp 18 18 18 B/P (MAP) 154/86 (108) 130/67 (88) 165/79 (107) Pulse Ox 96 96 97 60 O2 Delivery Ventilator Ventilator Ventilator Ventilator 06/07/18 06/07/18 06/07/18 06/07/18 03:16 03:25 04:00 04:00 Temp 99.0 99.0 Pulse 96 84 Resp 18 18 B/P (MAP) 160/106 (124) 167/80 (109) Pulse Ox 97 60 94 O2 Delivery Ventilator Ventilator Mechanical Ventilator Ventilator 06/07/18 06/07/18 06/07/18 06/07/18 05:00 05:19 05:33 05:59 Temp 101.0 101.0 Pulse 103 99 115 Resp 18 18 B/P (MAP) 140/86 (104) 211/104 193/96 (128) Pulse Ox 97 60 94 O2 Delivery Ventilator Ventilator Ventilator 06/07/18 06/07/18 06/07/18 06/07/18 06:54 07:00 08:00 08:00 Pulse 103 123 Resp 18 18 B/P (MAP) 189/84 (119) 237/118 (157) Pulse Ox 60 94 94 O2 Delivery Ventilator Ventilator Mechanical Ventilator Ventilator 06/07/18 06/07/18 06/07/18 06/07/18 09:00 09:07 09:26 09:27 Pulse 108 115 Resp 18 18 B/P (MAP) 235/104 (147) 135/119 Pulse Ox 95 50 50 O2 Delivery Ventilator Ventilator Ventilator 06/07/18 06/07/18 06/07/18 06/07/18 09:57 10:00 11:08 11:09 Pulse 106 111 Resp 18 18 B/P (MAP) 235/130 (165) 223/141 (168) Pulse Ox 93 95 50 94 O2 Delivery Ventilator Ventilator Ventilator 06/07/18 06/07/18 06/07/18 06/07/18 12:00 12:03 12:55 13:07 Temp 102.1 102.1 Pulse 114 112 Resp 18 18 B/P (MAP) 165/109 (127) 202/78 (119) Pulse Ox 93 50 95 O2 Delivery Mechanical Ventilator Ventilator Ventilator Ventilator Intake and Output 06/06/18 06/06/18 06/07/18 15:00 23:00 07:00 Intake Total 255 ml 3070.51 ml 2301.7 ml Output Total 280 ml 300 ml 290 ml Balance -25 ml 2770.51 ml 2011.7 ml MARIE BLANK MD Jun 07, 2018 14:10
[2018-06-07] MEDS: TPN PER PHARMACY MC PRN (14:32)
[2018-06-07 15:59] LABS: BASE EXCESS ABG -6 mmol/L (-3-3); HCO3 ABG 20 mmol/L (21-28); PO2 ABG 75 mmHg (75-108); SAT O2 ABG 94 % (92-99)
[2018-06-07 16:02] LABS: PCO2 ABG 41 mmHg (35-46)
[2018-06-07] MEDS ORDERED: TOTAL PARENTERAL NUTRITION IV SCH ×9 (22:00)
[2018-06-07] MEDS ORDERED: AMINO ACIDS IV SCH ×9 (22:00)
[2018-06-07] MEDS ORDERED: DEXTROSE 70% IV SCH ×9 (22:00)
[2018-06-07] MEDS ORDERED: [UNRECOGNIZED DRUG - OTHER] IV SCH ×9 (22:00)
[2018-06-08] VITALS (11 sets, daily range): BP systolic 113–185; BP diastolic 64–104
[2018-06-08] MEDS: VECURONIUM BOLUS 10 MG VIAL. IV PRN ×3 (00:52→08:56)
[2018-06-08] MEDS: HEPARIN 25,000UTS/500ML PREMIX 500 ML IV PRN (04:29)
[2018-06-08] MEDS: NITROGLYCERIN PREMIX 250 ML IV PRN ×2 (04:30→10:04)
[2018-06-08] MEDS: IV NORMAL SALINE 1000ML BAG 1,000 ML IV SCH (04:30)
[2018-06-08] MEDS: CEFEPIME HCL IV Push 2 GM VIAL. IVP SCH (05:02)
[2018-06-08] MEDS: metroNIDAZOLE 500 MG TABLET PO SCH (05:02)
[2018-06-08] MEDS: INSULIN LISPRO 300 UNITS/3 ML INSULN.PEN. SQ SCH (05:06)
[2018-06-08] MEDS: hydrALAZINE 20 MG/ML VIAL. IVP PRN (05:46)
[2018-06-08 06:21] LABS: CALCIUM 7.3 mg/dL (8.5-10.1); CREATININE 1.2 mg/dL (0.7-1.3); GFR 62.2; PHOSPHORUS 2.8 mg/dL (2.6-4.7); POTASSIUM 4.2 mmol/L (3.5-5.1)
[2018-06-08 06:27] LABS: BASO # 0.1 x10^3/uL (0.0-0.2); BASO % 0 % (0-3); EOS % 0 % (0-3); HEMATOCRIT 41.5 % (39.0-53.0); HEMOGLOBIN 13.8 g/dL (13.0-17.5); LYMPH # 1.4 x10^3/uL (1.0-4.8); LYMPH % 9 % (24-48); MEAN CORPUSCULAR HEMOGLOBIN 31 pg (25-35); MEAN CORPUSCULAR HGB CONC 33 g/dL (31-37); MEAN CORPUSCULAR VOLUME 92 fL (79-100); MONO # 1.6 x10^3/uL (0.0-1.1); MONO % 10 % (0-9); NEUT # 12.1 x10^3uL (1.8-7.7); NEUT % 80 % (31-73); PLATELET COUNT 207 x10^3/uL (140-400); RED BLOOD COUNT 4.51 x10^6/uL (4.30-5.70); RED CELL DISTRIBUTION WIDTH 13.6 % (11.5-14.5); WHITE BLOOD COUNT 15.1 x10^3/uL (4.0-11.0)
--- NOTE | 2018-06-08 07:56 | PDOC ---
Infectious Disease Note Subjective Subjective Intubated/Sedated ROS ROS unable to do Vital Sign Vital Signs Vital Signs Date Time Temp Pulse Resp B/P (MAP) Pulse Ox O2 Delivery O2 Flow Rate FiO2 06/08/18 06:00 95 20 145/83 (103) 96 Ventilator 06/08/18 05:00 99.2 99.2 Physical Exam PHYSICAL EXAM CONSTITUTIONAL: He is intubated and sedated. HEENT: Pupils are equal - reactive. He has normal conjunctivae. NECK: Supple, no JVD. LUNGS: Decreased in the bases. HEART: S1, S2. ABDOMEN: Morbidly obese, soft, no guarding, no apparent complications. : Bermudez is in place. EXTREMITIES: Without clubbing or cyanosis. No gross edema. SKIN: Skin without generalized signs of rash, although he does have some yeast in the groin area.- better NEUROLOGIC: He is sedated. RIJ and peripheral IV Labs Lab Laboratory Tests Test 06/07/18 12:13 06/07/18 13:31 06/07/18 15:56 06/07/18 18:09 Glucose (Fingerstick) 256 mg/dL (70-99) 250 mg/dL (70-99) Heparin Anti-Xa Act, Unfractionated 0.24 IU/mL (0.30-0.70) O2 Saturation 94 % (92-99) Arterial Blood pH 7.30 (7.35-7.45) Arterial Blood pCO2 at Patient Temp 41 mmHg (35-46) Arterial Blood pO2 at Patient Temp 75 mmHg (75-108) Arterial Blood HCO3 20 mmol/L (21-28) Arterial Blood Base Excess -6 mmol/L (-3-3) FiO2 50% vent Test 06/07/18 23:48 06/08/18 05:04 06/08/18 05:50 06/08/18 05:52 Glucose (Fingerstick) 250 mg/dL (70-99) 237 mg/dL (70-99) Heparin Anti-Xa Act, Unfractionated 0.35 IU/mL (0.30-0.70) White Blood Count 15.1 x10^3/uL (4.0-11.0) Red Blood Count 4.51 x10^6/uL (4.30-5.70) Hemoglobin 13.8 g/dL (13.0-17.5) Hematocrit 41.5 % (39.0-53.0) Mean Corpuscular Volume 92 fL (79-100) Mean Corpuscular Hemoglobin 31 pg (25-35) Mean Corpuscular Hemoglobin Concent 33 g/dL (31-37) Red Cell Distribution Width 13.6 % (11.5-14.5) Platelet Count 207 x10^3/uL (140-400) Neutrophils (%) (Auto) 80 % (31-73) Lymphocytes (%) (Auto) 9 % (24-48) Monocytes (%) (Auto) 10 % (0-9) Eosinophils (%) (Auto) 0 % (0-3) Basophils (%) (Auto) 0 % (0-3) Neutrophils # (Auto) 12.1 x10^3uL (1.8-7.7) Lymphocytes # (Auto) 1.4 x10^3/uL (1.0-4.8) Monocytes # (Auto) 1.6 x10^3/uL (0.0-1.1) Eosinophils # (Auto) 0.0 x10^3/uL (0.0-0.7) Basophils # (Auto) 0.1 x10^3/uL (0.0-0.2) Sodium Level 141 mmol/L (136-145) Potassium Level 4.2 mmol/L (3.5-5.1) Chloride Level 109 mmol/L (98-107) Carbon Dioxide Level 23 mmol/L (21-32) Anion Gap 9 (6-14) Blood Urea Nitrogen 22 mg/dL (8-26) Creatinine 1.2 mg/dL (0.7-1.3) Estimated GFR (Cockcroft-Gault) 62.2 Glucose Level 270 mg/dL (70-99) Calcium Level 7.3 mg/dL (8.5-10.1) Phosphorus Level 2.8 mg/dL (2.6-4.7) Magnesium Level 2.0 mg/dL (1.8-2.4) Micro Microbiology 06/05/18 - Final, Complete Objective Assessment Fever - ? reactive vs infection s/p Arrest and hypothermia protocol - now off, anoxic brain injury Resp failure on Vent - S/p Bronch 06/05- findings c/w aspiration- MRSA screen neg Leukocytosis - increased today Distended GB on CT scan - U/S neg DWAIN - increasing today ETOH abuse Anterior Rib fractures 4 through 7 Yeast skin infection. ? Systemic yeast on some med per primary - improved Morbid obesity Seizure activity Plan Plan of Care Cultures blood and urine/sputum Cefepime/Flagyl/ d/c Vanc F/u labs/cults Procalcitonin this am Critically ill prognosis poor CHARLINE PUCKETT MD Jun 08, 2018 07:56
[2018-06-08] MEDS: ANTI-COAG MONITOR BY PHARMACY. MC PRN (08:22)
[2018-06-08 08:42] LABS: BASE EXCESS ABG -6 mmol/L (-3-3); HCO3 ABG 22 mmol/L (21-28); PCO2 ABG 54 mmHg (35-46); PO2 ABG 77 mmHg (75-108); SAT O2 ABG 93 % (92-99)
[2018-06-08 08:45] LABS: FIO2 ABG 50
--- NOTE | 2018-06-08 08:57 | RAD ---
EXAM:PORTABLE CHEST 1V DATE: 06/08/2018 6:39 AM CLINICAL INDICATION: RESPIRATORY FAILURE COMPARISON: 06/07/2018, 1118 FINDINGS: ET tube tip terminates approximately 6 cm above the leanna. Right IJ vascular catheter tip projects over the distal SVC/cavoatrial junction. Enteric tube extends the diaphragm the tip is not visualized. Stable cardiomegaly. Mediastinal and hilar contours are stable. Perihilar parenchymal opacities (right greater than left) are stable. Suspect trace bilateral pleural effusions. No pneumothorax. IMPRESSION: 1. Essentially stable examination. Support lines and tubes are also stable. Electronically signed by: John Mendoza MD (06/08/2018 8:53 AM) [facility]
[2018-06-08] MEDS: levETIRAcetam 500 MG in IV DEXTROSE 5% 100ML 100 ML IV SCH (10:01)
[2018-06-08] MEDS: PANTOPRAZOLE IV PUSH 40 MG VIAL. IVP SCH (10:26)
[2018-06-08] MEDS: CHLORHEXIDINE 0.12% 15 ML MOUTHWASH. MM SCH (10:26)
--- NOTE | 2018-06-08 10:51 | PDOC ---
PULMONARY PROGRESS NOTES Subjective intubated/not sedated PC mode Vitals Vital Signs Date Time Temp Pulse Resp B/P (MAP) Pulse Ox O2 Delivery O2 Flow Rate FiO2 06/08/18 10:00 94 20 164/81 (108) 96 Ventilator 06/08/18 08:00 99.9 99.9 Comments ros as mentioned as above discussed w rn, other sys otherwise neg on vent sedated HEENT: Other (nc at, perrl, nose clear, orally intubated... neck no lad, thyromegaly) Lungs: Other (bl decreased bs) Cardiovascular: S1, S2 Abdomen: Soft, Non-tender, Other (obese, no mass) Extremities: Other (1+edema) Skin: Warm Labs Laboratory Tests Test 06/06/18 13:42 06/06/18 17:48 06/07/18 06:30 06/07/18 07:00 Glucose (Fingerstick) 200 mg/dL (70-99) 205 mg/dL (70-99) White Blood Count 14.0 x10^3/uL (4.0-11.0) Red Blood Count 4.55 x10^6/uL (4.30-5.70) Hemoglobin 14.1 g/dL (13.0-17.5) Hematocrit 41.6 % (39.0-53.0) Mean Corpuscular Volume 91 fL (79-100) Mean Corpuscular Hemoglobin 31 pg (25-35) Mean Corpuscular Hemoglobin Concent 34 g/dL (31-37) Red Cell Distribution Width 13.7 % (11.5-14.5) Platelet Count 182 x10^3/uL (140-400) Neutrophils (%) (Auto) 68 % (31-73) Lymphocytes (%) (Auto) 22 % (24-48) Monocytes (%) (Auto) 8 % (0-9) Eosinophils (%) (Auto) 1 % (0-3) Basophils (%) (Auto) 1 % (0-3) Neutrophils # (Auto) 9.6 x10^3uL (1.8-7.7) Lymphocytes # (Auto) 3.0 x10^3/uL (1.0-4.8) Monocytes # (Auto) 1.1 x10^3/uL (0.0-1.1) Eosinophils # (Auto) 0.1 x10^3/uL (0.0-0.7) Basophils # (Auto) 0.2 x10^3/uL (0.0-0.2) Heparin Anti-Xa Act, Unfractionated < 0.10 IU/mL (0.30-0.70) Sodium Level 137 mmol/L (136-145) Potassium Level 3.8 mmol/L (3.5-5.1) Chloride Level 107 mmol/L (98-107) Carbon Dioxide Level 21 mmol/L (21-32) Anion Gap 9 (6-14) Blood Urea Nitrogen 22 mg/dL (8-26) Creatinine 1.3 mg/dL (0.7-1.3) Estimated GFR (Cockcroft-Gault) 56.7 Glucose Level 206 mg/dL (70-99) Calcium Level 7.4 mg/dL (8.5-10.1) Phosphorus Level 3.1 mg/dL (2.6-4.7) Magnesium Level 1.9 mg/dL (1.8-2.4) Procalcitonin 0.34 ng/mL (0.00-0.10) O2 Saturation 96 % (92-99) Arterial Blood pH 7.35 (7.35-7.45) Arterial Blood pCO2 at Patient Temp 39 mmHg (35-46) Arterial Blood pO2 at Patient Temp 85 mmHg (75-108) Arterial Blood HCO3 21 mmol/L (21-28) Arterial Blood Base Excess -4 mmol/L (-3-3) FiO2 60% vent Test 06/07/18 12:13 06/07/18 13:31 06/07/18 15:56 06/07/18 18:09 Glucose (Fingerstick) 256 mg/dL (70-99) 250 mg/dL (70-99) Heparin Anti-Xa Act, Unfractionated 0.24 IU/mL (0.30-0.70) O2 Saturation 94 % (92-99) Arterial Blood pH 7.30 (7.35-7.45) Arterial Blood pCO2 at Patient Temp 41 mmHg (35-46) Arterial Blood pO2 at Patient Temp 75 mmHg (75-108) Arterial Blood HCO3 20 mmol/L (21-28) Arterial Blood Base Excess -6 mmol/L (-3-3) FiO2 50% vent Test 06/07/18 23:48 06/08/18 05:04 06/08/18 05:50 06/08/18 05:52 Glucose (Fingerstick) 250 mg/dL (70-99) 237 mg/dL (70-99) Heparin Anti-Xa Act, Unfractionated 0.35 IU/mL (0.30-0.70) White Blood Count 15.1 x10^3/uL (4.0-11.0) Red Blood Count 4.51 x10^6/uL (4.30-5.70) Hemoglobin 13.8 g/dL (13.0-17.5) Hematocrit 41.5 % (39.0-53.0) Mean Corpuscular Volume 92 fL (79-100) Mean Corpuscular Hemoglobin 31 pg (25-35) Mean Corpuscular Hemoglobin Concent 33 g/dL (31-37) Red Cell Distribution Width 13.6 % (11.5-14.5) Platelet Count 207 x10^3/uL (140-400) Neutrophils (%) (Auto) 80 % (31-73) Lymphocytes (%) (Auto) 9 % (24-48) Monocytes (%) (Auto) 10 % (0-9) Eosinophils (%) (Auto) 0 % (0-3) Basophils (%) (Auto) 0 % (0-3) Neutrophils # (Auto) 12.1 x10^3uL (1.8-7.7) Lymphocytes # (Auto) 1.4 x10^3/uL (1.0-4.8) Monocytes # (Auto) 1.6 x10^3/uL (0.0-1.1) Eosinophils # (Auto) 0.0 x10^3/uL (0.0-0.7) Basophils # (Auto) 0.1 x10^3/uL (0.0-0.2) Sodium Level 141 mmol/L (136-145) Potassium Level 4.2 mmol/L (3.5-5.1) Chloride Level 109 mmol/L (98-107) Carbon Dioxide Level 23 mmol/L (21-32) Anion Gap 9 (6-14) Blood Urea Nitrogen 22 mg/dL (8-26) Creatinine 1.2 mg/dL (0.7-1.3) Estimated GFR (Cockcroft-Gault) 62.2 Glucose Level 270 mg/dL (70-99) Calcium Level 7.3 mg/dL (8.5-10.1) Phosphorus Level 2.8 mg/dL (2.6-4.7) Magnesium Level 2.0 mg/dL (1.8-2.4) Test 06/08/18 08:10 O2 Saturation 93 % (92-99) Arterial Blood pH 7.23 (7.35-7.45) Arterial Blood pCO2 at Patient Temp 54 mmHg (35-46) Arterial Blood pO2 at Patient Temp 77 mmHg (75-108) Arterial Blood HCO3 22 mmol/L (21-28) Arterial Blood Base Excess -6 mmol/L (-3-3) FiO2 50 Laboratory Tests Test 06/07/18 12:13 06/07/18 13:31 06/07/18 15:56 06/07/18 18:09 Glucose (Fingerstick) 256 mg/dL (70-99) 250 mg/dL (70-99) Heparin Anti-Xa Act, Unfractionated 0.24 IU/mL (0.30-0.70) O2 Saturation 94 % (92-99) Arterial Blood pH 7.30 (7.35-7.45) Arterial Blood pCO2 at Patient Temp 41 mmHg (35-46) Arterial Blood pO2 at Patient Temp 75 mmHg (75-108) Arterial Blood HCO3 20 mmol/L (21-28) Arterial Blood Base Excess -6 mmol/L (-3-3) FiO2 50% vent Test 06/07/18 23:48 06/08/18 05:04 06/08/18 05:50 06/08/18 05:52 Glucose (Fingerstick) 250 mg/dL (70-99) 237 mg/dL (70-99) Heparin Anti-Xa Act, Unfractionated 0.35 IU/mL (0.30-0.70) White Blood Count 15.1 x10^3/uL (4.0-11.0) Red Blood Count 4.51 x10^6/uL (4.30-5.70) Hemoglobin 13.8 g/dL (13.0-17.5) Hematocrit 41.5 % (39.0-53.0) Mean Corpuscular Volume 92 fL (79-100) Mean Corpuscular Hemoglobin 31 pg (25-35) Mean Corpuscular Hemoglobin Concent 33 g/dL (31-37) Red Cell Distribution Width 13.6 % (11.5-14.5) Platelet Count 207 x10^3/uL (140-400) Neutrophils (%) (Auto) 80 % (31-73) Lymphocytes (%) (Auto) 9 % (24-48) Monocytes (%) (Auto) 10 % (0-9) Eosinophils (%) (Auto) 0 % (0-3) Basophils (%) (Auto) 0 % (0-3) Neutrophils # (Auto) 12.1 x10^3uL (1.8-7.7) Lymphocytes # (Auto) 1.4 x10^3/uL (1.0-4.8) Monocytes # (Auto) 1.6 x10^3/uL (0.0-1.1) Eosinophils # (Auto) 0.0 x10^3/uL (0.0-0.7) Basophils # (Auto) 0.1 x10^3/uL (0.0-0.2) Sodium Level 141 mmol/L (136-145) Potassium Level 4.2 mmol/L (3.5-5.1) Chloride Level 109 mmol/L (98-107) Carbon Dioxide Level 23 mmol/L (21-32) Anion Gap 9 (6-14) Blood Urea Nitrogen 22 mg/dL (8-26) Creatinine 1.2 mg/dL (0.7-1.3) Estimated GFR (Cockcroft-Gault) 62.2 Glucose Level 270 mg/dL (70-99) Calcium Level 7.3 mg/dL (8.5-10.1) Phosphorus Level 2.8 mg/dL (2.6-4.7) Magnesium Level 2.0 mg/dL (1.8-2.4) Test 06/08/18 08:10 O2 Saturation 93 % (92-99) Arterial Blood pH 7.23 (7.35-7.45) Arterial Blood pCO2 at Patient Temp 54 mmHg (35-46) Arterial Blood pO2 at Patient Temp 77 mmHg (75-108) Arterial Blood HCO3 22 mmol/L (21-28) Arterial Blood Base Excess -6 mmol/L (-3-3) FiO2 50 Medications Active Scripts Medications Dose Route/Sig Max Daily Dose Days Date Category Carvedilol 6.25 Mg Tablet 1 Tab PO BID 90 06/04/18 Reported Zoloft (Sertraline Hcl) 100 Mg Tablet 1.5 Tab PO DAILY 90 06/04/18 Reported Dyazide 37.5-25 Capsule (Triamterene/Hydrochlorothiazid) 1 Each Capsule 1 Cap PO DAILY 06/04/18 Reported Fluconazole 100 Mg Tablet 1 Tab PO DAILY 06/04/18 Reported Clonazepam 0.5 Mg Tablet 1 Tab PO PRN TID PRN 06/04/18 Reported Acamprosate Calcium 333 Mg Tablet.dr 2 Tab PO TID 06/04/18 Reported Comments CXR reviewed, 06/08 stable Impression . 1. Acute hypoxic respiratory failure secondary to cardiac arrest. 2. Status post ventricular tachycardia with cardiac arrest. 3. Severe hypoxia, likely related to aspiration pneumonia and adult respiratory distress syndrome/acute lung injury, atelectasis. 4. Abnormal chest x-ray with right upper lobe opacification, s/p bronch., resolved 5. Leukocytosis, suspected aspiration. 6. Abnormal LFTs secondary to hypoperfusion. 7. Increased troponin. Suspect non-ST elevation myocardial infarction. 8. No significant history of tobacco use. 9. CMP EF 30-35% 10. anoxic encephalopathy/ possible brain Plan . 1. Change to AC mode, increase rate. follow ABG 2. abg reviewed. 3. RUL atelectasis, s/p bronch, fu cxs, resolved atelectasis 4. s/p hypothermia protocol 5. neuro following. follow EEG results 6. abx changed, to cefepime, flagyl, vanc, fu cxs 7. Follow Cardiology recommendation regarding the need for cardiac catheterization. 9. protonix for stress ulcer prophylaxis 10. Deep venous thrombosis prophylaxis. d/w entire family. suspect brain . await 24 hrs off sedation, follow EEG results. consider with drawl in 24 hrs cct 30 min JR CHOI MD Jun 08, 2018 10:51
[2018-06-08] MEDS ORDERED: SODIUM BICARB ADULT 8.4% 50 MEQ/50 ML DISP.SYRIN. IV ONE (11:00)
--- NOTE | 2018-06-08 12:27 | PDOC ---
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 15:11 Pulse 112 99 99 Resp 18 18 18 B/P (MAP) 202/78 (119) 179/63 (101) 159/84 (109) Pulse Ox 50 95 94 94 O2 Delivery Ventilator Ventilator Ventilator Ventilator 06/07/18 06/07/18 06/07/18 06/07/18 15:45 15:46 16:00 16:44 Temp 100.1 100.1 Pulse 98 Resp 18 B/P (MAP) 169/91 (117) Pulse Ox 92 94 95 O2 Delivery Mechanical Ventilator Ventilator Ventilator Ventilator 06/07/18 06/07/18 06/07/18 06/07/18 17:00 18:04 19:00 20:00 Pulse 93 98 110 Resp 18 20 20 B/P (MAP) 164/82 (109) 165/90 (115) 153/119 (130) Pulse Ox 96 94 95 O2 Delivery Ventilator Ventilator Ventilator Mechanical Ventilator 06/07/18 06/07/18 06/07/18 06/07/18 20:00 20:04 21:00 22:00 Temp 99.5 99.5 Pulse 111 111 110 Resp 20 20 20 B/P (MAP) 158/60 (92) 180/103 (128) 188/98 (128) Pulse Ox 94 93 95 95 O2 Delivery Ventilator Ventilator Ventilator Ventilator 06/07/18 06/07/18 06/07/18 06/07/18 23:00 23:45 23:59 23:59 Pulse 106 101 Resp 20 20 B/P (MAP) 160/110 (127) 161/113 (129) Pulse Ox 95 95 95 O2 Delivery Ventilator Ventilator Ventilator Mechanical Ventilator 06/08/18 06/08/18 06/08/18 06/08/18 01:00 01:22 02:00 03:00 Temp 99.1 99.1 Pulse 101 94 102 Resp 20 20 20 B/P (MAP) 168/77 (107) 174/85 (114) 168/71 (103) Pulse Ox 95 95 97 96 O2 Delivery Ventilator Ventilator Ventilator Ventilator 06/08/18 06/08/18 06/08/18 06/08/18 03:47 04:00 04:00 05:00 Temp 99.2 99.2 Pulse 102 102 Resp 20 20 B/P (MAP) 159/104 (122) 185/93 (123) Pulse Ox 95 97 97 O2 Delivery Ventilator Mechanical Ventilator Ventilator Ventilator 06/08/18 06/08/18 06/08/18 06/08/18 05:45 05:46 06:00 07:00 Pulse 96 95 86 Resp 20 20 B/P (MAP) 184/81 145/83 (103) 113/72 (86) Pulse Ox 95 96 95 O2 Delivery Ventilator Ventilator Ventilator 06/08/18 06/08/18 06/08/1806/08/18 08:00 08:00 08:10 09:00 Temp 99.9 99.9 Pulse 86 96 Resp 20 20 B/P (MAP) 122/64 (83) 148/86 (106) Pulse Ox 95 95 96 O2 Delivery Mechanical Ventilator Ventilator Ventilator Ventilator 06/08/18 06/08/18 10:00 11:00 Pulse 94 96 Resp 20 20 B/P (MAP) 164/81 (108) 118/72 (87) Pulse Ox 96 96 O2 Delivery Ventilator Ventilator Intake and Output 06/07/18 06/07/18 06/08/18 15:00 23:00 07:00 Intake Total 3230.42 ml 2234.86 ml Output Total 660 ml 835 ml 710 ml Balance -660 ml 2395.42 ml 1524.86 ml CANDIS LEON III DO Jun 08, 2018 12:27
[2018-06-08] MEDS: MORPHINE SULFATE 10 MG/ML VIAL. IV PRN ×2 (12:33→12:56)
--- NOTE | 2018-06-08 13:32 | PDOC2 ---
PALLIATIVE CARE Palliative Care Note Palliative Care Met with family along with Dr. Marie. Medical information provided by Dr. Marie [id number] Per Savita HORNER, Sarah here. Decision made by to stop aggressive care and allow patient to naturally. Met with Sarah, and patient's sons, daughters,x- and grandchildren. Children would like results of EEG but are in agreement to stop aggressive care prior to having this information. Continues to seizure like activity. Patient declining with oxygen sats dropping to 60's prior to extubation. ET tube removed at 1301. Patient with few agonal respirations. No heart beat and no respirations at 1304. Children at bedside. EDNA ROSS Jun 08, 2018 13:32
--- NOTE | 2018-06-08 15:01 | PDOC ---
PROGRESS NOTES Assessment Assessment IMPRESSION: Anoxic/hypoxic encephalopathy. Metabolic encephalopathy. Toxic encephalopathy. S/p cardiac arrest, VT, VFib, PEA, downtime about 25-30 minutes. Respiratory failure/arrest. Myoclonus, status. Alcohol intoxication, level > 55 hours after. Alcoholism. Leukocytosis. Hypertensive emergency, SBP > 200 mmHg. HTN. ANGIE. Obesity. RECOMMENDATIONS/PLAN: Family withdrew care. Past Medical History Cardiovascular: HTN Pulmonary: Other (sleep apnea) Psych: Anxiety, Depression Past Surgical History Past Surgical History: Hernia Repair Family History Family History: CAD Social History Alcohol use/abuse. ALLERGY: Reviewed. MEDICATIONS: Refer to [facility] REVIEW OF SYSTEMS: Constitutional: Obesity. Head: No acute traumatic brain or head injury. Skin: No edema, or rash. Ear: No infection. Eyes: No vision loss, or diplopia. Nose: No bleeding or purulent discharges. Hearing: No hearing loss. Neck: No injury. Cardiac: HTN Pulmonary: No COPD. GI: No GI Ulcer, GI bleeding Urinary/genital: No dysuria, incontinence, urinary retention. Endocrine: Obesity. Skeletomuscular: No muscular atrophy, deformity. Neurological: see HP. Psychiatric: Alcohol use/abuse. Otherwise, not [id number] review of systems. PHYSICAL EXAMINATION: General appearance is unresponsiveness. HEENT: Normocephalic and nontraumatic. Neck: No lymphadenopathy. Cardiovascular: No HR appreciated.. Pulmonary: No breathing sounds to auscultation bilaterally. Abdomen: Bowel sounds anot appreciated. Extremities: No rash or edema. No movements. NEUROLOGICAL EXAMINATION: Unresponsive. Off vent family. Right pupil 2.5 mm, left pupil 3.5 mm, no reaction to strong light stimulation. No corneal reflex. CN: No response to stimuli. Muscle tone: decreased. Muscle strength: 0 DTR: 0 Plantar reflex: no response bilaterally Gait: Unable to walk. Sensory exam: no response to pain stimuli.. Objective Objective Vital Signs Date Time Temp Pulse Resp B/P (MAP) Pulse Ox O2 Delivery O2 Flow Rate FiO2 06/08/18 12:56 15 65 Ventilator 06/08/18 11:00 96 118/72 (87) 06/08/18 08:00 99.9 99.9 Intake and Output 06/08/18 07:00 Intake Total 5465.28 ml Output Total 2205 ml Balance 3260.28 ml IV Total 5465.28 ml Output Urine Total 2205 ml Vitals Signs Vitals VS - Last 72 Hours, by Label Date Time Temp Pulse Resp B/P (MAP) Pulse Ox O2 Delivery O2 Flow Rate FiO2 06/08/18 12:56 15 65 Ventilator 06/08/18 12:33 16 06/08/18 11:00 96 20 118/72 (87) 96 Ventilator 06/08/18 10:10 95 Ventilator 06/08/18 10:00 94 20 164/81 (108) 96 Ventilator 06/08/18 09:00 96 20 148/86 (106) 96 Ventilator 06/08/18 08:10 95 Ventilator 06/08/18 08:00 99.9 86 20 122/64 (83) 95 Ventilator 99.9 06/08/18 08:00 Mechanical Ventilator 06/08/18 07:00 86 20 113/72 (86) 95 Ventilator 06/08/18 06:00 95 20 145/83 (103) 96 Ventilator 06/08/18 05:46 96 184/81 06/08/18 05:45 95 Ventilator 06/08/18 05:00 99.2 102 20 185/93 (123) 97 Ventilator 99.2 06/08/18 04:00 102 20 159/104 (122) 97 Ventilator 06/08/18 04:00 Mechanical Ventilator 06/08/18 03:47 95 Ventilator 06/08/18 03:00 102 20 168/71 (103) 96 Ventilator 06/08/18 02:00 94 20 174/85 (114) 97 Ventilator 06/08/18 01:22 95 Ventilator 06/08/18 01:00 99.1 101 20 168/77 (107) 95 Ventilator 99.1 06/07/18 23:59 Mechanical Ventilator 06/07/18 23:59 101 20 161/113 (129) 95 Ventilator 06/07/18 23:45 95 Ventilator 06/07/18 23:00 106 20 160/110 (127) 95 Ventilator 06/07/18 22:00 110 20 188/98 (128) 95 Ventilator 06/07/18 21:00 111 20 180/103 (128) 95 Ventilator 06/07/18 20:04 93 Ventilator 06/07/18 20:00 99.5 111 20 158/60 (92) 94 Ventilator 99.5 06/07/18 20:00 Mechanical Ventilator 06/07/18 19:00 110 20 153/119 (130) 95 Ventilator 06/07/18 18:04 98 20 165/90 (115) 94 Ventilator 06/07/18 17:00 93 18 164/82 (109) 96 Ventilator 06/07/18 16:44 95 Ventilator 06/07/18 16:00 100.1 98 18 169/91 (117) 94 Ventilator 100.1 06/07/18 15:46 92 Ventilator 06/07/18 15:45 Mechanical Ventilator 06/07/18 15:11 99 18 159/84 (109) 94 Ventilator 06/07/18 14:11 99 18 179/63 (101) 94 Ventilator 06/07/18 13:07 112 18 202/78 (119) 95 Ventilator 06/07/18 12:55 50 Ventilator 06/07/18 12:03 102.1 114 18 165/109 (127) 93 Ventilator 102.1 06/07/18 12:00 Mechanical Ventilator 06/07/18 11:09 111 18 223/141 (168) 94 Ventilator 06/07/18 11:08 50 Ventilator 06/07/18 10:00 106 18 235/130 (165) 95 Ventilator 06/07/18 09:57 93 06/07/18 09:27 18 50 Ventilator 06/07/18 09:26 115 135/119 06/07/18 09:07 50 Ventilator 06/07/18 09:00 108 18 235/104 (147) 95 Ventilator 06/07/18 08:00 123 18 237/118 (157) 94 Ventilator 06/07/18 08:00 Mechanical Ventilator 06/07/18 07:00 103 18 189/84 (119) 94 Ventilator Laboratory Laboratory Laboratory Tests Test 06/07/18 15:56 06/07/18 18:09 06/07/18 23:48 06/08/18 05:04 O2 Saturation 94 % (92-99) Arterial Blood pH 7.30 (7.35-7.45) Arterial Blood pCO2 at Patient Temp 41 mmHg (35-46) Arterial Blood pO2 at Patient Temp 75 mmHg (75-108) Arterial Blood HCO3 20 mmol/L (21-28) Arterial Blood Base Excess -6 mmol/L (-3-3) FiO2 50% vent Glucose (Fingerstick) 250 mg/dL (70-99) 250 mg/dL (70-99) 237 mg/dL (70-99) Test 06/08/18 05:50 06/08/18 05:52 06/08/18 08:10 Heparin Anti-Xa Act, Unfractionated 0.35 IU/mL (0.30-0.70) White Blood Count 15.1 x10^3/uL (4.0-11.0) Red Blood Count 4.51 x10^6/uL (4.30-5.70) Hemoglobin 13.8 g/dL (13.0-17.5) Hematocrit 41.5 % (39.0-53.0) Mean Corpuscular Volume 92 fL (79-100) Mean Corpuscular Hemoglobin 31 pg (25-35) Mean Corpuscular Hemoglobin Concent 33 g/dL (31-37) Red Cell Distribution Width 13.6 % (11.5-14.5) Platelet Count 207 x10^3/uL (140-400) Neutrophils (%) (Auto) 80 % (31-73) Lymphocytes (%) (Auto) 9 % (24-48) Monocytes (%) (Auto) 10 % (0-9) Eosinophils (%) (Auto) 0 % (0-3) Basophils (%) (Auto) 0 % (0-3) Neutrophils # (Auto) 12.1 x10^3uL (1.8-7.7) Lymphocytes # (Auto) 1.4 x10^3/uL (1.0-4.8) Monocytes # (Auto) 1.6 x10^3/uL (0.0-1.1) Eosinophils # (Auto) 0.0 x10^3/uL (0.0-0.7) Basophils # (Auto) 0.1 x10^3/uL (0.0-0.2) Sodium Level 141 mmol/L (136-145) Potassium Level 4.2 mmol/L (3.5-5.1) Chloride Level 109 mmol/L (98-107) Carbon Dioxide Level 23 mmol/L (21-32) Anion Gap 9 (6-14) Blood Urea Nitrogen 22 mg/dL (8-26) Creatinine 1.2 mg/dL (0.7-1.3) Estimated GFR (Cockcroft-Gault) 62.2 Glucose Level 270 mg/dL (70-99) Calcium Level 7.3 mg/dL (8.5-10.1) Phosphorus Level 2.8 mg/dL (2.6-4.7) Magnesium Level 2.0 mg/dL (1.8-2.4) O2 Saturation 93 % (92-99) Arterial Blood pH 7.23 (7.35-7.45) Arterial Blood pCO2 at Patient Temp 54 mmHg (35-46) Arterial Blood pO2 at Patient Temp 77 mmHg (75-108) Arterial Blood HCO3 22 mmol/L (21-28) Arterial Blood Base Excess -6 mmol/L (-3-3) FiO2 50 Microbiology 06/07/18 Blood Culture - Preliminary, Resulted NO GROWTH AFTER 1 DAY 06/05/18 - Final, Complete Medication Medications Current Medications Lorazepam (Ativan) 1 mg PRN Q5MIN PRN IV ANXIETY / AGITATION Last administered on 06/08/18at 12:56; Start 06/08/18 at 11:30 Morphine Sulfate (Morphine Sulfate) 5 mg PRN Q5MIN PRN IV PAIN Last administered on 06/08/18at 12:56; Start 06/08/18 at 11:30 Sodium Acetate 90 meq/Potassium Chloride 50 meq/ Potassium Phosphate 13.6 mmol/ Magnesium Sulfate 18 meq/ Multivitamins 10 ml/Chromium/ Copper/Manganese/ Seleni /Zn 1 ml/ Total Parenteral Nutrition/Amino Acids/Dextrose/ Fat Emulsion Intravenous 1,512 ml @ 63 mls/hr TPN CONT IV Last administered on 06/07/18at 21:56; Start 06/07/18 at 22:00; Stop 06/08/18 at 11:23; Status DC Sodium Bicarbonate (Sodium Bicarb Adult 8.4% Syr) 50 meq 1X ONCE IV ; Start at 11:00; Stop 06/08/18 at 11:23; Status DC Vancomycin HCl (Vancomycin Trough Level) 1 each 1X ONCE MC ; Start 06/09/18 at 07:30; Stop 06/09/18 at 07:31; Status Cancel Vecuronium [place] (Norcuron Bolus) 10 mg PRN Q1HR PRN IV TREMORS Last administered on 06/08/18at 08:56; Start 06/07/18 at 15:30; Stop 06/08/18 at 11:23 ; Status DC Comment Review of Relevant I have reviewed the following items gisselle (where applicable) has been applied. MARYANNE,FERILYN MD Jun 08, 2018 15:01
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
--- NOTE | 2018-06-09 23:55 | EEG ---
DATE OF SERVICE: 06/08/2018 ELECTROENCEPHALOGRAM NUMBER: [id number]. OBJECTIVE: This is a 57-year-old male patient who has cardiopulmonary arrest. EEG was requested to evaluate cerebral activity. METHODS: Twenty electrodes were applied according to the international 10-20 electrode placement system. EKG monitoring, hyperventilation, intermittent photic stimulation, monopolar and bipolar montages are routinely utilized. The record was obtained on a digital system with video monitoring. FINDINGS: 1. Background: The patient was recorded in the unresponsive state only. No physiological awake, drowsy and sleep states were recorded. The overall background amplitude is variable. No well-organized posterior dominant rhythm is observed. The frequent activity in EEG is in accordance with the patient's body, head and extremity shaking or myoclonic like movements. 2. Abnormalities: Slowing in the theta and delta frequencies noted. About 6 Hz per second myoclonic or jerking like activity was obvious. 3. Activation: Hyperventilation was not performed because the patient was in comatose state. Intermittent photic stimulation was performed without photic driving. IMPRESSION: This electroencephalogram is an abnormal study for the unresponsive state only. No physiological awake, drowsy and sleep states were recorded. No clear posterior dominant rhythm is observed. Frequent activity with relative high amplitude in accordance with the patient's head, body and extremity shaking or myoclonic like movements, typical epileptiform discharges were not evident though. This pattern of electroencephalogram is suggestive of diffuse encephalopathy. NEISHA MADDEN MD DR: Jayesh JOB#: [id number] / [id number] KRISTI
--- NOTE | 2018-06-11 10:09 | PATHOLOGY ---
Note [facility] Accession Number: [id number] TESTS RESULT FLAG UNITS REF RANGE LAB Clinician Provided Cytology Information No. of containers..01 Other (Miscellaneous) Source: BRONCH WASH RUL DIAGNOSIS: 02 BRONCH WASH RUL NEGATIVE FOR MALIGNANT CELLS. REACTIVE BRONCHIAL CELLS ARE PRESENT. NORMAL BRONCHIAL CELLS AND MACROPHAGES ARE PRESENT. ACUTE INFLAMMATION. Signed out by: 02 Alfred Pimentel MD, Pathologist NPI- [id number] Performed by: Ramiro Rutledge, [employer] ([facility]) Gross description: 01 3ML, COLORLESS, CLOUDY /LCS FLAG LEGEND: L-Low Normal,H-High Normal,LL-Alert Low,HH-Alert High <-Panic Low,>-Panic High,A-Abnormal,AA-Critical Abnormal Performed at: [address] [facility] [address] [place] [address] [place] Park MD, 02 [facility] [address] [place] [address] Alfred Pimentel MD, Performed at: [address], [place], [place] [id number] MD Quinn Park MD Phone: [phone]
== END 2018-06-08 13:04 | disposition expired | DRG 853 ==
LOC: ER 20:47 → 1 WEST ICU 21:13
PROVIDERS: ADMIT Internal Medicine; ATTEND Internal Medicine
PROC: 0BH17EZ Insertion of Endotracheal Airway into Trachea, Via Natural or Artificial Opening (ICD-10-PCS; 2018-06-03)
PROC: 5A1955Z Respiratory Ventilation, Greater than 96 Consecutive Hours (ICD-10-PCS; 2018-06-03)
PROC: 02HV33Z Insertion of Infusion Device into Superior Vena Cava, Percutaneous Approach (ICD-10-PCS; principal; 2018-06-05)
PROC: 0B9K8ZX Drainage of Right Lung, Via Natural or Artificial Opening Endoscopic, Diagnostic (ICD-10-PCS; 2018-06-05)
PROC: B548ZZA Ultrasonography of Superior Vena Cava, Guidance (ICD-10-PCS; 2018-06-05)
PROC: 5A12012 Performance of Cardiac Output, Single, Manual (ICD-10-PCS; 2018-06-05)
DX: A41.9 Sepsis, unspecified organism (principal); J96.01 Acute respiratory failure with hypoxia; J69.0 Pneumonitis due to inhalation of food and vomit; I50.23 Acute on chronic systolic (congestive) heart failure; G92 Toxic encephalopathy; N17.0 Acute kidney failure with tubular necrosis; S22.32XA Fracture of one rib, left side, initial encounter for closed fracture; Z68.42 Body mass index [BMI] 45.0-49.9, adult; E44.1 Mild protein-calorie malnutrition; G93.1 Anoxic brain damage, not elsewhere classified; I16.1 Hypertensive emergency; I47.2 Ventricular tachycardia; J98.11 Atelectasis; J98.19 Other pulmonary collapse; I46.9 Cardiac arrest, cause unspecified; Z66 Do not resuscitate; E11.65 Type 2 diabetes mellitus with hyperglycemia; E66.01 Morbid (severe) obesity due to excess calories; E78.5 Hyperlipidemia, unspecified; E83.42 Hypomagnesemia; F10.229 Alcohol dependence with intoxication, unspecified; F32.9 Major depressive disorder, single episode, unspecified; G25.3 Myoclonus; G47.33 Obstructive sleep apnea (adult) (pediatric); I11.0 Hypertensive heart disease with heart failure; I34.0 Nonrheumatic mitral (valve) insufficiency; F41.9 Anxiety disorder, unspecified; K57.90 Diverticulosis of intestine, part unspecified, without perforation or abscess without bleeding; I49.01 Ventricular fibrillation; K82.8 Other specified diseases of gallbladder; L08.9 Local infection of the skin and subcutaneous tissue, unspecified; R56.9 Unspecified convulsions; Y90.2 Blood alcohol level of 40-59 mg/100 ml; Z80.1 Family history of malignant neoplasm of trachea, bronchus and lung; Z81.8 Family history of other mental and behavioral disorders; Z82.49 Family history of ischemic heart disease and other diseases of the circulatory system; Z86.79 Personal history of other diseases of the circulatory system
CPT/HCPCS: 31500; 31622; 36415; 36556; 36600; 70450; 71045; 71275; 72125; 74174; 76700; 76937; 80047; 80048; 80053; 80061; 80076; 80202; 80307; 81001; 82150; 82248; 82310; 82805; 82962; 83036; 83605; 83690; 83735; 83880; 84100; 84145; 84478; 84484; 85007; 85025; 85027; 85520; 85610; 85730; 87040; 87070; 87205; 87641; 93005; 93306; 94002; 94003; 94640; 95816; 96365; 96375; 99291; C1892; C9113; G0480; J0282; J0330; J0360; J0610; J0692; J1644; J1815; J1953; J2060; J2175; J2248; J2250; J2270; J2543; J2704; J3010; J3370; J3475; J3490; J7030; J7040; Q9967; G0479